=== PATIENT | male | born 1965 | race Native Hawaiian/Other Pacific Islander ===

== ENCOUNTER 2018-03-16 10:27 | Inpatient (IN) | payer MEDICARE, MEDICAID, SELFPAY ==
[2018-03-16] VITALS (11 sets, daily range): BP systolic 124–139; BP diastolic 74–101; PULSE 58–70; RESP 16–27; TEMP 36.3–36.9; O2SAT 78–96; BMI 30.4; BMI 30.9; BMI 31.0
--- NOTE | 2018-03-16 10:47 | EKG12_ITS ---
Test Reason : SOB Blood Pressure : / mmHG Vent. Rate : 069 BPM Atrial Rate : 069 BPM P-R Int : 150 ms QRS Dur : 098 ms QT Int : 442 ms P-R-T Axes : 079 071 115 degrees QTc Int : 473 ms Sinus rhythm with Premature supraventricular complexes T wave abnormality, consider anterolateral ischemia Abnormal ECG Confirmed by EDITH CARTWRIGHT, DOUG ([id number]), editor city ASTRID BASS ([id number]) on 03/18/2018 1:02:16 PM Referred By: JAMILA Confirmed By:DOUG SHARMA MD
[2018-03-16] MEDS: Ipratropium/Albuterol Sulfate 3 ML AMPUL.NEB INHALATION ×2 (10:52→18:51)
--- NOTE | 2018-03-16 10:53 | RAD_ITS ---
STUDY: X-RAY CHEST REASON FOR EXAM: Male, 53 years old. Cough, dyspnea and weakness. TECHNIQUE: Single AP portable view of the chest. COMPARISON: Comparison is made with prior study dated May 02, 2016. FINDINGS: EKG electrodes are seen. The lungs are clear and expanded. There is no demonstrated pleural abnormality. There is mild cardiac enlargement. Normal mediastinum and racquel. Normal visualized pulmonary arteries. There is atherosclerotic tortuosity of the aortic arch and descending thoracic aorta. Normal visualized thoracic spine. Normal visualized ribs, clavicles, and shoulders. There is no demonstrated abnormality of the visualized soft tissue structures of the upper abdomen. RAD/Chest 1 View (Portable) IMPRESSION: Mild cardiomegaly. No acute abnormality is seen. Electronically Signed: Augustus Ba MD at 11:25 EST Tel [phone], Service support ,
[2018-03-16] MEDS: MethylPREDNISolone 125 MG/2 ML Vial IV (10:54)
[2018-03-16 11:07] LABS: Absolute Lymphocyte Count 1.44 X10^3/ul (0.83-4.51); Absolute Neutrophil Count 6.6 X10^3/uL (2.0-7.7); Basophil# 0.04 X10^3/uL; Basophil% 0.4 % (0-1); Eosinophil# 0.05 X10^3/uL; Eosinophils% 0.6 % (0-5); Hematocrit 48.4 % (40-54); Hemoglobin 15.1 g/dl (13.0-16.5); Lymphocyte # 1.44 X10^3/ul (4.0); Lymphocyte % 16.1 % (19-41); Mean Corp Hgb Conc 31.2 g/gl (32-36); Mean Corpuscular Hgb 29.6 pg (27.0-32.0); Mean Corpuscular Volume 94.9 fL (80-94); Mean Platelet Vol. 10.1 fl (6.2-12.0); Monocyte# 0.79 X10^3/uL; Monocyte% 8.8 % (0-10); Neutrophil # 6.63 X10^3/uL (2.7-7.7); Platelet Count 200 K/mm3 (150-450); RBC Distribution Width CV 14.4 % (11.6-14.6); RBC Distribution Width SD 48.3 fl (35.1-43.9)
[2018-03-16 11:08] LABS: POSITIVE COUNT NO; POSITIVE DIFFERENTIAL NO; POSITIVE MORPHOLOGY NO
[2018-03-16 11:28] LABS: Anion Gap 4 (5-15); BUN 22 mg/dL (7-18); BUN/Creat Ratio 17.3 RATIO (10-20); Calcium,Total 8.2 mg/dL (8.5-10.1); Chloride 100 mmol/L (98-107); Creatinine, Serum 1.27 mg/dL (0.70-1.30); EST Glomerular Filtration Rate 64 mL/min (>60); Est Glom Filt Rate - Afr Amer 77 mL/min (>60); Estimated Creatinine Clearance 68.81 ml/min; Glucose 119 mg/dL (74-106); Potassium 3.8 mmol/L (3.5-5.1); Sodium Level 145 mmol/L (136-145)
[2018-03-16 11:33] LABS: BNP,B-Type NATRIURETIC PEPTIDE 767.9 pg/mL (0-100)
--- NOTE | 2018-03-16 11:50 | HP.PCM_ITS ---
Problem List (1) Diastolic CHF, acute on chronic Status: Acute (2) COPD with acute exacerbation Status: Acute (3) Dyspnea on exertion Status: Acute (4) Essential hypertension Status: Chronic (5) Chronic systolic (congestive) heart failure Status: Chronic (6) History of non-ST elevation myocardial infarction (NSTEMI) Status: Chronic (7) Paroxysmal atrial flutter Status: Chronic (8) Non-rheumatic mitral regurgitation Status: Chronic (9) Nonrheumatic tricuspid valve regurgitation Status: Chronic (10) Nonrheumatic pulmonary valve insufficiency Status: Chronic (11) Cardiomyopathy Status: Chronic Qualifiers: Cardiomyopathy type: other Qualified Code(s): I42.8 - Other cardiomyopathies Comment: resolved- was 20% (12) Pulmonary hypertension Status: Chronic (13) Coronary artery disease Status: Chronic Qualifiers: Coronary Disease-Associated Artery/Lesion type: [place] artery [place] vs. transplanted heart: [place] heart Associated angina: without angina Qualified Code(s): I25.10 - Atherosclerotic heart disease of [place] coronary artery without angina pectoris (14) History of PTCA Status: Chronic (15) Obstructive sleep apnea Status: Chronic (16) Obesity (BMI 30.0-34.9) Status: Chronic (17) Hyperlipidemia Status: Chronic Qualifiers: Hyperlipidemia type: pure hypercholesterolemia Qualified Code(s): E78.00 - Pure hypercholesterolemia, unspecified; E78.0 - Pure hypercholesterolemia (18) Paroxysmal atrial fibrillation Status: Chronic (19) Chronic anticoagulation Status: Chronic (20) Depression Status: Chronic (21) Smoking addiction Status: Chronic (22) COPD (chronic obstructive pulmonary disease) Status: Chronic Qualifiers: COPD type: unspecified COPD Qualified Code(s): J44.9 - Chronic obstructive pulmonary disease, unspecified (23) Abnormal EKG Status: Chronic (24) CO2 retention Status: Chronic (25) COPD exacerbation Status: Acute History of Present Illness Date of Admission: 03/16/18 Chief Complaint: Shortness of breath The patient is a 53 year old M with extensive past medical history including congestive heart failure, COPD who continues to smoke presented with shortness of breath. Patient states he is experienced progressive shortness of breath with minimal activity over the past couple of weeks. Also did notice a 20 pound weight gain over 1 month. He had apparently been seen by his primary senior product consultant a few days prior to his admission made medication adjustments were made however patient condition continues to deteriorate. He also did experience cough nonproductive as well as wheezing. He finally presented to the emergency department where an assessment of both congestive heart failure and CHF was made admitted to monitored bed for further management Past Medical History Past Medical History (Chronic Problems): Chronic Problems (Last Reviewed 03/16/18 @ 16:19 by Meng Burrell MD) Essential hypertension (Chronic) Chronic systolic (congestive) heart failure (Chronic) History of non-ST elevation myocardial infarction (NSTEMI) (Chronic) Paroxysmal atrial flutter (Chronic) Non-rheumatic mitral regurgitation (Chronic) Nonrheumatic tricuspid valve regurgitation (Chronic) Nonrheumatic pulmonary valve insufficiency (Chronic) Cardiomyopathy (Chronic) resolved- was 20% Pulmonary hypertension (Chronic) Coronary artery disease (Chronic) History of PTCA (Chronic) Obstructive sleep apnea (Chronic) Obesity (BMI 30.0-34.9) (Chronic) Hyperlipidemia (Chronic) Paroxysmal atrial fibrillation (Chronic) Chronic anticoagulation (Chronic) Depression (Chronic) Smoking addiction (Chronic) COPD (chronic obstructive pulmonary disease) (Chronic) Abnormal EKG (Chronic) CO2 retention (Chronic) Medical History: Medical History (Last Reviewed 03/16/18 @ 16:19 by Meng Burrell MD) Essential hypertension (Chronic) I10 Chronic systolic (congestive) heart failure (Chronic) I50.22 History of non-ST elevation myocardial infarction (NSTEMI) (Chronic) I25.2 Paroxysmal atrial flutter (Chronic) I48.92 Non-rheumatic mitral regurgitation (Chronic) I34.0 Nonrheumatic tricuspid valve regurgitation (Chronic) I36.1 Nonrheumatic pulmonary valve insufficiency (Chronic) I37.1 Cardiomyopathy (Chronic) I42.9 resolved- was 20% Pulmonary hypertension (Chronic) I27.20 Dyspnea on exertion (Acute) R06.09 Coronary artery disease (Chronic) I25.10 Obstructive sleep apnea (Chronic) G47.33 Hyperlipidemia (Chronic) E78.5 Paroxysmal atrial fibrillation (Chronic) I48.0 Chronic anticoagulation (Chronic) Z79.01 Depression (Chronic) F32.9 Smoking addiction (Chronic) F17.200 COPD (chronic obstructive pulmonary disease) (Chronic) J44.9 Abnormal EKG (Chronic) R94.31 CO2 retention (Chronic) E87.2 Acute respiratory distress R06.03 Acute systolic (congestive) heart failure I50.21 Cough R05 Hemochromatosis E83.119 Non-ST elevated myocardial infarction I21.4 rales, bibasilar Dilated cardiomyopathy I42.0 Lung nodule R91.1 Nonrheumatic mitral (valve) insufficiency I34.0 Nonrheumatic tricuspid (valve) insufficiency I36.1 Stage 4 very severe COPD by GOLD classification J44.9 nonrheumatic pulmonary valve regurgitation Hypertension (Inactive) I10 Uncontrolled hypertension (Inactive) I10 Allergies promethazine HCl [From Phenergan] Adverse Reaction (Verified 03/16/18 10:30) Unknown Home Medications: Ambulatory Orders Medication Instructions Recorded Losartan Potassium [Cozaar] 50 mg PO DAILY 09/28/15 Nitroglycerin [Nitrostat] 0.4 mg SUBLINGUAL Q5M PRN 09/28/15 Amlodipine [Norvasc] 5 mg PO DAILY 03/21/16 Bupropion HCl [Bupropion HCl Sr] 150 mg PO DAILY 12/01/16 Escitalopram Oxalate [Lexapro] 10 mg PO DAILY 12/01/16 Fexofenadine HCl 180 mg PO DAILY 12/01/16 Griseofulvin, Microsize 500 mg PO DAILY 12/01/16 [Griseofulvin] albuterol sulfate 2.5 mg/3 mL 2.5 mg INHALATION Q4H PRN 09/15/17 (0.083 %) solution for nebulization apixaban 5 mg tablet 5 mg PO BID #60 tab 09/16/17 amiodarone 200 mg tablet 200 mg PO DAILY #30 tab 10/03/17 albuterol sulfate HFA 90 1 - 2 puff INHALATION Q4H PRN #18 g 11/14/17 mcg/actuation aerosol inhaler potassium chloride ER 20 mEq 20 meq PO DAILY #90 tab 11/19/17 tablet,extended release(part/cryst) tiotropium bromide 2.5 2 puff INHALATION QDAY #4 g 02/24/18 mcg/actuation mist for inhalation isosorbide mononitrate ER 30 mg 30 mg PO DAILY #30 tab 03/04/18 tablet,extended release 24 hr atorvastatin 40 mg tablet 40 mg PO DAILY 30 Days #30 tab 03/12/18 carvedilol 6.25 mg tablet 6.25 mg PO BID 30 Days #60 tab 03/12/18 fluticasone 100 mcg-vilanterol 25 1 inh INHALATION DAILY 03/12/18 mcg/dose powder for inhalation furosemide 40 mg tablet 40 mg PO DAILY 30 Days #30 tab 03/12/18 hydralazine 100 mg tablet 100 mg PO TID 30 Days #90 tab 03/12/18 Surgical History: Surgical History (Last Reviewed 03/16/18 @ 16:19 by Meng Burrell MD) History of PTCA (Chronic) Z98.61 History of left heart catheterization (LHC) Z98.890 08/14/2015 at [facility] Psychiatric History: Depression Smoking Status: Current every day smoker - *Family History Maternal Family History: Family History (Last Reviewed 03/16/18 @ 16:19 by Meng Burrell MD) Mother CAD (coronary artery disease) Heart disease Diabetes Father Brain tumor History Items: Heart Disease Sibling Family History: Family History (Last Reviewed 03/16/18 @ 16:19 by Meng Burrell MD) Mother CAD (coronary artery disease) Heart disease Diabetes Father Brain tumor History Items: Heart Disease, - - his brother at the age of 62 with heart disease and stroke Review of Systems Constitutional: Reports: Malaise, Weakness, Weight Change. Denies: Anorexia, Chills, Fever, Night Sweats HEENT: Denies: Head Aches, Sinus Congestion, Sinus Drainage Cardiovascular: Reports: Orthopnea. Denies: Chest Pain, Palpitations Respiratory: Reports: Cough Gastrointestinal: Denies: Abdominal Pain, Hematemesis, Hematochezia, Nausea, Melena, Vomiting Genitourinary: Denies: Dysuria, Frequency, Hematuria, Urgency Musculoskeletal: Denies: Joint Pain, Joint Tenderness Skin: Denies: Rash Neurological: Denies: Focal weakness, Numbness, Tingling Psychiatric: Denies: Homicidal Ideations, Suicidal Ideations Hematologic/ Lymphatic: Denies: Easy Bruising, Easy Bleeding VTE Information - Inpt Only VTE Present on Admission: No VTE Mechan Device Prophylaxis: Knee High PAALK Hose VTE Pharm Prophylaxis ordered?: Yes Patient Problems: Active and Suspected Problems (Last Reviewed 03/16/18 @ 16:19 by Meng Burrell MD) Acute on chronic systolic (congestive) heart failure (Acute) COPD exacerbation (Acute) COPD with acute exacerbation (Acute) Diastolic CHF, acute on chronic (Acute) Objective: GENERAL: cooperative but dyspneic at rest HEENT: Atraumatic; moist oral mucosa EYES; Anicteric, Normal Conjunctiva NECK; supple, normal thyroid, no distended JVD. RESPIRATORY: Diminished to auscultation bilaterally, CARDIOVASCULAR: Regular S1 S2, systolic murmurs GI: soft, non-tender, normoactive bowel sounds, : No Renal angle tenderness; EXTREMITIES: edema, no clubbing, no cyanosis. MUSCULOSKELETAL: No Joint Tenderness; no muscle waisting NEURO: Awake; no lateralizing signs. SKIN: No Rash PSYCH; Normal affect - Physical Exam Vital Signs Temp Pulse Resp BP Pulse Ox 97.3 F L 63 18 124/86 H 96 03/16/18 10:28 03/16/18 10:57 03/16/18 10:57 03/16/18 10:41 03/16/18 10:41 Oxygen Flow Rate (L/min) 6 Oxygen Delivery Method Room Air Weight: 93.6 kg Body Mass Index (BMI) 30.4 Laboratory Tests Past 24 Hrs 03/16/18 03/16/18 03/16/18 10:50 10:50 10:50 WBC 9.0 RBC 5.10 Hgb 15.1 Hct 48.4 MCV 94.9 H MCH 29.6 MCHC 31.2 L RDW 14.4 RDW Differential 48.3 H Plt Count 200 MPV 10.1 Immature Gran % (Auto) 0.100 Neut % (Auto) 74.0 H Lymph % (Auto) 16.1 L [place] % (Auto) 8.8 Eos % (Auto) 0.6 Baso % (Auto) 0.4 Absolute Neuts (auto) 6.6 Absolute Lymphs (auto) 1.44 Total Counted Not Reportable Sodium 145 Potassium 3.8 Chloride 100 Carbon Dioxide 41.0 H Anion Gap 4 L BUN 22 H Creatinine 1.27 Estim Creat Clear Calc 68.81 Est GFR (MDRD) Af Amer 77 Est GFR (MDRD) Non-Af 64 BUN/Creatinine Ratio 17.3 Glucose 119 H Lactic Acid 1.0 Calcium 8.2 L Troponin I 0.021 B-Natriuretic Peptide 03/16/18 10:50 WBC RBC Hgb Hct MCV MCH MCHC RDW RDW Differential Plt Count MPV Immature Gran % (Auto) Neut % (Auto) Lymph % (Auto) [place] % (Auto) Eos % (Auto) Baso % (Auto) Absolute Neuts (auto) Absolute Lymphs (auto) Total Counted Sodium Potassium Chloride Carbon Dioxide Anion Gap BUN Creatinine Estim Creat Clear Calc Est GFR (MDRD) Af Amer Est GFR (MDRD) Non-Af BUN/Creatinine Ratio Glucose Lactic Acid Calcium Troponin I B-Natriuretic Peptide 767.9 H Assessment/Plan All Active Problems (Last Reviewed 03/16/18 @ 16:19 by Meng Burrell MD) Acute on chronic systolic (congestive) heart failure (Acute) COPD exacerbation (Acute) COPD with acute exacerbation (Acute) Diastolic CHF, acute on chronic (Acute) Dyspnea on exertion (Acute) Patient is a 53-year-old gentleman presented with progressive shortness of breath and assessment of both CHF as well as COPD exacerbation made admitted to a monitored bed for further management 1. Acute on chronic diastolic heart failure patient has been admitted to a monitored . As part of patient's treatment patient was placed on fluid restriction, strict input and output, daily weights. He was also placed on IV Lasix. A 2D echo obtained demonstrated EF of 50% 2. COPD with acute exacerbation managed with systemic steroid antibiotics aerosol treatment as well as bronchodilator therapy in addition to supplemental oxygen 3. Paroxysmal atrial fibrillation rate controlled 4. Coronary artery disease With previous non-STEMI but no intervention 5. Dyslipidemia-patient is on statin therapy, continued at home dose 6. Hypertension-blood pressure controlled, home medications continued with dose adjustment as needed 7. Tobacco dependence counseled on cessation, offered nicotine patch for tobacco cravings 8. DVT prophylaxis on systemic anticoagulation with Eliquis 9. Obstructive sleep apnea 10. Morbid obesity with BMI of 31.0 lifestyle medication including weight loss advised Clinical Impression(s) from Imaging Studies Chest X-Ray 03/16/18 10:53 IMPRESSION: Mild cardiomegaly. No acute abnormality is seen. Electronically Signed: Augustus Ba MD at 11:25 EST Tel [phone], Service support , Code Visit Inpatient E&M: [id number] Init Hosp L3
--- NOTE | 2018-03-16 11:54 | ED.VISSUMM ---
- ER Visit Summary Date of Service: 03/16/18 Chief Complaint: [Shortness of breath] History of Present Illness: The patient is a 53 M [presents the emergency department complaint of shortness of breath that started 3 or 4 days ago. Patient's had a cough is mostly nonproductive. He denies any chest pain. Patient does not wear home O2 but he does have CPAP at night for his sleep apnea but he has not been wearing it because it is not been fitting properly. Patient states that he is gained about 14 pounds in the last 4 months or so. Patient apparently had run out of his diuretics at some point but saw his commodity specialist on the first of this month and had refills of his medication so he started those up again. Patient's not had any fever. He denies any chest pain.] Physical Examination: [HEENT-PERRLA, EOMI. Cranial nerves II through XII grossly intact. TMs clear. Mucous membranes moist. No adenopathy. Cardiovascular-regular rate and rhythm without murmur or ectopy Lungs-breath sounds bilaterally. Patient does have some X Tory wheezes and tachypnea. There is no excessive emesis or retractions. Patient got some coarse rhonchi bilaterally and some faint rales in the bases. Abdomen-normoactive bowel sounds, soft, nontender, no rebound or rigidity, no peritoneal signs. Extremities-intact ?4, normal range of motion, normal pulses, atraumatic. No edema of the lower extremity is noted.] Test Results: [EKG obtained arrival shows sinus rhythm with a ventricular rate 69 bpm with some nonspecific ST changes. CBC with differential showed a white count of 9.0, hemoglobin 15, hematocrit 48, platelets 200. Chemistries unremarkable. Troponin is 0.021. BNP was elevated 767. Chest x-ray showed some mild cardiomegaly otherwise nothing acute.] Emergency Department Course and Treatment: [Patient was given DuoNeb aerosols and was placed on nasal cannula O2. Patient was started on Solu-Medrol 125 mill grams IV. Patient was given Lasix 40 mill grams IV.] Treatment Plan: [Patient will be admitted] Disposition: [Admit] Impression: [Hypoxemia COPD exacerbation CHF] This note was generated with [employer] dictation software. It may contain incorrect words, spelling, and punctuation that were not noted in review of the chart prior to signing ED Disposition - Plan for ED Patient: Chief Complaint: Cough Referrals: Rohit Peralta Chi, MD [Primary Care Provider] -
--- NOTE | 2018-03-16 11:57 | ED.DCSUM_ITS ---
- ER Visit Summary Date of Service: 03/16/18 Chief Complaint: [Shortness of breath] History of Present Illness: The patient is a 53 M [presents the emergency department complaint of shortness of breath that started 3 or 4 days ago. Patient's had a cough is mostly nonproductive. He denies any chest pain. Patient does not wear home O2 but he does have CPAP at night for his sleep apnea but he has not been wearing it because it is not been fitting properly. Patient states that he is gained about 14 pounds in the last 4 months or so. Patient apparently had run out of his diuretics at some point but saw his chinchilla machine operator on the first of this month and had refills of his medication so he started those up again. Patient's not had any fever. He denies any chest pain.] Physical Examination: [HEENT-PERRLA, EOMI. Cranial nerves II through XII grossly intact. TMs clear. Mucous membranes moist. No adenopathy. Cardiovascular-regular rate and rhythm without murmur or ectopy Lungs-breath sounds bilaterally. Patient does have some X Tory wheezes and tachypnea. There is no excessive emesis or retractions. Patient got some coarse rhonchi bilaterally and some faint rales in the bases. Abdomen-normoactive bowel sounds, soft, nontender, no rebound or rigidity, no peritoneal signs. Extremities-intact ?4, normal range of motion, normal pulses, atraumatic. No edema of the lower extremity is noted.] Test Results: [EKG obtained arrival shows sinus rhythm with a ventricular rate 69 bpm with some nonspecific ST changes. CBC with differential showed a white count of 9.0, hemoglobin 15, hematocrit 48, platelets 200. Chemistries unremarkable. Troponin is 0.021. BNP was elevated 767. Chest x-ray showed some mild cardiomegaly otherwise nothing acute.] Emergency Department Course and Treatment: [Patient was given DuoNeb aerosols and was placed on nasal cannula O2. Patient was started on Solu-Medrol 125 mill grams IV. Patient was given Lasix 40 mill grams IV.] Treatment Plan: [Patient will be admitted] Disposition: [Admit] Impression: [Hypoxemia COPD exacerbation CHF] This note was generated with [employer] dictation software. It may contain incorrect words, spelling, and punctuation that were not noted in review of the chart prior to signing ED Disposition - Plan for ED Patient: Chief Complaint: Cough Referrals: Rohit Peralta Chi, MD [Primary Care Provider] -
[2018-03-16] MEDS: Furosemide 40 MG/4 ML Vial IV ×3 (12:30→22:45)
--- NOTE | 2018-03-16 12:58 | ECHOD_ITS ---
Reason For Study: CHF Procedure This was a 2D Doppler, Color Flow transthoracic echocardiogram. Exam performed portable in patient room. Left Ventricle Normal LV size. Left ventricular systolic function is lower limits of normal. The estimated ejection fraction is 50 %. Stage 1 diastolic dysfunction. No regional wall motion abnormalities noted. Right Ventricle Normal RV size. Normal systolic function. Atria Normal left atrium. Normal right atrium. Mitral Valve Normal mitral valve. Mild (1+) eccentric mitral valve insufficiency. Tricuspid Valve Normal tricuspid valve. Mild (1+) tricuspid valve insufficiency. Pulmonary artery systolic pressure is 35 mmHg. Aortic Valve Normal aortic valve. Trisinus/trileaflet aortic valve. Pulmonic Valve Normal pulmonic valve. Great Vessels Normal aortic root. The pulmonary artery is normal size. Normal inferior vena cava. Pericardium/Pleural No pericardial effusion. MMode/2D Measurements & Calculations LVIDd: 5.3 cm IVSd: 1.3 cm Ao root diam: 3.7 cm LVIDs: 4.0 cm LVPWd: 1.4 cm LA dimension: 4.4 cm RVDd: 4.4 cm FS: 23.6 % LAV(MOD-bp): 73.0 ml LVAd ap4: 43.2 cm2 SV(MOD-sp4): 76.9 ml LAV(MOD-bp) Indexed: 34.6 ml/m2 EDV(MOD-sp4): 162.2 ml LAV(MOD-sp2): 88.6 ml EDV(sp4-el): 175.2 ml LAV(MOD-sp4): 53.2 ml LVAs ap4: 28.2 cm2 ESV(MOD-sp4): 85.3 ml ESV(sp4-el): 89.6 ml EF(MOD-sp4): 47.4 % EF(sp4-el): 48.9 % SV(sp4-el): 85.6 ml LA A4 area: 20.0 cm2 RA A4 area: 18.4 cm2 Time Measurements MV dec time: 0.19 sec Doppler Measurements & Calculations MV E max roberto: 68.4 cm/sec Lat Peak E' Roberto: 7.8 cm/sec Med Peak E' Roberto: 4.6 cm/sec MV A max roberto: 81.3 cm/sec E/E' lat: 8.8 E/E' med: 14.9 MV E/A: 0.84 MV V2 max: 97.3 cm/sec MV P1/2t max roberto: 88.6 cm/sec Ao V2 max: 120.0 cm/sec MV max P.8 mmHg MV P1/2t: 75.3 msec Ao max P.8 mmHg MV V2 mean: 52.5 cm/sec MV dec slope: 344.8 cm/sec2 Ao V2 mean: 83.5 cm/sec MV mean P.3 mmHg MVA(P1/2t): 2.9 cm2 Ao mean P.1 mmHg MV V2 VTI: 26.5 cm Ao V2 VTI: 24.9 cm LV V1 max: 114.1 cm/sec MR max roberto: 369.5 cm/sec PA V2 max: 96.3 cm/sec LV V1 max P.2 mmHg MR max P.6 mmHg LV V1 mean P.4 mmHg LV V1 mean: 69.7 cm/sec LV V1 VTI: 23.0 cm TR max roberto: 280.6 cm/sec TR max P.5 mmHg Interpretation Summary Normal LV size. Left ventricular systolic function is lower limits of normal. The estimated ejection fraction is 50 %. Stage 1 diastolic dysfunction. Compared to previous study, the left ventricular systolic function has worsened.. Ordering Physician: Meng Burrell Referring Physician: Rohit Peralta Chi Performed By: Bill Whaley RCS
[2018-03-16 13:41] LABS: Magnesium 2.1 mg/dL (1.6-2.6); Thyroid Stim Hormone (TSH) 2.01 uIU/mL (0.358-3.74)
[2018-03-16] MEDS: 0.9% NaCl Peripheral Flush Adult/Peds IV ×3 (16:30→22:46)
[2018-03-16] MEDS: Acetaminophen 325 MG Tablet 650 MG PO (16:31)
[2018-03-16] MEDS: guaiFENesin 1,200 MG Tablet 1200 MG PO (22:45)
[2018-03-17] VITALS (13 sets, daily range): BP systolic 126–163; BP diastolic 56–93; PULSE 61–88; RESP 16–24; TEMP 36.8–36.9; O2SAT 83–97
[2018-03-17] MEDS: Albuterol 2.5 MG/3 ML VIAL.NEB. INHALATION (00:43)
[2018-03-17] MEDS: Furosemide 40 MG/4 ML Vial IV ×3 (06:18→21:07)
[2018-03-17 06:40] LABS: Anion Gap 6 (5-15); BUN 24 mg/dL (7-18); BUN/Creat Ratio 20.9 RATIO (10-20); Calcium,Total 8.3 mg/dL (8.5-10.1); Chloride 97 mmol/L (98-107); Creatinine, Serum 1.15 mg/dL (0.70-1.30); EST Glomerular Filtration Rate 71 mL/min (>60); Est Glom Filt Rate - Afr Amer 86 mL/min (>60); Estimated Creatinine Clearance 75.99 ml/min; Glucose 170 mg/dL (74-106); Sodium Level 144 mmol/L (136-145)
[2018-03-17] MEDS: Ipratropium/Albuterol Sulfate 3 ML AMPUL.NEB INHALATION ×4 (07:00→18:49)
[2018-03-17] MEDS: guaiFENesin 1,200 MG Tablet 1200 MG PO ×2 (10:17→21:07)
[2018-03-17] MEDS: Enoxaparin 40 MG/0.4 ML Syringe SC (10:19)
[2018-03-17] MEDS: 0.9% NaCl Peripheral Flush Adult/Peds IV ×3 (10:24→21:08)
--- NOTE | 2018-03-17 10:53 | CASEMGMT ---
ESPERANZA COCHRAN INITIAL ASSESSMENT D/C PLAN: Home Face to Face with patient for initial transition planning/care coordination assessment. ESPERANZA COCHRAN introduced self and role at [facility]. Care providers, pharmacy, and demographics verified. PCP: Fabian Specialists: Clinton Golden Preferred Pharmacy: [facility] Insurance: MCR A & B, CHARLES. Prescription Benefit: [employer], CHARLES. does not have difficulty getting/paying for his prescriptions. Living Will/HPOA: Does not have either LW or HPOA. Would like to talk with [facility] re: adv directive. Referral made to [facility] [place]. LNOK: Is not and states has no children. States his girlfriend, Abigail, is his only support person. Living Arrangements: Lives with his girlfriend, Abigail, and her brother. Lives in a on-story apartment. 1 step to enter home. Transportation: Pt states he does not drive. States his Girlfriend, Abigail, provides transportation and that he gets a ride with a friend to work. DME: States uses CPAP @ HS w/O2 bleed-in @ 5 L/M and gets through [facility] and that he states they told him he needs new sleep study. Pt voices that he has been unable to do this d/t his job has been requiring mandatory over-time. Call placed to Gissel @ [facility]. Gissel confirms they provide O2 for CPAP bleed-in and orders are for 4 L/M. Gissel confirms that pt does need a new sleep study d/t pt has MCR now and that if he does not have new sleep study done, they will be unable to bill through Medicare and that they will need to begin billing pt directly. Pt advised to follow up with his PCP to get work-release so he can have sleep study completed. *Pt does not wear O2 @ home during the day. Will need walking home O2 test completed within 24 hr of discharge. HHC: States does not feel needs HHC upon return home. Pt wishes to return home with support of his girlfriend. States he still smokes but that he's working on that. States, I've cut back a lot. Declines offer of smoking cessation information/program. States he does not drink alcohol. CM to follow for any further discharge planning needs that may arise. Qing GUSTAFSON RN, CM
--- NOTE | 2018-03-17 11:07 | PCM.PN.HOSP ---
Patient Problems: Active and Suspected Problems (Last Reviewed 03/16/18 @ 16:19 by Meng Burrell MD) Acute on chronic systolic (congestive) heart failure (Acute) COPD exacerbation (Acute) COPD with acute exacerbation (Acute) Diastolic CHF, acute on chronic (Acute) Subjective: Patient is a 53-year-old gentleman presented with progressive shortness of breath and assessment of both CHF as well as COPD exacerbation made admitted to a monitored bed for further management Since seen still remains significantly dyspneic at rest Objective: GENERAL: cooperative but dyspneic at rest HEENT: Atraumatic; moist oral mucosa EYES; Anicteric, Normal Conjunctiva NECK; supple, normal thyroid, no distended JVD. RESPIRATORY: Diminished to auscultation bilaterally, CARDIOVASCULAR: Regular S1 S2, systolic murmurs GI: soft, non-tender, normoactive bowel sounds, : No Renal angle tenderness; EXTREMITIES: edema, no clubbing, no cyanosis. MUSCULOSKELETAL: No Joint Tenderness; no muscle waisting NEURO: Awake; no lateralizing signs. SKIN: No Rash PSYCH; Normal affect Vitals/I&O's: Vital Signs Temp Pulse Resp BP Pulse Ox 98.2 F 82 24 H 151/93 H 92 03/17/18 08:11 03/17/18 10:51 03/17/18 10:51 03/17/18 08:11 03/17/18 10:51 Oxygen Flow Rate (L/min) 3 Oxygen Delivery Method Nasal Cannula Weight: 94.7 kg Body Mass Index (BMI) 30.9 Intake and Output for Last 24 Hours 03/15/18 03/16/18 03/17/18 23:59 23:59 23:59 Intake Total 754 / 754 600 / 600 Output Total 1675 / 1675 1650 / 1650 Balance -921 / -921 -1050 / -1050 Microbiology Past 72 Hours 03/16/18 15:45 Mucosa - Nasopharyngeal Influenza Types A,B Direct FA ([facility]) - Final Laboratory Results 03/16/18 10:50: WBC 9.0, RBC 5.10, Hgb 15.1, Hct 48.4, MCV 94.9 H, MCH 29.6, MCHC 31.2 L, RDW 14.4, RDW Differential 48.3 H, Plt Count 200, MPV 10.1, Immature Gran % (Auto) 0.100, Neut % (Auto) 74.0 H, Lymph % (Auto) 16.1 L, [place] % (Auto) 8.8, Eos % (Auto) 0.6, Baso % (Auto) 0.4, Absolute Neuts (auto) 6.6, Absolute Lymphs (auto) 1.44, Total Counted Not Reportable 03/16/18 10:50: Sodium 145, Potassium 3.8, Chloride 100, Carbon Dioxide 41.0 H, Anion Gap 4 L, BUN 22 H, Creatinine 1.27, Estim Creat Clear Calc 68.81, Est GFR (MDRD) Af Amer 77, Est GFR (MDRD) Non-Af 64, BUN/Creatinine Ratio 17.3, Glucose 119 H, Calcium 8.2 L, Troponin I 0.021 03/16/18 10:50: Lactic Acid 1.0 03/16/18 10:50: B-Natriuretic Peptide 767.9 H 03/16/18 10:50: Magnesium 2.1, TSH 2.01 03/16/18 13:38: Troponin I < 0.015 03/16/18 17:20: Troponin I < 0.015 03/17/18 05:40: Sodium 144, Potassium 4.0, Chloride 97 L, Carbon Dioxide 41.0 H, Anion Gap 6, BUN 24 H, Creatinine 1.15, Estim Creat Clear Calc 75.99, Est GFR (MDRD) Af Amer 86, Est GFR (MDRD) Non-Af 71, BUN/Creatinine Ratio 20.9 H, Glucose 170 H, Calcium 8.3 L Current Medications Acetaminophen (Tylenol) 650 mg PO Q6H PRN PRN PRN Reason: Mild Pain (scale 0-3)/T>100.7 Last Admin: 03/16/18 16:31 Dose: 650 mg Al Hydroxide/Mg Hydroxide (Mylanta Ii) 30 ml PO Q6H PRN PRN PRN Reason: Gastric Burning Albuterol Sulfate (Ventolin Aerosols) 2.5 mg INHALATION Q2H PRN PRN PRN Reason: SHORTNESS OF BREATH Last Admin: 03/17/18 00:43 Dose: 2.5 mg Albuterol/Ipratropium (Duoneb) 3 ml INHALATION Q4H.RT [facility] Last Admin: 03/17/18 10:51 Dose: 3 ml Amiodarone HCl (Cordarone) 200 mg PO DAILY [facility] Amlodipine Besylate (Norvasc) 5 mg PO DAILY [facility] Apixaban (Eliquis) 5 mg PO BID [facility] Atorvastatin Calcium (Lipitor) 80 mg PO QHS [facility] Azithromycin (Zithromax) 500 mg PO DAILY [facility] Stop: 03/19/18 10:01 Bisacodyl (Dulcolax) 10 mg PO DAILY PRN PRN PRN Reason: Constipation Bupropion HCl (Wellbutrin Sr (150mg Tablets)) 150 mg PO DAILY [facility] Carvedilol (Coreg) 12.5 mg PO DAILY [facility] Docusate Sodium (Colace) 200 mg PO BID PRN PRN PRN Reason: Constipation Furosemide (Lasix) 40 mg IV Q8 [facility] Last Admin: 03/17/18 06:18 Dose: 40 mg Guaifenesin (Mucinex) 1,200 mg PO BID [facility] Last Admin: 03/17/18 10:17 Dose: 1,200 mg Isosorbide Mononitrate (Imdur) 30 mg PO DAILY [facility] Losartan Potassium (Cozaar) 50 mg PO DAILY [facility] Magnesium Hydroxide (Milk Of Magnesia) 30 ml PO DAILY PRN PRN Reason: Constipation Methylprednisolone (Solu-Medrol) 40 mg IV Q8 [facility] Stop: 03/17/18 14:01 Last Admin: 03/17/18 06:18 Dose: 40 mg Nicotine (Nicoderm Cq (Pbkc)) 21 mg TRANSDERM. DAILY [facility] Last Admin: 03/17/18 10:17 Dose: 21 mg Oxycodone HCl (Oxyir) 5 mg PO Q4H PRN PRN PRN Reason: Moderate Pain (pain scale 4-5) Potassium Chloride (K-Dur) 20 meq PO DAILY [facility] Prednisone () 40 mg PO DAILY@0800 [facility] Sodium Chloride () 5 - 30 ml IV UD PRN PRN Reason: SALINE FLUSH Last Admin: 03/17/18 10:24 Dose: 10 ml Zolpidem Tartrate (Ambien (Generic)) 5 mg PO QHS PRN PRN PRN Reason: INSOMNIA Medical Necessity - Tobacco Use Smoking Status: Current every day smoker Assessment/Plan All Active Problems (Last Reviewed 03/16/18 @ 16:19 by Meng Burrell MD) Acute on chronic systolic (congestive) heart failure (Acute) COPD exacerbation (Acute) COPD with acute exacerbation (Acute) Diastolic CHF, acute on chronic (Acute) Dyspnea on exertion (Acute) Patient is a 53-year-old gentleman presented with progressive shortness of breath and assessment of both CHF as well as COPD exacerbation made admitted to a monitored bed for further management 1. Acute on chronic diastolic heart failure patient has been admitted to a monitored . As part of patient's treatment patient was placed on fluid restriction, strict input and output, daily weights. He was also placed on IV Lasix. A 2D echo obtained demonstrated EF of 50% patient is an only 1 L of negative fluid balance since admission 2. COPD with acute exacerbation managed with systemic steroid antibiotics aerosol treatment as well as bronchodilator therapy in addition to supplemental oxygen. Plan is to assess patient for home oxygen needs with a 6-minute walk prior to his discharge 3. Paroxysmal atrial fibrillation rate controlled 4. Coronary artery disease With previous non-STEMI but no intervention 5. Dyslipidemia-patient is on statin therapy, continued at home dose 6. Hypertension-blood pressure controlled, home medications continued with dose adjustment as needed 7. Tobacco dependence counseled on cessation, offered nicotine patch for tobacco cravings 8. DVT prophylaxis on systemic anticoagulation with Eliquis 9. Obstructive sleep apnea 10. Morbid obesity with BMI of 31.0 lifestyle medication including weight loss advised Code Visit Inpatient E&M: 70572 Subs Hosp L3
--- NOTE | 2018-03-17 11:10 | PN_ITS ---
Patient Problems: Active and Suspected Problems (Last Reviewed 03/16/18 @ 16:19 by Meng Burrell MD) Acute on chronic systolic (congestive) heart failure (Acute) COPD exacerbation (Acute) COPD with acute exacerbation (Acute) Diastolic CHF, acute on chronic (Acute) Subjective: Patient is a 53-year-old gentleman presented with progressive shortness of breath and assessment of both CHF as well as COPD exacerbation made admitted to a monitored bed for further management Since seen still remains significantly dyspneic at rest Objective: GENERAL: cooperative but dyspneic at rest HEENT: Atraumatic; moist oral mucosa EYES; Anicteric, Normal Conjunctiva NECK; supple, normal thyroid, no distended JVD. RESPIRATORY: Diminished to auscultation bilaterally, CARDIOVASCULAR: Regular S1 S2, systolic murmurs GI: soft, non-tender, normoactive bowel sounds, : No Renal angle tenderness; EXTREMITIES: edema, no clubbing, no cyanosis. MUSCULOSKELETAL: No Joint Tenderness; no muscle waisting NEURO: Awake; no lateralizing signs. SKIN: No Rash PSYCH; Normal affect Vitals/I&O's: Vital Signs Temp Pulse Resp BP Pulse Ox 98.2 F 82 24 H 151/93 H 92 03/17/18 08:11 03/17/18 10:51 03/17/18 10:51 03/17/18 08:11 03/17/18 10:51 Oxygen Flow Rate (L/min) 3 Oxygen Delivery Method Nasal Cannula Weight: 94.7 kg Body Mass Index (BMI) 30.9 Intake and Output for Last 24 Hours 03/15/18 03/16/18 03/17/18 23:59 23:59 23:59 Intake Total 754 / 754 600 / 600 Output Total 1675 / 1675 1650 / 1650 Balance -921 / -921 -1050 / -1050 Microbiology Past 72 Hours 03/16/18 15:45 Mucosa - Nasopharyngeal Influenza Types A,B Direct FA ([facility]) - Final Laboratory Results 03/16/18 10:50: WBC 9.0, RBC 5.10, Hgb 15.1, Hct 48.4, MCV 94.9 H, MCH 29.6, M CHC 31.2 L, RDW 14.4, RDW Differential 48.3 H, Plt Count 200, MPV 10.1, Immature Gran % (Auto) 0.100, Neut % (Auto) 74.0 H, Lymph % (Auto) 16.1 L, [place] % (Auto) 8.8, Eos % (Auto) 0.6, Baso % (Auto) 0.4, Absolute Neuts (auto) 6.6, Absolute Lymphs (auto) 1.44, Total Counted Not Reportable 03/16/18 10:50: Sodium 145, Potassium 3.8, Chloride 100, Carbon Dioxide 41.0 H, Anion Gap 4 L, BUN 22 H, Creatinine 1.27, Estim Creat Clear Calc 68.81, Est GFR (MDRD) Af Amer 77, Est GFR (MDRD) Non-Af 64, BUN/Creatinine Ratio 17.3, Glucose 119 H, Calcium 8.2 L, Troponin I 0.021 03/16/18 10:50: Lactic Acid 1.0 03/16/18 10:50: B-Natriuretic Peptide 767.9 H 03/16/18 10:50: Magnesium 2.1, TSH 2.01 03/16/18 13:38: Troponin I < 0.015 03/16/18 17:20: Troponin I < 0.015 03/17/18 05:40: Sodium 144, Potassium 4.0, Chloride 97 L, Carbon Dioxide 41.0 H, Anion Gap 6, BUN 24 H, Creatinine 1.15, Estim Creat Clear Calc 75.99, Est GFR (MDRD) Af Amer 86, Est GFR (MDRD) Non-Af 71, BUN/Creatinine Ratio 20.9 H, Glucose 170 H, Calcium 8.3 L Current Medications Acetaminophen (Tylenol) 650 mg PO Q6H PRN PRN PRN Reason: Mild Pain (scale 0-3)/T>100.7 Last Admin: 03/16/18 16:31 Dose: 650 mg Al Hydroxide/Mg Hydroxide (Mylanta Ii) 30 ml PO Q6H PRN PRN PRN Reason: Gastric Burning Albuterol Sulfate (Ventolin Aerosols) 2.5 mg INHALATION Q2H PRN PRN PRN Reason: SHORTNESS OF BREATH Last Admin: 03/17/18 00:43 Dose: 2.5 mg Albuterol/Ipratropium (Duoneb) 3 ml INHALATION Q4H.RT [facility] Last Admin: 03/17/18 10:51 Dose: 3 ml Amiodarone HCl (Cordarone) 200 mg PO DAILY [facility] Amlodipine Besylate (Norvasc) 5 mg PO DAILY [facility] Apixaban (Eliquis) 5 mg PO BID [facility] Atorvastatin Calcium (Lipitor) 80 mg PO QHS [facility] Azithromycin (Zithromax) 500 mg PO DAILY [facility] Stop: 03/19/18 10:01 Bisacodyl (Dulcolax) 10 mg PO DAILY PRN PRN PRN Reason: Constipation Bupropion HCl (Wellbutrin Sr (150mg Tablets)) 150 mg PO DAILY [facility] Carvedilol (Coreg) 12.5 mg PO DAILY [facility] Docusate Sodium (Colace) 200 mg PO BID PRN PRN PRN Reason: Constipation Furosemide (Lasix) 40 mg IV Q8 [facility] Last Admin: 03/17/18 06:18 Dose: 40 mg Guaifenesin (Mucinex) 1,200 mg PO BID [facility] Last Admin: 03/17/18 10:17 Dose: 1,200 mg Isosorbide Mononitrate (Imdur) 30 mg PO DAILY [facility] Losartan Potassium (Cozaar) 50 mg PO DAILY [facility] Magnesium Hydroxide (Milk Of Magnesia) 30 ml PO DAILY PRN PRN Reason: Constipation Methylprednisolone (Solu-Medrol) 40 mg IV Q8 [facility] Stop: 03/17/18 14:01 Last Admin: 03/17/18 06:18 Dose: 40 mg Nicotine (Nicoderm Cq (Pbkc)) 21 mg TRANSDERM. DAILY [facility] Last Admin: 03/17/18 10:17 Dose: 21 mg Oxycodone HCl (Oxyir) 5 mg PO Q4H PRN PRN PRN Reason: Moderate Pain (pain scale 4-5) Potassium Chloride (K-Dur) 20 meq PO DAILY [facility] Prednisone () 40 mg PO DAILY@0800 [facility] Sodium Chloride () 5 - 30 ml IV UD PRN PRN Reason: SALINE FLUSH Last Admin: 03/17/18 10:24 Dose: 10 ml Zolpidem Tartrate (Ambien (Generic)) 5 mg PO QHS PRN PRN PRN Reason: INSOMNIA Medical Necessity - Tobacco Use Smoking Status: Current every day smoker Assessment/Plan All Active Problems (Last Reviewed 03/16/18 @ 16:19 by Meng Burrell MD) Acute on chronic systolic (congestive) heart failure (Acute) COPD exacerbation (Acute) COPD with acute exacerbation (Acute) Diastolic CHF, acute on chronic (Acute) Dyspnea on exertion (Acute) Patient is a 53-year-old gentleman presented with progressive shortness of breath and assessment of both CHF as well as COPD exacerbation made admitted to a monitored bed for further management 1. Acute on chronic diastolic heart failure patient has been admitted to a monitored . As part of patient's treatment patient was placed on fluid restriction, strict input and output, daily weights. He was also placed on IV Lasix. A 2D echo obtained demonstrated EF of 50% patient is an only 1 L of negative fluid balance since admission 2. COPD with acute exacerbation managed with systemic steroid antibiotics aerosol treatment as well as bronchodilator therapy in addition to supplemental oxygen. Plan is to assess patient for home oxygen needs with a 6-minute walk prior to his discharge 3. Paroxysmal atrial fibrillation rate controlled 4. Coronary artery disease With previous non-STEMI but no intervention 5. Dyslipidemia-patient is on statin therapy, continued at home dose 6. Hypertension-blood pressure controlled, home medications continued with dose adjustment as needed 7. Tobacco dependence counseled on cessation, offered nicotine patch for tobacco cravings 8. DVT prophylaxis on systemic anticoagulation with Eliquis 9. Obstructive sleep apnea 10. Morbid obesity with BMI of 31.0 lifestyle medication including weight loss advised Code Visit Inpatient E&M: 22334 Subs Hosp L3
--- NOTE | 2018-03-17 13:37 | CASEMGMT ---
Social Work Note Pt's significant other had requested information on advanced directives. Introduced self and role at [facility]. Educated to HCPOA and Living Will. Informed that SW can assist in completion during hospital stay or can schedule an appointment once discharged and complete them at a later date. Pt and significant other would like to review this evening and know to contact SW if they needs assistance. Deny further questions or needs at this time and made aware that SW is available. Winsome Geiger, REPAIRER GENERAL, ALAN
[2018-03-17] MEDS: APIXABAN 5 MG TABLET PO (21:14)
[2018-03-17] MEDS: Atorvastatin Calcium 80 MG Tablet PO (21:14)
[2018-03-18] VITALS (21 sets, daily range): BP systolic 123–178; BP diastolic 70–98; PULSE 59–86; RESP 16–20; TEMP 36.4–36.9; O2SAT 91–98
[2018-03-18] MEDS: Albuterol 2.5 MG/3 ML VIAL.NEB. INHALATION (04:46)
[2018-03-18 06:10] LABS: Anion Gap 4 (5-15); BUN 25 mg/dL (7-18); BUN/Creat Ratio 23.8 RATIO (10-20); Calcium,Total 8.4 mg/dL (8.5-10.1); Chloride 95 mmol/L (98-107); Creatinine, Serum 1.05 mg/dL (0.70-1.30); EST Glomerular Filtration Rate 79 mL/min (>60); Est Glom Filt Rate - Afr Amer 96 mL/min (>60); Estimated Creatinine Clearance 83.23 ml/min; Glucose 124 mg/dL (74-106); Potassium 3.8 mmol/L (3.5-5.1); Sodium Level 144 mmol/L (136-145)
[2018-03-18] MEDS: Furosemide 40 MG/4 ML Vial IV ×3 (06:18→21:21)
[2018-03-18] MEDS: Ipratropium/Albuterol Sulfate 3 ML AMPUL.NEB INHALATION ×5 (07:00→23:30)
[2018-03-18] MEDS: Acetaminophen 325 MG Tablet 650 MG PO (08:16)
[2018-03-18] MEDS: predniSONE 20 MG Tablet 40 MG PO (08:16)
[2018-03-18] MEDS: Losartan Potassium 50 MG Tablet PO (08:18)
[2018-03-18] MEDS: Carvedilol 12.5 MG Tablet PO (08:19)
[2018-03-18] MEDS: Amiodarone 200 MG Tablet PO (08:19)
[2018-03-18] MEDS: Isosorbide Mononitrate 30 MG Tablet PO (08:19)
[2018-03-18] MEDS: guaiFENesin 1,200 MG Tablet 1200 MG PO ×2 (09:59→21:20)
[2018-03-18] MEDS: amLODIPine 5 MG Tablet PO (09:59)
[2018-03-18] MEDS: Azithromycin 250 MG Tablet 500 MG PO (09:59)
[2018-03-18] MEDS: APIXABAN 5 MG TABLET PO ×2 (10:00→21:20)
--- NOTE | 2018-03-18 11:29 | PCM.PN.HOSP ---
Patient Problems: Active and Suspected Problems (Last Reviewed 03/16/18 @ 16:19 by Meng Burrell MD) Acute on chronic systolic (congestive) heart failure (Acute) COPD exacerbation (Acute) COPD with acute exacerbation (Acute) Diastolic CHF, acute on chronic (Acute) Subjective: Patient seen still remains significantly dyspneic at rest requiring at least 3 L of oxygen. Did request for d-dimer and if elevated will proceed to obtain CTA of the chest Objective: GENERAL: cooperative but dyspneic at rest HEENT: Atraumatic; moist oral mucosa EYES; Anicteric, Normal Conjunctiva NECK; supple, normal thyroid, no distended JVD. RESPIRATORY: Diminished to auscultation bilaterally, CARDIOVASCULAR: Regular S1 S2, systolic murmurs GI: soft, non-tender, normoactive bowel sounds, : No Renal angle tenderness; EXTREMITIES: edema, no clubbing, no cyanosis. MUSCULOSKELETAL: No Joint Tenderness; no muscle waisting NEURO: Awake; no lateralizing signs. SKIN: No Rash PSYCH; Normal affect Vitals/I&O's: Vital Signs Temp Pulse Resp BP Pulse Ox 98.5 F 60 20 H 123/70 H 95 03/18/18 10:12 03/18/18 11:04 03/18/18 10:12 03/18/18 10:12 03/18/18 10:12 Oxygen Flow Rate (L/min) 2 Oxygen Delivery Method Nasal Cannula Weight: 95.8 kg Body Mass Index (BMI) 30.9 Intake and Output for Last 24 Hours 03/16/18 03/17/18 03/18/18 23:59 23:59 23:59 Intake Total 754 / 754 2639.9 / 2639.9 120 / 120 Output Total 1675 / 1675 4600 / 4600 375 / 375 Balance -921 / -921 -1960.1 / -1960.1 -255 / -255 Microbiology Past 72 Hours 03/16/18 16:32 Sputum, Expectorated/Coughed Gram Stain - Final 03/16/18 16:32 Sputum, Expectorated/Coughed Respiratory Culture - Preliminary GNR Possible Haemophilus sp. 03/16/18 15:45 Mucosa - Nasopharyngeal Influenza Types A,B Direct FA ([facility]) - Final Laboratory Results 03/18/18 05:20: Sodium 144, Potassium 3.8, Chloride 95 L, Carbon Dioxide 45.0 H, Anion Gap 4 L, BUN 25 H, Creatinine 1.05, Estim Creat Clear Calc 83.23, Est GFR (MDRD) Af Amer 96, Est GFR (MDRD) Non-Af 79, BUN/Creatinine Ratio 23.8 H, Glucose 124 H, Calcium 8.4 L Current Medications Acetaminophen (Tylenol) 650 mg PO Q6H PRN PRN PRN Reason: Mild Pain (scale 0-3)/T>100.7 Last Admin: 03/18/18 08:16 Dose: 650 mg Al Hydroxide/Mg Hydroxide (Mylanta Ii) 30 ml PO Q6H PRN PRN PRN Reason: Gastric Burning Albuterol Sulfate (Ventolin Aerosols) 2.5 mg INHALATION Q2H PRN PRN PRN Reason: SHORTNESS OF BREATH Last Admin: 03/18/18 04:46 Dose: 2.5 mg Albuterol/Ipratropium (Duoneb) 3 ml INHALATION Q4H.RT [facility] Last Admin: 03/18/18 11:12 Dose: 3 ml Amiodarone HCl (Cordarone) 200 mg PO DAILY [facility] Last Admin: 03/18/18 08:19 Dose: 200 mg Amlodipine Besylate (Norvasc) 5 mg PO DAILY [facility] Last Admin: 03/18/18 09:59 Dose: 5 mg Apixaban (Eliquis) 5 mg PO BID [facility] Last Admin: 03/18/18 10:00 Dose: 5 mg Atorvastatin Calcium (Lipitor) 80 mg PO QHS [facility] Last Admin: 03/17/18 21:14 Dose: 80 mg Azithromycin (Zithromax) 500 mg PO DAILY [facility] Stop: 03/19/18 10:01 Last Admin: 03/18/18 09:59 Dose: 500 mg Bisacodyl (Dulcolax) 10 mg PO DAILY PRN PRN PRN Reason: Constipation Bupropion HCl (Wellbutrin Sr (150mg Tablets)) 150 mg PO BID [facility] Carvedilol (Coreg) 12.5 mg PO DAILY [facility] Last Admin: 03/18/18 08:19 Dose: 12.5 mg Docusate Sodium (Colace) 200 mg PO BID PRN PRN PRN Reason: Constipation Furosemide (Lasix) 40 mg IV Q8 [facility] Last Admin: 03/18/18 06:18 Dose: 40 mg Guaifenesin (Mucinex) 1,200 mg PO BID [facility] Last Admin: 03/18/18 09:59 Dose: 1,200 mg Isosorbide Mononitrate (Imdur) 30 mg PO DAILY [facility] Last Admin: 03/18/18 08:19 Dose: 30 mg Losartan Potassium (Cozaar) 50 mg PO DAILY [facility] Last Admin: 03/18/18 08:18 Dose: 50 mg Magnesium Hydroxide (Milk Of Magnesia) 30 ml PO DAILY PRN PRN Reason: Constipation Nicotine (Nicoderm Cq (Pbkc)) 21 mg TRANSDERM. DAILY [facility] Last Admin: 03/18/18 10:00 Dose: 21 mg Oxycodone HCl (Oxyir) 5 mg PO Q4H PRN PRN PRN Reason: Moderate Pain (pain scale 4-5) Potassium Chloride (K-Dur) 20 meq PO DAILYCM [facility] Last Admin: 03/18/18 08:15 Dose: 20 meq Prednisone () 40 mg PO DAILY@0800 [facility] Last Admin: 03/18/18 08:16 Dose: 40 mg Sodium Chloride () 5 - 30 ml IV UD PRN PRN Reason: SALINE FLUSH Last Admin: 03/17/18 21:08 Dose: 10 ml Zolpidem Tartrate (Ambien (Generic)) 5 mg PO QHS PRN PRN PRN Reason: INSOMNIA Medical Necessity - Tobacco Use Smoking Status: Current every day smoker Assessment/Plan All Active Problems (Last Reviewed 03/16/18 @ 16:19 by Meng Burrell MD) Acute on chronic systolic (congestive) heart failure (Acute) COPD exacerbation (Acute) COPD with acute exacerbation (Acute) Diastolic CHF, acute on chronic (Acute) Dyspnea on exertion (Acute) Patient is a 53-year-old gentleman presented with progressive shortness of breath and assessment of both CHF as well as COPD exacerbation made admitted to a monitored bed for further management 1. Acute hypoxic respiratory failure (present on admission) attributed to patient's CHF as well as COPD patient still remains significantly hypoxic ordered a d-dimer and if positive will proceed to obtain CTA of the chest do plan to assess patient for home oxygen prior to discharge 2. Acute on chronic diastolic heart failure patient has been admitted to a monitored . As part of patient's treatment patient was placed on fluid restriction, strict input and output, daily weights. He was also placed on IV Lasix. A 2D echo obtained demonstrated EF of 50% patient is an only 1 L of negative fluid balance since admission 3. COPD with acute exacerbation managed with systemic steroid antibiotics aerosol treatment as well as bronchodilator therapy in addition to supplemental oxygen. Plan is to assess patient for home oxygen needs with a 6-minute walk prior to his discharge 4. Paroxysmal atrial fibrillation rate controlled 5. Dyslipidemia-patient is on statin therapy, continued at home dose 6. Hypertension-blood pressure controlled, home medications continued with dose adjustment as needed 7. Tobacco dependence counseled on cessation, offered nicotine patch for tobacco cravings 8. DVT prophylaxis on systemic anticoagulation with Eliquis 9. Obstructive sleep apnea 10. Morbid obesity with BMI of 31.0 lifestyle medication including weight loss advised 11. Coronary artery disease With previous non-STEMI but no intervention Code Visit Inpatient E&M: 85656 Subs Hosp L2
[2018-03-18 12:00] LABS: D-Dimer Quantitative (DVT/PE) < 0.27 FEU/ug/m (0.27-0.49)
[2018-03-18] MEDS: 0.9% NaCl Peripheral Flush Adult/Peds IV ×2 (14:33→21:22)
--- NOTE | 2018-03-18 15:00 | NURSING ---
Assumed care of patient at 1415.
[2018-03-18] MEDS: Atorvastatin Calcium 80 MG Tablet PO (21:20)
[2018-03-18] MEDS: buPROPion (SR) 150 MG Tablet.SA PO (21:22)
[2018-03-18] MEDS: Amox/Clavulanate 875 MG Tablet PO (21:31)
[2018-03-19] VITALS (9 sets, daily range): BP systolic 128–159; BP diastolic 77–87; PULSE 61–71; RESP 15–18; TEMP 36.6–36.8; O2SAT 89–96
[2018-03-19] MEDS: Ipratropium/Albuterol Sulfate 3 ML AMPUL.NEB INHALATION ×3 (03:15→10:38)
[2018-03-19] MEDS: Furosemide 40 MG/4 ML Vial IV (05:49)
[2018-03-19] MEDS: 0.9% NaCl Peripheral Flush Adult/Peds IV (05:49)
[2018-03-19] MEDS: Acetaminophen 325 MG Tablet 650 MG PO (05:53)
[2018-03-19 06:52] LABS: Anion Gap 6 (5-15); BUN 29 mg/dL (7-18); BUN/Creat Ratio 26.6 RATIO (10-20); Calcium,Total 8.3 mg/dL (8.5-10.1); Chloride 96 mmol/L (98-107); Creatinine, Serum 1.09 mg/dL (0.70-1.30); EST Glomerular Filtration Rate 76 mL/min (>60); Est Glom Filt Rate - Afr Amer 92 mL/min (>60); Estimated Creatinine Clearance 80.18 ml/min; Glucose 115 mg/dL (74-106); Potassium 3.1 mmol/L (3.5-5.1); Sodium Level 145 mmol/L (136-145)
[2018-03-19] MEDS: predniSONE 20 MG Tablet 40 MG PO (08:27)
[2018-03-19] MEDS: Amox/Clavulanate 875 MG Tablet PO (09:39)
[2018-03-19] MEDS: guaiFENesin 1,200 MG Tablet 1200 MG PO (09:40)
[2018-03-19] MEDS: Isosorbide Mononitrate 30 MG Tablet PO (09:40)
[2018-03-19] MEDS: Amiodarone 200 MG Tablet PO (09:40)
[2018-03-19] MEDS: APIXABAN 5 MG TABLET PO (09:40)
[2018-03-19] MEDS: amLODIPine 5 MG Tablet PO (09:41)
[2018-03-19] MEDS: Carvedilol 12.5 MG Tablet PO (09:41)
[2018-03-19] MEDS: Losartan Potassium 50 MG Tablet PO (09:41)
[2018-03-19] MEDS: buPROPion (SR) 150 MG Tablet.SA PO (09:41)
--- NOTE | 2018-03-19 11:16 | PCM.WORK.EX ---
Work/School Excuse Please excuse this person from:: Work From: 03/15/18 through: 03/20/18
--- NOTE | 2018-03-19 11:18 | DCINST_ITS ---
- Discharge Diagnoses Current Active Problems: Current Active and Chronic Problems (Last Reviewed 03/16/18 @ 16:19 by Meng Burrell MD) Acute on chronic systolic (congestive) heart failure (Acute) COPD exacerbation (Acute) COPD with acute exacerbation (Acute) Diastolic CHF, acute on chronic (Acute) You will use the following diet at home:: Fluid restricted (specify 2000 mls, 1500 mls) - 1500 Your food should be the consistency of: Regular Allergies/Adverse Reactions: Allergies promethazine HCl [From Phenergan] Adverse Reaction (Verified 03/16/18 10:30) Unknown Medications to take at Discharge Losartan Potassium [Cozaar] 50 mg PO DAILY 09/28/15 Amlodipine [Norvasc] 5 mg PO DAILY 03/21/16 Bupropion HCl [Bupropion HCl Sr] 150 mg PO DAILY 12/01/16 atorvastatin 40 mg tablet 80 mg PO QHS 30 Days #30 tab 03/12/18 carvedilol 6.25 mg tablet 12.5 mg PO DAILY 30 Days #60 tab 03/12/18 Albuterol IH (ProAir) [Proair Hfa] 1 - 2 puff INHALATION Q4H PRN PRN 03/16/18 Amiodarone HCl [Cordarone] 200 mg PO DAILY 03/16/18 Apixaban [Eliquis] 5 mg PO BID 03/16/18 Isosorbide Mononitrate [Isosorbide Mononitrate ER] 30 mg PO DAILY 03/16/18 Potassium Chloride [Klor-Con M20] 20 meq PO DAILY 03/16/18 Tiotropium [place] [Spiriva Respimat] 2 puff INHALATION QDAY 03/16/18 Amox/Clavulanate Tablet [Augmentin Tablet] 875 mg PO BID #14 tablet 03/19/18 Furosemide [Lasix] 40 mg PO DAILY #30 tablet 03/19/18 Guaifenesin [Mucinex] 1,200 mg PO BID #14 tablet 03/19/18 Prednisone 20 mg PO BID #10 tablet 03/19/18 The following prescriptions were given: Amox/Clavulanate Tablet [Augmentin Tablet] 875 mg PO BID #14 tablet Furosemide [Lasix] 40 mg PO DAILY #30 tablet Guaifenesin [Mucinex] 1,200 mg PO BID #14 tablet Prednisone 20 mg PO BID #10 tablet Primary Care Physician: Rohit Peralta Chi, MD [Primary Care Provider] - Please follow up with your Primary Care Physician in: in 5-7 days Test Results: Test results from this visit will be discussed in further detail at your follow- up appointment, if applicable. Proposed Discharge Date: 03/19/18
--- NOTE | 2018-03-19 11:21 | DS.PCM_ITS ---
Discharge Date and Diagnosis - Problem List Patient Problems: Active and Suspected Problems (Last Reviewed 03/16/18 @ 16:19 by Meng Burrell MD) COPD exacerbation (Acute) COPD with acute exacerbation (Acute) Diastolic CHF, acute on chronic (Acute) Date of Admission: 03/16/18 Date of Discharge: 03/19/18 - Primary Discharge Diagnosis Active and Suspected Problems (Last Reviewed 03/16/18 @ 16:19 by Meng Burrell MD) COPD exacerbation (Acute) COPD with acute exacerbation (Acute) Diastolic CHF, acute on chronic (Acute) - Secondary Discharge Diagnosis Chronic Problems (Last Reviewed 03/16/18 @ 16:19 by Meng Burrell MD) Essential hypertension (Chronic) History of non-ST elevation myocardial infarction (NSTEMI) (Chronic) Paroxysmal atrial flutter (Chronic) Non-rheumatic mitral regurgitation (Chronic) Nonrheumatic tricuspid valve regurgitation (Chronic) Nonrheumatic pulmonary valve insufficiency (Chronic) Cardiomyopathy (Chronic) resolved- was 20% Pulmonary hypertension (Chronic) Coronary artery disease (Chronic) History of PTCA (Chronic) Obstructive sleep apnea (Chronic) Obesity (BMI 30.0-34.9) (Chronic) Hyperlipidemia (Chronic) Paroxysmal atrial fibrillation (Chronic) Chronic anticoagulation (Chronic) Depression (Chronic) Smoking addiction (Chronic) COPD (chronic obstructive pulmonary disease) (Chronic) Abnormal EKG (Chronic) CO2 retention (Chronic) Hospital Course and Treatment Imaging Results: Clinical Impression(s) from Imaging Studies Chest X-Ray 03/16/18 10:53 IMPRESSION: Mild cardiomegaly. No acute abnormality is seen. Electronically Signed: Augustus Ba MD at 11:25 EST Tel [phone], Service support , Operations: None Summary of Care Provided: Patient is a 53-year-old gentleman presented with progressive shortness of breath and assessment of both CHF as well as COPD exacerbation made admitted to a monitored bed for further management 1. Acute hypoxic respiratory failure (present on admission) attributed to patient's CHF as well as COPD; patient was assessed for home oxygen prior to discharge she did not qualify 2. Acute on chronic diastolic heart failure patient has been admitted to a monitored . As part of patient's treatment patient was placed on fluid restriction, strict input and output, daily weights. He was also placed on IV Lasix. A 2D echo obtained demonstrated EF of 50% 3. COPD with acute exacerbation managed with systemic steroid antibiotics aerosol treatment as well as bronchodilator therapy in addition to supplemental oxygen. 4. Paroxysmal atrial fibrillation rate controlled 5. Dyslipidemia-patient is on statin therapy, continued at home dose 6. Hypertension-blood pressure controlled, home medications continued with dose adjustment as needed 7. Tobacco dependence counseled on cessation, offered nicotine patch for tobacco cravings 8. DVT prophylaxis on systemic anticoagulation with Eliquis 9. Obstructive sleep apnea 10. Morbid obesity with BMI of 31.0 lifestyle medication including weight loss advised 11. Coronary artery disease With previous non-STEMI but no intervention 12. Hypokalemia corrected per protocol Patient Problems: Active and Suspected Problems (Last Reviewed 03/16/18 @ 16:19 by Meng Burrell MD) COPD exacerbation (Acute) COPD with acute exacerbation (Acute) Diastolic CHF, acute on chronic (Acute) - Physical Exam General: Alert HEENT: Atraumatic Lungs: Diminished Cardiovascular: Regular rate Neurological: Neuro grossly intact Psych/Mental Status: Normal Affect Vital Signs Temp Pulse Resp BP Pulse Ox 97.9 F 70 15 159/87 H 92 03/19/18 09:20 03/19/18 09:20 03/19/18 09:20 03/19/18 09:20 03/19/18 09:20 Oxygen Flow Rate (L/min) 1 Oxygen Delivery Method Room Air Weight: 95.3 kg Body Mass Index (BMI) 30.9 Intake and Output for Last 24 Hours 03/17/18 03/18/18 03/19/18 23:59 23:59 23:59 Intake Total 2639.9 / 2639.9 1763 / 1763 250 / 250 Output Total 4600 / 4600 3525 / 3525 350 / 350 Balance -1960.1 / -1960.1 -1762 / -1762 -100 / -100 Microbiology Past 72 Hours 03/16/18 11:30 Blood Culture - Preliminary Blood Culture (Wb) #2 - No Site/Description Given No growth in 48 hours. 03/16/18 10:50 Blood Culture - Preliminary Blood Culture (Wb) - No Site/Description Given No growth in 48 hours. 03/16/18 16:32 Gram Stain - Final Sputum, Expectorated/Coughed Respiratory Culture - Final Haemophilus influenzae 03/16/18 15:45 Influenza Types A,B Direct FA (MARLEY) - Final Mucosa - Nasopharyngeal Laboratory Tests Past 24 Hrs 03/18/18 03/19/18 03/19/18 11:35 05:45 06:15 D-Dimer Quant (PE/DVT) < 0.27 L Sodium Cancelled 145 Potassium Cancelled 3.1 L Chloride Cancelled 96 L Carbon Dioxide Cancelled 43.0 H Anion Gap Cancelled 6 BUN Cancelled 29 H Creatinine Cancelled 1.09 Estim Creat Clear Calc Cancelled 80.18 Est GFR (MDRD) Af Amer Cancelled 92 Est GFR (MDRD) Non-Af Cancelled 76 BUN/Creatinine Ratio Cancelled 26.6 H Glucose Cancelled 115 H Calcium Cancelled 8.3 L Discharge Diet: 8 Cup Fluid Restriciton Home Medications: Medications to take at Discharge Losartan Potassium [Cozaar] 50 mg PO DAILY 09/28/15 Amlodipine [Norvasc] 5 mg PO DAILY 03/21/16 Bupropion HCl [Bupropion HCl Sr] 150 mg PO DAILY 12/01/16 atorvastatin 40 mg tablet 80 mg PO QHS 30 Days #30 tab 03/12/18 carvedilol 6.25 mg tablet 12.5 mg PO DAILY 30 Days #60 tab 03/12/18 Albuterol IH (ProAir) [Proair Hfa] 1 - 2 puff INHALATION Q4H PRN PRN 03/16/18 Amiodarone HCl [Cordarone] 200 mg PO DAILY 03/16/18 Apixaban [Eliquis] 5 mg PO BID 03/16/18 Isosorbide Mononitrate [Isosorbide Mononitrate ER] 30 mg PO DAILY 03/16/18 Potassium Chloride [Klor-Con M20] 20 meq PO DAILY 03/16/18 Tiotropium Montara [Spiriva Respimat] 2 puff INHALATION QDAY 03/16/18 Amox/Clavulanate Tablet [Augmentin Tablet] 875 mg PO BID #14 tablet 03/19/18 Furosemide [Lasix] 40 mg PO DAILY #30 tablet 03/19/18 Guaifenesin [Mucinex] 1,200 mg PO BID #14 tablet 03/19/18 Prednisone 20 mg PO BID #10 tablet 03/19/18 Following Prescrptions Were Given to Patient: Amox/Clavulanate Tablet [Augmentin Tablet] 875 mg PO BID #14 tablet Furosemide [Lasix] 40 mg PO DAILY #30 tablet Guaifenesin [Mucinex] 1,200 mg PO BID #14 tablet Prednisone 20 mg PO BID #10 tablet Primary Care Physician: Rohit Peralta Chi, MD [Primary Care Provider] - Please follow up with your Primary Care Physician in: in 5-7 days Disposition: Home Minutes spent on discharge:: 36 Patient Condition:: Stable Medical Necessity - Tobacco Use Smoking Status: Current every day smoker Meaningful Use Info Meaningful Use Diagnoses (Choose all that apply): CHF - CHF KYLEE/ARB ordered at discharge?: No Reason KYLEE/ARB not ordered?: Worsening renal disease Documented LVEF (%): 55 Code Visit Inpatient E&M: 14309 Disch Hosp
--- NOTE | 2018-03-19 15:07 | CASEMGMT ---
Social Work Note Met with pt and significant other, Hermelinda, to complete advanced directives. Educated to Living Will and Healthcare Power of Heel Layer. Completed both documents in approximately 35 minutes. Original and copy provided to pt and significant other for their records. Copy placed in pt's medical chart. No further needs expressed at this time. BRETT Zimmerman, ALAN
--- NOTE | 2018-03-20 15:43 | CASEMGMT ---
ESPERANZA COCHRAN Discharge Follow-up phone call LACE: 11 STRATA: 3 Discharge Date: 03-19-18 Adm Dx: CHF/COPD Attempted discharge follow-up phone call. No answer. Message left for pt to return call if he has any questions about discharge instructions, medications, or any other concerns/questions. [employer], Suzanne Ku's, phone number provided. Qing GUSTAFSON RN CM
== END 2018-03-19 13:52 | disposition home or self-care (01) | DRG 291 ==
LOC: ED 11:29 → PCU 12:10
PROVIDERS: Admitting Provider Internal Medicine; Emergency Provider Emergency Medicine; Family Provider Family Medicine Geriatric Medicine; PCP Family Medicine Geriatric Medicine; Visit Provider Internal Medicine
DX: I11.0 Hypertensive heart disease with heart failure (principal); J96.01 Acute respiratory failure with hypoxia; J44.1 Chronic obstructive pulmonary disease with (acute) exacerbation; I50.33 Acute on chronic diastolic (congestive) heart failure; E66.01 Morbid (severe) obesity due to excess calories; Z68.31 Body mass index [BMI] 31.0-31.9, adult; G47.33 Obstructive sleep apnea (adult) (pediatric); I25.2 Old myocardial infarction; Z23 Encounter for immunization; I25.10 Atherosclerotic heart disease of native coronary artery without angina pectoris; I48.0 Paroxysmal atrial fibrillation; E78.5 Hyperlipidemia, unspecified; E87.6 Hypokalemia; F17.200 Nicotine dependence, unspecified, uncomplicated
CPT/HCPCS: 36415; 71045; 80048; 83605; 83735; 83880; 84443; 84484; 85025; 85379; 87040; 87070; 87077; 87205; 87804; 93005; 93306; 94640; 94667; 94668; 97802; 99283; Q9957; 90686; A4216; J1940

== ENCOUNTER → 2018-03-27 12:59 | Outpatient (CLI) | payer MEDICARE, MEDICAID, SELFPAY ==
[2018-03-27 13:40] LABS: Absolute Lymphocyte Count 1.59 X10^3/ul (0.83-4.51); Absolute Neutrophil Count 7.1 X10^3/uL (2.0-7.7); Basophil# 0.01 X10^3/uL; Basophil% 0.1 % (0-1); Eosinophil# 0.18 X10^3/uL; Eosinophils% 1.8 % (0-5); Hematocrit 52.8 % (40-54); Lymphocyte # 1.59 X10^3/ul (4.0); Lymphocyte % 15.9 % (19-41); Mean Corp Hgb Conc 30.3 g/gl (32-36); Mean Corpuscular Volume 95.8 fL (80-94); Mean Platelet Vol. 10.9 fl (6.2-12.0); Monocyte# 1.14 X10^3/uL; Monocyte% 11.4 % (0-10); Neutrophil # 7.08 X10^3/uL (2.7-7.7); Neutrophil % 70.6 % (47-70); Platelet Count 159 K/mm3 (150-450); RBC Distribution Width CV 14.6 % (11.6-14.6); RBC Distribution Width SD 51.3 fl (35.1-43.9); Red Blood Count 5.51 M/mm3 (4.6-6.2)
[2018-03-27 13:43] LABS: POSITIVE COUNT NO; POSITIVE DIFFERENTIAL NO; POSITIVE MORPHOLOGY NO
[2018-03-27 13:59] LABS: Anion Gap 3 (5-15); BUN 19 mg/dL (7-18); BUN/Creat Ratio 21.5 RATIO (10-20); Calcium,Total 8.1 mg/dL (8.5-10.1); Chloride 103 mmol/L (98-107); Creatinine, Serum 0.88 mg/dL (0.70-1.30); EST Glomerular Filtration Rate 97 mL/min (>60); Est Glom Filt Rate - Afr Amer 117 mL/min (>60); Glucose 83 mg/dL (74-106); Sodium Level 142 mmol/L (136-145)
== END ==
PROVIDERS: Family Provider Family Medicine Geriatric Medicine; PCP Family Medicine Geriatric Medicine; Referring Provider Family Medicine Geriatric Medicine; Visit Provider Family Medicine Geriatric Medicine
DX: I50.9 Heart failure, unspecified (principal); R06.02 Shortness of breath
CPT/HCPCS: 36415; 80048; 83880; 85025

== ENCOUNTER → 2018-05-21 07:49 | Outpatient (CLI) | payer MEDICARE, MEDICAID, SELFPAY ==
[2018-03-16 12:24] VITALS: BMI 30.9
--- NOTE | 2018-05-21 14:19 | PFTCOMP_ITS ---
COMPLETE PULMONARY FUNCTION TEST INTERPRETATION Brief HPI: Patient is a 53 year old male, currently under the care of myself, who presents to [facility] for complete pulmonary function tests secondary to diagnosis of COPD. Respiratory therapist reports good effort and reproducible results. Interpretation: Forced expiration spirometry shows a very severe large airways obstructive ventilatory defect with an FEV1 of 32% predicted. There is no significant bronchodilator response by strict ATS criteria. Spirograms are of good quality and plateau slowly, indicating slowly emptying areas of the lungs. The respiratory flow volume loop shows decreased expiratory flow rates at all lung volumes consistent with airway obstruction. Lung volumes by body plethysmography show an elevated total lung capacity at 8.19 L, 125% predicted. FRC and RV are elevated out of proportion. Lung volume measurements are consistent with hyperinflation and air-trapping. Diffusion capacity by carbon monoxide is decreased at 67% predicted. The airway resistance is elevated. Compared to previous pulmonary function tests from 01/23/2017, there has been a significant reduction in FEV1, resulting in worsening air trapping and hyperinflation. Impression: Irreversible very severe large airways obstructive ventilatory defect with reduction diffusing capacity and resulting in worsening air trapping and hyperinflation.
== END ==
PROVIDERS: Family Provider Family Medicine Geriatric Medicine; PCP Family Medicine Geriatric Medicine; Referring Provider Internal Medicine Critical Care Medicine; Visit Provider Internal Medicine Critical Care Medicine
DX: I42.8 Other cardiomyopathies (principal); E78.00 Pure hypercholesterolemia, unspecified; I48.0 Paroxysmal atrial fibrillation
CPT/HCPCS: 94060; 94726; 94729

== ENCOUNTER → 2018-05-25 10:47 | Outpatient (CLI) | payer MEDICARE, MEDICAID, SELFPAY ==
[2018-05-25 11:24] VITALS: PULSE 102; PULSE 103; PULSE 76; PULSE 79; PULSE 91; PULSE 92; PULSE 94; O2SAT 90; O2SAT 92; O2SAT 93; O2SAT 95; O2SAT 96
--- NOTE | 2018-05-25 12:17 | PCM.PSN.6M ---
PSN 6 Minute Walk Test - 6 Minute Walk Test 6 Minute Walk Test: 6 Minute Walk Test PSN:6-Minute Walk Test Start: 05/25/18 11:24 Freq: Status: Active Protocol: [id number].6MINW Document 05/25/18 11:24 JAMIN (Rec: 05/25/18 11:27 JAMIN [id number]) 6 Minute Walk Test Date Performed 05/25/18 Time Performed 11:00 Height 5 ft 9 in Weight: 218 lb Weight in Pounds 218.[address]: Jefe Alonzo Assistive device used: None Pre-test Oxygen Delivery Method Room Air Pulse Ox (%) 96 Pulse Rate (60-100 beats/min) 76 Dyspnea Lizzie Scale (0-10) 0 Exertion Lizzie Scale (6-20) 6 1st minute Oxygen Delivery Method Room Air Pulse Ox (%) 95 Pulse Rate (60-100 beats/min) 103 H 2nd minute Oxygen Delivery Method Room Air Pulse Ox (%) 92 Pulse Rate (60-100 beats/min) 92 3rd minute Oxygen Delivery Method Room Air Pulse Ox (%) 93 Pulse Rate (60-100 beats/min) 102 H 4th minute Oxygen Delivery Method Room Air Pulse Ox (%) 90 Pulse Rate (60-100 beats/min) 94 Dyspnea Lizzie Scale (0-10) 4 Number of Rests Taken 1 5th minute Oxygen Delivery Method Room Air Pulse Ox (%) 93 Pulse Rate (60-100 beats/min) 91 6th minute Oxygen Delivery Method Room Air Pulse Ox (%) 93 Pulse Rate (60-100 beats/min) 94 Dyspnea Lizzie Scale (0-10) 3 Exertion Lizzie Scale (6-20) 12 Post-test Oxygen Delivery Method Room Air Pulse Ox (%) 96 Pulse Rate (60-100 beats/min) 79 Full Laps Walked 15 Partial Lap, Number of Tiles Walked 32 Total Distance Walked (ft) 917 - Interpretation Interpretation: The patient ambulated 917 feet over the course of 6 minutes beginning on room air without assistive devices or breaks. Pretesting oxygen saturation was noted to be 96% on room air. With ambulation, the rozina oxygen saturation was 90%. This represents a significant exertional oxygen desaturation. - Recommendations Recommendations: There is no indication for the use of supplemental oxygen at this time. However, close interval follow-up is recommended, given the degree of oxygen desaturation noted during this study.
== END ==
PROVIDERS: Family Provider Family Medicine Geriatric Medicine; PCP Family Medicine Geriatric Medicine; Referring Provider Internal Medicine Critical Care Medicine; Visit Provider Internal Medicine Critical Care Medicine
DX: J44.9 Chronic obstructive pulmonary disease, unspecified (principal); I27.20 Pulmonary hypertension, unspecified
CPT/HCPCS: 94618

== ENCOUNTER → 2018-08-06 09:11 | Outpatient (CLI) | payer MEDICARE, MEDICAID, SELFPAY ==
[2018-06-01 08:41] VITALS: BMI 33.5
[2018-08-06 12:44] LABS: Absolute Lymphocyte Count 1.16 X10^3/ul (0.83-4.51); Absolute Neutrophil Count 6.6 X10^3/uL (2.0-7.7); Basophil# 0.04 X10^3/uL; Basophil% 0.5 % (0-1); Eosinophil# 0.17 X10^3/uL; Eosinophils% 1.9 % (0-5); Hematocrit 50.8 % (40-54); Hemoglobin 15.9 g/dl (13.0-16.5); Lymphocyte # 1.16 X10^3/ul (4.0); Lymphocyte % 13.1 % (19-41); Mean Corp Hgb Conc 31.3 g/gl (32-36); Mean Corpuscular Hgb 28.5 pg (27.0-32.0); Mean Platelet Vol. 10.8 fl (6.2-12.0); Monocyte# 0.92 X10^3/uL; Monocyte% 10.4 % (0-10); Neutrophil # 6.58 X10^3/uL (2.7-7.7); Platelet Count 193 K/mm3 (150-450); RBC Distribution Width CV 14.6 % (11.6-14.6); RBC Distribution Width SD 48.7 fl (35.1-43.9); Red Blood Count 5.58 M/mm3 (4.6-6.2); White Blood Count 8.9 K/mm3 (4.4-11.0)
[2018-08-06 12:49] LABS: POSITIVE COUNT NO; POSITIVE DIFFERENTIAL NO; POSITIVE MORPHOLOGY NO
[2018-08-06 13:06] LABS: ALB/GLOB Ratio 0.8 RATIO (0.9-2.4); AST(SGOT) 13 U/L (15-37); Alanine Aminotransfer ALT/SGPT 15 U/L (16-61); Albumin, Serum 3.3 g/dL (3.2-5.0); Alkaline Phosphatase 82 U/L (45-117); Anion Gap 7 (5-15); BUN 16 mg/dL (7-18); BUN/Creat Ratio 13.3 RATIO (10-20); Calcium,Total 8.3 mg/dL (8.5-10.1); Chloride 102 mmol/L (98-107); EST Glomerular Filtration Rate 68 mL/min (>60); Est Glom Filt Rate - Afr Amer 82 mL/min (>60); Glucose 144 mg/dL (74-106); Potassium 4.2 mmol/L (3.5-5.1); Protein, Total 7.3 g/dL (6.4-8.2); Sodium Level 139 mmol/L (136-145); Thyroid Stim Hormone (TSH) 2.95 uIU/mL (0.358-3.74)
== END ==
PROVIDERS: Family Provider Family Medicine Geriatric Medicine; PCP Family Medicine Geriatric Medicine; Visit Provider Family Medicine Geriatric Medicine
DX: I10 Essential (primary) hypertension (principal)
CPT/HCPCS: 36415; 80053; 84443; 85025

== ENCOUNTER → 2018-10-13 16:54 | Outpatient (CLI) | payer MEDICARE, MEDICAID, SELFPAY ==
[2018-09-14 10:47] VITALS: BMI 32.1
--- NOTE | 2018-10-13 09:15 | LES_PTH ---
PATIENT: THEODORE MONTGOMERY LOC: [facility] U#:[id number] AGE/SX: 60/M ROOM: RE10/13/[address]: Dr. Rohit Peralta MD : 1965 BED: DIS: SPEC #: [id number] RECD: 10/13/18 17:10 STATUS: FREIDA ABRAN #: [id number] NEYMAR: 10/13/18 09:[address]: Rohit Peralta Chi DEPT: SURGICAL PATHOLOGY RECD BY: Cheri Raymond Tissues: A - Skin of eyelid, NOS B - Skin of face, NOS C - Skin of face, NOS Procedures: Surgery Specimen Level IV HEADER OPERATION: Not noted PRE-OP DIAGNOSIS: Lesions TISSUE SUBMITTED: A - Right eyelid, B - Left cheek, C - Right cheek MICROSCOPIC DIAGNOSIS A. Lesion of right eyelid, biopsy: Consistent with sebaceous hyperplasia. B. Skin lesion of left cheek, biopsy: Consistent with sebaceous hyperplasia. C. Skin of right cheek, biopsy: Comedone, mildly inflamed. AM:carol 10/15/18 MICROSCOPIC DESCRIPTION Slides are reviewed. GROSS DESCRIPTION A - Received in fixative is one container labeled with the patient's name and designated right eyelid. The specimen consists of a piece of william-brown skin measuring 0.5 x 0.3 x 0.2 cm. The specimen is inked and submitted entirely in one cassette. B - Received in fixative is one container labeled with the patient's name and designated left cheek. The specimen consists of a piece of william-brown skin measuring 0.6 x 0.3 x 0.2 cm. The specimen is inked and submitted entirely in one cassette. C - Received in fixative is one container labeled with the patient's name and designated right cheek. The specimen consists of a piece of william-brown skin measuring 0.7 x 0.5 x 0.2 cm. The specimen is inked and submitted entirely in one cassette. / SJ:carol 10/14/18 TC:5 CPT: 44154 x3
== END ==
PROVIDERS: Family Provider Family Medicine Geriatric Medicine; PCP Family Medicine Geriatric Medicine; Visit Provider Family Medicine Geriatric Medicine
DX: L98.9 Disorder of the skin and subcutaneous tissue, unspecified (principal)
CPT/HCPCS: 88305

== ENCOUNTER 2018-10-31 19:38 | Emergency (ER) | payer MEDICARE, MEDICAID, SELFPAY ==
[2018-09-14 10:47] VITALS: BMI 32.1
[2018-10-31 19:39] VITALS: BP 169/99; PULSE 73; PULSE 75; RESP 18; TEMP 36.9; O2SAT 95; BMI 32.1
--- NOTE | 2018-10-31 20:00 | RAD_ITS ---
STUDY: X-RAY - LEFT KNEE REASON FOR EXAM: Male, 53 years old. Pain. TECHNIQUE: 4 view(s) of the knee. COMPARISON: None. FINDINGS: Normal visualized distal femur. Normal visualized proximal tibia and fibula. Normal proximal tibiofibular articulation. Normal medial femorotibial compartment. Normal lateral femorotibial compartment. Normal patellofemoral articulation. The soft tissue structures are unremarkable. RAD/Knee 4 or More Views IMPRESSION: Normal x-ray examination of the knee. Electronically Signed: Wanda Austin MD at 20:14 EDT Tel , Service support ,
[2018-10-31] MEDS: Ibuprofen 600 MG Tablet PO (20:15)
--- NOTE | 2018-10-31 20:20 | ED.DCSUM_ITS ---
- ER Visit Summary Date of Service: 10/31/18 Chief Complaint: Atraumatic left medial knee pain History of Present Illness: The patient is a 53 M history of CAD, [place], COPD. Patient states that he changed Ativan his car. As he was walking away he had some discomfort in his left medial knee. Denies any fall or injury. No redness or warmth. No swelling. Never had knee problems or knee surgery. Denies any other complaints. Physical Examination: Middle-aged male. No acute distress. Vital signs are stable and afebrile. HEENT exam unremarkable. Lungs clear to auscultation. Heart regular rhythm no murmur. Abdomen soft and nontender. Patient is moving all 4 extremities. Neurovascular intact. He has tenderness to palpation of the medial aspect of his left knee. There is no swelling or effusion. No redness or warmth. No septic joint. No bony deformity. He is able to flex and extend the left knee. Extend any degrees. There is no bony deformity. ACL PCL intact the LCL is nontender MCL is tender but is intact. Distally left foot is neurovascular intact the calf is nontender without cords or edema. Neurologic exam normal. Test Results: Left knee x-ray shows no acute abnormality. He is a good joint space and normal-appearing bone. Read both by myself the radiologist. Emergency Department Course and Treatment: Patient has a sprain of the left MCL. Ice to the area. Tylenol for pain. Treatment Plan: Ice, rest and Tylenol. Patient is already on the blood thinner Eliquis and anti-inflammation could be a problem.. Follow-up if not improving. Disposition: Discharge Impression: Left knee sprain. This note was generated with i-marker dictation software. It may contain incorrect words, spelling, and punctuation that were not noted in review of the chart prior to signing ED Disposition - Plan for ED Patient: Referrals: Rohit Peralta Chi, MD [Primary Care Provider] -
--- NOTE | 2018-10-31 20:25 | ED.DEP ---
ED Disposition - Plan for ED Patient: Disposition: Home or Assisted Living Instructions: Knee Sprain Referrals: Rohit Peralta Chi, MD [Primary Care Provider] - 1 Week if not improving Additional Instructions: Your x-rays look good. Ice to your left knee. Tylenol for pain.
[2018-10-31 20:56] VITALS: BP 158/99; PULSE 73; RESP 18; O2SAT 97
== END 2018-10-31 20:58 | disposition home or self-care (01) ==
LOC: ED 20:26
PROVIDERS: Emergency Provider Emergency Medicine; Family Provider Family Medicine Geriatric Medicine; PCP Family Medicine Geriatric Medicine
DX: S83.412A Sprain of medial collateral ligament of left knee, initial encounter (principal); X58.XXXA Exposure to other specified factors, initial encounter; Y93.01 Activity, walking, marching and hiking; Y92.9 Unspecified place or not applicable; I25.10 Atherosclerotic heart disease of native coronary artery without angina pectoris; I25.2 Old myocardial infarction; I50.9 Heart failure, unspecified; J44.9 Chronic obstructive pulmonary disease, unspecified; Z79.899 Other long term (current) drug therapy; Z72.0 Tobacco use
CPT/HCPCS: 73564; 99283

== ENCOUNTER 2018-11-27 11:29 | Observation (INO) | payer MEDICARE, MEDICAID, SELFPAY ==
[2018-11-27] VITALS (13 sets, daily range): BP systolic 135–146; BP diastolic 71–91; PULSE 56–94; RESP 12–24; TEMP 36.4–37; O2SAT 89–97; BMI 32.7; BMI 30.8
--- NOTE | 2018-11-27 11:45 | RAD_ITS ---
STUDY: X-RAY CHEST REASON FOR EXAM: Male, 53 years old. Shortness of breath TECHNIQUE: Single AP portable view of the chest. COMPARISON: 03/16/2018 FINDINGS: The lungs are clear and expanded. There is no demonstrated pleural abnormality. There is moderate cardiac enlargement. Normal mediastinum and racquel. Normal visualized pulmonary arteries. Normal visualized aortic arch and descending thoracic aorta. Normal visualized thoracic spine. Normal visualized ribs, clavicles, and shoulders. There is no demonstrated abnormality of the visualized soft tissue structures of the upper abdomen. RAD/Chest 1 View (Portable) IMPRESSION: No active disease. Electronically Signed: Adam Landry MD at 12:10 EDT Tel , Service support ,
--- NOTE | 2018-11-27 11:45 | EKG12_ITS ---
Test Reason : SOB Blood Pressure : / mmHG Vent. Rate : 064 BPM Atrial Rate : 064 BPM P-R Int : 154 ms QRS Dur : 104 ms QT Int : 430 ms P-R-T Axes : 065 057 109 degrees QTc Int : 443 ms Normal sinus rhythm T wave abnormality, consider anterolateral ischemia Abnormal ECG Confirmed by EDITH CARTWRIGHT, ODUG ([id number]), medical editor BETH HERRING ([id number]) on 11/30/2018 12:36:21 PM Referred By: RUTH Confirmed By:DOUG SHARMA MD
--- NOTE | 2018-11-27 11:46 | ED.VISSUMM ---
- ER Visit Summary Date of Service: 11/27/18 Chief Complaint: Breath and wheezing. History of Present Illness: The patient is a 53 M history of COPD, [place] and hypertension. Patient states associated shortness of breath. With wheezing. No fever. Nonproductive cough. No chest pain. No hemoptysis. No history of DVT or PE risk factors. Patient is a non-smoker. Denies any leg pain or swelling. Physical Examination: Middle-aged male no acute distress. Vital signs are stable and afebrile. Currently also some room air is 93%. H EENT exam is unremarkable. Neck nontender. Lungs prolonged expiratory phase. Few expiratory wheezes bilaterally. No rales or rhonchi. Equal symmetrical. Heart regular rate and rhythm no murmur. Rate about 70. Chest wall nontender. No crepitance. Abdomen soft and nontender. Extremities moves all 4. Calves nontender without edema or cords. Neurologically awake alert. Test Results: CBC normal white count 8. Hemoglobin 15. No bands. Electrolytes sodium 146. 236. Creatinine 1.3 with baseline being 1.2. Normal gap. Troponin normal. Chest x-ray portable one view shows no acute process read by myself the radiologist. Normal cardiac silhouette mediastinum. EKG sinus rhythm rate of 64 with inverted T waves in the 2 through Emergency Department Course and Treatment: History and exam are consistent with acute exacerbation of COPD. Treated with both DuoNeb and albuterol aerosols and oral prednisone. Patient is normal on repeat exam however on room air just sitting in bed is O2 sat is only 87% hypoxic. He will be ambulated by more than likely need to be admitted for further aerosols and steroids. Treatment Plan: [] Disposition: Admission Impression: Acute dyspnea secondary to acute exacerbation COPD Hypoxia without home O2 This note was generated with [employer] dictation software. It may contain incorrect words, spelling, and punctuation that were not noted in review of the chart prior to signing ED Disposition - Plan for ED Patient: Referrals: Rohit Peralta Chi, MD [Primary Care Provider] -
[2018-11-27] MEDS: Ipratropium/Albuterol Sulfate 3 ML AMPUL.NEB INHALATION ×3 (12:04→23:33)
[2018-11-27] MEDS: predniSONE 20 MG Tablet 60 MG PO (12:09)
[2018-11-27 12:13] LABS: Absolute Lymphocyte Count 1.23 X10^3/uL (0.83-4.51); Absolute Neutrophil Count 6.6 X10^3/uL (2.0-7.7); Basophil# 0.04 X10^3/uL; Basophil% 0.5 % (0-1); Eosinophil# 0.14 X10^3/uL; Eosinophils% 1.6 % (0-5); Hematocrit 50.3 % (40-54); Hemoglobin 15.8 g/dL (13.0-16.5); Lymphocyte # 1.23 X10^3/ul (4.0); Lymphocyte % 13.9 % (19-41); Mean Corp Hgb Conc 31.4 g/dL (32-36); Mean Corpuscular Hgb 28.9 pg (27.0-32.0); Mean Corpuscular Volume 92.1 fL (80-94); Mean Platelet Vol. 10.2 fl (6.2-12.0); Monocyte# 0.83 X10^3/uL; Monocyte% 9.3 % (0-10); NRBC Flagged by Analyzer 0 % (0-5); Neutrophil # 6.61 X10^3/uL (2.7-7.7); Neutrophil % 74.4 % (47-70); Platelet Count 158 K/mm3 (150-450); RBC Distribution Width CV 14.5 % (11.6-14.6); RBC Distribution Width SD 48.7 fl (35.1-43.9); Red Blood Count 5.46 M/mm3 (4.6-6.2); White Blood Count 8.9 K/mm3 (4.4-11.0)
[2018-11-27] MEDS: Albuterol 2.5 MG/3 ML VIAL.NEB. INHALATION ×3 (12:24)
[2018-11-27 12:38] LABS: Anion Gap 5 (5-15); BUN 19 mg/dL (7-18); Calcium,Total 8.3 mg/dL (8.5-10.1); Chloride 105 mmol/L (98-107); Creatinine, Serum 1.36 mg/dL (0.70-1.30); EST Glomerular Filtration Rate 59 mL/min (>60); Est Glom Filt Rate - Afr Amer 71 mL/min (>60); Estimated Creatinine Clearance 64.26 ml/min; Glucose 145 mg/dL (74-106); Potassium 3.5 mmol/L (3.5-5.1); Sodium Level 146 mmol/L (136-145)
--- NOTE | 2018-11-27 14:55 | PCM.HP.STD ---
Problem List (1) Pure hypercholesterolemia Status: Chronic (2) Acute on chronic systolic (congestive) heart failure Status: Inactive (3) COPD exacerbation Status: Acute (4) Essential hypertension Status: Chronic (5) Chronic systolic (congestive) heart failure Status: Chronic (6) History of non-ST elevation myocardial infarction (NSTEMI) Status: Chronic (7) Paroxysmal atrial flutter Status: Chronic (8) Non-rheumatic mitral regurgitation Status: Chronic (9) Nonrheumatic tricuspid valve regurgitation Status: Chronic (10) Nonrheumatic pulmonary valve insufficiency Status: Chronic (11) Cardiomyopathy Status: Chronic Qualifiers: Cardiomyopathy type: other Qualified Code(s): I42.8 - Other cardiomyopathies Comment: resolved- was 20% (12) Pulmonary hypertension Status: Chronic (13) Dyspnea on exertion Status: Acute (14) History of PTCA Status: Chronic (15) Obstructive sleep apnea Status: Chronic (16) Obesity (BMI 30.0-34.9) Status: Chronic (17) Paroxysmal atrial fibrillation Status: Chronic (18) Chronic anticoagulation Status: Chronic (19) Depression Status: Chronic (20) Smoking addiction Status: Chronic (21) COPD (chronic obstructive pulmonary disease) Status: Chronic Qualifiers: COPD type: unspecified COPD Qualified Code(s): J44.9 - Chronic obstructive pulmonary disease, unspecified (22) Abnormal EKG Status: Chronic (23) CO2 retention Status: Chronic History of Present Illness Date of Admission: 11/27/18 Chief Complaint: Shortness of breath for 1 day The patient is a 53 year old M with history of COPD, obstructive sleep apnea on CPAP at night, chronic heart failure with preserved EF 50%, non-STEMI and other comorbidities came to ER with progressive worsening of shortness of breath for 1 day. Patient has dyspnea on exertion of about 100- 200 feet along with cough and wheezing. Patient has chronic productive cough but has gotten worse; currently whitish sputum. No fever/chills. Denies chest pain. In ED, chest x-ray shows no acute disease. Last echo in March 2018 reported EF 50% with LV systolic function lower limit of normal in stage I diastolic dysfunction. Troponin is negative. EKG shows normal sinus rhythm with chronic T inversion in anterolateral leads V2 to V6, I and aVL similar to previous EKG of March 2018. [] Past Medical History Past Medical History (Chronic Problems): Chronic Problems (Last Reviewed 09/14/18 @ 10:50 by Nithya Forbes) Pure hypercholesterolemia (Chronic) Essential hypertension (Chronic) Chronic systolic (congestive) heart failure (Chronic) History of non-ST elevation myocardial infarction (NSTEMI) (Chronic) Paroxysmal atrial flutter (Chronic) Non-rheumatic mitral regurgitation (Chronic) Nonrheumatic tricuspid valve regurgitation (Chronic) Nonrheumatic pulmonary valve insufficiency (Chronic) Cardiomyopathy (Chronic) resolved- was 20% Pulmonary hypertension (Chronic) History of PTCA (Chronic) Obstructive sleep apnea (Chronic) Obesity (BMI 30.0-34.9) (Chronic) Paroxysmal atrial fibrillation (Chronic) Chronic anticoagulation (Chronic) Depression (Chronic) Smoking addiction (Chronic) COPD (chronic obstructive pulmonary disease) (Chronic) Abnormal EKG (Chronic) CO2 retention (Chronic) Medical History: Medical History (Last Reviewed 09/14/18 @ 10:50 by Nithya Forbes) Pure hypercholesterolemia (Chronic) E78.00 Essential hypertension (Chronic) I10 History of non-ST elevation myocardial infarction (NSTEMI) (Chronic) I25.2 Paroxysmal atrial flutter (Chronic) I48.92 Non-rheumatic mitral regurgitation (Chronic) I34.0 Nonrheumatic tricuspid valve regurgitation (Chronic) I36.1 Nonrheumatic pulmonary valve insufficiency (Chronic) I37.1 Cardiomyopathy (Chronic) I42.9 resolved- was 20% Pulmonary hypertension (Chronic) I27.20 Dyspnea on exertion (Acute) R06.09 Obstructive sleep apnea (Chronic) G47.33 Paroxysmal atrial fibrillation (Chronic) I48.0 Chronic anticoagulation (Chronic) Z79.01 Depression (Chronic) F32.9 Smoking addiction (Chronic) F17.200 COPD (chronic obstructive pulmonary disease) (Chronic) J44.9 Abnormal EKG (Chronic) R94.31 CO2 retention (Chronic) E87.2 Acute respiratory distress R06.03 Acute systolic (congestive) heart failure I50.21 Cough R05 Hemochromatosis E83.119 Non-ST elevated myocardial infarction I21.4 rales, bibasilar Dilated cardiomyopathy I42.0 Lung nodule R91.1 Nonrheumatic mitral (valve) insufficiency I34.0 Nonrheumatic tricuspid (valve) insufficiency I36.1 Stage 4 very severe COPD by GOLD classification J44.9 nonrheumatic pulmonary valve regurgitation Coronary artery disease (Inactive) I25.10 Hyperlipidemia (Inactive) E78.5 Hypertension (Inactive) I10 Uncontrolled hypertension (Inactive) I10 Allergies promethazine HCl [From Phenergan] Adverse Reaction (Verified 11/27/18 11:32) Unknown Home Medications: Ambulatory Orders Medication Instructions Recorded Bupropion HCl [Bupropion HCl Sr] 150 mg PO BID 12/01/16 Isosorbide Mononitrate [Isosorbide 30 mg PO DAILY 03/16/18 Mononitrate ER] Tiotropium [place] [Spiriva 2 puff INHALATION DAILY 03/16/18 Respimat] Furosemide [Lasix] 40 mg PO DAILY #30 tab 03/19/18 amlodipine 5 mg tablet 5 mg PO DAILY #90 tab 08/11/18 losartan 50 mg tablet 50 mg PO DAILY #90 tab 08/12/18 apixaban 5 mg tablet 5 mg PO BID #60 tab 09/17/18 amiodarone 200 mg tablet 200 mg PO DAILY #30 tab 10/07/18 albuterol sulfate HFA 90 1 - 2 puff INHALATION Q4H PRN PRN 11/17/18 mcg/actuation aerosol inhaler #18 g potassium chloride ER 20 mEq 20 meq PO DAILY #90 tab 11/23/18 tablet,extended release(part/cryst) Albuterol Aerosols [Ventolin 2.5 mg INHALATION Q6HWA.RT 11/27/18 Aerosols] Atorvastatin Calcium [Lipitor] 80 mg PO QHS 11/27/18 Carvedilol 12.5 mg PO DAILY 11/27/18 Surgical History: Surgical History (Last Reviewed 09/14/18 @ 10:50 by Nithya Forbes) History of PTCA (Chronic) Z98.61 History of left heart catheterization (LHC) Z98.890 08/14/2015 at [facility] Surgical History: no surgical history Psychiatric History: Depression Smoking Status: Current every day smoker - *Family History Maternal Family History: Family History (Last Reviewed 09/14/18 @ 10:50 by Nithya Forbes) Mother CAD (coronary artery disease) Heart disease Diabetes Father Brain tumor History Items: Heart Disease Sibling Family History: Family History (Last Reviewed 09/14/18 @ 10:50 by Nithya Forbes) Mother CAD (coronary artery disease) Heart disease Diabetes Father Brain tumor History Items: Heart Disease, - - his brother at the age of 62 with heart disease and stroke Review of Systems Constitutional: Denies: Chills, Fever, Weight Change HEENT: Denies: Head Aches, Sinus Congestion, Sinus Drainage Cardiovascular: Denies: Chest Pain, Palpitations Respiratory: Reports: Cough, Shortness of breath at rest, Shortness of breath upon exertion, Sputum production, Wheezing Gastrointestinal: Denies: Abdominal Pain, Nausea, Vomiting Genitourinary: Denies: Dysuria Musculoskeletal: Denies: Joint Pain, Joint Tenderness Skin: Denies: Rash, Wounds Neurological: Denies: Numbness, Tingling, Focal weakness Psychiatric: Denies: Anxiety, Depression, Homicidal Ideations, Suicidal Ideations Hematologic/ Lymphatic: Denies: Easy Bruising, Easy Bleeding VTE Information - Inpt Only VTE Present on Admission: No VTE Mechan Device Prophylaxis: None VTE Pharm Prophylaxis ordered?: Yes Reason prophylaxis not ordered:: Procedure Not Indicated - On Eliquis - Physical Exam General: Alert, Oriented x3, Cooperative HEENT: Atraumatic, PERRLA, EOMI, Normocephalic Neck: Supple, No JVD, Negative Carotid Bruits Lungs: Diminished - Air entry is diffusely diminished in all lung mart., Rhonchi, Short of Breath, Wheezes Cardiovascular: Regular rate, Regular Rhythm, Normal S1, Normal S2, No murmurs Abdomen: Bowel Sounds Present, Soft, Non Tender Extremities: No edema, Capillary Refill Less than 3 Seconds, - - Grayish skin depigmentation at bilateral lower legs suggestive of venous hypertension from CHF Skin: No rashes, No breakdown Musculoskeletal: No Tenderness to Palpation of Joints or Extremities, Arthritic Changes Neurological: Cranial nerves II-XII grossly intact, Deep Tendon Reflexes 2+/4 and Symmetrical, Neuro grossly intact Psych/Mental Status: Normal Affect, Appropriate Vital Signs Temp Pulse Resp BP Pulse Ox 98.6 F 61 23 H 146/86 H 93 11/27/18 11:30 11/27/18 12:04 11/27/18 12:04 11/27/18 11:30 11/27/18 11:30 Oxygen Delivery Method Room Air Weight: 221 lb 9.033 oz Body Mass Index (BMI) 32.7 Laboratory Tests Past 24 Hrs 11/27/18 11/27/18 12:05 12:05 WBC 8.9 RBC 5.46 Hgb 15.8 Hct 50.3 MCV 92.1 MCH 28.9 MCHC 31.4 L RDW Std Deviation 48.7 H RDW Coeff of Trevor 14.5 Plt Count 158 MPV 10.2 Immature Gran % (Auto) 0.300 Neut % (Auto) 74.4 H Lymph % (Auto) 13.9 L [place] % (Auto) 9.3 Eos % (Auto) 1.6 Baso % (Auto) 0.5 Absolute Neuts (auto) 6.6 Absolute Lymphs (auto) 1.23 Absolute Nucleated RBC 0.00 Nucleated RBC % 0 Sodium 146 H Potassium 3.5 Chloride 105 Carbon Dioxide 36.0 H Anion Gap 5 BUN 19 H Creatinine 1.36 H Estim Creat Clear Calc 64.26 Est GFR (MDRD) Af Amer 71 Est GFR (MDRD) Non-Af 59 L BUN/Creatinine Ratio 14.0 Glucose 145 H Calcium 8.3 L Troponin I 0.020 Assessment/Plan All Active Problems (Last Reviewed 09/14/18 @ 10:50 by Nithya Forbes) COPD exacerbation (Acute) Dyspnea on exertion (Acute) The patient is a 53 year old M with history of COPD, obstructive sleep apnea on CPAP at night, chronic heart failure with preserved EF 50%, non-STEMI and other comorbidities came to ER with progressive worsening of shortness of breath for 1 day. Patient has dyspnea on exertion of about 100- 200 feet along with cough and wheezing. No fever/chills. Denies chest pain. In ED, chest x-ray shows no acute disease. [] 1. COPD exacerbation: The patient is being admitted to MedSurg floor. On bronchodilator, IV Solu-Medrol, incentive spirometry, chest physiotherapy and Mucinex. Sputum culture and respiratory panel ordered. 2. Chronic heart failure with preserved EF and history of non-STEMI: Currently patient does not have leg swelling and chest x-ray negative for pulmonary edema. Continue home dose of diuretics Lasix 40 mg daily along with supplemental potassium chloride. Continue other cardiac medications Coreg, isosorbide mononitrate, losartan and amlodipine. Last echo in March 2018 reported EF 50% with LV systolic function lower limit of normal in stage I diastolic dysfunction. Troponin is negative. EKG shows normal sinus rhythm with chronic T inversion in anterolateral leads V2 to V6, I and aVL similar to previous EKG of March 2018. Patient had cardiac cath but did not require stenting. 3. Paroxysmal atrial flutter/fibrillation: On Eliquis 5 mg twice daily. Currently normal sinus rhythm. 4. Other comorbidities include hypertension, obstructive sleep apnea on CPAP, pulmonary hypertension, chronic MR and TR: Home medication reconciliation done. Stable. Echo #2018 shows mild TR, RVSP 35 mmHg. Mild eccentric MR. Normal RV systolic size and function. DVT prophylaxis: Already on Eliquis. Laboratory Results 11/27/18 12:05: WBC 8.9, RBC 5.46, Hgb 15.8, Hct 50.3, MCV 92.1, MCH 28.9, MCHC 31.4 L, RDW Std Deviation 48.7 H, RDW Coeff of Trevor 14.5, Plt Count 158, MPV 10.2, Immature Gran % (Auto) 0.300, Neut % (Auto) 74.4 H, Lymph % (Auto) 13.9 L, [place] % (Auto) 9.3, Eos % (Auto) 1.6, Baso % (Auto) 0.5, Absolute Neuts (auto) 6.6, Absolute Lymphs (auto) 1.23, Absolute Nucleated RBC 0.00, Nucleated RBC % 0 11/27/18 12:05: Sodium 146 H, Potassium 3.5, Chloride 105, Carbon Dioxide 36.0 H, Anion Gap 5, BUN 19 H, Creatinine 1.36 H, Estim Creat Clear Calc 64.26, Est GFR (MDRD) Af Amer 71, Est GFR (MDRD) Non-Af 59 L, BUN/Creatinine Ratio 14.0, Glucose 145 H, Calcium 8.3 L, Troponin I 0.020 Clinical Impression(s) from Imaging Studies Chest X-Ray 11/27/18 11:45 IMPRESSION: No active disease. Code Visit OBSV E&M: 47259 Initial observation care L3
[2018-11-27] MEDS: Azithromycin 250 MG Tablet 500 MG PO (16:23)
[2018-11-27 16:44] LABS: BNP,B-Type NATRIURETIC PEPTIDE 862.1 pg/mL (0-100)
[2018-11-27] MEDS: buPROPion (SR) 150 MG Tablet.SA PO (20:52)
[2018-11-27] MEDS: Atorvastatin Calcium 80 MG Tablet PO (20:53)
[2018-11-27] MEDS: guaiFENesin 1,200 MG Tablet 1200 MG PO (20:53)
[2018-11-27] MEDS: APIXABAN 5 MG TABLET PO (20:53)
[2018-11-27] MEDS: 0.9% NaCl Peripheral Flush Adult/Peds IV (20:55)
[2018-11-28] VITALS (10 sets, daily range): BP systolic 126–163; BP diastolic 58–91; PULSE 56–74; RESP 16–20; TEMP 36.5–36.9; O2SAT 94–98
[2018-11-28] MEDS: Ipratropium/Albuterol Sulfate 3 ML AMPUL.NEB INHALATION ×5 (03:29→23:03)
[2018-11-28] MEDS: 0.9% NaCl Peripheral Flush Adult/Peds IV ×2 (05:34→13:43)
--- NOTE | 2018-11-28 07:06 | PN_ITS ---
Subjective: Patient with no acute events overnight per self with noted improvement in dyspnea, still coughing and still fatigued. Patient initially eager for d ischarge to home but following examination and noted continued diminished breath sounds, ongoing wheezing and mildly rhonchorous willing to remain. Nursing staff with report of noted elevated blood sugars as well as intertrigo. Patient denies fevers, chills, nausea, emesis, abdominal pain, chest pain or worsened or recurrent dyspnea. Objective: Physical Examination: General: awake, alert, oriented x 3 and cooperative, seated upright in bed, fatigued, no acute distress. Skin: normal color, turgor, no icterus, cyanosis, abdominal fold intertrigo. HEENT: AT/NC, EOMI, PERRLA, mildly dry MM. Lungs: Diminished breath sounds throughout, greater bilateral bases, moderate effort, mildly rhonchorous with expiratory wheezing noted, no rales. Heart: Regular rate and rhythm; no gallop, rub audible. Abdomen: soft, obese, NTTP, ND, normal BS. Extremities: no cyanosis, clubbing, or edema. Neurological: patient awake, alert, oriented x 3; cognitive function intact; pupils equally reactive to light and accomodation; cranial nerves II-XII grossly normal, moving all 4 extremities, no focal deficits, strength moderately global decrease secondary to acute presentation. Psychiatric: affect appears fatigued, no acute evidence of depressive or anxiety feelings. Vitals/I&O's: Vital Signs Temp Pulse Resp BP Pulse Ox 97.7 F L 70 18 126/78 H 95 11/28/18 01:54 11/28/18 03:30 11/28/18 03:30 11/28/18 01:54 11/28/18 01:56 Oxygen Flow Rate (L/min) 2 Oxygen Delivery Method Nasal Cannula Weight: 209 lb Body Mass Index (BMI) 30.8 Intake and Output for Last 24 Hours 11/26/18 11/27/18 11/28/18 23:59 23:59 23:59 Intake Total 450 / 450 1058 / 1058 Balance 450 / 450 1058 / 1058 Laboratory Results 11/27/18 12:05: WBC 8.9, RBC 5.46, Hgb 15.8, Hct 50.3, MCV 92.1, MCH 28.9, MCHC 31.4 L, RDW Std Deviation 48.7 H, RDW Coeff of Trevor 14.5, Plt Count 158, MPV 10.2, Immature Gran % (Auto) 0.300, Neut % (Auto) 74.4 H, Lymph % (Auto) 13.9 L, [place] % (Auto) 9.3, Eos % (Auto) 1.6, Baso % (Auto) 0.5, Absolute Neuts (auto) 6.6, Absolute Lymphs (auto) 1.23, Absolute Nucleated RBC 0.00, Nucleated RBC % 0 11/27/18 12:05: Sodium 146 H, Potassium 3.5, Chloride 105, Carbon Dioxide 36.0 H , Anion Gap 5, BUN 19 H, Creatinine 1.36 H, Estim Creat Clear Calc 64.26, Est GFR (MDRD) Af Amer 71, Est GFR (MDRD) Non-Af 59 L, BUN/Creatinine Ratio 14.0, Glucose 145 H, Calcium 8.3 L, Troponin I 0.020 11/27/18 12:05: B-Natriuretic Peptide 862.1 H 11/28/18 06:30: Sodium Pending, Potassium Pending, Chloride Pending, Carbon Dioxide Pending, Anion Gap Pending, BUN Pending, Creatinine Pending, Est GFR (MDRD) Af Amer Pending, Est GFR (MDRD) Non-Af Pending, BUN/Creatinine Ratio Pending, Glucose Pending, Calcium Pending, Magnesium Pending, TSH Pending Current Medications Acetaminophen (Tylenol) 650 mg PO Q6H PRN PRN PRN Reason: Mild Pain (1-3)/Temp > 100.7 F Albuterol Sulfate (Ventolin Aerosols) 2.5 mg INHALATION Q2H PRN PRN PRN Reason: Shortness of Breath/Wheezing Albuterol/Ipratropium (Duoneb) 3 ml INHALATION Q4H.RT COUNT INCLUDES THE [facility] Last Admin: 11/28/18 06:38 Dose: 3 ml Documented by: Amiodarone HCl (Cordarone) 200 mg PO DAILY COUNT INCLUDES THE [facility] Amlodipine Besylate (Norvasc) 5 mg PO DAILY COUNT INCLUDES THE [facility] Apixaban (Eliquis) 5 mg PO BID COUNT INCLUDES THE [facility] Last Admin: 11/27/18 20:53 Dose: 5 mg Documented by: Atorvastatin Calcium (Lipitor) 80 mg PO QHS COUNT INCLUDES THE [facility] Last Admin: 11/27/18 20:53 Dose: 80 mg Documented by: Azithromycin (Zithromax) 500 mg PO Q24 COUNT INCLUDES THE [facility] Stop: 11/29/18 10:01 Last Admin: 11/27/18 16:23 Dose: 500 mg Documented by: Bupropion HCl (Wellbutrin Sr (150mg Tablets)) 150 mg PO BID COUNT INCLUDES THE [facility] Last Admin: 11/27/18 20:52 Dose: 150 mg Documented by: Carvedilol (Coreg) 12.5 mg PO DAILY COUNT INCLUDES THE [facility] Furosemide (Lasix) 40 mg PO DAILY COUNT INCLUDES THE [facility] Guaifenesin (Mucinex) 1,200 mg PO BID COUNT INCLUDES THE [facility] Last Admin: 11/27/18 20:53 Dose: 1,200 mg Documented by: Isosorbide Mononitrate (Imdur) 30 mg PO DAILY COUNT INCLUDES THE [facility] Losartan Potassium (Cozaar) 50 mg PO DAILY COUNT INCLUDES THE [facility] Methylprednisolone (Solu-Medrol) 40 mg IV Q8 COUNT INCLUDES THE [facility] Last Admin: 11/28/18 05:34 Dose: 40 mg Documented by: Nicotine (Nicoderm Cq (Pbkc)) 21 mg TRANSDERM. DAILY COUNT INCLUDES THE [facility] Last Admin: 11/27/18 22:24 Dose: 21 mg Documented by: Oxycodone HCl (Oxyir) 5 mg PO Q4H PRN PRN PRN Reason: Moderate Pain (pain scale 4-5) Potassium Chloride (K-Dur) 20 meq PO DAILY COUNT INCLUDES THE [facility] Last Admin: 11/27/18 16:21 Dose: 20 meq Documented by: Senna/Docusate Sodium (Senokot-S, Juliana-Colace) 2 tablet PO BID PRN PRN PRN Reason: Constipation Sodium Chloride () 10 - 40 ml IV UD PRN PRN Reason: SALINE FLUSH Last Admin: 11/28/18 05:34 Dose: 10 ml Documented by: Medical Necessity - Tobacco Use Smoking Status: Current some day smoker Tobacco Use: Cigarettes Assessment/Plan All Active Problems (Last Reviewed 09/14/18 @ 10:50 by Nithya Forbes) COPD exacerbation (Acute) Dyspnea on exertion (Acute) The patient is a 53 y/o M w/ PMHx: HTN, HLD, Chronic COPD, Chronic Systolic CHF, CAD s/p PCI, Unclear Type Cardiomyopathy (prior EF 20%, resolved), NIRMAL on CPAP q HS, PAF, Depression and Anxiety, Obesity, Tobacco use who presents to the [facility] ED on 11/28/18 with grossly worsening dyspnea, wheezing, cough very from baseline x 24 hours. (1) Acute on chronic COPD exacerbation: CXR w/ chronic changes, CBC on admission w/ no marked WBC elevation, afebrile. Admitted to [facility], maintained on oxygen with wean as tolerated to room air, continue ATC duonebs, PRN albuterol, IV methylprednisolone, HOB, IS parameters, deferred abx secondary to mild presentation with afebrile status with no marked WBC elevation or L shift, pending sputum cx. (2) Hyperglycemia: Noted hyperglycemia, possibly related to steroids however was also elevated upon presentation to the ED, will obtain HgbA1c and in the interim transition to ADA diet with ISS w/ accu checks. Nutrition consultation for education and teaching. (3) Chronic Systolic CHF, Unclear Type Cardiomyopathy: Admission CXR without obvious congestion, BNP 862.1, trop 0.020, appears compensated, continue home regimen eliquis, coreg, lasix, losartan, statin regimen. (4) PAF: Continued on home eliquis, amiodarone, coreg. (5) CAD: s/p NSTEMI prior, ? PTCA, maintain on eliquis, coreg, losartan, statin regimen. (6) Hypertension: Continue home regimen including Coreg, Lasix, losartan, Norvasc, Isosorbide, PRN hydralazine. (7) Hyperlipidemia: Continue home statin regimen. (8) Tobacco Abuse: Encouraged cessation, inpatient consultation per RT, NR if desired. (9) Anxiety and depression: Continue home Wellbutrin regimen. (10) Obesity: Weight loss and lifestyle changes encouraged. (11) Intertrigo: We will initiate nystatin topical powder. (12) NIRMAL: CPAP q HS. (13) DVT prophylaxis: SCDs, lovenox. Code Visit Inpatient E&M: 17379 Subs Hosp L2
[2018-11-28 07:34] LABS: Anion Gap 2 (5-15); BUN 22 mg/dL (7-18); Calcium,Total 8.3 mg/dL (8.5-10.1); Chloride 102 mmol/L (98-107); Creatinine, Serum 1.22 mg/dL (0.70-1.30); EST Glomerular Filtration Rate 66 mL/min (>60); Est Glom Filt Rate - Afr Amer 80 mL/min (>60); Estimated Creatinine Clearance 71.63 ml/min; Glucose 208 mg/dL (74-106); Potassium 4.1 mmol/L (3.5-5.1); Sodium Level 141 mmol/L (136-145); Thyroid Stim Hormone (TSH) 0.22 uIU/mL (0.358-3.74)
[2018-11-28] MEDS: Isosorbide Mononitrate 30 MG Tablet PO (07:45)
[2018-11-28] MEDS: buPROPion (SR) 150 MG Tablet.SA PO ×2 (07:46→22:24)
[2018-11-28] MEDS: Furosemide 40 MG Tablet PO (07:46)
[2018-11-28] MEDS: Amiodarone 200 MG Tablet PO (07:46)
[2018-11-28] MEDS: Carvedilol 12.5 MG Tablet PO (07:47)
[2018-11-28] MEDS: APIXABAN 5 MG TABLET PO ×2 (07:47→22:24)
[2018-11-28] MEDS: Losartan Potassium 50 MG Tablet PO (07:47)
[2018-11-28] MEDS: guaiFENesin 1,200 MG Tablet 1200 MG PO ×2 (07:48→22:24)
[2018-11-28] MEDS: amLODIPine 5 MG Tablet PO (07:49)
[2018-11-28 11:01] LABS: Bedside Glucose 201 mg/dL (70-110)
[2018-11-28] MEDS: Insulin Lispro 100 UNIT/ML INSULN.PEN SC ×2 (11:03→22:24)
[2018-11-28] MEDS: Nystatin Powder 15gm Bottle 1 APPLIC TOPICAL ×2 (13:43→22:25)
[2018-11-28 16:41] LABS: Bedside Glucose 140 mg/dL (70-110)
[2018-11-28] MEDS: Atorvastatin Calcium 80 MG Tablet PO (22:24)
[2018-11-28 22:35] LABS: Bedside Glucose 277 mg/dL (70-110)
--- NOTE | 2018-11-28 23:28 | CPS ---
patient stated that he is non-complaint at home and that the 'whole thing is uncomfortable.' patient made aware of benefits of using PAP therapy. patient still denied wanting to use PAP.
[2018-11-29 02:44] VITALS: PULSE 73; RESP 18
[2018-11-29] MEDS: Ipratropium/Albuterol Sulfate 3 ML AMPUL.NEB INHALATION ×2 (02:44→10:42)
[2018-11-29 04:00] VITALS: O2SAT 99
[2018-11-29] MEDS: Nystatin Powder 15gm Bottle 1 APPLIC TOPICAL (05:29)
[2018-11-29 05:32] VITALS: BP 140/81; PULSE 56; RESP 16; TEMP 36.6; O2SAT 99
[2018-11-29] MEDS: Insulin Lispro 100 UNIT/ML INSULN.PEN SC (06:32)
[2018-11-29 06:40] LABS: Bedside Glucose 190 mg/dL (70-110)
--- NOTE | 2018-11-29 06:50 | PCM.PN.HOSP ---
Subjective: Patient overnight with no acute events per self and per nursing report. He states he has been up and ambulating with much greater ease. He states that his coughing has mildly increased but breathing with greater ease and less and wheezing from prior. Patient has been very eager for discharge to home. Discussed intertrigo in the abdominal folds and proper appropriate hygiene care. Patient denies fevers, chills, nausea, emesis, abdominal pain, chest pain or worsened or recurrent dyspnea. Objective: Physical Examination: General: awake, alert, oriented x 3 and cooperative, seated upright in bedside chair, NAD, improved appearance. Skin: normal color, turgor, no icterus, cyanosis, abdominal fold intertrigo. HEENT: AT/NC, EOMI, PERRLA, MMM. Lungs: Improved, still diminished breath sounds, greater bilateral bases, moderate effort, reduced L sided prior mildly rhonchorous, resolved prior expiratory wheezing, no rales. Heart: Regular rate and rhythm; no gallop, rub audible. Abdomen: soft, obese, intertrigo present, NTTP, ND, normal BS. Extremities: no cyanosis, clubbing, or edema. Neurological: patient awake, alert, oriented x 3; cognitive function intact; pupils equally reactive to light and accomodation; cranial nerves II-XII grossly normal, moving all 4 extremities, no focal deficits, strength improved, mildly to moderately global decrease secondary to acute presentation. Psychiatric: affect appears normal, no acute evidence of depressive or anxiety feelings. Vitals/I&O's: Vital Signs Temp Pulse Resp BP Pulse Ox 97.8 F 56 L 16 140/81 H 99 11/29/18 05:32 11/29/18 05:32 11/29/18 05:32 11/29/18 05:32 11/29/18 05:32 Oxygen Flow Rate (L/min) 2 Oxygen Delivery Method Nasal Cannula Weight: 209 lb 0.007 oz Body Mass Index (BMI) 30.8 Intake and Output for Last 24 Hours 11/27/18 11/28/18 11/29/18 23:59 23:59 23:59 Intake Total 450 / 450 1058 / 1358 500 / 500 Balance 450 / 450 1058 / 1358 500 / 500 Microbiology Past 72 Hours 11/27/18 21:00 Interface Orders Gram Stain - Final 11/27/18 21:00 Interface Orders Respiratory Culture - Preliminary Appears to be normal respiratory jen. Further studies to follow. 11/28/18 11:05 Mucosa - Nasopharyngeal Respiratory Panel (PCR) - Final Laboratory Results 11/28/18 06:30: Sodium 141, Potassium 4.1, Chloride 102, Carbon Dioxide 37.0 H, Anion Gap 2 L, BUN 22 H, Creatinine 1.22, Estim Creat Clear Calc 71.63, Est GFR (MDRD) Af Amer 80, Est GFR (MDRD) Non-Af 66, BUN/Creatinine Ratio 18.0, Glucose 208 H, Calcium 8.3 L, Magnesium 2.0, TSH 0.22 L 11/28/18 06:30: Hemoglobin A1c 6.0 11/28/18 06:30: Free T4 1.00 11/28/18 10:56: POC Glucose 201 H 11/28/18 16:23: POC Glucose 140 H 11/28/18 22:22: POC Glucose 277 H 11/29/18 06:30: POC Glucose 190 H Current Medications Acetaminophen (Tylenol) 650 mg PO Q6H PRN PRN PRN Reason: Mild Pain (1-3)/Temp > 100.7 F Albuterol Sulfate (Ventolin Aerosols) 2.5 mg INHALATION Q2H PRN PRN PRN Reason: Shortness of Breath/Wheezing Albuterol/Ipratropium (Duoneb) 3 ml INHALATION Q4H.RT [facility] Last Admin: 11/29/18 02:44 Dose: 3 ml Documented by: Amiodarone HCl (Cordarone) 200 mg PO DAILY [facility] Last Admin: 11/28/18 07:46 Dose: 200 mg Documented by: Amlodipine Besylate (Norvasc) 5 mg PO DAILY [facility] Last Admin: 11/28/18 07:49 Dose: 5 mg Documented by: Apixaban (Eliquis) 5 mg PO BID [facility] Last Admin: 11/28/18 22:24 Dose: 5 mg Documented by: Atorvastatin Calcium (Lipitor) 80 mg PO QHS [facility] Last Admin: 11/28/18 22:24 Dose: 80 mg Documented by: Bupropion HCl (Wellbutrin Sr (150mg Tablets)) 150 mg PO BID [facility] Last Admin: 11/28/18 22:24 Dose: 150 mg Documented by: Carvedilol (Coreg) 12.5 mg PO DAILY [facility] Last Admin: 11/28/18 07:47 Dose: 12.5 mg Documented by: Furosemide (Lasix) 40 mg PO DAILY [facility] Last Admin: 11/28/18 07:46 Dose: 40 mg Documented by: Guaifenesin (Mucinex) 1,200 mg PO BID [facility] Last Admin: 11/28/18 22:24 Dose: 1,200 mg Documented by: Insulin Human Lispro (Humalog Kwikpen (Bkc)) 0 unit SC ACHS [facility]; Protocol Last Admin: 11/29/18 06:32 Dose: 2 units Documented by: Isosorbide Mononitrate (Imdur) 30 mg PO DAILY [facility] Last Admin: 11/28/18 07:45 Dose: 30 mg Documented by: Losartan Potassium (Cozaar) 50 mg PO DAILY [facility] Last Admin: 11/28/18 07:47 Dose: 50 mg Documented by: Methylprednisolone (Solu-Medrol) 40 mg IV Q8 [facility] Last Admin: 11/29/18 05:29 Dose: 40 mg Documented by: Nicotine (Nicoderm Cq (Pbkc)) 21 mg TRANSDERM. DAILY [facility] Last Admin: 11/28/18 11:02 Dose: 21 mg Documented by: Nystatin (Mycostatin Powder) 1 applic TOPICAL TID [facility]; Protocol Last Admin: 11/29/18 05:29 Dose: 1 applicatio Documented by: Oxycodone HCl (Oxyir) 5 mg PO Q4H PRN PRN PRN Reason: Moderate Pain (pain scale 4-5) Potassium Chloride (K-Dur) 20 meq PO DAILY [facility] Last Admin: 11/28/18 07:45 Dose: 20 meq Documented by: Senna/Docusate Sodium (Senokot-S, Juliana-Colace) 2 tablet PO BID PRN PRN PRN Reason: Constipation Sodium Chloride () 10 - 40 ml IV UD PRN PRN Reason: SALINE FLUSH Last Admin: 11/28/18 13:43 Dose: 10 ml Documented by: Medical Necessity - Tobacco Use Smoking Status: Current some day smoker Tobacco Use: Cigarettes Assessment/Plan All Active Problems (Last Reviewed 09/14/18 @ 10:50 by Nithya Forbes) COPD exacerbation (Acute) Dyspnea on exertion (Acute) The patient is a 53 y/o M w/ PMHx: HTN, HLD, Chronic COPD, Chronic Systolic CHF, CAD s/p PCI, Unclear Type Cardiomyopathy (prior EF 20%, resolved), NIRMAL on CPAP q HS, PAF, Depression and Anxiety, Obesity, Tobacco use who presents to the [facility] ED on 11/28/18 with grossly worsening dyspnea, wheezing, cough very from baseline x 24 hours. (1) Acute on chronic COPD exacerbation: CXR w/ chronic changes, CBC on admission w/ no marked WBC elevation, afebrile. Admitted to [place], maintained on oxygen with wean as tolerated to room air, continue ATC duonebs, PRN albuterol, IV methylprednisolone-->11/29/18 transition to prednisone taper given improvement, HOB, IS parameters, deferred abx secondary to mild presentation with afebrile status with no marked WBC elevation or L shift, negative respiratory culture and unremarkable respiratory viral panel. Will obtain oxygenation testing prior to discharge. (2) Hyperglycemia: Noted hyperglycemia, possibly related to steroids however was also elevated upon presentation to the ED, HgbA1c 6.0%, thus encourage repeat assessment with PCP to continue to monitor and consideration addition metformin if further elevates with attempted diet and lifestyle changes. Nutrition consultation for education and teaching. (3) Chronic Systolic CHF, Unclear Type Cardiomyopathy: Admission CXR without obvious congestion, BNP 862.1, trop 0.020, appears compensated, continue home regimen eliquis, coreg, lasix, losartan, statin regimen. (4) PAF: Continued on home eliquis, amiodarone, coreg. (5) CAD: s/p NSTEMI prior, ? PTCA, maintain on eliquis, coreg, losartan, statin regimen. (6) Hypertension: Continue home regimen including Coreg, Lasix, losartan, Norvasc, Isosorbide, PRN hydralazine. (7) Hyperlipidemia: Continue home statin regimen. (8) Tobacco Abuse: Encouraged cessation, inpatient consultation per RT, NR if desired. (9) Anxiety and depression: Continue home Wellbutrin regimen. (10) Obesity: Weight loss and lifestyle changes encouraged. (11) Intertrigo: We will initiate nystatin topical powder. (12) NIRMAL: CPAP q HS. (13) DVT prophylaxis: SCDs, lovenox.
[2018-11-29 07:13] LABS: Absolute Lymphocyte Count 0.42 X10^3/uL (0.83-4.51); Basophil# 0.02 X10^3/uL; Basophil% 0.1 % (0-1); Hematocrit 52.4 % (40-54); Hemoglobin 16.4 g/dL (13.0-16.5); Lymphocyte # 0.42 X10^3/ul (4.0); Lymphocyte % 2.2 % (19-41); Mean Corp Hgb Conc 31.3 g/dL (32-36); Mean Corpuscular Hgb 29.4 pg (27.0-32.0); Mean Corpuscular Volume 94.1 fL (80-94); Mean Platelet Vol. 10.5 fl (6.2-12.0); Monocyte% 3.2 % (0-10); NRBC Flagged by Analyzer 0 % (0-5); Neutrophil # 17.55 X10^3/uL (2.7-7.7); Neutrophil % 93.9 % (47-70); POSITIVE DIFFERENTIAL YES; Platelet Count 159 K/mm3 (150-450); RBC Distribution Width CV 14.4 % (11.6-14.6); Red Blood Count 5.57 M/mm3 (4.6-6.2); White Blood Count 18.7 K/mm3 (4.4-11.0)
[2018-11-29 07:25] VITALS: O2SAT 95
[2018-11-29 07:34] LABS: Anion Gap 5 (5-15); BUN 24 mg/dL (7-18); BUN/Creat Ratio 22.6 RATIO (10-20); Calcium,Total 8.6 mg/dL (8.5-10.1); Chloride 104 mmol/L (98-107); Creatinine, Serum 1.06 mg/dL (0.70-1.30); Differential Indicated SCAN CRITERIA MET; EST Glomerular Filtration Rate 78 mL/min (>60); Est Glom Filt Rate - Afr Amer 94 mL/min (>60); Estimated Creatinine Clearance 82.45 ml/min; Glucose 158 mg/dL (74-106); Potassium 4.4 mmol/L (3.5-5.1); Sodium Level 145 mmol/L (136-145)
--- NOTE | 2018-11-29 08:43 | PCM.DC ---
- Discharge Diagnoses Current Active Problems: (1) Acute on chronic COPD exacerbation (2) Hyperglycemia (HgbA1c 6.0%) consistent with Pre-Diabetes mellitus type II (3) Chronic Systolic CHF, Unclear Type Cardiomyopathy. (4) PAF (5) CAD (6) Hypertension (7) Hyperlipidemia (8) Tobacco Abuse (9) Anxiety and depression (10) Obesity (11) Intertrigo, Abdominal folds (12) NIRMAL You will use the following diet at home:: Calorie/Carbohydrate Controlled (specify 1200, 1400, etc) - Recommend ADA 1800/Cardiac diet Your food should be the consistency of: Regular Your liquids should be the consistency of: Regular/Thin Discharge Activity: - - Continue reduced moderate activity until complete resolution of current COPD exacerbation and clearance per your primary care physician at follow-up. Weight Bearing Status: Weight bearing as tolerated Call your doctor if you observe: Fever of 101 or Higher, Inability to urinate, Inability to have a bowel movement, Shortness of breath, Dizziness, Fainting spells, Chest pain, Uncontrolled pain Instructions: What Is COPD?, Chronic Lung Disease: Preventing Lung Infections, Chronic Lung Disease: Becoming More Active, Chronic Lung Disease: Maximizing Your Energy, Chronic Lung Disease: Tips for Quitting Smoking, COPD: Using Inhalers, Tips for Quitting Smoking (Cardiovascular), Why Do You Smoke?, Planning to Quit Smoking, Getting Support for Quitting Smoking, Coping with Smoking Withdrawal, Healthy Meals for Diabetes, Diabetes: Understanding Carbohydrates, Eating Out When You Have Diabetes, What Is Type 2 Diabetes? Additional Instructions: During the admission your blood sugars were elevated with HgbA1c noted to be 6.0%. Please review admission with your primary care physician to attempt diet and lifestyle changes with repeat testing to ascertain need for medication addition. Allergies/Adverse Reactions: Allergies promethazine HCl [From Phenergan] Adverse Reaction (Verified 11/27/18 15:04) nausea/vomiting Medications to take at Discharge Bupropion HCl [Bupropion HCl Sr] 150 mg PO BID 12/01/16 Isosorbide Mononitrate [Isosorbide Mononitrate ER] 30 mg PO DAILY 03/16/18 Tiotropium [place] [Spiriva Respimat] 2 puff INHALATION DAILY 03/16/18 Furosemide [Lasix] 40 mg PO DAILY #30 tab 03/19/18 amlodipine 5 mg tablet 5 mg PO DAILY #90 tab 08/11/18 losartan 50 mg tablet 50 mg PO DAILY #90 tab 08/12/18 apixaban 5 mg tablet 5 mg PO BID #60 tab 09/17/18 amiodarone 200 mg tablet 200 mg PO DAILY #30 tab 10/07/18 albuterol sulfate HFA 90 mcg/actuation aerosol inhaler 1 - 2 puff INHALATION Q4H PRN PRN #18 g 11/17/18 potassium chloride ER 20 mEq tablet,extended release(part/cryst) 20 meq PO DAILY #90 tab 11/23/18 Atorvastatin Calcium [Lipitor] 80 mg PO QHS 11/27/18 Carvedilol 12.5 mg PO DAILY 11/27/18 Albuterol Aerosols [Ventolin Aerosols] 2.5 mg INHALATION Q2H PRN PRN #1 box 11/29/18 Guaifenesin [Mucinex] 1,200 mg PO BID #20 tab 11/29/18 Nicotine [Nicoderm Cq] 21 mg TRANSDERM. DAILY #14 patch 11/29/18 Nystatin Powder [Mycostatin Powder] 1 applic TOPICAL TID #1 bottle 11/29/18 Prednisone 10 mg PO UD 12 Days #30 tab 11/29/18 The following prescriptions were given: Guaifenesin [Mucinex] 1,200 mg PO BID #20 tab Transmission Status: Pending to [facility]30 Nystatin Powder [Mycostatin Powder] 1 applic TOPICAL TID #1 bottle Transmission Status: Pending to [facility]30 Nicotine [Nicoderm Cq] 21 mg TRANSDERM. DAILY #14 patch Transmission Status: Pending to [facility]30 Prednisone 10 mg PO UD 12 Days #30 tab Transmission Status: Pending to [facility]30 Albuterol Aerosols [Ventolin Aerosols] 2.5 mg INHALATION Q2H PRN PRN #1 box PRN Reason: Shortness of Breath/Wheezing Transmission Status: Pending to [facility]30 Primary Care Physician: Rohit Peralta Chi, MD [Primary Care Provider] - Please follow up with your Primary Care Physician in: Follow-up within 3-5 days to review admission. Test Results: Test results from this visit will be discussed in further detail at your follow-up appointment, if applicable. Please Follow Up With: Denia Kirkpatrick NP-C When: Please follow-up with Pulmonary [employer] within 1-2 weeks. Proposed Discharge Date: 11/29/18
[2018-11-29 08:49] VITALS: BP 157/97; PULSE 60; RESP 20; TEMP 36.6; O2SAT 95
--- NOTE | 2018-11-29 08:49 | PCM.DC.SUM ---
Discharge Date and Diagnosis Date of Admission: 11/27/18 Date of Discharge: 11/29/18 - Primary Discharge Diagnosis (1) Acute on chronic COPD exacerbation (2) Hyperglycemia (HgbA1c 6.0%) consistent with Pre-Diabetes mellitus type II (3) Chronic Systolic CHF, Unclear Type Cardiomyopathy. (4) PAF (5) CAD (6) Hypertension (7) Hyperlipidemia (8) Tobacco Abuse (9) Anxiety and depression (10) Obesity (11) Intertrigo, Abdominal folds (12) NIRMAL - Secondary Discharge Diagnosis Chronic Problems (Last Reviewed 09/14/18 @ 10:50 by Nithya Forbes) Pure hypercholesterolemia (Chronic) Essential hypertension (Chronic) Chronic systolic (congestive) heart failure (Chronic) History of non-ST elevation myocardial infarction (NSTEMI) (Chronic) Paroxysmal atrial flutter (Chronic) Non-rheumatic mitral regurgitation (Chronic) Nonrheumatic tricuspid valve regurgitation (Chronic) Nonrheumatic pulmonary valve insufficiency (Chronic) Cardiomyopathy (Chronic) resolved- was 20% Pulmonary hypertension (Chronic) History of PTCA (Chronic) Obstructive sleep apnea (Chronic) Obesity (BMI 30.0-34.9) (Chronic) Paroxysmal atrial fibrillation (Chronic) Chronic anticoagulation (Chronic) Depression (Chronic) Smoking addiction (Chronic) COPD (chronic obstructive pulmonary disease) (Chronic) Abnormal EKG (Chronic) CO2 retention (Chronic) Hospital Course and Treatment Operations: None Procedures: EKG Summary of Care Provided: The patient is a 53 y/o M w/ PMHx: HTN, HLD, Chronic COPD, Chronic Systolic CHF, CAD s/p PCI, Unclear Type Cardiomyopathy (prior EF 20%, resolved), NIRMAL on CPAP q HS, PAF, Depression and Anxiety, Obesity, Tobacco use who presented to the [facility] ED on 11/28/18 with grossly worsening dyspnea, wheezing, cough very from baseline x 24 hours. CXR w/ chronic changes, CBC on admission w/ no marked WBC elevation, afebrile. Admitted to [place], maintained on oxygen with wean as tolerated to room air, continued ATC duonebs, PRN albuterol, IV methylprednisolone-->11/29/18 transitioned to prednisone taper given improvement, HOB, IS parameters, deferred abx secondary to mild presentation with afebrile status with no marked WBC elevation or L shift, negative respiratory culture and unremarkable respiratory viral panel. During admission, noted hyperglycemia, HgbA1c 6.0%, thus encouraged repeat assessment with PCP to continue to monitor and consideration addition metformin if further elevates with attempted diet and lifestyle changes. Nutrition consultation during admission for education and teaching. Oxygenation testing performed prior to patient discharge. Patient discharged home in stable improved condition with follow-up with primary care physician as well as follow-up with pulmonary [employer] with whom he has been following. - Physical Exam Vital Signs Temp Pulse Resp BP Pulse Ox 97.8 F 56 L 16 140/81 H 95 11/29/18 05:32 11/29/18 05:32 11/29/18 05:32 11/29/18 05:32 11/29/18 07:25 Oxygen Flow Rate (L/min) 2 Oxygen Delivery Method Nasal Cannula Weight: 209 lb 0.007 oz Body Mass Index (BMI) 30.8 Intake and Output for Last 24 Hours 11/27/18 11/28/18 11/29/18 23:59 23:59 23:59 Intake Total 450 / 450 1058 / 1358 500 / 500 Balance 450 / 450 1058 / 1358 500 / 500 Microbiology Past 72 Hours 11/27/18 21:00 Gram Stain - Final Interface Orders Respiratory Culture - Preliminary Appears to be normal respiratory jen. Further studies to follow. 11/28/18 11:05 Respiratory Panel (PCR) - Final Mucosa - Nasopharyngeal Laboratory Tests Past 24 Hrs 11/28/18 11/28/18 11/29/18 06:30 06:30 07:02 WBC 18.7 H RBC 5.57 Hgb 16.4 Hct 52.4 MCV 94.1 H MCH 29.4 MCHC 31.3 L RDW Std Deviation 49.0 H RDW Coeff of Trevor 14.4 Plt Count 159 MPV 10.5 Immature Gran % (Auto) 0.600 Neut % (Auto) 93.9 H Lymph % (Auto) 2.2 L [place] % (Auto) 3.2 Eos % (Auto) 0.0 Baso % (Auto) 0.1 Absolute Neuts (auto) Not Reportable Absolute Lymphs (auto) 0.42 L Absolute Nucleated RBC 0.00 Nucleated RBC % 0 Sodium Potassium Chloride Carbon Dioxide Anion Gap BUN Creatinine Estim Creat Clear Calc Est GFR (MDRD) Af Amer Est GFR (MDRD) Non-Af BUN/Creatinine Ratio Glucose Hemoglobin A1c 6.0 Calcium Free T4 1.00 11/29/18 07:02 WBC RBC Hgb Hct MCV MCH MCHC RDW Std Deviation RDW Coeff of Trevor Plt Count MPV Immature Gran % (Auto) Neut % (Auto) Lymph % (Auto) [place] % (Auto) Eos % (Auto) Baso % (Auto) Absolute Neuts (auto) Absolute Lymphs (auto) Absolute Nucleated RBC Nucleated RBC % Sodium 145 Potassium 4.4 Chloride 104 Carbon Dioxide 36.0 H Anion Gap 5 BUN 24 H Creatinine 1.06 Estim Creat Clear Calc 82.45 Est GFR (MDRD) Af Amer 94 Est GFR (MDRD) Non-Af 78 BUN/Creatinine Ratio 22.6 H Glucose 158 H Hemoglobin A1c Calcium 8.6 Free T4 POC Glucose 11/29/18 11/28/18 11/28/18 06:30 22:22 16:23 POC Glucose 190 H 277 H 140 H 11/28/18 10:56 POC Glucose 201 H Discharge Activity: - - Continue reduced moderate activity until complete resolution of current COPD exacerbation and clearance per your primary care physician at follow-up. Weight Bearing Status: Weight bearing as tolerated Call your doctor if you observe: Fever of 101 or Higher, Inability to urinate, Inability to have a bowel movement, Shortness of breath, Dizziness, Fainting spells, Chest pain, Uncontrolled pain Home Medications: Medications to take at Discharge Bupropion HCl [Bupropion HCl Sr] 150 mg PO BID 12/01/16 Isosorbide Mononitrate [Isosorbide Mononitrate ER] 30 mg PO DAILY 03/16/18 Tiotropium [place] [Spiriva Respimat] 2 puff INHALATION DAILY 03/16/18 Furosemide [Lasix] 40 mg PO DAILY #30 tab 03/19/18 amlodipine 5 mg tablet 5 mg PO DAILY #90 tab 08/11/18 losartan 50 mg tablet 50 mg PO DAILY #90 tab 08/12/18 apixaban 5 mg tablet 5 mg PO BID #60 tab 09/17/18 amiodarone 200 mg tablet 200 mg PO DAILY #30 tab 10/07/18 albuterol sulfate HFA 90 mcg/actuation aerosol inhaler 1 - 2 puff INHALATION Q4H PRN PRN #18 g 11/17/18 potassium chloride ER 20 mEq tablet,extended release(part/cryst) 20 meq PO DAILY #90 tab 11/23/18 Atorvastatin Calcium [Lipitor] 80 mg PO QHS 11/27/18 Carvedilol 12.5 mg PO DAILY 11/27/18 Albuterol Aerosols [Ventolin Aerosols] 2.5 mg INHALATION Q2H PRN PRN #1 box 11/29/18 Guaifenesin [Mucinex] 1,200 mg PO BID #20 tab 11/29/18 Nicotine [Nicoderm Cq] 21 mg TRANSDERM. DAILY #14 patch 11/29/18 Nystatin Powder [Mycostatin Powder] 1 applic TOPICAL TID #1 bottle 11/29/18 Prednisone 10 mg PO UD 12 Days #30 tab 11/29/18 Following Prescrptions Were Given to Patient: Guaifenesin [Mucinex] 1,200 mg PO BID #20 tab Transmission Status: Pending to [facility] #30 Nystatin Powder [Mycostatin Powder] 1 applic TOPICAL TID #1 bottle Transmission Status: Pending to [facility] #30 Nicotine [Nicoderm Cq] 21 mg TRANSDERM. DAILY #14 patch Transmission Status: Pending to [facility] #30 Prednisone 10 mg PO UD 12 Days #30 tab Transmission Status: Pending to [facility] #30 Albuterol Aerosols [Ventolin Aerosols] 2.5 mg INHALATION Q2H PRN PRN #1 box PRN Reason: Shortness of Breath/Wheezing Transmission Status: Pending to [facility] #30 Primary Care Physician: Rohit Peralta Chi, MD [Primary Care Provider] - Please follow up with your Primary Care Physician in: Follow-up within 3-5 days to review admission. Please Follow Up With: Denia Kirkpatrick NP-C When: Please follow-up with Pulmonary [employer] within 1-2 weeks. Patient Instructions: Tips for Quitting Smoking (Cardiovascular), What Is Type 2 Diabetes?, Healthy Meals for Diabetes, Diabetes: Understanding Carbohydrates, Eating Out When You Have Diabetes, What Is COPD?, Chronic Lung Disease: Preventing Lung Infections, Chronic Lung Disease: Becoming More Active, Chronic Lung Disease: Maximizing Your Energy, Chronic Lung Disease: Tips for Quitting Smoking, Why Do You Smoke?, Planning to Quit Smoking, Getting Support for Quitting Smoking, Coping with Smoking Withdrawal, COPD: Using Inhalers Disposition: Home Minutes spent on discharge:: 35 Patient Condition:: Fair Medical Necessity - Tobacco Use Smoking Status: Current some day smoker Tobacco Use: Cigarettes Meaningful Use Info Meaningful Use Diagnoses (Choose all that apply): None applicable Code Visit Inpatient E&M: 36504 Disch Hosp
[2018-11-29] MEDS: Carvedilol 12.5 MG Tablet PO (09:12)
[2018-11-29] MEDS: APIXABAN 5 MG TABLET PO (09:12)
[2018-11-29] MEDS: Losartan Potassium 50 MG Tablet PO (09:12)
[2018-11-29] MEDS: Amiodarone 200 MG Tablet PO (09:12)
[2018-11-29] MEDS: Isosorbide Mononitrate 30 MG Tablet PO (09:12)
[2018-11-29] MEDS: Furosemide 40 MG Tablet PO (09:13)
[2018-11-29] MEDS: guaiFENesin 1,200 MG Tablet 1200 MG PO (09:13)
[2018-11-29] MEDS: buPROPion (SR) 150 MG Tablet.SA PO (09:14)
[2018-11-29] MEDS: amLODIPine 5 MG Tablet PO (09:14)
[2018-11-29 10:57] VITALS: PULSE 77; RESP 20
== END 2018-11-29 10:51 | disposition home or self-care (01) ==
LOC: ED 15:14 → MS3 11-28 06:45
PROVIDERS: Admitting Provider Internal Medicine; Emergency Provider Emergency Medicine; Family Provider Family Medicine Geriatric Medicine; PCP Family Medicine Geriatric Medicine; Visit Provider Family Medicine
DX: J44.1 Chronic obstructive pulmonary disease with (acute) exacerbation (principal); I11.0 Hypertensive heart disease with heart failure; I50.22 Chronic systolic (congestive) heart failure; E78.5 Hyperlipidemia, unspecified; I25.2 Old myocardial infarction; I27.20 Pulmonary hypertension, unspecified; G47.33 Obstructive sleep apnea (adult) (pediatric); E66.9 Obesity, unspecified; I48.0 Paroxysmal atrial fibrillation; F32.9 Major depressive disorder, single episode, unspecified; I25.10 Atherosclerotic heart disease of native coronary artery without angina pectoris; F17.210 Nicotine dependence, cigarettes, uncomplicated; Z98.61 Coronary angioplasty status; Z68.30 Body mass index [BMI] 30.0-30.9, adult; Z71.3 Dietary counseling and surveillance; Z79.899 Other long term (current) drug therapy; F41.9 Anxiety disorder, unspecified; R73.9 Hyperglycemia, unspecified; L30.4 Erythema intertrigo
CPT/HCPCS: 36415; 71045; 80048; 82962; 83036; 83735; 83880; 84439; 84443; 84484; 85025; 87070; 87077; 87186; 87205; 87633; 93005; 94640; 94660; 94667; 96374; 96376; 97802; 99218; 99285; 99406; A4216; G0378

== ENCOUNTER 2019-01-08 13:54 | Emergency (ER) | payer MEDICARE, MEDICAID, SELFPAY ==
[2018-12-23 08:53] VITALS: BMI 32.3
[2019-01-08 13:55] VITALS: BP 161/99; PULSE 79; RESP 16; TEMP 36.6; O2SAT 91; BMI 32.1
--- NOTE | 2019-01-08 14:08 | CT_ITS ---
STUDY: CT BRAIN WITHOUT CONTRAST REASON FOR EXAM: Male, 53 years old. Dizziness. RADIATION DOSAGE (If Supplied By Facility): CTDIvol = ( 44.99 ) mGy, DLP = ( 812.98 ) mGycm TECHNIQUE: Transaxial CT imaging of the brain was performed without administration of intravenous contrast material. Individualized dose optimization techniques were used for this CT. COMPARISON: Comparison is made with prior examination dated December 01, 2016. FINDINGS: Normal soft tissue structures. Normal calvarium. Normal size ventricles and extra-axial spaces for the patient's age. Normal white matter tracts of the cerebral hemispheres. Normal basal ganglia and thalami. Normal brainstem. Normal cerebellum. There is no intracranial hemorrhage. There are no findings of an acute ischemic infarction. Normal visualized paranasal sinuses. CT/Brain/Head without Contrast IMPRESSION: Normal unenhanced CT scan of the brain. Electronically Signed: Augustus Ba, at 14:36 EDT , Service support ,
--- NOTE | 2019-01-08 14:09 | ED.DCSUM_ITS ---
- ER Visit Summary Date of Service: 01/08/19 Chief Complaint: My legs were wobbly last night History of Present Illness: The patient is a 53 M who comes in with a complaint that his legs were wobbly last night. He was at work and he felt like he was drunk and his legs felt rubbery. He denies drinking any alcohol. He felt fatigued and left work. He feels better as far as the fatigue standpoint today but want to come and get checked out. He denies any pain anywhere. No shortness of breath. His legs do feel achy today. He is on Eliquis for atrial fibrillation. He does have a history of COPD but denies shortness of breath. Not currently on any home oxygen. Physical Examination: Vital signs are reviewed. HEENT exam unremarkable. Heart is irregularly irregular without murmurs. Lungs have mild rhonchorous breath sounds bilaterally. Abdomen soft nontender nondistended. Legs are nontender. His strength is equal throughout. Sensation equal as well. His neurologic exam is otherwise normal. Test Results: CAT scan of the head reveals no acute findings. Laboratory studies unremarkable except for sodium 147, bicarb 38 and glucose 153 Emergency Department Course and Treatment: The patient's work-up was fairly negative. He is feeling better than he did last night. I have no obvious cause for his leg wobbliness. He does have an extensive pulmonary history but he is complaining of no shortness of breath. He is 91% on room air which is likely his baseline. His clinical exam is not consistent with any neurologic dysfunction such as Guilann Durant?. patient will be discharged to increase his fluid intake. He will follow-up with his PCP Treatment Plan: [] Disposition: Discharge Impression: Bilateral lower leg weakness This note was generated with Tapp[employer] dictation software. It may contain incorrect words, spelling, and punctuation that were not noted in review of the chart prior to signing ED Disposition - Plan for ED Patient: Referrals: Rohit Peralta Chi, MD [Primary Care Provider] -
[2019-01-08 14:27] LABS: Absolute Lymphocyte Count 1.24 X10^3/uL (0.83-4.51); Absolute Neutrophil Count 7.8 X10^3/uL (2.0-7.7); Basophil# 0.05 X10^3/uL; Basophil% 0.5 % (0-1); Eosinophil# 0.11 X10^3/uL; Eosinophils% 1.1 % (0-5); Hematocrit 48.6 % (40-54); Lymphocyte # 1.24 X10^3/ul (4.0); Lymphocyte % 12.2 % (19-41); Mean Corp Hgb Conc 30.9 g/dL (32-36); Mean Corpuscular Hgb 29.3 pg (27.0-32.0); Mean Corpuscular Volume 94.9 fL (80-94); Mean Platelet Vol. 10.3 fl (6.2-12.0); Monocyte# 0.93 X10^3/uL; Monocyte% 9.1 % (0-10); NRBC Flagged by Analyzer 0 % (0-5); Neutrophil # 7.83 X10^3/uL (2.7-7.7); Neutrophil % 76.7 % (47-70); Platelet Count 157 K/mm3 (150-450); RBC Distribution Width CV 14.1 % (11.6-14.6); RBC Distribution Width SD 49.1 fl (35.1-43.9); Red Blood Count 5.12 M/mm3 (4.6-6.2); White Blood Count 10.2 K/mm3 (4.4-11.0)
[2019-01-08 14:39] LABS: Anion Gap 5 (5-15); BUN 10 mg/dL (7-18); BUN/Creat Ratio 9.4 RATIO (10-20); Chloride 104 mmol/L (98-107); Creatinine, Serum 1.06 mg/dL (0.70-1.30); EST Glomerular Filtration Rate 78 mL/min (>60); Est Glom Filt Rate - Afr Amer 94 mL/min (>60); Estimated Creatinine Clearance 82.45 ml/min; Glucose 153 mg/dL (74-106); Potassium 3.8 mmol/L (3.5-5.1); Sodium Level 147 mmol/L (136-145)
--- NOTE | 2019-01-08 14:50 | ED.DEP ---
ED Disposition - Plan for ED Patient: Disposition: Home or Assisted Living Instructions: WEAKNESS, Unk Cause Referrals: Rohit Peralta Chi, MD [Primary Care Provider] -
[2019-01-08 14:57] VITALS: BP 159/101; PULSE 73; RESP 16; O2SAT 94
--- NOTE | 2019-01-08 14:58 | ED.RN ---
IV DC'ED, CATHETER INTACT, SMALL GAUZE DRESSING PLACED. DISCHARGE INSTRUCTIONS GIVEN TO AND REVIEWED WITH PATIENT, PATIENT DENIES QUESTIONS OR CONCERNS AND VOICES UNDERSTANDING OF DISCHARGE INSTRUCTIONS. PT AMBULATES OUT OF ROOM WITHOUT DIFFICULTY.
== END 2019-01-08 14:58 | disposition home or self-care (01) ==
PROVIDERS: Emergency Provider Emergency Medicine; Family Provider Family Medicine Geriatric Medicine; PCP Family Medicine Geriatric Medicine
DX: R29.898 Other symptoms and signs involving the musculoskeletal system (principal); I48.91 Unspecified atrial fibrillation; J44.9 Chronic obstructive pulmonary disease, unspecified; I25.10 Atherosclerotic heart disease of native coronary artery without angina pectoris; I25.2 Old myocardial infarction; I11.0 Hypertensive heart disease with heart failure; I50.9 Heart failure, unspecified; Z79.01 Long term (current) use of anticoagulants; Z79.899 Other long term (current) drug therapy
CPT/HCPCS: 70450; 80048; 85025; 99283; A4216

== ENCOUNTER → 2019-02-11 10:28 | Outpatient (CLI) | payer MEDICARE, MEDICAID, SELFPAY ==
[2019-02-11 12:44] LABS: Absolute Lymphocyte Count 1.09 X10^3/uL (0.83-4.51); Absolute Neutrophil Count 8.7 X10^3/uL (2.0-7.7); Basophil# 0.05 X10^3/uL; Basophil% 0.5 % (0-1); Eosinophil# 0.29 X10^3/uL; Eosinophils% 2.6 % (0-5); Hematocrit 50.4 % (40-54); Hemoglobin 15.2 g/dL (13.0-16.5); Lymphocyte # 1.09 X10^3/ul (4.0); Lymphocyte % 9.9 % (19-41); Mean Corp Hgb Conc 30.2 g/dL (32-36); Mean Corpuscular Hgb 28.9 pg (27.0-32.0); Mean Corpuscular Volume 95.8 fL (80-94); Mean Platelet Vol. 10.3 fl (6.2-12.0); Monocyte# 0.86 X10^3/uL; Monocyte% 7.8 % (0-10); NRBC Flagged by Analyzer 0 % (0-5); Neutrophil # 8.69 X10^3/uL (2.7-7.7); Neutrophil % 78.7 % (47-70); Platelet Count 173 K/mm3 (150-450); RBC Distribution Width CV 14.6 % (11.6-14.6); RBC Distribution Width SD 50.6 fl (35.1-43.9); Red Blood Count 5.26 M/mm3 (4.6-6.2)
[2019-02-11 13:04] LABS: Vitamin D,25 Hydroxy 11.5 ng/mL (29.95-100.01)
[2019-02-11 13:08] LABS: ALB/GLOB Ratio 0.8 RATIO (0.9-2.4); AST(SGOT) 10 U/L (15-37); Alanine Aminotransfer ALT/SGPT 16 U/L (16-61); Albumin, Serum 3.3 g/dL (3.2-5.0); Alkaline Phosphatase 92 U/L (45-117); Anion Gap 5 (5-15); BUN 12 mg/dL (7-18); BUN/Creat Ratio 11.2 RATIO (10-20); Calcium,Total 8.9 mg/dL (8.5-10.1); Chloride 102 mmol/L (98-107); Creatinine, Serum 1.07 mg/dL (0.70-1.30); EST Glomerular Filtration Rate 77 mL/min (>60); Est Glom Filt Rate - Afr Amer 93 mL/min (>60); Globulin 4.1 g/dL (2.2-4.2); Glucose 143 mg/dL (74-106); Potassium 4.5 mmol/L (3.5-5.1); Protein, Total 7.4 g/dL (6.4-8.2); Sodium Level 145 mmol/L (136-145); Thyroid Stim Hormone (TSH) 0.83 uIU/mL (0.358-3.74)
== END ==
PROVIDERS: Family Provider Family Medicine Geriatric Medicine; PCP Family Medicine Geriatric Medicine; Visit Provider Family Medicine Geriatric Medicine
DX: E55.9 Vitamin D deficiency, unspecified (principal); I10 Essential (primary) hypertension
CPT/HCPCS: 36415; 80053; 82306; 84443; 85025

== ENCOUNTER 2019-03-08 13:43 | Observation (INO) | payer MEDICARE, SELFPAY ==
[2019-03-08 13:44] VITALS: BP 160/101; PULSE 78; RESP 19; TEMP 36.6; O2SAT 93; BMI 33.9
--- NOTE | 2019-03-08 14:28 | EKG12_ITS ---
Test Reason : CHF Blood Pressure : / mmHG Vent. Rate : 072 BPM Atrial Rate : 072 BPM P-R Int : 166 ms QRS Dur : 102 ms QT Int : 444 ms P-R-T Axes : 064 084 114 degrees QTc Int : 486 ms Sinus rhythm with Premature atrial complexes Nonspecific T wave abnormality Prolonged QT Abnormal ECG Confirmed by TAMERA WOMACK ([id number]), rewrite editor MICKY ESCAMILLA ([id number]) on 03/15/2019 9:09:41 AM Referred By: IGNACIO Confirmed By:TAMERA WOMACK
[2019-03-08 14:41] LABS: Absolute Lymphocyte Count 0.95 X10^3/uL (0.83-4.51); Absolute Neutrophil Count 8.8 X10^3/uL (2.0-7.7); Basophil# 0.05 X10^3/uL; Basophil% 0.5 % (0-1); Eosinophil# 0.14 X10^3/uL; Eosinophils% 1.3 % (0-5); Hematocrit 49.2 % (40-54); Hemoglobin 15.1 g/dL (13.0-16.5); Lymphocyte # 0.95 X10^3/ul (4.0); Lymphocyte % 8.7 % (19-41); Mean Corp Hgb Conc 30.7 g/dL (32-36); Mean Corpuscular Hgb 29.2 pg (27.0-32.0); Monocyte# 0.94 X10^3/uL; Monocyte% 8.6 % (0-10); NRBC Flagged by Analyzer 0 % (0-5); Neutrophil # 8.83 X10^3/uL (2.7-7.7); Neutrophil % 80.5 % (47-70); Platelet Count 177 K/mm3 (150-450); RBC Distribution Width CV 14.2 % (11.6-14.6); RBC Distribution Width SD 49.5 fl (35.1-43.9); Red Blood Count 5.18 M/mm3 (4.6-6.2)
--- NOTE | 2019-03-08 14:45 | RAD_ITS ---
STUDY: X-RAY CHEST REASON FOR EXAM: Male, 54 years old. Weakness, chest pain TECHNIQUE: PA and lateral views of the chest. COMPARISON: 11/27/2018 FINDINGS: The lungs are clear and expanded. There is no demonstrated pleural abnormality. There is moderate cardiac enlargement. Normal mediastinum and racquel. Normal visualized pulmonary arteries. Normal visualized aortic arch and descending thoracic aorta. Normal visualized thoracic spine. Normal visualized ribs, clavicles, and shoulders. There is no demonstrated abnormality of the visualized soft tissue structures of the upper abdomen. RAD/Chest PA and Lateral IMPRESSION: No active disease. Electronically Signed: Adam Landry MD at 15:02 EDT Tel , Service support ,
[2019-03-08 14:58] LABS: ALB/GLOB Ratio 0.7 RATIO (0.9-2.4); AST(SGOT) 13 U/L (15-37); Alanine Aminotransfer ALT/SGPT 12 U/L (16-61); Alkaline Phosphatase 63 U/L (45-117); Anion Gap 3 (5-15); BUN 12 mg/dL (7-18); BUN/Creat Ratio 10.9 RATIO (10-20); Calcium,Total 8.6 mg/dL (8.5-10.1); Chloride 102 mmol/L (98-107); EST Glomerular Filtration Rate 75 mL/min (>60); Est Glom Filt Rate - Afr Amer 90 mL/min (>60); Estimated Creatinine Clearance 78.56 ml/min; Globulin 4.1 g/dL (2.2-4.2); Glucose 137 mg/dL (74-106); Potassium 3.6 mmol/L (3.5-5.1); Protein, Total 7.1 g/dL (6.4-8.2); Sodium Level 144 mmol/L (136-145)
[2019-03-08 15:12] LABS: BNP,B-Type NATRIURETIC PEPTIDE 984.1 pg/mL (0-100)
--- NOTE | 2019-03-08 15:30 | ED.VIS.GEN ---
History of Present Illness Chief Complaint: Abd Pain Informant: Patient Onset: Days Context: Gradual Onset Timing: Continuous Current Severity: Moderate Maximum Severity: Severe Narrative: The patient is a 54-year-old male with medical history significant for COPD, congestive heart failure, atrial flutter on Eliquis, and medication noncompliance who presents to the emergency department with exertional dyspnea and orthopnea. Patient states over the past few days, he had increased swelling in his lower extremities and into his abdomen. He states he has a difficult time laying flat because he feels short of breath. He states if he walks a distance, feels like he cannot catch his breath. He denies any chest pain. He denies any fevers or chills. He does not check his weight normally. He states he feels like he cannot get a ride home because of his dyspnea. Prior similar symptoms: Yes Recent Illness/Hospitalization: Yes Past Medical History - Allergies and Home Meds Allergies/Adverse Reactions: Allergies promethazine HCl [From Phenergan] Adverse Reaction (Verified 03/08/19 13:47) nausea/vomiting Primary Care Physician: Rohit Peralta Chi, MD [Primary Care Provider] - Prior records reviewed: Yes Surgical History: no surgical history Smoking Status: Former smoker - Family History Maternal Family History: Family History (Last Reviewed 12/23/18 @ 08:54 by Kristine Shankar) Mother CAD (coronary artery disease) Heart disease Diabetes Father Brain tumor Family History: Reports: Heart Disease Sibling Family History: Family History (Last Reviewed 12/23/18 @ 08:54 by Kristine Shanakr) Mother CAD (coronary artery disease) Heart disease Diabetes Father Brain tumor Family History: Reports: Heart Disease, - - his brother at the age of 62 with heart disease and stroke Review of Systems General: Denies: Chills, Fever, Sweats Eyes: Denies: Visual changes - bilaterally, Diplopia ENT: Denies: Rhinorrhea, Sore throat Cardiovascular: Denies: Chest pain, Palpitations Respiratory: Reports: Dyspnea, Dyspnea on exertion, Orthopnea. Denies: Cough Gastrointestinal: Denies: Abdominal pain, Nausea, Vomiting, Diarrhea, Melena, Hematochezia Genitourinary: Denies: Dysuria, Hematuria, Frequency Musculoskeletal: Denies: Back pain, Extremity Pain Skin: Denies: Rash, Wounds Neurological: Denies: Headache, Weakness, Numbness Physical Exam Vital Signs/Narrative: Vital Signs Temp Pulse Resp BP Pulse Ox 03/08/19 13:44 97.9 F 78 19 H 160/101 H 93 Inital Vital Signs reviewed: Yes General: Well nourished, Well developed, No Acute Distress Head: Normocephalic, Atraumatic Eyes: Perrl, EOMI ENT: Moist mucous membranes, No rhinorrhea Neck: Supple, Nontender Cardiovascular: Regular rate, Regular rhythm, No murmurs Respiratory: No distress, Chest nontender, Decreased Air Movement Abdomen: Soft, Nontender, Normal bowel sounds Back: Nontender, Normal Inspection Extremities: Nontender, Edema Skin: Normal color, No rash Neurological: Alert, Oriented x3, Cranial nerves II-XII grossly intact, Normal Strength, Normal Sensation Psychological: Normal affect, Normal Mood Diagnostic/Tx/Re-eval - Medical Decision Making The patient presents with exertional dyspnea and evidence of volume overload. Chest x-ray is obtained. There is no evidence of significant pulmonary edema. EKG demonstrated sinus rhythm with a few PACs and a mildly prolonged QT. Screening labs including cardiac enzymes were otherwise unremarkable. The patient's BNP was elevated. He was ambulated through the emergency department and had no hypoxia but did have rather significant tachypnea and dyspnea. At this point, I do feel the patient would benefit from admission for diuresis and repeat echo. Impression 1. Exertional dyspnea 2. Volume overload ED Disposition - Plan for ED Patient: Referrals: Rohit Peralta Chi, MD [Primary Care Provider] -
[2019-03-08 15:39] LABS: Bacteria 0 SEEN /hpf (None Seen); Mucous, Urine 0 SEEN /hpf (<or=2+); Squamous Epithelial Cells - UA 0 SEEN /hpf (0-5); White Blood Cells 0 SEEN /hpf (0-5)
[2019-03-08] MEDS: Furosemide 40 MG/4 ML Vial IV ×2 (15:41→17:38)
[2019-03-08 15:45] LABS: Color, Urine Yellow (Yellow); Glucose, Dipstick Normal (Normal); Ketone-Dipstick Negative (Negative); Leukocyte Esterase-Dipstick Negative /ul (Negative); Nitrite-Dipstick Negative (Negative); Occult Blood-Urine 10 /ul (Negative); Protein-Dipstick 100 mg/dl (Negative); Specific Gravity, Urine 1.015 (1.002-1.030); Urine Bilirubin Dipstick Negative (Negative); Urine Clarity Clear (Clear); Urine Urobilinogen Normal (Normal); Urine pH 6.5 (5.0 - 8.0)
[2019-03-08 15:59] VITALS: PULSE 79; RESP 20; O2SAT 96
[2019-03-08 16:01] LABS: Red Blood Cells-Urine 0-5 SEEN /hpf (0-5)
--- NOTE | 2019-03-08 16:10 | HP.PCM_ITS ---
Problem List (1) Abdominal distention Status: Acute History of Present Illness Date of Admission: 03/08/19 Chief Complaint: abdominal distention The patient is a 54 year old M presents with a several week history of increasing lower extremity edema, abdominal distention and dyspnea on exertion. Presented to the emergency room and I had a work-up that includes a BNP of 984, chest x-ray was unremarkable. Patient did receive a dose of IV Lasix. Patien t's megaly is just the abdominal distention that he has not difficult for him to tie his shoes because it is more distended. Patient denies any history of any liver disease nor ascites. Patient does complain of some swelling in his feet. [] Past Medical History Past Medical History (Chronic Problems): Chronic Problems (Last Reviewed 12/23/18 @ 08:54 by Kristine Shankar) Pure hypercholesterolemia (Chronic) Essential hypertension (Chronic) Chronic systolic (congestive) heart failure (Chronic) History of non-ST elevation myocardial infarction (NSTEMI) (Chronic) Paroxysmal atrial flutter (Chronic) Non-rheumatic mitral regurgitation (Chronic) Nonrheumatic tricuspid valve regurgitation (Chronic) Nonrheumatic pulmonary valve insufficiency (Chronic) Cardiomyopathy (Chronic) resolved- was 20% Pulmonary hypertension (Chronic) History of PTCA (Chronic) Obstructive sleep apnea (Chronic) Obesity (BMI 30.0-34.9) (Chronic) Paroxysmal atrial fibrillation (Chronic) Chronic anticoagulation (Chronic) Depression (Chronic) Smoking addiction (Chronic) COPD (chronic obstructive pulmonary disease) (Chronic) Abnormal EKG (Chronic) CO2 retention (Chronic) Medical History: Medical History (Last Reviewed 03/08/19 @ 16:13 by Jaskaran Mcbride DO) Pure hypercholesterolemia (Chronic) E78.00 Essential hypertension (Chronic) I10 History of non-ST elevation myocardial infarction (NSTEMI) (Chronic) I25.2 Paroxysmal atrial flutter (Chronic) I48.92 Non-rheumatic mitral regurgitation (Chronic) I34.0 Nonrheumatic tricuspid valve regurgitation (Chronic) I36.1 Nonrheumatic pulmonary valve insufficiency (Chronic) I37.1 Cardiomyopathy (Chronic) I42.9 resolved- was 20% Pulmonary hypertension (Chronic) I27.20 Dyspnea on exertion (Acute) R06.09 Obstructive sleep apnea (Chronic) G47.33 Paroxysmal atrial fibrillation (Chronic) I48.0 Chronic anticoagulation (Chronic) Z79.01 Depression (Chronic) F32.9 Smoking addiction (Chronic) F17.200 COPD (chronic obstructive pulmonary disease) (Chronic) J44.9 Abnormal EKG (Chronic) R94.31 CO2 retention (Chronic) E87.2 Acute respiratory distress R06.03 Acute systolic (congestive) heart failure I50.21 Cough R05 Hemochromatosis E83.119 Non-ST elevated myocardial infarction I21.4 rales, bibasilar Dilated cardiomyopathy I42.0 Lung nodule R91.1 Nonrheumatic mitral (valve) insufficiency I34.0 Nonrheumatic tricuspid (valve) insufficiency I36.1 Stage 4 very severe COPD by GOLD classification J44.9 nonrheumatic pulmonary valve regurgitation Coronary artery disease (Inactive) I25.10 Hyperlipidemia (Inactive) E78.5 Hypertension (Inactive) I10 Uncontrolled hypertension (Inactive) I10 Allergies promethazine HCl [From Phenergan] Adverse Reaction (Verified 03/08/19 13:47) nausea/vomiting Home Medications: Ambulatory Orders Medication Instructions Recorded Bupropion HCl [Bupropion HCl Sr] 150 mg PO BID 12/01/16 Isosorbide Mononitrate [Isosorbide 30 mg PO DAILY 03/16/18 Mononitrate ER] Tiotropium Dupont [Spiriva 2 puff INHALATION DAILY 03/16/18 Respimat] Furosemide [Lasix] 40 mg PO DAILY #30 tab 03/19/18 amlodipine 5 mg tablet 5 mg PO DAILY #90 tab 08/11/18 losartan 50 mg tablet 50 mg PO DAILY #90 tab 08/12/18 apixaban 5 mg tablet 5 mg PO BID #60 tab 09/17/18 amiodarone 200 mg tablet 200 mg PO DAILY #30 tab 10/07/18 potassium chloride ER 20 mEq 20 meq PO DAILY #90 tab 11/23/18 tablet,extended release(part/cryst) Atorvastatin Calcium [Lipitor] 80 mg PO QHS 11/27/18 Carvedilol 12.5 mg PO DAILY 11/27/18 Albuterol Aerosols [Ventolin 2.5 mg INHALATION Q2H PRN PRN #1 11/29/18 Aerosols] box Nystatin Powder [Mycostatin Powder] 1 applic TOPICAL TID #1 bottle 11/29/18 Albuterol Sulfate [Ventolin Hfa] 1 - 2 puff INHALATION Q4H PRN PRN 03/08/19 Budesonide/Formoterol 160/4.5 2 puff INHALATION BID 03/08/19 [Symbicort 160/4.5 Mcg Inhaler (SP)] Nicotine [Nicoderm Cq] 21 mg TRANSDERM. DAILY 03/08/19 Surgical History: Surgical History (Last Reviewed 03/08/19 @ 16:14 by Jaskaran Mcbride DO) History of PTCA (Chronic) Z98.61 History of left heart catheterization (LHC) Z98.890 08/14/2015 at [facility] Surgical History: no surgical history Psychiatric History: Depression Smoking Status: Former smoker - *Family History Maternal Family History: Family History (Last Reviewed 03/08/19 @ 16:14 by Jaskaran Mcbride DO) Mother CAD (coronary artery disease) Heart disease Diabetes Father Brain tumor History Items: Heart Disease Sibling Family History: Family History (Last Reviewed 03/08/19 @ 16:14 by Jaskaran Mcbride DO) Mother CAD (coronary artery disease) Heart disease Diabetes Father Brain tumor History Items: Heart Disease, - - his brother at the age of 62 with heart disease and stroke Review of Systems Constitutional: Reports: Anorexia. Denies: Chills, Fever Eyes: Denies: Blurred vision, Double vision HEENT: Denies: Head Aches, Sinus Congestion, Sinus Drainage Cardiovascular: Reports: Edema. Denies: Chest Pain Respiratory: Denies: Cough, Shortness of breath at rest, Sputum production Gastrointestinal: Denies: Abdominal Pain, Nausea, Vomiting Genitourinary: Denies: Dysuria Musculoskeletal: Denies: Joint Pain, Joint Tenderness Skin: Reports: - - Has a rash involving his lower abdomen, back and buttocks. States that he is to see a camera assembler this coming week.. Denies: Dryness, Jaundice Neurological: Denies: Numbness, Tingling, Focal weakness Psychiatric: Denies: Anxiety, Depression Hematologic/ Lymphatic: Denies: Easy Bruising, Easy Bleeding, Hx of blood clot Comment: All review systems otherwise negative except for as mentioned above and in the HPI. VTE Information - Inpt Only VTE Present on Admission: No VTE Mechan Device Prophylaxis: None VTE Pharm Prophylaxis ordered?: No Reason prophylaxis not ordered:: Procedure Not Indicated Patient Problems: Active and Suspected Problems (Last Reviewed 12/23/18 @ 08:54 by Kristine Shankar) Abdominal distention (Acute) - Physical Exam Vitals/I&O's: Vital Signs Temp Pulse Resp BP Pulse Ox 36.6 C 79 20 H 160/101 H 96 03/08/19 13:44 03/08/19 15:59 03/08/19 15:59 03/08/19 13:44 03/08/19 15:59 Oxygen Delivery Method Room Air Weight: 104.1 kg Body Mass Index (BMI) 33.9 General: Alert, No apparent distress, - - No respiratory distress. No conversational dyspnea. HEENT: Atraumatic, Normocephalic Oral: Moist Mucosa, No Gingival or Mucosal Lesions/ Ulcerations Neck: No Nodes, Thyroid Normal Size and Texture Lungs: Clear to auscultation, Normal air movement, No rhonchi, No wheeze, No rales Cardiovascular: Regular rate, Regular Rhythm, Normal S1, Normal S2, No murmurs Abdomen: Bowel Sounds Present, Soft, Non Tender, Non-Distended, No Hepato- splenomegaly Extremities: No Calf Tenderness, Edema - Pedal edema Skin: - - Patient has a circumferential rash involving his lower abdomen, buttocks and upper thighs. Has a raised area as well. Rim of red around that. No obvious satellite lesions. Musculoskeletal: No Tenderness to Palpation of Joints or Extremities, No Muscle Wasting Neurological: Deep Tendon Reflexes 2+/4 and Symmetrical, - - No clonus Psych/Mental Status: Normal Affect, Appropriate Laboratory Results 03/08/19 14:30: WBC 11.0, RBC 5.18, Hgb 15.1, Hct 49.2, MCV 95.0 H, MCH 29.2, MCHC 30.7 L, RDW Std Deviation 49.5 H, RDW Coeff of Trevor 14.2, Plt Count 177, MPV 10.0, Immature Gran % (Auto) 0.400, Neut % (Auto) 80.5 H, Lymph % (Auto) 8.7 L, Mcdonald % (Auto) 8.6, Eos % (Auto) 1.3, Baso % (Auto) 0.5, Absolute Neuts (auto) 8.8 H, Absolute Lymphs (auto) 0.95, Nucleated RBC % 0 03/08/19 14:30: Sodium 144, Potassium 3.6, Chloride 102, Carbon Dioxide 39.0 H, Anion Gap 3 L, BUN 12, Creatinine 1.10, Estim Creat Clear Calc 78.56, Est GFR (MDRD) Af Amer 90, Est GFR (MDRD) Non-Af 75, BUN/Creatinine Ratio 10.9, Glucose 137 H, Calcium 8.6, Total Bilirubin 0.80, AST 13 L, ALT 12 L, Alkaline Phosphatase 63, Troponin I 0.032, Total Protein 7.1, Albumin 3.0 L, Globulin 4.1, Albumin/Globulin Ratio 0.7 L 03/08/19 14:30: B-Natriuretic Peptide 984.1 H 03/08/19 15:33: Urine Color Yellow, Urine Clarity Clear, Urine pH 6.5, Ur Specific [place] 1.015, Urine Protein 100 H, Urine Glucose (UA) Normal, Urine Ketones Negative, Urine Occult Blood 10 H, Urine Nitrite Negative, Urine Bilirubin Negative, Urine Urobilinogen Normal, Ur Leukocyte Esterase Negative, Urine RBC 0-5 SEEN, Urine WBC 0 SEEN, Ur Squamous Epith Cells 0 SEEN, Urine Bacteria 0 SEEN, Urine Mucus 0 SEEN Chest x-ray personally reviewed and showed no acute pulmonary issues. EKG reviewed and showed normal sinus rhythm with some inverted T waves in lateral leads. No acute EKG changes noted. Assessment/Plan All Active Problems (Last Reviewed 12/23/18 @ 08:54 by Kristine Shankar) Abdominal distention (Acute) COPD exacerbation (Acute) Dyspnea on exertion (Acute) 1. Possible ascites * Patient's main concern is the increasing abdominal distention. * Exam seems more consistent with more ascites though the patient states that he is always been protuberant and his abdomen * We will check a ultrasound of his abdomen to evaluate for ascites. Patient's LFTs have been unremarkable but that does not rule out underlying liver disease. * Patient has no tenderness so patient does have ascites, no clinical suspicion for infectious process at this time. * Will continue with attempting diuresis. Patient's weight has gone up roughly 6 kg from December of this year. * Fluid restrict * Patient does have trace lower extremity edema but his chest x-ray is unremarkable. We will check an echocardiogram. Previous ejection fraction was 50% from last year. 2. Dermatitis * Patient has circumferential rash involving the lower aspect of his abdomen, flank and buttocks. Appears almost yeastlike but no obvious satellite lesions there is some raised lesions in the area as well. I spoke to the patient about starting him on a statin and as it was concerned for the being yeast but notes to me at the time, patient was already on a statin so was probably felt by his other providers that there was [place] intertrigo. We will continue with that for now. Patient will follow-up with dermatology as outpatient 3. Diabetes mellitus type 2 * Fairly well controlled at this time. States that his diet controlled at home * Sliding scale insulin * Check an A1c * Patient with 2 bottles, 1 of regular Pepsi and 1 of regular Mountain Dew. Advised patient not to drink his calories and they should fluid restrict anyways because of the fluid retention he is experiencing 4. Paroxysmal atrial flutter * Anticoagulated on apixaban. Continue with amiodarone as well as carvedilol. 5. VTE prophylaxis: Low risk as patient is observation status and already anticoagulated. 6. Disposition: Patient being brought in under observation status at this time as is currently hemodynamically stable and will attempt to diurese and follow-up some additional lab and imaging studies. Code Visit OBSV E&M: 06643 Initial observation care L3
[2019-03-08 16:16] VITALS: BMI 33.4
[2019-03-08 16:17] VITALS: BMI 33.4
[2019-03-08 16:23] VITALS: BP 176/103; PULSE 76; RESP 20; TEMP 36.6; O2SAT 92
[2019-03-08 17:05] LABS: Bedside Glucose 101 mg/dL (70-110)
[2019-03-08 17:34] VITALS: BP 178/106; PULSE 77
[2019-03-08] MEDS: 0.9% NaCl Peripheral Flush Adult/Peds IV (17:38)
[2019-03-08 19:05] VITALS: PULSE 82; RESP 22
[2019-03-08] MEDS: Ipratropium/Albuterol Sulfate 3 ML AMPUL.NEB INHALATION (19:05)
[2019-03-08] MEDS: Budesonide Respules 0.5 MG/2 ML AMPUL.NEB. INHALATION (19:05)
[2019-03-08] MEDS: Acetaminophen 325 MG Tablet 650 MG PO (20:30)
[2019-03-08 21:24] VITALS: BP 160/89; PULSE 68; RESP 19; TEMP 37.1; O2SAT 94
[2019-03-08] MEDS: Atorvastatin Calcium 80 MG Tablet PO (21:36)
[2019-03-08] MEDS: buPROPion (SR) 150 MG Tablet.SA PO (21:36)
[2019-03-08] MEDS: Nystatin Powder 15gm Bottle 1 APPLIC TOPICAL (21:36)
[2019-03-08] MEDS: APIXABAN 5 MG TABLET PO (21:36)
[2019-03-09] VITALS (9 sets, daily range): BP systolic 107–156; BP diastolic 55–86; PULSE 61–80; RESP 16–22; TEMP 36.6–36.8; O2SAT 93–98
[2019-03-09 00:36] LABS: Bedside Glucose 147 mg/dL (70-110)
[2019-03-09] MEDS: Nystatin Powder 15gm Bottle 1 APPLIC TOPICAL ×3 (05:13→22:36)
[2019-03-09] MEDS: Budesonide Respules 0.5 MG/2 ML AMPUL.NEB. INHALATION ×2 (07:16→18:57)
[2019-03-09] MEDS: Ipratropium/Albuterol Sulfate 3 ML AMPUL.NEB INHALATION ×3 (07:16→18:57)
[2019-03-09 07:36] LABS: Bedside Glucose 131 mg/dL (70-110)
[2019-03-09 07:40] LABS: Hemoglobin A1c 6.2 % (4.2-6.3)
[2019-03-09] MEDS: buPROPion (SR) 150 MG Tablet.SA PO ×2 (09:15→22:36)
[2019-03-09] MEDS: Amiodarone 200 MG Tablet PO (09:15)
[2019-03-09] MEDS: APIXABAN 5 MG TABLET PO ×2 (09:15→22:36)
[2019-03-09] MEDS: amLODIPine 5 MG Tablet PO (09:15)
[2019-03-09] MEDS: Furosemide 40 MG/4 ML Vial IV ×2 (09:16→17:52)
[2019-03-09] MEDS: Losartan Potassium 50 MG Tablet PO (09:16)
[2019-03-09] MEDS: Isosorbide Mononitrate 30 MG Tablet PO (09:16)
[2019-03-09] MEDS: Carvedilol 12.5 MG Tablet PO (09:16)
[2019-03-09] MEDS: 0.9% NaCl Peripheral Flush Adult/Peds IV ×2 (09:17→17:52)
--- NOTE | 2019-03-09 09:57 | ECHOD_ITS ---
Reason For Study: DYSPNEA Procedure This was a 2D Doppler, Color Flow transthoracic echocardiogram. The exam was of adequate technical quality. Exam performed portable in patient room. Left Ventricle Normal LV size. D shaped septum in systole and diastole. Mild concentric left ventricular hypertrophy. Left ventricular systolic function is normal. The estimated ejection fraction is 55 %. Transmitral doppler flow suggestive of impaired relaxation of left ventricle. No regional wall motion abnormalities noted. Right Ventricle Mildly dilated right ventricle. Mild global right ventricular systolic dysfunction. Atria The left atrium is mildly enlarged. The right atrium is mildly enlarged. No doppler evidence for ASD. Mitral Valve There is mild mitral annular calcification. Normal mitral valve. Mild (1+) mitral valve insufficiency. Tricuspid Valve Normal tricuspid valve. Mild to moderate (1-2+) tricuspid valve insufficiency. Right ventricular systolic pressure estimated to be 50 mmHg. Aortic Valve Trisinus/trileaflet aortic valve. Normal aortic valve. Pulmonic Valve The pulmonic valve is not well visualized. Mild-Moderate (1-2+) pulmonic valve insufficiency. Great Vessels Mildly dilated aortic root. Pericardium/Pleural No pericardial effusion. MMode/2D Measurements & Calculations LVIDd: 4.9 cm IVSd: 1.3 cm Ao root diam: 4.0 cm LVIDs: 3.9 cm LVPWd: 1.3 cm RVDd: 4.7 cm FS: 20.7 % LAV(MOD-sp4): 67.5 ml LVAd ap4: 47.6 cm2 SV(MOD-sp4): 92.2 ml EDV(MOD-sp4): 186.7 ml EDV(sp4-el): 193.9 ml LVAs ap4: 30.1 cm2 ESV(MOD-sp4): 94.4 ml ESV(sp4-el): 95.5 ml EF(MOD-sp4): 49.4 % EF(sp4-el): 50.8 % SV(sp4-el): 98.4 ml LA A4 area: 23.1 cm2 LA dimension(2D): 4.9 cm RA A4 area: 24.0 cm2 Time Measurements MV dec time: 0.29 sec Doppler Measurements & Calculations MV E max roberto: 63.9 cm/sec Lat Peak E' Roberto: 7.4 cm/sec Med Peak E' Roberto: 4.7 cm/sec MV A max roberto: 79.3 cm/sec E/E' lat: 8.7 E/E' med: 13.6 MV E/A: 0.81 Ao V2 max: 150.7 cm/sec LV V1 max: 133.5 cm/sec PA V2 max: 126.6 cm/sec Ao max P.1 mmHg LV V1 max P.1 mmHg PI end-d roberto: 186.6 cm/sec TR max roberto: 323.2 cm/sec TR max P.9 mmHg Interpretation Summary Left ventricular systolic function is normal. The estimated ejection fraction is 55 %. D shaped septum in systole and diastole. Mild concentric left ventricular hypertrophy. Mildly dilated right ventricle. Mild global right ventricular systolic dysfunction. The left atrium is mildly enlarged. The right atrium is mildly enlarged. There is mild mitral annular calcification. Mild (1+) mitral valve insufficiency. Mild to moderate (1-2+) tricuspid valve insufficiency. Mild-Moderate (1-2+) pulmonic valve insufficiency. Mildly dilated aortic root. Right ventricular systolic pressure estimated to be 50 mmHg c/w pulmonary hypertension. Transmitral doppler flow suggestive of impaired relaxation of left ventricle Ordering Physician: Brandan Kahn Referring Physician: OMAIRA GARCIA CHI Performed By: Sobeida Santiago, KALACS, RVT
[2019-03-09] MEDS: Insulin Lispro 100 UNIT/ML INSULN.PEN SC (11:17)
--- NOTE | 2019-03-09 11:29 | PN_ITS ---
Patient Problems: Active and Suspected Problems (Last Reviewed 03/08/19 @ 16:13 by Jaskaran Mcbride DO) Abdominal distention (Acute) Subjective: Feeling better today, less short of breath when he is on oxygen while sleeping. Does endorse having a little red spot on the back of his right thigh that started before admission Vitals/I&O's: Vital Signs Temp Pulse Resp BP Pulse Ox 97.8 F 70 18 156/80 H 93 03/09/19 09:01 03/09/19 09:06 03/09/19 09:01 03/09/19 09:01 03/09/19 09:01 Oxygen Flow Rate (L/min) 2 Oxygen Delivery Method Room Air Weight: 223 lb 5.252 oz Body Mass Index (BMI) 33.4 Intake and Output for Last 24 Hours 03/07/19 03/08/19 03/09/19 23:59 23:59 23:59 Intake Total 1141 / 1141 0 / 0 Output Total 3100 / 3100 225 / 225 Balance -1958 / -1958 -225 / - General: Alert, Oriented x3, Cooperative, No apparent distress HEENT: Atraumatic, PERRLA, EOMI, Normocephalic Oral: Moist Mucosa Neck: Supple, No JVD Lungs: Clear to auscultation, Normal air movement, No rhonchi, No wheeze, No rales, Diminished Cardiovascular: Regular rate, Regular Rhythm, Normal S1, Normal S2, No murmurs Abdomen: Soft, Non Tender, Non-Distended, No Hepato-splenomegaly Extremities: Capillary Refill Less than 3 Seconds, Edema - Trace edema bilateral ankles and feet Skin: No breakdown, Rash Present - Area of induration on his posterior right thigh no areas of fluctuance, there is redness and erythema consistent with cellulitis Neurological: Neuro grossly intact, Sensory exam intact to light touch and pain Psych/Mental Status: Normal Affect, Appropriate Laboratory Results 03/08/19 14:30: WBC 11.0, RBC 5.18, Hgb 15.1, Hct 49.2, MCV 95.0 H, MCH 29.2, MCHC 30.7 L, RDW Std Deviation 49.5 H, RDW Coeff of Trevor 14.2, Plt Count 177, MPV 10.0, Immature Gran % (Auto) 0.400, Neut % (Auto) 80.5 H, Lymph % (Auto) 8.7 L, Sac % (Auto) 8.6, Eos % (Auto) 1.3, Baso % (Auto) 0.5, Absolute Neuts (auto) 8.8 H, Absolute Lymphs (auto) 0.95, Nucleated RBC % 0 03/08/19 14:30: Sodium 144, Potassium 3.6, Chloride 102, Carbon Dioxide 39.0 H, Anion Gap 3 L, BUN 12, Creatinine 1.10, Estim Creat Clear Calc 78.56, Est GFR (MDRD) Af Amer 90, Est GFR (MDRD) Non-Af 75, BUN/Creatinine Ratio 10.9, Glucose 137 H, Calcium 8.6, Total Bilirubin 0.80, AST 13 L, ALT 12 L, Alkaline Phosphatase 63, Troponin I 0.032, Total Protein 7.1, Albumin 3.0 L, Globulin 4.1, Albumin/Globulin Ratio 0.7 L 03/08/19 14:30: B-Natriuretic Peptide 984.1 H 03/08/19 15:33: Urine Color Yellow, Urine Clarity Clear, Urine pH 6.5, Ur Specific [place] 1.015, Urine Protein 100 H, Urine Glucose (UA) Normal, Urine Ketones Negative, Urine Occult Blood 10 H, Urine Nitrite Negative, Urine Bilirubin Negative, Urine Urobilinogen Normal, Ur Leukocyte Esterase Negative, Urine RBC 0-5 SEEN, Urine WBC 0 SEEN, Ur Squamous Epith Cells 0 SEEN, Urine Bacteria 0 SEEN, Urine Mucus 0 SEEN 03/08/19 16:47: POC Glucose 101 03/08/19 21:35: POC Glucose 147 H 03/09/19 05:00: Hemoglobin A1c 6.2 03/09/19 06:52: POC Glucose 131 H Current Medications Acetaminophen (Tylenol) 650 mg PO Q6H PRN PRN PRN Reason: Pain Score 1-3/Temp > 100.7 F Last Admin: 03/08/19 20:30 Dose: 650 mg Documented by: Albuterol Sulfate (Ventolin Aerosols) 2.5 mg INHALATION Q2H PRN PRN PRN Reason: Shortness of Breath/Wheezing Albuterol/Ipratropium (Duoneb) 3 ml INHALATION Q6HWA.RT YARELI Last Admin: 03/09/19 07:16 Dose: 3 ml Documented by: Amiodarone HCl (Cordarone) 200 mg PO DAILY [facility] Last Admin: 03/09/19 09:15 Dose: 200 mg Documented by: Amlodipine Besylate (Norvasc) 5 mg PO DAILY [facility] Last Admin: 03/09/19 09:15 Dose: 5 mg Documented by: Apixaban (Eliquis) 5 mg PO BID [facility] Last Admin: 03/09/19 09:15 Dose: 5 mg Documented by: Atorvastatin Calcium (Lipitor) 80 mg PO QHS [facility] Last Admin: 03/08/19 21:36 Dose: 80 mg Documented by: Budesonide (Pulmicort Aerosol) 0.5 mg INHALATION Q12H.RT [facility] Last Admin: 03/09/19 07:16 Dose: 0.5 mg Documented by: Bupropion HCl (Wellbutrin Sr (150mg Tablets)) 150 mg PO BID [facility] Last Admin: 03/09/19 09:15 Dose: 150 mg Documented by: Carvedilol (Coreg) 12.5 mg PO DAILY [facility] Last Admin: 03/09/19 09:16 Dose: 12.5 mg Documented by: Dextrose (D50w Syringe) 0 gm IV X1 PRN; Protocol PRN Reason: Hypoglycemia Furosemide (Lasix) 40 mg IV BID@1000,1800 [facility] Last Admin: 03/09/19 09:16 Dose: 40 mg Documented by: Glucagon () 1 mg IM .X1 PRN PRN Reason: Hypoglycemia Insulin Human Lispro (Humalog Kwikpen (Bkc)) 0 unit SC TIDAC [facility]; Protocol Last Admin: 03/09/19 11:17 Dose: 1 units Documented by: Isosorbide Mononitrate (Imdur) 30 mg PO DAILY [facility] Last Admin: 03/09/19 09:16 Dose: 30 mg Documented by: Losartan Potassium (Cozaar) 50 mg PO DAILY [facility] Last Admin: 03/09/19 09:16 Dose: 50 mg Documented by: Nicotine (Nicoderm Cq (Pbkc)) 21 mg TRANSDERM. DAILY [facility] Last Admin: 03/09/19 09:15 Dose: 21 mg Documented by: Nystatin (Mycostatin Powder) 1 applic TOPICAL TID [facility]; Protocol Last Admin: 03/09/19 05:13 Dose: 1 applic Documented by: Ondansetron HCl (Zofran) 4 mg IV Q8H PRN PRN PRN Reason: NAUSEA/VOMITING Potassium Chloride (K-Dur) 20 meq PO DAILY YARELI Last Admin: 03/09/19 09:14 Dose: 20 meq Documented by: Sodium Chloride () 5 - 15 ml IV UD PRN PRN Reason: SALINE FLUSH Last Admin: 03/09/19 09:17 Dose: 10 ml Documented by: STROKE Vital Signs/Narrative: Vital Signs Temp Pulse Resp BP Pulse Ox 03/09/19 09:06 70 03/09/19 09:01 97.8 F 69 18 156/80 H 93 Medical Necessity - Tobacco Use Smoking Status: Former smoker Tobacco Use: Cigarettes Assessment/Plan All Active Problems (Last Reviewed 03/08/19 @ 16:13 by Jaskaran Mcbride DO) Abdominal distention (Acute) COPD exacerbation (Acute) Dyspnea on exertion (Acute) 1. Abdominal distention -Ultrasound was negative for any ascites and this just appears to be his normal abdominal girth -Discussed dieting and exercise to lose weight -We will obtain an echo for further clarification 2. Right thigh cellulitis -There is an area of induration and redness -We will start on p.o. Keflex -Afebrile without a leukocytosis 3. CAD status post angioplasty/history of systolic CHF that may have resolved/HTN/HLD?paroxysmal A. fib-a. flutter -We will obtain an echo for further clarification of his history of heart failure -Continue with Eliquis, and amiodarone -Continue with his home blood pressure medications -Continue with twice daily IV Lasix -We will monitor for improvement 4. stage IV COPD -We will continue with his home inhalers -Does not appear to be in acute exacerbation currently 5. DM 2 -A1c is 6.2 -Diet controlled as an outpatient, will continue with sliding scale insulin while here and monitor with Accu-Cheks AC at bedtime 6. Depression/anxiety -Stable -Continue with Wellbutrin DVT: Eliquis Code Visit OBSV E&M: 96269 Subsequent observation care L2
[2019-03-09 11:35] LABS: Bedside Glucose 185 mg/dL (70-110)
[2019-03-09] MEDS: Cephalexin 500 MG Capsule PO ×3 (12:11→23:56)
--- NOTE | 2019-03-09 16:21 | US_ITS ---
STUDY: ABDOMINAL ULTRASOUND - RIGHT UPPER QUADRANT REASON FOR VISIT: Male, 54 years old abdominal pain, bloating, ascites TECHNIQUE: Ultrasound evaluation of the right upper quadrant was performed with real-time and static pool-scale imaging. TECHNICAL QUALITY: Adequate. COMPARISON: None. FINDINGS: Liver: The liver measures 20.5 cm. There is normal echogenicity of the liver. The bile ducts are within normal limits. There is hepatic color flow. The direction of portal flow is hepatopetal. There is no demonstrated mass lesion. Gallbladder: Normal distended gallbladder. The gallbladder wall measures 2 mm. There is a negative sonographic Ledezma's sign. There is no pericholecystic fluid. There are no gallstones. Common Bile Duct (C.B.D.): The common bile duct measures 5 mm. Pancreas: Normal size of the head, body and tail of the pancreas. There is normal echogenicity of the pancreas. There is no demonstrated pancreatic mass or cyst. Right Kidney: Normal size of the right kidney. The right kidney measures 11.8 cm. Normal renal cortex. The right cortex measures 2.2 cm. 2.4 cm parapelvic cyst in the midsection right kidney. There is no right hydronephrosis. US/Abdomen Limited IMPRESSION: Normal right upper quadrant ultrasound examination. Electronically Signed: Adam Landry MD at 8:35 EDT Tel , Service support ,
[2019-03-09 18:31] LABS: Bedside Glucose 110 mg/dL (70-110)
[2019-03-09] MEDS: Atorvastatin Calcium 80 MG Tablet PO (22:36)
[2019-03-09 22:45] LABS: Bedside Glucose 165 mg/dL (70-110)
[2019-03-10] VITALS (10 sets, daily range): BP systolic 113–149; BP diastolic 65–95; PULSE 63–71; RESP 18–20; TEMP 36.3–37; O2SAT 94–100
[2019-03-10 05:58] LABS: Absolute Lymphocyte Count 0.95 X10^3/uL (0.83-4.51); Absolute Neutrophil Count 9.4 X10^3/uL (2.0-7.7); Basophil# 0.06 X10^3/uL; Basophil% 0.5 % (0-1); Eosinophil# 0.22 X10^3/uL; Eosinophils% 1.8 % (0-5); Hematocrit 48.5 % (40-54); Hemoglobin 14.7 g/dL (13.0-16.5); Lymphocyte # 0.95 X10^3/ul (4.0); Lymphocyte % 7.9 % (19-41); Mean Corp Hgb Conc 30.3 g/dL (32-36); Mean Corpuscular Hgb 28.9 pg (27.0-32.0); Mean Corpuscular Volume 95.3 fL (80-94); Mean Platelet Vol. 10.2 fl (6.2-12.0); Monocyte# 1.35 X10^3/uL; Monocyte% 11.2 % (0-10); NRBC Flagged by Analyzer 0 % (0-5); Neutrophil # 9.37 X10^3/uL (2.7-7.7); Neutrophil % 78.1 % (47-70); Platelet Count 182 K/mm3 (150-450); RBC Distribution Width CV 13.8 % (11.6-14.6); RBC Distribution Width SD 48.8 fl (35.1-43.9); Red Blood Count 5.09 M/mm3 (4.6-6.2)
[2019-03-10 06:32] LABS: Anion Gap 1 (5-15); BUN 20 mg/dL (7-18); Calcium,Total 8.7 mg/dL (8.5-10.1); Chloride 98 mmol/L (98-107); Creatinine, Serum 1.05 mg/dL (0.70-1.30); EST Glomerular Filtration Rate 79 mL/min (>60); Est Glom Filt Rate - Afr Amer 95 mL/min (>60); Glucose 141 mg/dL (74-106); Potassium 3.7 mmol/L (3.5-5.1); Sodium Level 142 mmol/L (136-145)
[2019-03-10] MEDS: Nystatin Powder 15gm Bottle 1 APPLIC TOPICAL ×2 (06:43→11:44)
[2019-03-10] MEDS: Cephalexin 500 MG Capsule PO ×2 (06:43→11:44)
[2019-03-10] MEDS: Budesonide Respules 0.5 MG/2 ML AMPUL.NEB. INHALATION (06:47)
[2019-03-10] MEDS: Ipratropium/Albuterol Sulfate 3 ML AMPUL.NEB INHALATION (06:47)
[2019-03-10 06:51] LABS: Bedside Glucose 144 mg/dL (70-110)
[2019-03-10] MEDS: Isosorbide Mononitrate 30 MG Tablet PO (09:52)
[2019-03-10] MEDS: amLODIPine 5 MG Tablet PO (09:52)
[2019-03-10] MEDS: Amiodarone 200 MG Tablet PO (09:52)
[2019-03-10] MEDS: buPROPion (SR) 150 MG Tablet.SA PO (09:53)
[2019-03-10] MEDS: APIXABAN 5 MG TABLET PO (09:53)
[2019-03-10] MEDS: Losartan Potassium 50 MG Tablet PO (09:53)
[2019-03-10] MEDS: Carvedilol 12.5 MG Tablet PO (09:53)
--- NOTE | 2019-03-10 10:40 | CASEMGMT ---
This RN CM to room to complete ONOFRE form with pt at this time and pt is sleeping without distress at this time. Pt does not awaken to knock on door or verbal stimuli at this time. Will attempt again later. SStaten RN CM
--- NOTE | 2019-03-10 11:11 | CASEMGMT ---
This RN CM to room with NOOFRE form at this time, explanation done-pt voices understanding, and signs ONOFRE form at this time. Original to chart and copy to pt at this time. Pt inquires about whether he can get a shower and per Bobbi MATA, pt is able to shower at this time, pt updated at this time. Pt voices no further questions/concerns/needs at this time. SStaten ESPERANZA CM
--- NOTE | 2019-03-10 11:21 | NURSING ---
PT UP TO SHOWER SINCE NO IV NOW.
--- NOTE | 2019-03-10 11:24 | DCINST_ITS ---
- Discharge Diagnoses Current Active Problems: Current Active and Chronic Problems (Last Reviewed 03/08/19 @ 16:13 by Jaskaran Mcbride DO) Abdominal distention (Acute) You will use the following diet at home:: Cardiac Your food should be the consistency of: Regular Your liquids should be the consistency of: Regular/Thin Discharge Activity: Return to Normal Activity Call your doctor if you observe: Fever of 101 or Higher, Shortness of breath, Dizziness, Fainting spells, Swelling in the ankles, Chest pain, Increased palpitations (irregular heartbeat) Allergies/Adverse Reactions: Allergies promethazine HCl [From Phenergan] Adverse Reaction (Verified 03/08/19 13:47) nausea/vomiting Medications to take at Discharge Bupropion HCl [Bupropion HCl Sr] 150 mg PO BID 12/01/16 Isosorbide Mononitrate [Isosorbide Mononitrate ER] 30 mg PO DAILY 03/16/18 Tiotropium [place] [Spiriva Respimat] 2 puff INHALATION DAILY 03/16/18 Furosemide [Lasix] 40 mg PO DAILY #30 tab 03/19/18 amlodipine 5 mg tablet 5 mg PO DAILY #90 tab 08/11/18 losartan 50 mg tablet 50 mg PO DAILY #90 tab 08/12/18 apixaban 5 mg tablet 5 mg PO BID #60 tab 09/17/18 amiodarone 200 mg tablet 200 mg PO DAILY #30 tab 10/07/18 potassium chloride ER 20 mEq tablet,extended release(part/cryst) 20 meq PO DAILY #90 tab 11/23/18 Atorvastatin Calcium [Lipitor] 80 mg PO QHS 11/27/18 Carvedilol 12.5 mg PO DAILY 11/27/18 Albuterol Aerosols [Ventolin Aerosols] 2.5 mg INHALATION Q2H PRN PRN #1 box 11/29/18 Nystatin Powder [Mycostatin Powder] 1 applic TOPICAL TID #1 bottle 11/29/18 Albuterol Sulfate [Ventolin Hfa] 1 - 2 puff INHALATION Q4H PRN PRN 03/08/19 Budesonide/Formoterol 160/4.5 [Symbicort 160/4.5 Mcg Inhaler (SP)] 2 puff INHALATION BID 03/08/19 Nicotine [Nicoderm Cq] 21 mg TRANSDERM. DAILY 03/08/19 Cephalexin [Keflex] 500 mg PO Q6 #24 cap 03/10/19 The following prescriptions were given: Cephalexin [Keflex] 500 mg PO Q6 #24 cap Transmission Status: Pending to [facility] Primary Care Physician: Rohit Peralta Chi, MD [Primary Care Provider] - Please follow up with your Primary Care Physician in: 3-5 days Test Results: Test results from this visit will be discussed in further detail at your follow- up appointment, if applicable.
--- NOTE | 2019-03-10 11:25 | DS.PCM_ITS ---
Discharge Date and Diagnosis - Problem List Patient Problems: Active and Suspected Problems (Last Reviewed 03/08/19 @ 16:13 by Jaskaran Mcbride DO) Abdominal distention (Acute) Date of Admission: 03/08/19 Date of Discharge: 03/10/19 - Primary Discharge Diagnosis Active and Suspected Problems (Last Reviewed 03/08/19 @ 16:13 by Jaskaran Mcbride DO) Abdominal distention (Acute) - Secondary Discharge Diagnosis Chronic Problems (Last Reviewed 03/08/19 @ 16:13 by Jaskaran Mcbride DO) Pure hypercholesterolemia (Chronic) Essential hypertension (Chronic) Chronic systolic (congestive) heart failure (Chronic) History of non-ST elevation myocardial infarction (NSTEMI) (Chronic) Paroxysmal atrial flutter (Chronic) Non-rheumatic mitral regurgitation (Chronic) Nonrheumatic tricuspid valve regurgitation (Chronic) Nonrheumatic pulmonary valve insufficiency (Chronic) Cardiomyopathy (Chronic) resolved- was 20% Pulmonary hypertension (Chronic) History of PTCA (Chronic) Obstructive sleep apnea (Chronic) Obesity (BMI 30.0-34.9) (Chronic) Paroxysmal atrial fibrillation (Chronic) Chronic anticoagulation (Chronic) Depression (Chronic) Smoking addiction (Chronic) COPD (chronic obstructive pulmonary disease) (Chronic) Abnormal EKG (Chronic) CO2 retention (Chronic) Hospital Course and Treatment Imaging Results: CXR: IMPRESSION: No active disease. Echo: Interpretation Summary Left ventricular systolic function is normal. The estimated ejection fraction is 55 %. D shaped septum in systole and diastole. Mild concentric left ventricular hypertrophy. Mildly dilated right ventricle. Mild global right ventricular systolic dysfunction. The left atrium is mildly enlarged. The right atrium is mildly enlarged. There is mild mitral annular calcification. Mild (1+) mitral valve insufficiency. Mild to moderate (1-2+) tricuspid valve insufficiency. Mild-Moderate (1-2+) pulmonic valve insufficiency. Mildly dilated aortic root. Right ventricular systolic pressure estimated to be 50 mmHg c/w pulmonary hypertension. Transmitral doppler flow suggestive of impaired relaxation of left ventricle RUQ US: IMPRESSION: Normal right upper quadrant ultrasound examination. Consults: None Operations: None Procedures: 2-D Echocardiogram Summary of Care Provided: The patient is a 54 year old M [] Patient Problems: Active and Suspected Problems (Last Reviewed 03/08/19 @ 16:13 by Jaskaran Mcbride DO) Abdominal distention (Acute) - Physical Exam Vitals/I&O's: Vital Signs Temp Pulse Resp BP Pulse Ox 97.5 F L 65 18 132/72 H 94 03/10/19 09:42 03/10/19 09:42 03/10/19 09:42 03/10/19 09:42 03/10/19 11:00 Oxygen Flow Rate (L/min) 2 Oxygen Delivery Method Nasal Cannula Weight: 223 lb 8.78 oz Body Mass Index (BMI) 33.4 Intake and Output for Last 24 Hours 03/08/19 03/09/19 03/10/19 23:59 23:59 23:59 Intake Total 1141 / 1141 250 / 250 0 / 0 Output Total 3100 / 3100 2455 / 2455 150 / 150 Balance -9 / -195 -5 / -220 -150 / -150 General: Alert, Oriented x3, Cooperative, No apparent distress HEENT: Atraumatic, PERRLA, EOMI, Normocephalic Oral: Moist Mucosa Neck: Supple, No JVD Lungs: Clear to auscultation, Normal air movement, No rhonchi, No wheeze, No rales, Diminished Cardiovascular: Regular rate, Regular Rhythm, Normal S1, Normal S2, No murmurs Abdomen: Soft, Non Tender, Non-Distended, No Hepato-splenomegaly Extremities: Capillary Refill Less than 3 Seconds, Edema - Trace edema bilateral ankles and feet Skin: No breakdown, Rash Present - Area of induration on his posterior right thigh no areas of fluctuance, there is redness and erythema consistent with cellulitis, this has improved significantly with the initiation of abx Neurological: Neuro grossly intact, Sensory exam intact to light touch and pain Psych/Mental Status: Normal Affect, Appropriate Laboratory Results 03/09/19 11:14: POC Glucose 185 H 03/09/19 15:48: POC Glucose 110 03/09/19 22:34: POC Glucose 165 H 03/10/19 05:42: WBC 12.0 H, RBC 5.09, Hgb 14.7, Hct 48.5, MCV 95.3 H, MCH 28.9, MCHC 30.3 L, RDW Std Deviation 48.8 H, RDW Coeff of [place] 13.8, Plt Count 182, MPV 10.2, Immature Gran % (Auto) 0.500, Neut % (Auto) 78.1 H, Lymph % (Auto) 7.9 L, [place] % (Auto) 11.2 H, Eos % (Auto) 1.8, Baso % (Auto) 0.5, Absolute Neuts (auto) 9.4 H, Absolute Lymphs (auto) 0.95, Nucleated RBC % 0 03/10/19 05:42: Sodium 142, Potassium 3.7, Chloride 98, Carbon Dioxide 43.0 H, Anion Gap 1 L, BUN 20 H, Creatinine 1.05, Estim Creat Clear Calc 82.30, Est GFR (MDRD) Af Amer 95, Est GFR (MDRD) Non-Af 79, BUN/Creatinine Ratio 19.0, Glucose 141 H, Calcium 8.7 03/10/19 06:41: POC Glucose 144 H Current Medications Acetaminophen (Tylenol) 650 mg PO Q6H PRN PRN PRN Reason: Pain Score 1-3/Temp > 100.7 F Last Admin: 03/08/19 20:30 Dose: 650 mg Documented by: Albuterol Sulfate (Ventolin Aerosols) 2.5 mg INHALATION Q2H PRN PRN PRN Reason: Shortness of Breath/Wheezing Albuterol/Ipratropium (Duoneb) 3 ml INHALATION Q6HWA.RT [facility] Last Admin: 03/10/19 06:47 Dose: 3 ml Documented by: Amiodarone HCl (Cordarone) 200 mg PO DAILY [facility] Last Admin: 03/10/19 09:52 Dose: 200 mg Documented by: Amlodipine Besylate (Norvasc) 5 mg PO DAILY [facility] Last Admin: 03/10/19 09:52 Dose: 5 mg Documented by: Apixaban (Eliquis) 5 mg PO BID [facility] Last Admin: 03/10/19 09:53 Dose: 5 mg Documented by: Atorvastatin Calcium (Lipitor) 80 mg PO QHS [facility] Last Admin: 03/09/19 22:36 Dose: 80 mg Documented by: Budesonide (Pulmicort Aerosol) 0.5 mg INHALATION Q12H.RT [facility] Last Admin: 03/10/19 06:47 Dose: 0.5 mg Documented by: Bupropion HCl (Wellbutrin Sr (150mg Tablets)) 150 mg PO BID [facility] Last Admin: 03/10/19 09:53 Dose: 150 mg Documented by: Carvedilol (Coreg) 12.5 mg PO DAILY [facility] Last Admin: 03/10/19 09:53 Dose: 12.5 mg Documented by: Cephalexin (Keflex) 500 mg PO Q6 [facility] Last Admin: 03/10/19 06:43 Dose: 500 mg Documented by: Dextrose (D50w Syringe) 0 gm IV X1 PRN; Protocol PRN Reason: Hypoglycemia Furosemide (Lasix) 40 mg IV BID@1000,1800 [facility] Last Admin: 03/10/19 10:01 Dose: Not Given Documented by: Glucagon () 1 mg IM .X1 PRN PRN Reason: Hypoglycemia Insulin Human Lispro (Humalog Kwikpen (Bkc)) 0 unit SC TIDAC [facility]; Protocol Last Admin: 03/10/19 06:43 Dose: Not Given Documented by: Isosorbide Mononitrate (Imdur) 30 mg PO DAILY [facility] Last Admin: 03/10/19 09:52 Dose: 30 mg Documented by: Losartan Potassium (Cozaar) 50 mg PO DAILY [facility] Last Admin: 03/10/19 09:53 Dose: 50 mg Documented by: Nicotine (Nicoderm Cq (Pbkc)) 21 mg TRANSDERM. DAILY [facility] Last Admin: 03/10/19 10:35 Dose: Not Given Documented by: Nystatin (Mycostatin Powder) 1 applic TOPICAL TID [facility]; Protocol Last Admin: 03/10/19 06:43 Dose: 1 applic Documented by: Ondansetron HCl (Zofran) 4 mg IV Q8H PRN PRN PRN Reason: NAUSEA/VOMITING Potassium Chloride (K-Dur) 20 meq PO DAILY [facility] Last Admin: 03/10/19 09:53 Dose: 20 meq Documented by: Sodium Chloride () 5 - 15 ml IV UD PRN PRN Reason: SALINE FLUSH Last Admin: 03/09/19 17:52 Dose: 15 ml Documented by: Discharge Activity: Return to Normal Activity Call your doctor if you observe: Fever of 101 or Higher, Shortness of breath, Dizziness, Fainting spells, Swelling in the ankles, Chest pain, Increased palpitations (irregular heartbeat) Home Medications: Medications to take at Discharge Bupropion HCl [Bupropion HCl Sr] 150 mg PO BID 12/01/16 Isosorbide Mononitrate [Isosorbide Mononitrate ER] 30 mg PO DAILY 03/16/18 Tiotropium [place] [Spiriva Respimat] 2 puff INHALATION DAILY 03/16/18 Furosemide [Lasix] 40 mg PO DAILY #30 tab 03/19/18 amlodipine 5 mg tablet 5 mg PO DAILY #90 tab 08/11/18 losartan 50 mg tablet 50 mg PO DAILY #90 tab 08/12/18 apixaban 5 mg tablet 5 mg PO BID #60 tab 09/17/18 amiodarone 200 mg tablet 200 mg PO DAILY #30 tab 10/07/18 potassium chloride ER 20 mEq tablet,extended release(part/cryst) 20 meq PO DAILY #90 tab 11/23/18 Atorvastatin Calcium [Lipitor] 80 mg PO QHS 11/27/18 Carvedilol 12.5 mg PO DAILY 11/27/18 Albuterol Aerosols [Ventolin Aerosols] 2.5 mg INHALATION Q2H PRN PRN #1 box 11/29/18 Nystatin Powder [Mycostatin Powder] 1 applic TOPICAL TID #1 bottle 11/29/18 Albuterol Sulfate [Ventolin Hfa] 1 - 2 puff INHALATION Q4H PRN PRN 03/08/19 Budesonide/Formoterol 160/4.5 [Symbicort 160/4.5 Mcg Inhaler (SP)] 2 puff INHALATION BID 03/08/19 Nicotine [Nicoderm Cq] 21 mg TRANSDERM. DAILY 03/08/19 Cephalexin [Keflex] 500 mg PO Q6 #24 cap 03/10/19 Following Prescrptions Were Given to Patient: Cephalexin [Keflex] 500 mg PO Q6 #24 cap Transmission Status: Pending to [facility] Primary Care Physician: Rohit Peralta Chi, MD [Primary Care Provider] - Please follow up with your Primary Care Physician in: 3-5 days Disposition: Home Minutes spent on discharge:: 35 Patient Condition:: Stable Medical Necessity - Tobacco Use Smoking Status: Former smoker Tobacco Use: Cigarettes Meaningful Use Info Meaningful Use Diagnoses (Choose all that apply): None applicable Code Visit OBSV E&M: 48409 Observation care discharge
--- NOTE | 2019-03-10 11:44 | PHA.DC.MC ---
Pharmacy Service has performed discharge medication reconciliation and counseling for this patient. 1. CEPHALEXIN 500MG PO Q6H X 6 DAYS The patient's discharge medication list was reviewed for discrepancies and discrepancies were resolved. Home Medications Bupropion HCl [Bupropion HCl Sr] 150 mg PO BID 12/01/16 Isosorbide Mononitrate [Isosorbide Mononitrate ER] 30 mg PO DAILY 03/16/18 Tiotropium [place] [Spiriva Respimat] 2 puff INHALATION DAILY 03/16/18 Furosemide [Lasix] 40 mg PO DAILY #30 tab 03/19/18 amlodipine 5 mg tablet 5 mg PO DAILY #90 tab 08/11/18 losartan 50 mg tablet 50 mg PO DAILY #90 tab 08/12/18 apixaban 5 mg tablet 5 mg PO BID #60 tab 09/17/18 amiodarone 200 mg tablet 200 mg PO DAILY #30 tab 10/07/18 potassium chloride ER 20 mEq tablet,extended release(part/cryst) 20 meq PO DAILY #90 tab 11/23/18 Atorvastatin Calcium [Lipitor] 80 mg PO QHS 11/27/18 Carvedilol 12.5 mg PO DAILY 11/27/18 Albuterol Aerosols [Ventolin Aerosols] 2.5 mg INHALATION Q2H PRN PRN #1 box 11/29/18 Nystatin Powder [Mycostatin Powder] 1 applic TOPICAL TID #1 bottle 11/29/18 Albuterol Sulfate [Ventolin Hfa] 1 - 2 puff INHALATION Q4H PRN PRN 03/08/19 Budesonide/Formoterol 160/4.5 [Symbicort 160/4.5 Mcg Inhaler (SP)] 2 puff INHALATION BID 03/08/19 Nicotine [Nicoderm Cq] 21 mg TRANSDERM. DAILY 03/08/19 Cephalexin [Keflex] 500 mg PO Q6 #24 cap 03/10/19 The patient was counseled on the following discharge medications and changes in medications for homegoing were reviewed. The Reason for Use, instructions for use, and potential side effects were reviewed for all new medications. The patient's questions regarding all of their medications were answered. The patient was able to verbally demonstrate an understanding of their discharge medications.
[2019-03-10 11:50] LABS: Bedside Glucose 126 mg/dL (70-110)
--- NOTE | 2019-03-10 12:01 | CASEMGMT ---
LW/POA forms both scanned into summary tab of [facility], Hermelinda Ferrell is listed as medical POA. LEYLA Carlos
--- NOTE | 2019-03-10 13:04 | NURSING ---
Read and reviewed SN documentation
== END 2019-03-10 11:25 | disposition home or self-care (01) ==
LOC: ED 15:43 → PCU 16:02
PROVIDERS: Emergency Provider Emergency Medicine; Family Provider Family Medicine Geriatric Medicine; PCP Family Medicine Geriatric Medicine; Visit Provider Family Medicine
DX: I11.0 Hypertensive heart disease with heart failure (principal); I50.22 Chronic systolic (congestive) heart failure; I25.10 Atherosclerotic heart disease of native coronary artery without angina pectoris; I48.0 Paroxysmal atrial fibrillation; E78.5 Hyperlipidemia, unspecified; R14.0 Abdominal distension (gaseous); L03.115 Cellulitis of right lower limb; L03.311 Cellulitis of abdominal wall; Z79.899 Other long term (current) drug therapy; J44.9 Chronic obstructive pulmonary disease, unspecified; I48.92 Unspecified atrial flutter; I25.2 Old myocardial infarction; G47.33 Obstructive sleep apnea (adult) (pediatric); I48.20 Chronic atrial fibrillation, unspecified; E66.9 Obesity, unspecified; E11.9 Type 2 diabetes mellitus without complications; F41.9 Anxiety disorder, unspecified; F32.9 Major depressive disorder, single episode, unspecified; I08.1 Rheumatic disorders of both mitral and tricuspid valves; Z91.14 Patient's other noncompliance with medication regimen; Z79.51 Long term (current) use of inhaled steroids; Z87.891 Personal history of nicotine dependence; Z68.33 Body mass index [BMI] 33.0-33.9, adult; Z71.3 Dietary counseling and surveillance
CPT/HCPCS: 36415; 71046; 76705; 80048; 80053; 81001; 82962; 83036; 83880; 84484; 85025; 93005; 93306; 94640; 96374; 96376; 99218; 99285; 99406; A4216; G0378; J1940

== ENCOUNTER → 2019-03-18 15:04 | Outpatient (CLI) | payer MEDICARE, MEDICAID, SELFPAY ==
[2019-03-08 16:16] VITALS: BMI 33.4
[2019-03-18 15:39] LABS: Anion Gap 2 (5-15); BUN 14 mg/dL (7-18); BUN/Creat Ratio 13.7 RATIO (10-20); Calcium,Total 8.8 mg/dL (8.5-10.1); Chloride 102 mmol/L (98-107); Creatinine, Serum 1.02 mg/dL (0.70-1.30); EST Glomerular Filtration Rate 82 mL/min (>60); Est Glom Filt Rate - Afr Amer 99 mL/min (>60); Glucose 159 mg/dL (74-106); Potassium 3.6 mmol/L (3.5-5.1); Sodium Level 143 mmol/L (136-145)
== END ==
PROVIDERS: Family Provider Family Medicine Geriatric Medicine; PCP Family Medicine Geriatric Medicine; Visit Provider Family Medicine Geriatric Medicine
DX: E87.6 Hypokalemia (principal)
CPT/HCPCS: 36415; 80048

== ENCOUNTER → 2019-03-29 16:36 | Outpatient (CLI) | payer MEDICARE, SELFPAY ==
[2019-03-29 10:49] VITALS: BMI 34.8
[2019-03-29 17:40] LABS: Absolute Lymphocyte Count 1.17 X10^3/uL (0.83-4.51); Absolute Neutrophil Count 7.1 X10^3/uL (2.0-7.7); Basophil# 0.06 X10^3/uL; Basophil% 0.6 % (0-1); Eosinophil# 0.13 X10^3/uL; Eosinophils% 1.4 % (0-5); Hematocrit 50.2 % (40-54); Lymphocyte # 1.17 X10^3/ul (4.0); Lymphocyte % 12.3 % (19-41); Mean Corp Hgb Conc 29.9 g/dL (32-36); Mean Corpuscular Hgb 28.1 pg (27.0-32.0); Mean Platelet Vol. 10.1 fl (6.2-12.0); Monocyte# 1.03 X10^3/uL; Monocyte% 10.8 % (0-10); NRBC Flagged by Analyzer 0 % (0-5); Neutrophil # 7.11 X10^3/uL (2.7-7.7); Neutrophil % 74.5 % (47-70); Platelet Count 186 K/mm3 (150-450); Red Blood Count 5.34 M/mm3 (4.6-6.2); White Blood Count 9.5 K/mm3 (4.4-11.0)
[2019-03-29 17:44] LABS: Anion Gap 5 (5-15); BUN 17 mg/dL (7-18); BUN/Creat Ratio 12.5 RATIO (10-20); Calcium,Total 8.1 mg/dL (8.5-10.1); Chloride 96 mmol/L (98-107); Creatinine, Serum 1.36 mg/dL (0.70-1.30); EST Glomerular Filtration Rate 59 mL/min (>60); Est Glom Filt Rate - Afr Amer 71 mL/min (>60); Glucose 145 mg/dL (74-106); Potassium 3.2 mmol/L (3.5-5.1); Sodium Level 144 mmol/L (136-145)
== END ==
PROVIDERS: Family Provider Family Medicine Geriatric Medicine; PCP Family Medicine Geriatric Medicine; Visit Provider Family Medicine Geriatric Medicine
DX: E87.6 Hypokalemia (principal)
CPT/HCPCS: 36415; 80048; 85025

== ENCOUNTER → 2019-04-05 14:11 | Outpatient (CLI) | payer MEDICARE, SELFPAY ==
[2019-03-29 10:49] VITALS: BMI 34.8
[2019-04-05 17:47] LABS: Anion Gap 4 (5-15); BUN 13 mg/dL (7-18); BUN/Creat Ratio 11.3 RATIO (10-20); Calcium,Total 8.7 mg/dL (8.5-10.1); Chloride 100 mmol/L (98-107); Creatinine, Serum 1.15 mg/dL (0.70-1.30); EST Glomerular Filtration Rate 71 mL/min (>60); Est Glom Filt Rate - Afr Amer 86 mL/min (>60); Glucose 91 mg/dL (74-106); Potassium 3.6 mmol/L (3.5-5.1); Sodium Level 143 mmol/L (136-145)
== END ==
PROVIDERS: Family Provider Family Medicine Geriatric Medicine; PCP Family Medicine Geriatric Medicine; Visit Provider Family Medicine Geriatric Medicine
DX: E87.6 Hypokalemia (principal)
CPT/HCPCS: 36415; 80048

== ENCOUNTER → 2019-04-26 20:00 | Outpatient (CLI) | payer MEDICARE, SELFPAY ==
[2019-03-29 10:49] VITALS: BMI 34.8
== END ==
PROVIDERS: Family Provider Family Medicine Geriatric Medicine; PCP Family Medicine Geriatric Medicine; Referring Provider Nurse Practitioner Acute Care; Visit Provider Nurse Practitioner Acute Care
DX: G47.33 Obstructive sleep apnea (adult) (pediatric) (principal)
CPT/HCPCS: 95811

== ENCOUNTER 2019-05-13 15:22 | Emergency (ER) | payer MEDICARE, SELFPAY ==
[2019-03-29 10:49] VITALS: BMI 34.8
[2019-05-13 15:23] VITALS: BP 156/111; PULSE 81; RESP 16; TEMP 36.1; O2SAT 99; BMI 33.6
--- NOTE | 2019-05-13 16:24 | ED.VISSUMM ---
- ER Visit Summary Date of Service: 05/13/19 Chief Complaint: Sciatica History of Present Illness: The patient is a 54 M who presents with sciatica that has been waxing and waning over the past 2 weeks. Patient denies any trauma or injury. Patient states the pain starts in his right buttock and radiates to his right proximal calf. Patient states nothing makes it better or worse. Patient denies any paresthesias or weakness. Patient denies any bowel or bladder changes. Patient denies any saddle anesthesia. Patient denies any fevers or chills. Patient denies any abdominal pain. Physical Examination: Vital signs are stable. Patient is afebrile. Patient is in no acute distress. Oral mucosa is pink and moist. Neck is supple. Trachea is midline. There is no JVD. Musculoskeletal exam reveals tenderness over the right gluteal area. There is no bony crepitance or step-off. There is good range of motion of the lower extremities bilaterally. Strength is 5/5 bilaterally in the lower extremities. There are no sensory deficits noted. Deep tendon reflexes are 2/4 bilaterally in the lower extremities. Emergency Department Course and Treatment: Patient was given prescriptions for Naprosyn and Flexeril. Patient was instructed to use ice to the area. Patient was instructed to follow-up with his primary care physician in 5 to 7 days. Patient understood and was agreeable with the plan. All questions were answered. Disposition: Discharge home Impression: Sciatica This note was generated with [employer] dictation software. It may contain incorrect words, spelling, and punctuation that were not noted in review of the chart prior to signing ED Disposition - Plan for ED Patient: Disposition: Home or Assisted Living Diagnosis: Sciatica Instructions: BACK PAIN w/ SCIATICA Prescriptions: cycloBENZAPRine HCl [Flexeril] 10 mg PO QHS PRN PRN #10 tab PRN Reason: Pain Score 1-02/18 Prescription Printed Naproxen [Naprosyn] 500 mg PO BID PRN #20 tab Prescription Printed Referrals: Rohit Peralta Chi, MD [Primary Care Provider] - 5-7 Days
[2019-05-13 16:48] VITALS: PULSE 84; RESP 17; O2SAT 99
== END 2019-05-13 16:50 | disposition home or self-care (01) ==
PROVIDERS: Emergency Provider Emergency Medicine; Family Provider Family Medicine Geriatric Medicine; PCP Family Medicine Geriatric Medicine
DX: M54.31 Sciatica, right side (principal); I48.91 Unspecified atrial fibrillation; I50.9 Heart failure, unspecified; Z79.899 Other long term (current) drug therapy
CPT/HCPCS: 99282

== ENCOUNTER 2019-05-21 13:25 | Emergency (ER) | payer MEDICARE, SELFPAY ==
[2019-05-21] VITALS (10 sets, daily range): BP systolic 156–176; BP diastolic 102–116; PULSE 69–79; RESP 22–26; TEMP 36.6–37.1; O2SAT 94–97; BMI 32.1
--- NOTE | 2019-05-21 14:30 | ED.VISSUMM ---
- ER Visit Summary Date of Service: 05/21/19 Chief Complaint: Shortness of breath History of Present Illness: The patient is a 54 M history of prior HI, A. fib, hypertension comes COPD on oxygen at home at night to sleep. States been more short of breath the last 2 to 3 days. Worse with walking. Not positional. Denies any chest pain. No hemoptysis. No fever or chills or significant cough. He states he had shortness of breath like this before with CHF. He does state he has increased swelling in both lower extremities. Physical Examination: Middle-aged male no acute distress on room air in the waiting room he was 83% hypoxic on oxygen and is ER room is 97% and non-hypoxic. Initial blood pressure 167/102 he is afebrile. Currently he is in no distress on the oxygen. HEENT exam unremarkable. Neck nontender no JVD no lymphadenopathy. Lungs clear to auscultation bilaterally. I do not appreciate any rales, rhonchi or wheezing. Heart regular rhythm rate about 70 no murmur. Abdomen is soft nontender normal bowel sounds no peritoneal signs. Patient is moving all 4 extremities he has 1-2+ pitting edema left from his toes up to his knees. Neurologically is awake alert with no focal motor deficits. Test Results: Chest x-ray shows moderate cardiomegaly otherwise no acute process. No obvious failure. No effusion. No pneumonia. EKG sinus rhythm rate 75 no acute signs of HI or ischemia. White count of 7 hemoglobin 15. No bands. Chemistries unremarkable. Normal BUN and creatinine. Troponin is less than 0.026. BNP is elevated at thousand 55. Portable chest x-ray one view does show cardiomegaly larger than past chest x-rays. There is no obvious failure on the chest x-ray. No pleural effusion and no infiltrate. Due to his dyspnea and lower extremity edema I am and obtain a CT of his chest not looking for PE but concern for pericardial effusion. This to be turned over the afternoon physician. Depending on those results will determine disposition. Emergency Department Course and Treatment: Middle aged male with shortness of breath and bilateral lower extremity edema. Concern for CHF versus other etiologies. Repeat exam is doing well at 1533. Checked out to the afternoon physician for final disposition. Treatment Plan: [] Disposition: [] Impression: Acute dyspnea with hypoxia Bilateral lower extremity edema Cardiomegaly This note was generated with Dragon dictation software. It may contain incorrect words, spelling, and punctuation that were not noted in review of the chart prior to signing ED Disposition - Plan for ED Patient: Referrals: Rohit Peralta Chi, MD [Primary Care Provider] -
--- NOTE | 2019-05-21 15:14 | EKG12_ITS ---
Test Reason : SOB Blood Pressure : / mmHG Vent. Rate : 075 BPM Atrial Rate : 075 BPM P-R Int : 190 ms QRS Dur : 096 ms QT Int : 410 ms P-R-T Axes : 059 089 078 degrees QTc Int : 457 ms Normal sinus rhythm Normal ECG Confirmed by MIKE CARTWRIGHT, OZ ([id number]), legal editor MICKY ESCAMILLA ([id number]) on 05/24/2019 10:27:05 AM Referred By: RUTH Confirmed By:OZ MCKEON MD
--- NOTE | 2019-05-21 15:15 | RAD_ITS ---
STUDY: X-RAY CHEST REASON FOR EXAM: Male, 54 years old. SOB TECHNIQUE: Single AP portable view of the chest. COMPARISON: Comparison is made with prior study dated March 08, 2019. FINDINGS: EKG electrodes are seen. The lungs are clear and expanded. There is no demonstrated pleural abnormality. There is moderate cardiac enlargement. Normal mediastinum and racquel. Normal visualized pulmonary arteries. There is atherosclerotic tortuosity of the aortic arch and descending thoracic aorta. Normal visualized thoracic spine. Normal visualized ribs, clavicles, and shoulders. There is no demonstrated abnormality of the visualized soft tissue structures of the upper abdomen. RAD/Chest 1 View (Portable) IMPRESSION: Moderate cardiomegaly. Electronically Signed: Augustus Ba, at 15:37 EST , Service support ,
[2019-05-21 15:54] LABS: Absolute Neutrophil Count 5.2 X10^3/uL (2.0-7.7); Basophil# 0.03 X10^3/uL; Basophil% 0.4 % (0-1); Eosinophils% 1.3 % (0-5); Lymphocyte % 14.8 % (19-41); Mean Corp Hgb Conc 28.3 g/dL (32-36); Mean Corpuscular Hgb 26.4 pg (27.0-32.0); Mean Corpuscular Volume 93.3 fL (80-94); Mean Platelet Vol. 10.8 fl (6.2-12.0); Monocyte# 0.99 X10^3/uL; Monocyte% 13.3 % (0-10); NRBC Flagged by Analyzer 0 % (0-5); Neutrophil # 5.18 X10^3/uL (2.7-7.7); Neutrophil % 69.9 % (47-70); Platelet Count 157 K/mm3 (150-450); RBC Distribution Width CV 15.7 % (11.6-14.6); RBC Distribution Width SD 52.9 fl (35.1-43.9); Red Blood Count 5.68 M/mm3 (4.6-6.2); White Blood Count 7.4 K/mm3 (4.4-11.0)
[2019-05-21 16:07] LABS: Anion Gap -1 (5-15); BUN 20 mg/dL (7-18); BUN/Creat Ratio 17.7 RATIO (10-20); Calcium,Total 8.6 mg/dL (8.5-10.1); Chloride 106 mmol/L (98-107); Creatinine, Serum 1.13 mg/dL (0.70-1.30); EST Glomerular Filtration Rate 72 mL/min (>60); Est Glom Filt Rate - Afr Amer 88 mL/min (>60); Estimated Creatinine Clearance 76.47 ml/min; Glucose 109 mg/dL (74-106); Potassium 4.5 mmol/L (3.5-5.1); Sodium Level 144 mmol/L (136-145)
--- NOTE | 2019-05-21 16:29 | CT_ITS ---
STUDY: CT CHEST WITHOUT CONTRAST REASON FOR EXAM: Male, 54 years old. CARDIOMEGALY/? PERICARDIAL EFFUSION. Congestion, hypoxia RADIATION DOSAGE (If Supplied By Facility): CTDIvol = ( 20.12 ) mGy, DLP = ( 754.17 ) mGycm TECHNIQUE: Transaxial imaging was performed without the administration of intravenous contrast material. Individualized dose optimization techniques were used for this CT. COMPARISON: 12/19/2015. FINDINGS: Normal lung volumes. Mild atelectasis or less likely infiltrate in the posterior right lung base. Small right pleural effusion. Trace left pleural effusion. There is moderate cardiac enlargement. Normal mediastinum. Normal hilar regions. Normal unenhanced pulmonary arteries. Normal aorta arch and descending thoracic aorta. There are multi-level degenerative changes of the thoracic spine. There is no demonstrated abnormality of the visualized upper abdomen. CT/Chest without Contrast IMPRESSION: Moderate cardiomegaly. Mild atelectasis or less likely infiltrate in the posterior right lung base. Electronically Signed: Berto Moseley MD at 17:15 EST , Service support ,
[2019-05-21 16:33] LABS: BNP,B-Type NATRIURETIC PEPTIDE 1055.8 pg/mL (0-100)
--- NOTE | 2019-05-21 19:00 | ED.RN ---
Dr Villatoro informed of pt BP. Pt states he has not takend his BP med today. Dr pereira to d/c pt.
== END 2019-05-21 19:02 | disposition home or self-care (01) ==
PROVIDERS: Emergency Provider Emergency Medicine; Family Provider Family Medicine Geriatric Medicine; PCP Family Medicine Geriatric Medicine
DX: R06.02 Shortness of breath (principal); R09.02 Hypoxemia; R60.0 Localized edema; I11.9 Hypertensive heart disease without heart failure; I48.91 Unspecified atrial fibrillation; I25.2 Old myocardial infarction; J44.9 Chronic obstructive pulmonary disease, unspecified; Z99.81 Dependence on supplemental oxygen; Z79.01 Long term (current) use of anticoagulants
CPT/HCPCS: 71045; 71250; 80048; 83880; 84484; 85025; 93005; 99283

== ENCOUNTER → 2019-06-16 09:06 | Outpatient (CLI) | payer MEDICARE, MEDICAID, SELFPAY ==
[2019-05-21 13:27] VITALS: BMI 32.1
--- NOTE | 2019-06-16 09:28 | RAD_ITS ---
STUDY: X-RAY - LUMBAR SPINE REASON FOR EXAM: Male, 54 years old. Pain in lower back off and on for a couple years; no known injury TECHNIQUE: 5 view(s) of the lumbar spine were obtained. COMPARISON: No recent studies FINDINGS: Normal lumbar lordosis. There is no substantial scoliosis. There is a normal alignment of the vertebrae. There is diffuse demineralization with multi-level endplate spondylosis. There is multi-level degenerative disc disease with multi-level disc space narrowing. There is no demonstrated fracture. The soft tissue structures are unremarkable. RAD/L/S Spine Min 4 Views IMPRESSION: Degenerative changes of the spine, as detailed above. Electronically Signed: Neftaly Harry MD at 7:11 EST , Service support ,
== END ==
PROVIDERS: PCP Family Medicine Geriatric Medicine; Referring Provider Chiropractor; Visit Provider Chiropractor
DX: M54.16 Radiculopathy, lumbar region (principal)
CPT/HCPCS: 72110

== ENCOUNTER 2019-06-27 13:17 | Emergency (ER) | payer MEDICARE, MEDICAID, SELFPAY ==
[2019-06-25 06:56] VITALS: BMI 35.1
[2019-06-27 13:18] VITALS: BP 150/92; PULSE 74; RESP 18; TEMP 36.3; O2SAT 93; BMI 34.1
--- NOTE | 2019-06-27 13:34 | ED.DCSUM_ITS ---
- ER Visit Summary Date of Service: 06/27/19 Chief Complaint: Foot pain History of Present Illness: The patient is a 54 M with left lateral foot pain since Friday. Patient thinks he may have walked on the lateral aspect of his foot, but denies any other specific injury. No other associated symptoms. Physical Examination: Patient has venous stasis changes of his lower extremities with symmetric edema, nontender. He does have some tenderness to his lateral left foot. Overlying skin is unremarkable. No deformity. Neurovascular intact distally. Test Results: X-rays negative Emergency Department Course and Treatment: Patient was treated with [place] while awaiting results. X-ray showed no acute process. Patient will rest, ice, elevate. Short course of pain medicine. He has a walker. Follow-up with primary care. Please note, nothing to suggest infection, gout, DVT, or other soft tissue injury. Treatment Plan: As above Disposition: Discharge Impression: Left foot pain This note was generated with [employer] dictation software. It may contain incorrect words, spelling, and punctuation that were not noted in review of the chart prior to signing ED Disposition - Plan for ED Patient: Referrals: Rohit Peralta Chi, MD [Primary Care Provider] -
--- NOTE | 2019-06-27 13:36 | ED.DEP ---
ED Disposition - Plan for ED Patient: Instructions: CONTUSION, Foot Prescriptions: Hydrocodone Bitart/Apap 5-325 [Teaberry 5MG-325MG] 1 tab PO Q6H PRN PRN 2 Days #8 tab PRN Reason: Pain Prescription Printed Referrals: Rohit Peralta Chi, MD [Primary Care Provider] -
[2019-06-27] MEDS: HYDROcodone Bitartrate/Apap 5/325 Tablet PO (13:39)
[2019-06-27 13:44] VITALS: RESP 16
--- NOTE | 2019-06-27 13:52 | RAD_ITS ---
STUDY: X-RAY - LEFT FOOT CLINICAL: Male, 54 years old. PAIN IN LEFT FOOT LATERALLY X A COUPLE OF DAYS, CANNOT BARE WEIGHT ON IT. NO KNOWN INJURY. TECHNIQUE: 3 view(s) of the foot. COMPARISON: None. FINDINGS: There is a plantar calcaneal spur. Normal visualized subtalar, talonavicular, calcaneocuboid, tarsal and tarsometatarsal articulations. Normal metatarsi. Normal metatarsophalangeal joint of the great toe. Normal tibial and fibular sesamoid bones. Normal interphalangeal joint of the great toe. Normal phalanges of the great toe. Normal second through fifth metatarsophalangeal joints. Normal interphalangeal joints and phalanges of the lesser toes. The soft tissue structures are unremarkable. There is no demonstrated fracture. RAD/Foot min 3 Views IMPRESSION: Small heel spur. No fracture. Electronically Signed: Matt Bernstein MD at 14:30 EST , Service support ,
[2019-06-27 15:07] VITALS: RESP 16
--- NOTE | 2019-06-27 15:08 | ED.RN ---
REVIEWED D/C INSTRUCTIONS, FOLLOW UP CARE, PRESCRIPTION, AND S/S THAT WOULD WARRANT A RETURN TO THE ED WITH PT. PT VERBALIZED AN UNDERSTANDING AND DENIES FURTHER QUESTIONS FOR THIS RN. PT A&O X 3, NO DISTRESS NOTED. PT ASSISTED OUT OF ED IN WHEELCHAIR.
== END 2019-06-27 15:09 | disposition home or self-care (01) ==
LOC: ED 14:02
PROVIDERS: Emergency Provider Emergency Medicine; PCP Family Medicine Geriatric Medicine
DX: M79.672 Pain in left foot (principal); I11.0 Hypertensive heart disease with heart failure; I50.9 Heart failure, unspecified; I25.2 Old myocardial infarction; I48.91 Unspecified atrial fibrillation; I48.92 Unspecified atrial flutter; J44.9 Chronic obstructive pulmonary disease, unspecified; Z72.0 Tobacco use
CPT/HCPCS: 73630; 99283

== ENCOUNTER → 2019-08-12 11:25 | Outpatient (CLI) | payer MEDICARE, MEDICAID, SELFPAY ==
[2019-08-05 10:25] VITALS: BMI 34.1
[2019-08-12 12:16] LABS: Absolute Lymphocyte Count 1.39 X10^3/uL (0.83-4.51); Absolute Neutrophil Count 5.3 X10^3/uL (2.0-7.7); Basophil# 0.04 X10^3/uL; Basophil% 0.5 % (0-1); Eosinophil# 0.27 X10^3/uL; Eosinophils% 3.4 % (0-5); Hematocrit 52.9 % (40-54); Hemoglobin 16.4 g/dL (13.0-16.5); Lymphocyte # 1.39 X10^3/ul (4.0); Lymphocyte % 17.7 % (19-41); Mean Corpuscular Hgb 27.5 pg (27.0-32.0); Mean Corpuscular Volume 88.6 fL (80-94); Mean Platelet Vol. 9.9 fl (6.2-12.0); Monocyte# 0.86 X10^3/uL; Monocyte% 10.9 % (0-10); NRBC Flagged by Analyzer 0 % (0-5); Neutrophil # 5.28 X10^3/uL (2.7-7.7); Neutrophil % 67.2 % (47-70); Platelet Count 177 K/mm3 (150-450); RBC Distribution Width CV 15.7 % (11.6-14.6); RBC Distribution Width SD 49.5 fl (35.1-43.9); Red Blood Count 5.97 M/mm3 (4.6-6.2); White Blood Count 7.9 K/mm3 (4.4-11.0)
[2019-08-12 12:49] LABS: AST(SGOT) 13 U/L (15-37); Alanine Aminotransfer ALT/SGPT 15 U/L (16-61); Albumin, Serum 3.9 g/dL (3.2-5.0); Alkaline Phosphatase 93 U/L (45-117); Anion Gap 4 (5-15); BUN 13 mg/dL (7-18); BUN/Creat Ratio 10.2 RATIO (10-20); Calcium,Total 8.8 mg/dL (8.5-10.1); Chloride 99 mmol/L (98-107); Creatinine, Serum 1.27 mg/dL (0.70-1.30); EST Glomerular Filtration Rate 63 mL/min (>60); Est Glom Filt Rate - Afr Amer 76 mL/min (>60); Globulin 3.9 g/dL (2.2-4.2); Glucose 151 mg/dL (74-106); Potassium 4.1 mmol/L (3.5-5.1); Protein, Total 7.8 g/dL (6.4-8.2); Sodium Level 140 mmol/L (136-145); Thyroid Stim Hormone (TSH) 1.61 uIU/mL (0.358-3.74)
== END ==
PROVIDERS: PCP Family Medicine Geriatric Medicine; Visit Provider Family Medicine Geriatric Medicine
DX: I10 Essential (primary) hypertension (principal)
CPT/HCPCS: 36415; 80053; 84443; 85025

== ENCOUNTER → 2020-02-15 10:59 | Outpatient (CLI) | payer MEDICARE, MEDICAID, SELFPAY ==
[2020-02-03 06:06] VITALS: BMI 31.6
[2020-02-15 12:31] LABS: Absolute Neutrophil Count 6.3 X10^3/uL (2.0-7.7); Basophil# 0.05 X10^3/uL; Basophil% 0.6 % (0-1); Eosinophil# 0.14 X10^3/uL; Eosinophils% 1.6 % (0-5); Hematocrit 51.9 % (40-54); Hemoglobin 16.5 g/dL (13.0-16.5); Mean Corp Hgb Conc 31.8 g/dL (32-36); Mean Corpuscular Volume 91.2 fL (80-94); Mean Platelet Vol. 11.4 fl (6.2-12.0); Monocyte# 0.84 X10^3/uL; Monocyte% 9.6 % (0-10); NRBC Flagged by Analyzer 0 % (0-5); Neutrophil # 6.29 X10^3/uL (2.7-7.7); Neutrophil % 71.9 % (47-70); Platelet Count 163 K/mm3 (150-450); RBC Distribution Width CV 13.1 % (11.6-14.6); RBC Distribution Width SD 44.1 fl (35.1-43.9); Red Blood Count 5.69 M/mm3 (4.6-6.2); White Blood Count 8.8 K/mm3 (4.4-11.0)
[2020-02-15 13:11] LABS: ALB/GLOB Ratio 0.8 RATIO (0.9-2.4); AST(SGOT) 15 U/L (15-37); Alanine Aminotransfer ALT/SGPT 15 U/L (16-61); Albumin, Serum 3.5 g/dL (3.2-5.0); Alkaline Phosphatase 102 U/L (45-117); Anion Gap 1 (5-15); BUN 22 mg/dL (7-18); BUN/Creat Ratio 15.1 RATIO (10-20); Calcium,Total 9.2 mg/dL (8.5-10.1); Chloride 104 mmol/L (98-107); Creatinine, Serum 1.46 mg/dL (0.70-1.30); EST Glomerular Filtration Rate 54 mL/min (>60); Est Glom Filt Rate - Afr Amer 65 mL/min (>60); Globulin 4.2 g/dL (2.2-4.2); Glucose 115 mg/dL (74-106); Potassium 3.6 mmol/L (3.5-5.1); Protein, Total 7.7 g/dL (6.4-8.2); Sodium Level 142 mmol/L (136-145); Thyroid Stim Hormone (TSH) 1.53 uIU/mL (0.358-3.74)
== END ==
PROVIDERS: PCP Family Medicine Geriatric Medicine; Visit Provider Family Medicine Geriatric Medicine
DX: I10 Essential (primary) hypertension (principal)
CPT/HCPCS: 36415; 80053; 84443; 85025

== ENCOUNTER → 2020-07-17 09:09 | Outpatient (CLI) | payer MEDICARE, MEDICAID, SELFPAY ==
[2020-07-12 15:00] VITALS: BMI 28.6
--- NOTE | 2020-07-17 09:22 | RAD_ITS ---
STUDY: X-RAY CHEST REASON FOR EXAM: Male, 55 years old. Amiodarone therapy TECHNIQUE: PA and lateral views of the chest. COMPARISON: 05/21/2019 FINDINGS: The lungs are mildly hyperexpanded without a superimposed acute pulmonary process. There is no demonstrated pleural abnormality. Normal size heart. Normal mediastinum and racquel. Normal visualized pulmonary arteries. Normal visualized aortic arch and descending thoracic aorta. There are diffuse degenerative changes of the visualized thoracic spine. There is degenerative osteoarthritis of the bilateral shoulders. There is no demonstrated abnormality of the visualized soft tissue structures of the upper abdomen. RAD/Chest PA and Lateral IMPRESSION: Hyperexpanded lungs with chronic interstitial changes, no superimposed acute pulmonary process Electronically Signed: Neftaly Haryr MD at 16:57 EST , Service support ,
[2020-07-17 11:46] LABS: AST(SGOT) 10 U/L (15-37); Alanine Aminotransfer ALT/SGPT 14 U/L (16-61); Albumin, Serum 3.7 g/dL (3.2-5.0); Alkaline Phosphatase 105 U/L (45-117); Bilirubin, Direct 0.21 mg/dL (0.00-0.30); Cholesterol 141 mg/dL (200); Globulin 4.2 g/dL (2.2-4.2); High Density Lipoprotein 37 mg/dL; Protein, Total 7.9 g/dL (6.4-8.2); T4 Free Direct 1.23 ng/dL (0.76-1.46); Thyroid Stim Hormone (TSH) 2.08 uIU/mL (0.358-3.74); Triglycerides 87 mg/dL; Very Low Density Lipoprotein 17 mg/dL (5-40)
== END ==
PROVIDERS: PCP Family Medicine Geriatric Medicine; Referring Provider Internal Medicine Cardiovascular Disease; Visit Provider Internal Medicine Cardiovascular Disease
DX: I48.91 Unspecified atrial fibrillation (principal); I48.92 Unspecified atrial flutter; I27.20 Pulmonary hypertension, unspecified; I25.810 Atherosclerosis of coronary artery bypass graft(s) without angina pectoris; I50.812 Chronic right heart failure; E78.00 Pure hypercholesterolemia, unspecified; G47.33 Obstructive sleep apnea (adult) (pediatric)
CPT/HCPCS: 36415; 71046; 80061; 80076; 84439; 84443

== ENCOUNTER → 2020-07-18 09:30 | Outpatient (CLI) | payer MEDICARE, MEDICAID, SELFPAY ==
[2020-02-03 06:06] VITALS: BMI 31.6
[2020-07-12 15:00] VITALS: BMI 28.6
--- NOTE | 2020-07-18 12:20 | PFT ---
INTRODUCTION: The patient is a 55-year-old male that presents for pulmonary function studies secondary to a diagnosis of COPD. Respiratory therapy reports good patient effort. Bronchodilators were used during testing. INTERPRETATION: Forced expiration spirometry demonstrates the presence of a severe large airways obstructive ventilatory defect. There was no significant response to aerosolized bronchodilators. Spirograms are of good quality but do not plateau indicating slow emptying of the lungs. Body plethysmography was performed and reveals lung volumes to be within normal limits. Diffusing capacity by single breath CO is also within normal limits at 96% of predicted. When compared to previous pulmonary function studies from May 2018, there has been a significant improvement in the patient's FEV1 and DLCO. IMPRESSION: Irreversible severe large airways obstructive ventilatory defect with preserved lung volumes and diffusing capacity. There has been significant improvement in the patient's FEV1 and DLCO since 2018, as noted above.
== END ==
PROVIDERS: PCP Family Medicine Geriatric Medicine; Referring Provider Internal Medicine Critical Care Medicine; Visit Provider Internal Medicine Critical Care Medicine
DX: J44.9 Chronic obstructive pulmonary disease, unspecified (principal)
CPT/HCPCS: 94060; 94726; 94729

== ENCOUNTER → 2020-07-20 11:06 | Outpatient (CLI) | payer MEDICARE, MEDICAID, SELFPAY ==
[2020-02-03 06:06] VITALS: BMI 31.6
[2020-07-12 15:00] VITALS: BMI 28.6
[2020-07-20 11:15] VITALS: PULSE 102; PULSE 109; PULSE 130; PULSE 89; PULSE 91; PULSE 93; PULSE 99; O2SAT 94; O2SAT 95; O2SAT 97
--- NOTE | 2020-07-20 11:37 | CPS ---
Pt's heart rate pre walk was 130. Pt did state he has a history of Afib and it is not uncommon for his heart rate to be high. Pt denies any chest pain. Pt states that he does not need to do anything for the increased heart rate unless he develops chest pain per his Dr. Pt denied chest pain again when asked.
--- NOTE | 2020-07-21 09:54 | PCM.PSN.6M ---
PSN 6 Minute Walk Test - 6 Minute Walk Test 6 Minute Walk Test: 6 Minute Walk Test PSN:6-Minute Walk Test Start: 07/20/20 11:33 Freq: Status: Active Protocol: RESP.6MINW Document 07/20/20 11:15 [facility] (Rec: 07/20/20 11:44 [facility] [id number]) 6 Minute Walk Test Date Performed 07/20/20 Time Performed 11:15 Height 5 ft 9 in Weight: 214 lb Weight in Pounds 214.[address]: Dr Martinez Assistive device used: None Pre-test Oxygen Delivery Method Room Air Pulse Ox (%) 97 Pulse Rate (60-100 beats/min) 130 H Dyspnea Lizzie Scale (0-10) 0 Exertion Lizzie Scale (6-20) 6 1st minute Oxygen Delivery Method Room Air Pulse Ox (%) 95 Pulse Rate (60-100 beats/min) 99 2nd minute Oxygen Delivery Method Room Air Pulse Ox (%) 95 Pulse Rate (60-100 beats/min) 102 H 3rd minute Oxygen Delivery Method Room Air Pulse Ox (%) 94 Pulse Rate (60-100 beats/min) 89 4th minute Oxygen Delivery Method Room Air Pulse Ox (%) 95 Pulse Rate (60-100 beats/min) 91 5th minute Oxygen Delivery Method Room Air Pulse Ox (%) 94 Pulse Rate (60-100 beats/min) 91 6th minute Oxygen Delivery Method Room Air Pulse Ox (%) 95 Pulse Rate (60-100 beats/min) 93 Dyspnea Lizzie Scale (0-10) 1 Exertion Lizzie Scale (6-20) 8 Post-test Oxygen Delivery Method Room Air Pulse Ox (%) 94 Pulse Rate (60-100 beats/min) 109 H Full Laps Walked 17 Partial Lap, Number of Tiles Walked 32 Total Distance Walked (ft) 1035 07/20/20 11:37 [facility] by Porsche Turcios Pt's heart rate pre walk was 130. Pt did state he has a history of Afib and it is not uncommon for his heart rate to be high. Pt denies any chest pain. Pt states that he does not need to do anything for the increased heart rate unless he develops chest pain per his Dr. Pt denied chest pain again when asked. Initialized on 07/20/20 11:37 - END OF NOTE - Interpretation Interpretation: The patient ambulated 1035 feet over the course of 6 minutes beginning on room air without assistive devices or breaks. Pretesting oxygen saturation was noted to be 97% on room air. With ambulation, the rozina oxygen saturation was 94%. There was no significant exertional oxygen desaturation. - Recommendations Recommendations: There is no indication for the use of supplemental oxygen at this time.
== END ==
PROVIDERS: PCP Family Medicine Geriatric Medicine; Referring Provider Internal Medicine Critical Care Medicine; Visit Provider Internal Medicine Critical Care Medicine
DX: J44.9 Chronic obstructive pulmonary disease, unspecified (principal)
CPT/HCPCS: 94618

== ENCOUNTER → 2020-07-20 15:20 | Outpatient (CLI) | payer MEDICARE, MEDICAID, SELFPAY ==
[2020-07-12 15:00] VITALS: BMI 28.6
[2020-07-20 17:09] LABS: Absolute Lymphocyte Count 1.69 X10^3/uL (0.83-4.51); Absolute Neutrophil Count 9.1 X10^3/uL (2.0-7.7); Basophil# 0.05 X10^3/uL; Basophil% 0.4 % (0-1); Eosinophil# 0.07 X10^3/uL; Eosinophils% 0.6 % (0-5); Hemoglobin 17.6 g/dL (13.0-16.5); Lymphocyte # 1.69 X10^3/ul (4.0); Lymphocyte % 13.9 % (19-41); Mean Corp Hgb Conc 32.6 g/dL (32-36); Mean Corpuscular Hgb 28.7 pg (27.0-32.0); Mean Corpuscular Volume 88.1 fL (80-94); Mean Platelet Vol. 11.3 fl (6.2-12.0); Monocyte# 1.24 X10^3/uL; Monocyte% 10.2 % (0-10); NRBC Flagged by Analyzer 0 % (0-5); Neutrophil # 9.05 X10^3/uL (2.7-7.7); Neutrophil % 74.5 % (47-70); Platelet Count 225 K/mm3 (150-450); RBC Distribution Width CV 13.3 % (11.6-14.6); RBC Distribution Width SD 43.3 fl (35.1-43.9); Red Blood Count 6.13 M/mm3 (4.6-6.2); White Blood Count 12.2 K/mm3 (4.4-11.0)
[2020-07-20 17:36] LABS: Anion Gap 7 (5-15); BUN 26 mg/dL (7-18); BUN/Creat Ratio 13.5 RATIO (10-20); Calcium,Total 9.3 mg/dL (8.5-10.1); Chloride 107 mmol/L (98-107); Creatinine, Serum 1.93 mg/dL (0.70-1.30); EST Glomerular Filtration Rate 39 mL/min (>60); Est Glom Filt Rate - Afr Amer 47 mL/min (>60); Glucose 107 mg/dL (74-106); Potassium 3.6 mmol/L (3.5-5.1); Sodium Level 141 mmol/L (136-145); Thyroid Stim Hormone (TSH) 3.42 uIU/mL (0.358-3.74)
== END ==
PROVIDERS: PCP Family Medicine Geriatric Medicine; Visit Provider Family Medicine Geriatric Medicine
DX: E23.6 Other disorders of pituitary gland (principal)
CPT/HCPCS: 36415; 80048; 84403; 84443; 85025; 94618

== ENCOUNTER → 2020-07-27 11:30 | Outpatient (CLI) | payer MEDICARE, MEDICAID, SELFPAY ==
[2020-07-12 15:00] VITALS: BMI 28.6
[2020-07-27 10:40] VITALS: BMI 29.2
[2020-07-27 12:35] LABS: Anion Gap 2 (5-15); BUN 16 mg/dL (7-18); BUN/Creat Ratio 14.3 RATIO (10-20); Calcium,Total 8.9 mg/dL (8.5-10.1); Chloride 105 mmol/L (98-107); Creatinine, Serum 1.12 mg/dL (0.70-1.30); EST Glomerular Filtration Rate 73 mL/min (>60); Est Glom Filt Rate - Afr Amer 88 mL/min (>60); Glucose 84 mg/dL (74-106); Potassium 3.6 mmol/L (3.5-5.1); Sodium Level 138 mmol/L (136-145)
== END ==
PROVIDERS: PCP Family Medicine Geriatric Medicine; Visit Provider Family Medicine Geriatric Medicine
DX: R94.4 Abnormal results of kidney function studies (principal)
CPT/HCPCS: 36415; 80048

== ENCOUNTER → 2020-08-15 11:21 | Outpatient (CLI) | payer MEDICARE, SELFPAY ==
[2020-07-27 10:40] VITALS: BMI 29.2
[2020-08-15 12:26] LABS: Absolute Lymphocyte Count 1.56 X10^3/uL (0.83-4.51); Absolute Neutrophil Count 5.7 X10^3/uL (2.0-7.7); Basophil# 0.05 X10^3/uL; Basophil% 0.6 % (0-1); Eosinophil# 0.12 X10^3/uL; Eosinophils% 1.5 % (0-5); Hematocrit 50.5 % (40-54); Hemoglobin 16.5 g/dL (13.0-16.5); Lymphocyte # 1.56 X10^3/ul (4.0); Lymphocyte % 19.1 % (19-41); Mean Corp Hgb Conc 32.7 g/dL (32-36); Mean Corpuscular Hgb 28.2 pg (27.0-32.0); Mean Corpuscular Volume 86.3 fL (80-94); Mean Platelet Vol. 10.9 fl (6.2-12.0); Monocyte# 0.66 X10^3/uL; Monocyte% 8.1 % (0-10); NRBC Flagged by Analyzer 0 % (0-5); Neutrophil # 5.71 X10^3/uL (2.7-7.7); Platelet Count 183 K/mm3 (150-450); RBC Distribution Width CV 13.8 % (11.6-14.6); RBC Distribution Width SD 43.7 fl (35.1-43.9); Red Blood Count 5.85 M/mm3 (4.6-6.2); White Blood Count 8.2 K/mm3 (4.4-11.0)
[2020-08-15 12:54] LABS: ALB/GLOB Ratio 0.9 RATIO (0.9-2.4); AST(SGOT) 16 U/L (15-37); Alanine Aminotransfer ALT/SGPT 17 U/L (16-61); Albumin, Serum 3.7 g/dL (3.2-5.0); Alkaline Phosphatase 105 U/L (45-117); Anion Gap 7 (5-15); BUN 13 mg/dL (7-18); BUN/Creat Ratio 12.1 RATIO (10-20); Calcium,Total 8.8 mg/dL (8.5-10.1); Chloride 102 mmol/L (98-107); Creatinine, Serum 1.07 mg/dL (0.70-1.30); EST Glomerular Filtration Rate 77 mL/min (>60); Est Glom Filt Rate - Afr Amer 93 mL/min (>60); Globulin 4.1 g/dL (2.2-4.2); Glucose 116 mg/dL (74-106); Potassium 3.3 mmol/L (3.5-5.1); Protein, Total 7.8 g/dL (6.4-8.2); Sodium Level 139 mmol/L (136-145); Thyroid Stim Hormone (TSH) 1.57 uIU/mL (0.358-3.74)
== END ==
PROVIDERS: PCP Family Medicine Geriatric Medicine; Visit Provider Family Medicine Geriatric Medicine
DX: I10 Essential (primary) hypertension (principal); F52.8 Other sexual dysfunction not due to a substance or known physiological condition
CPT/HCPCS: 36415; 80053; 84403; 84443; 85025

== ENCOUNTER → 2020-08-23 12:58 | Outpatient (CLI) | payer MEDICARE, SELFPAY ==
[2020-07-27 10:40] VITALS: BMI 29.2
[2020-08-23 16:23] LABS: Anion Gap 1 (5-15); BUN 22 mg/dL (7-18); BUN/Creat Ratio 20.2 RATIO (10-20); Calcium,Total 8.8 mg/dL (8.5-10.1); Chloride 104 mmol/L (98-107); Creatinine, Serum 1.09 mg/dL (0.70-1.30); EST Glomerular Filtration Rate 75 mL/min (>60); Est Glom Filt Rate - Afr Amer 91 mL/min (>60); Glucose 75 mg/dL (74-106); Potassium 4.1 mmol/L (3.5-5.1); Sodium Level 138 mmol/L (136-145)
== END ==
PROVIDERS: PCP Family Medicine Geriatric Medicine; Visit Provider Family Medicine Geriatric Medicine
DX: E87.6 Hypokalemia (principal)
CPT/HCPCS: 36415; 80048

== ENCOUNTER 2020-09-07 10:43 | Inpatient (IN) | payer MEDICARE, MEDICAID, SELFPAY ==
[2020-07-27 10:40] VITALS: BMI 29.2
[2020-09-07] VITALS (41 sets, daily range): BP systolic 54–162; BP diastolic 40–108; PULSE 37–75; RESP 10–29; TEMP 35.1–37.3; O2SAT 92–100; BMI 34.5; BMI 28.7
--- NOTE | 2020-09-07 10:51 | EKG12_ITS ---
Test Reason : SOB Blood Pressure : / mmHG Vent. Rate : 051 BPM Atrial Rate : 051 BPM P-R Int : 186 ms QRS Dur : 184 ms QT Int : 580 ms P-R-T Axes : 053 109 041 degrees QTc Int : 534 ms Sinus bradycardia Right bundle branch block Abnormal ECG Confirmed by MIKE CARTWRIGHT, OZ ([id number]), field map editor MICKY ESCAMILLA ([id number]) on 09/11/2020 10:09:34 AM Referred By: VERO Confirmed By:OZ MCKEON MD
--- NOTE | 2020-09-07 10:52 | EKG12_ITS ---
Test Reason : POST CARDIAC ARREST Blood Pressure : / mmHG Vent. Rate : 066 BPM Atrial Rate : 051 BPM P-R Int : 000 ms QRS Dur : 162 ms QT Int : 476 ms P-R-T Axes : 000 120 034 degrees QTc Int : 499 ms Normal sinus rhythm Right bundle branch block Septal infarct , age undetermined T wave abnormality, consider inferior ischemia Abnormal ECG When compared with ECG of 21-MAY-2019 15:23, Wide QRS rhythm has replaced Sinus rhythm Confirmed by EDITH CARTWRIGHT, DOUG ([id number]), editor managing newspaper MICKY ESCAMILLA ([id number]) on 09/19/2020 8:49:44 AM Referred By: SANDRA Confirmed By:DOUG SHARMA MD
--- NOTE | 2020-09-07 10:53 | EDS_ITS ---
HPI History of Present Illness Chief Complaint: CPR Detail of Chief Complaint: Cardiac arrest Informant: spouse/S.O. and EMS Onset/Context/Timing Onset: Today Narrative Narrative: Patient presents to the emergency department via EMS after sustaining a cardiac arrest. Patient apparently was at home with a significant other and she was sexually stimulating him when he started complaining of feeling short of breath. Patient also started complaining of chest discomfort. She try to give him a nitroglycerin tablet. Patient then collapsed. EMS was called. On EMS arrival patient was pulseless and apneic. Patient was in PEA and received 1 dose of epinephrine. Patient was intubated. CPR in progress for 8 to 10 minutes. Patient does have history of coronary artery disease, A. fib, and CHF. Patient is on Eliquis. Prior similar symptoms: No [facility] Medical History (Updated 09/07/20 @ 12:[address] Carmen Garza, DO) Abnormal EKG Acute respiratory distress Acute systolic (congestive) heart failure Atherosclerosis of coronary artery bypass graft without angina pectoris Cardiomyopathy Chronic anticoagulation CO2 retention Coronary artery disease Cough Depression Dilated cardiomyopathy Dyspnea on exertion Essential hypertension Hemochromatosis History of non-ST elevation myocardial infarction (NSTEMI) Hyperlipidemia Hypertension Lung nodule Non-rheumatic mitral regurgitation Non-ST elevated myocardial infarction Nonrheumatic mitral (valve) insufficiency Nonrheumatic pulmonary valve insufficiency Nonrheumatic tricuspid (valve) insufficiency Nonrheumatic tricuspid valve regurgitation Obstructive sleep apnea Paroxysmal atrial fibrillation Paroxysmal atrial flutter Pulmonary hypertension Pure hypercholesterolemia rales, bibasilar Smoking addiction Stage 4 very severe COPD by GOLD classification Uncontrolled hypertension Home Medications bupropion HCl 150 mg PO BID 12/01/16 [History Last Taken 03/08/19] atorvastatin 80 mg PO QHS 11/27/18 [History Last Taken 03/07/19] albuterol sulfate 2.5 mg INHALATION Q2H PRN PRN #1 box 11/29/18 [Rx Last Taken 03/08/19] furosemide 40 mg tablet 40 mg PO DAILY tab 06/21/19 [History Last Taken Unknown] amlodipine 5 mg tablet 5 mg PO DAILY #90 tab 08/13/19 [Rx Last Taken Unknown] apixaban 5 mg tablet 5 mg PO BID #60 tab 09/23/19 [Rx Last Taken Unknown] amiodarone 200 mg tablet 200 mg PO DAILY #30 tab 10/19/19 [Rx Last Taken Unknown] carvedilol 12.5 mg tablet 12.5 mg PO DAILY tab 11/22/19 [History Last Taken Unknown] fluticasone fur. 100 mcg-umeclid 62.5 mcg-vilant 25 mcg inhalat.powder 1 ea INHALATION DAILY #60 ea 02/03/20 [Rx Last Taken Unknown] isosorbide mononitrate 30 mg tablet,extended release 24 hr 30 mg PO DAILY #90 tab 03/23/20 [Rx Last Taken Unknown] albuterol sulfate 90 mcg/actuation aerosol inhaler 2 puff INHALATION Q6H PRN #8 g 05/19/20 [Rx Last Taken Unknown] nicotine 14 mg/24 hr daily transdermal patch 1 patch TD DAILY #28 ea 07/12/20 [Rx Last Taken Unknown] Allergy/AdvReac Type Severity Reaction Status Date / Time promethazine HCl AdvReac nausea/vomi Verified 09/07/20 11:37 [From Phenergan] ting Family History (Reviewed 07/27/20 @ 10:54 by Denia Kirkpatrick COMPUTER INFORMATION SYSTEMS PROFESSOR, COMPUTER INFORMATION SYSTEMS PROFESSOR-C) Mother CAD (coronary artery disease) Heart disease Diabetes Father Brain tumor Surgical History (Reviewed 07/27/20 @ 10:54 by Denia Kirkpatrick COMPUTER INFORMATION SYSTEMS PROFESSOR, COMPUTER INFORMATION SYSTEMS PROFESSOR-C) History of left heart catheterization (LHC) Social History (Updated 07/27/20 @ 11:18 by Denia Kirkpatrick COMPUTER INFORMATION SYSTEMS PROFESSOR, COMPUTER INFORMATION SYSTEMS PROFESSOR-C) Smoking Status: Current every day smoker alcohol intake: never substance use type: marijuana and other details: former crack/cocaine user, current marijuana user. caffeine: Yes Type: carbonated beverages Number of servings: 2 and coffee Number of servings: 3 what type of physical activity do you participate in: none seatbelt use: always do you feel safe at home: Yes ROS ROS ED ROS Narrative Patient unable to give review of systems given the fact that he is currently intubated and nonverbal. Review of Systems ROS Unobtainable: due to encephalopathy, due to endotracheal tube, due to mental condition, due to mental status and other EXAM Physical Exam Const Vital Signs: 09/07/20 10:44 09/07/20 11:07 09/07/20 11:25 Temperature 98.3 F Temperature Source Temporal Pulse Rate 66 41 L Respiratory Rate 12 18 Respiratory Effort Mechanically Ventilated Respiratory Depth Normal Respiratory Pattern Normal Blood Pressure 152/91 H 103/64 Blood Pressure Mean 111 77 Pulse Ox 100 100 100 Oxygen Delivery Method Ambu-Bag Mechanical Ventilator Mechanical Ventilator Oxygen Flow Rate (L/min) 15 Fraction of Inspired Oxygen (FIO2) 09/07/20 11:31 09/07/20 11:32 09/07/20 11:38 Temperature Temperature Source Pulse Rate 37 L 52 L 57 L Respiratory Rate 14 20 H 23 H Respiratory Effort Respiratory Depth Respiratory Pattern Blood Pressure 80/52 L 82/51 L 104/71 Blood Pressure Mean 61 61 82 Pulse Ox 100 100 100 Oxygen Delivery Method Mechanical Ventilator Mechanical Ventilator Mechanical Ventilator Oxygen Flow Rate (L/min) Fraction of Inspired Oxygen (FIO2) 80 09/07/20 11:42 09/07/20 11:48 Temperature Temperature Source Pulse Rate 62 68 Respiratory Rate 29 H 12 Respiratory Effort Respiratory Depth Respiratory Pattern Blood Pressure 125/87 H 140/89 H Blood Pressure Mean 99 106 Pulse Ox 100 100 Oxygen Delivery Method Mechanical Ventilator Mechanical Ventilator Oxygen Flow Rate (L/min) Fraction of Inspired Oxygen (FIO2) 80 50 Positive well nourished and well developed General Appearance ED: well developed and NAD HEENT Reports normocephalic, head/scalp atraumatic, TM's clear and moist mucous membranes normocephalic and atraumatic; Negative for trauma or tenderness Tympanic Membrane ED: Yes TM's clear Eyes PERRL and EOMs intact bilaterally General Eye ED: Yes normal appearance of both eyes; Negative for pale conjunctiva or scleral icterus Pupil: PERRL Neck no lymphadenopathy, supple and no JVD General: Negative for tenderness Chest Wall inspection of chest normal and palpation of chest normal Chest Narrative: Few faint expiratory wheezes noted bilaterally when patient being bagged. Chest: symmetrical chest wall rise; Negative for tenderness Resp No normal respiratory effort and No clear to auscultation bilaterally Resp Narrative: Normal air movement while being bagged Effort and Inspection: Negative for respiratory distress or pain with movement Auscultation: Negative for rhonchi, wheezes or diminished lung sounds Cardio regular rate, regular rhythm, S1 normal heart sound, S2 normal heart sound and no murmurs Peripheral Pulses: pulses 2+ throughout GI normal to inspection, nondistended, normoactive bowel sounds, soft to palpation, non-tender, non-distended and no masses Extremity normal to inspection General Extremety ED: Negative for edema General Extremity: Negative for edema Neuro Neuro Narrative: Patient unresponsive however he does withdraw from pain. Sensorium / Orientation: obtunded Skin no rashes or lesions noted and no wounds MDM MDM MDM Narrative Medical decision making narrative: Patient case discussed with small piece cutter on- call Dr. Valentin given patient's cardiac arrest and sinus bradycardia. They wanted patient admitted did not feel he was a candidate for the [employer] at this time. I discussed case with comic artist as well as hospitalist will evaluate patient for admission. Patient was started Zosyn to treat for aspiration pneumonia. Lab Data Attestation: I reviewed the patient's lab results. Labs: Laboratory Results - last 24 hr 09/07/20 09/07/20 09/07/20 10:50 10:50 10:50 WBC 17.3 H RBC 5.23 Hgb 14.9 Hct 47.6 MCV 91.0 MCH 28.5 MCHC 31.3 L RDW Std Deviation 47.5 H RDW Coeff of Trevor 14.2 Plt Count 212 MPV 10.3 Neut % (Auto) Not Reportable Absolute Neuts (auto) 9.2 H Absolute Lymphs (auto) 5.89 H Total Counted 100 Neutrophils % (Manual) 53 Lymphocytes % (Manual) 34 Monocytes % (Manual) 10 Eosinophils % (Manual) 1 Metamyelocytes % 1 Myelocytes % 1 H Diff Path Review May foll Platelet Estimate ADEQUATE RBC Morphology NORM C+C PT 15.3 H INR 1.3 APTT 32.0 Sodium 136 Potassium 4.7 Chloride 104 Carbon Dioxide 26.0 Anion Gap 6 BUN 14 Creatinine 1.51 H Estim Creat Clear Calc 58.42 Est GFR (MDRD) Af Amer 62 Est GFR (MDRD) Non-Af 52 L BUN/Creatinine Ratio 9.3 L Glucose 211 H Lactic Acid Calcium 8.3 L Troponin I 0.033 09/07/20 10:50 WBC RBC Hgb Hct MCV MCH MCHC RDW Std Deviation RDW Coeff of Trevor Plt Count MPV Neut % (Auto) Absolute Neuts (auto) Absolute Lymphs (auto) Total Counted Neutrophils % (Manual) Lymphocytes % (Manual) Monocytes % (Manual) Eosinophils % (Manual) Metamyelocytes % Myelocytes % Diff Path Review Platelet Estimate RBC Morphology PT INR APTT Sodium Potassium Chloride Carbon Dioxide Anion Gap BUN Creatinine Estim Creat Clear Calc Est GFR (MDRD) Af Amer Est GFR (MDRD) Non-Af BUN/Creatinine Ratio Glucose Lactic Acid 7.3 H* Calcium Troponin I Radiography Chest X-Ray - ED: 1 View, Read by ED Physician, Read by Radiologist and - (Patient had increased markings in the right lung base and ET tube was right at the rj therefore the ET tube was pulled back.) Diagnostic Testing: Radiology Impression Chest X-Ray 09/07/20 11:10 IMPRESSION: The tip of the endotracheal tube is at the origin of the right mainstem bronchus. This should be pulled back approximately 3.5 cm. Infiltrate in the right lung apex. Aspiration should be ruled out. Electronically Signed: Augustus Ba MD at 11:30 EDT , Service support , EKG Initial EKG: Interpretation: No Acute Injury Pattern Comments: Sinus bradycardia with a rate of 51 bpm with a right bundle branch block Prior: Changed Procedures Intubations Intubation Method: orotracheal Intubation Verification: Positive color change and Bilateral breath sounds confirmed Intubation Complications: no complications Critical Care Time Critical Care Time: Yes Critical care time (excluding procedures): 30-74 minutes Discharge Plan Triage Chief Complaint: CPR ED Provider: Carmen Garza Dx/Rx/DC Orders Clinical Impression: Cardiac arrest Prescriptions: No Action furosemide 40 mg tablet 40 mg PO DAILY RF: 0 pcizmysthna-miifkxzlo-dycggdrs 100-62.5-25 mcg blister with device 1 ea INHALATION DAILY Qty: 60 RF: 6 nicotine 14 mg/24 hr patch 24 hour 1 patch TD DAILY Qty: 28 RF: 3 bupropion HCl 150 MG tablet extended release 12 hr 150 mg PO BID RF: 0 atorvastatin 80 MG tablet 80 mg PO QHS RF: 0 albuterol sulfate 2.5 MG/3 ML solution for nebulization 2.5 mg inhalation Q2H PRN PRN (Reason: Shortness of Breath/Wheezing) Qty: 1 RF: 0 amlodipine 5 mg tablet 5 mg PO DAILY Qty: 90 RF: 3 apixaban 5 mg tablet 5 mg PO BID Qty: 60 RF: 11 amiodarone 200 mg tablet 200 mg PO DAILY Qty: 30 RF: 11 carvedilol 12.5 mg tablet 12.5 mg PO DAILY RF: 0 isosorbide mononitrate 30 mg tablet extended release 24 hr 30 mg PO DAILY Qty: 90 RF: 3 albuterol sulfate 90 mcg/actuation HFA aerosol inhaler 2 puff INHALATION Q6H PRN (Reason: shortness of breath or wheezing) Qty: 8 RF: 6 Primary Care Provider: Rohit Peralta Chi Referrals: Rohit Peralta Chi, MD [Primary Care Provider] - Disposition Disposition: Acute Care Hospital [facility]
[2020-09-07 11:05] LABS: Hematocrit 47.6 % (40-54); Hemoglobin 14.9 g/dL (13.0-16.5); Mean Corp Hgb Conc 31.3 g/dL (32-36); Mean Corpuscular Hgb 28.5 pg (27.0-32.0); Mean Platelet Vol. 10.3 fl (6.2-12.0); POSITIVE COUNT YES; POSITIVE DIFFERENTIAL YES; POSITIVE MORPHOLOGY YES; Platelet Count 212 K/mm3 (150-450); RBC Distribution Width CV 14.2 % (11.6-14.6); RBC Distribution Width SD 47.5 fl (35.1-43.9); Red Blood Count 5.23 M/mm3 (4.6-6.2); White Blood Count 17.3 K/mm3 (4.4-11.0)
[2020-09-07 11:06] LABS: Differential Indicated MANUAL DIFF
[2020-09-07 11:10] LABS: International Normalized Ratio 1.3; Prothrombin Time (Protime)PT. 15.3 SECONDS (11.7-14.9)
--- NOTE | 2020-09-07 11:10 | RAD_ITS ---
STUDY: X-RAY CHEST REASON FOR EXAM: Male, 55 years old. Dyspnea TECHNIQUE: Single AP portable view of the chest. COMPARISON: Comparison is made with prior study dated 07/17/2020. FINDINGS: An endotracheal tube is seen. The tip is at the origin of the right mainstem bronchus. This should be pulled back 3.5 cm. An orogastric tube is seen with the tip below the right hemidiaphragm. Infiltrate is seen in the right lung apex. Aspiration should be ruled out. There is no demonstrated pleural abnormality. Normal size heart. Normal mediastinum and racquel. Normal visualized pulmonary arteries. Normal visualized aortic arch and descending thoracic aorta. Normal visualized thoracic spine. Normal visualized ribs, clavicles, and shoulders. There is no demonstrated abnormality of the visualized soft tissue structures of the upper abdomen. RAD/Chest 1 View (Portable) IMPRESSION: The tip of the endotracheal tube is at the origin of the right mainstem bronchus. This should be pulled back approximately 3.5 cm. Infiltrate in the right lung apex. Aspiration should be ruled out. Electronically Signed: Augustus Ba MD at 11:30 EDT , Service support ,
[2020-09-07] MEDS: Propofol 10MG/Ml 1,000 MG/100 ML Bottle 6.6 MG CONT INF (11:11)
[2020-09-07 11:19] LABS: Anion Gap 6 (5-15); BUN 14 mg/dL (7-18); BUN/Creat Ratio 9.3 RATIO (10-20); Calcium,Total 8.3 mg/dL (8.5-10.1); Chloride 104 mmol/L (98-107); Creatinine, Serum 1.51 mg/dL (0.70-1.30); EST Glomerular Filtration Rate 52 mL/min (>60); Est Glom Filt Rate - Afr Amer 62 mL/min (>60); Estimated Creatinine Clearance 58.42 ml/min; Glucose 211 mg/dL (74-106); Potassium 4.7 mmol/L (3.5-5.1); Sodium Level 136 mmol/L (136-145)
[2020-09-07 11:26] LABS: Eosinophil 1 % (0-5); Lymphocyte 34 % (19-41); Metamyelocyte 1 % (0-1); Monocyte 10 % (0-10); Myelocyte 1 % (0-0); Neutrophil-Segmented 53 % (47-70); Total Cells Counted 100 (MANUAL DIFF)
[2020-09-07] MEDS: 0.9% Normal Saline 1,000 ML 150 ML IV (11:26)
[2020-09-07 11:27] LABS: Platelet Estimate ADEQUATE (ADEQ); Red Cell Morphology NORM C+C NORMAL (NORM C&C)
[2020-09-07 11:28] LABS: Absolute Lymphocyte Count 5.89 X10^3/uL (0.83-4.51); Absolute Neutrophil Count 9.2 X10^3/uL (2.0-7.7)
[2020-09-07 11:32] LABS: Lactic Acid 7.3 mmol/L (0.4-1.9)
[2020-09-07] MEDS: Atropine Sulfate 1 MG/10 ML Syringe IV (11:33)
[2020-09-07] MEDS: Vecuronium Bromide 10 MG/10 ML Vial IV (11:43)
--- NOTE | 2020-09-07 12:11 | ECHOD_ITS ---
Reason For Study: ROSC Procedure This was a 2D Doppler, Color Flow transthoracic echocardiogram. The study was technically difficult. Exam performed supine and on vent. Exam performed portable in ICU/CCU. Left Ventricle The estimated ejection fraction is EF 45-50% %. Right Ventricle Normal right ventricle. Atria Normal left atrium. Normal right atrium. Mitral Valve The mitral valve is structurally normal. No prolapse or stenosis seen. No mitral valve insufficiency. Tricuspid Valve Normal tricuspid valve. Unable to estimate RV systolic pressure due to insufficient tricuspid regurgitant envelope. Aortic Valve Normal aortic valve. Pulmonic Valve The pulmonic valve is not well visualized. Great Vessels Normal aortic root. Pericardium/Pleural No pericardial effusion. MMode/2D Measurements & Calculations LVIDd: 5.9 cm IVSd: 1.5 cm Ao root diam: 3.4 cm LVIDs: 4.3 cm LVPWd: 1.3 cm RVDd: 3.9 cm FS: 27.3 % LAV(MOD-bp): 79.2 ml LVAd ap4: 43.9 cm2 LVAd ap2: 45.4 cm2 LAV(MOD-bp) Indexed: 35.1 ml/m2 LVLd ap4: 10.0 cm LVLd ap2: 10.5 cm LAV(MOD-sp2): 81.4 ml EDV(MOD-sp4): 162.1 ml EDV(MOD-sp2): 170.7 ml LAV(MOD-sp4): 76.4 ml EDV(sp4-el): 163.7 ml EDV(sp2-el): 166.5 ml LVAs ap4: 30.4 cm2 LVAs ap2: 30.5 cm2 LVLs ap4: 9.5 cm LVLs ap2: 9.6 cm ESV(MOD-sp4): 82.2 ml ESV(MOD-sp2): 84.9 ml ESV(sp4-el): 82.7 ml ESV(sp2-el): 82.5 ml EF(MOD-sp4): 49.3 % EF(MOD-sp2): 50.3 % EF(sp4-el): 49.5 % SV(MOD-sp4): 79.9 ml SV(MOD-sp2): 85.8 ml SV(sp4-el): 81.1 ml LA A4 area: 22.6 cm2 RA A4 area: 16.7 cm2 Time Measurements MV dec time: 0.23 sec Doppler Measurements & Calculations MV E max roberto: 60.2 cm/sec Lat Peak E' Roberto: 7.7 cm/sec Med Peak E' Roberto: 3.9 cm/sec MV A max roberto: 81.2 cm/sec E/E' lat: 7.8 E/E' med: 15.5 MV E/A: 0.74 Ao V2 max: 132.3 cm/sec LV V1 max: 101.4 cm/sec PA V2 max: 121.2 cm/sec Ao max P.0 mmHg LV V1 max P.1 mmHg ECHO/Echo Complete Interpretation Summary The estimated ejection fraction is EF 45-50% %. Mild global LV hyokinesia Ordering Physician: Elizabeth Mae Referring Physician: Rohit Peralta Chi Performed By: Karen Russ RDCS, RVT
--- NOTE | 2020-09-07 12:19 | PCM.HP.STD ---
[facility] - General General Date of Admission: 09/07/20 Chief Complaint: Cardiac arrest HPI Narrative THEODORE MONTGOMERY, is a 55 M who presents complaints of chest pain and unresponsiveness. History was taken from the EMS and ED physician as patient was intubated at the time of being seen. Patient was with his significant other having sexual activity when he started to complain of chest pain. His significant other gave him nitroglycerin and called the EMS and subsequently became unresponsive. When the EMS was called, patient had no pulse and was in PEA. He received CPR and had 1 round of epinephrine. He had return of spontaneous circulation. His airway was secured with an LMA and he was intubated in the ED. Patient was bradycardic in the ED requiring a couple of doses of atropine. [facility] Medical History (Updated 09/07/20 @ 16:[address] Elizabeth Mae MD) Abnormal EKG Acute respiratory distress Acute systolic (congestive) heart failure Atherosclerosis of coronary artery bypass graft without angina pectoris Cardiomyopathy Chronic anticoagulation CO2 retention Coronary artery disease Cough Depression Dilated cardiomyopathy Dyspnea on exertion Essential hypertension Hemochromatosis History of non-ST elevation myocardial infarction (NSTEMI) Hyperlipidemia Hypertension Lung nodule Non-rheumatic mitral regurgitation Non-ST elevated myocardial infarction Nonrheumatic mitral (valve) insufficiency Nonrheumatic pulmonary valve insufficiency Nonrheumatic tricuspid (valve) insufficiency Nonrheumatic tricuspid valve regurgitation Obstructive sleep apnea Paroxysmal atrial fibrillation Paroxysmal atrial flutter Pulmonary hypertension Pure hypercholesterolemia rales, bibasilar Smoking addiction Stage 4 very severe COPD by GOLD classification Uncontrolled hypertension Home Medications bupropion HCl 150 mg PO BID 12/01/16 [History Last Taken 03/08/19] atorvastatin 80 mg PO QHS 11/27/18 [History Last Taken 03/07/19] albuterol sulfate 2.5 mg INHALATION Q2H PRN PRN #1 box 11/29/18 [Rx Last Taken 03/08/19] furosemide 40 mg tablet 40 mg PO DAILY tab 06/21/19 [History Last Taken Unknown] amlodipine 5 mg tablet 5 mg PO DAILY #90 tab 08/13/19 [Rx Last Taken Unknown] apixaban 5 mg tablet 5 mg PO BID #60 tab 09/23/19 [Rx Last Taken Unknown] amiodarone 200 mg tablet 200 mg PO DAILY #30 tab 10/19/19 [Rx Last Taken Unknown] carvedilol 12.5 mg tablet 12.5 mg PO DAILY tab 11/22/19 [History Last Taken Unknown] fluticasone fur. 100 mcg-umeclid 62.5 mcg-vilant 25 mcg inhalat.powder 1 ea INHALATION DAILY #60 ea 02/03/20 [Rx Last Taken Unknown] isosorbide mononitrate 30 mg tablet,extended release 24 hr 30 mg PO DAILY #90 tab 03/23/20 [Rx Last Taken Unknown] albuterol sulfate 90 mcg/actuation aerosol inhaler 2 puff INHALATION Q6H PRN #8 g 05/19/20 [Rx Last Taken Unknown] nicotine 14 mg/24 hr daily transdermal patch 1 patch TD DAILY #28 ea 07/12/20 [Rx Last Taken Unknown] Allergy/AdvReac Type Severity Reaction Status Date / Time promethazine HCl AdvReac nausea/vomi Verified 09/07/20 11:37 [From Phenergan] ting Family History (Reviewed 07/27/20 @ 10:54 by Denia Kirkpatrick REGIONAL SALES MANAGER, REGIONAL SALES MANAGER-C) Mother CAD (coronary artery disease) Heart disease Diabetes Father Brain tumor Surgical History History of left heart catheterization (LHC) Social History (Updated 07/27/20 @ 11:18 by Denia Kirkpatrick REGIONAL SALES MANAGER, REGIONAL SALES MANAGER-C) Smoking Status: Current every day smoker alcohol intake: never substance use type: marijuana and other details: former crack/cocaine user, current marijuana user. caffeine: Yes Type: carbonated beverages Number of servings: 2 and coffee Number of servings: 3 what type of physical activity do you participate in: none seatbelt use: always do you feel safe at home: Yes ROS Review of Systems ROS Unobtainable: due to endotracheal tube Vital Signs Vital Signs Vital Signs: 09/07/20 10:44 09/07/20 11:07 09/07/20 11:25 Temperature 98.3 F Temperature Source Temporal Pulse Rate 66 41 L Respiratory Rate 12 18 Respiratory Effort Mechanically Ventilated Respiratory Depth Normal Respiratory Pattern Normal Blood Pressure 152/91 H 103/64 Blood Pressure Mean 111 77 Pulse Ox 100 100 100 Oxygen Delivery Method Ambu-Bag Mechanical Ventilator Mechanical Ventilator Oxygen Flow Rate (L/min) 15 Fraction of Inspired Oxygen (FIO2) 09/07/20 11:31 09/07/20 11:32 09/07/20 11:38 Temperature Temperature Source Pulse Rate 37 L 52 L 57 L Respiratory Rate 14 20 H 23 H Respiratory Effort Respiratory Depth Respiratory Pattern Blood Pressure 80/52 L 82/51 L 104/71 Blood Pressure Mean 61 61 82 Pulse Ox 100 100 100 Oxygen Delivery Method Mechanical Ventilator Mechanical Ventilator Mechanical Ventilator Oxygen Flow Rate (L/min) Fraction of Inspired Oxygen (FIO2) 80 09/07/20 11:42 09/07/20 11:48 09/07/20 11:56 Temperature Temperature Source Pulse Rate 62 68 73 Respiratory Rate 29 H 12 12 Respiratory Effort Respiratory Depth Respiratory Pattern Blood Pressure 125/87 H 140/89 H 162/100 H Blood Pressure Mean 99 106 120 Pulse Ox 100 100 100 Oxygen Delivery Method Mechanical Ventilator Mechanical Ventilator Mechanical Ventilator Oxygen Flow Rate (L/min) Fraction of Inspired Oxygen (FIO2) 80 50 50 Physical Exam Narrative General: Intubated, on mechanical ventilator, Cooperative, No apparent distress, Well developed HEENT: Atraumatic Oral: Moist Mucosa Neck: Supple Lungs: Clear to auscultation Cardiovascular: HS I+II, regular, no murmurs Abdomen: Bowel Sounds Present, Soft, Non Tender Extremities: No edema Skin: No rashes, No breakdown Neurological: Grossly intact Psych/Mental Status: Appropriate Lab / Micro Data Result Diagrams: 09/07/20 10:50 09/07/20 10:50 Labs: Laboratory Results - last 24 hr 09/07/20 09/07/20 09/07/20 10:50 10:50 10:50 WBC 17.3 H RBC 5.23 Hgb 14.9 Hct 47.6 MCV 91.0 MCH 28.5 MCHC 31.3 L RDW Std Deviation 47.5 H RDW Coeff of Trevor 14.2 Plt Count 212 MPV 10.3 Neut % (Auto) Not Reportable Absolute Neuts (auto) 9.2 H Absolute Lymphs (auto) 5.89 H Total Counted 100 Neutrophils % (Manual) 53 Lymphocytes % (Manual) 34 Monocytes % (Manual) 10 Eosinophils % (Manual) 1 Metamyelocytes % 1 Myelocytes % 1 H Diff Path Review May foll Platelet Estimate ADEQUATE RBC Morphology NORM C+C PT 15.3 H INR 1.3 APTT 32.0 Sodium 136 Potassium 4.7 Chloride 104 Carbon Dioxide 26.0 Anion Gap 6 BUN 14 Creatinine 1.51 H Estim Creat Clear Calc 58.42 Est GFR (MDRD) Af Amer 62 Est GFR (MDRD) Non-Af 52 L BUN/Creatinine Ratio 9.3 L Glucose 211 H Lactic Acid Calcium 8.3 L Troponin I 0.033 09/07/20 10:50 WBC RBC Hgb Hct MCV MCH MCHC RDW Std Deviation RDW Coeff of Trevor Plt Count MPV Neut % (Auto) Absolute Neuts (auto) Absolute Lymphs (auto) Total Counted Neutrophils % (Manual) Lymphocytes % (Manual) Monocytes % (Manual) Eosinophils % (Manual) Metamyelocytes % Myelocytes % Diff Path Review Platelet Estimate RBC Morphology PT INR APTT Sodium Potassium Chloride Carbon Dioxide Anion Gap BUN Creatinine Estim Creat Clear Calc Est GFR (MDRD) Af Amer Est GFR (MDRD) Non-Af BUN/Creatinine Ratio Glucose Lactic Acid 7.3 H* Calcium Troponin I Micro: Microbiology 09/07/20 11:10 SARS-CoV-2 Antigen (Rapid) - Final Mucosa - Nose Radiology Impression Chest X-Ray 09/07/20 11:10 IMPRESSION: The tip of the endotracheal tube is at the origin of the right mainstem bronchus. This should be pulled back approximately 3.5 cm. Infiltrate in the right lung apex. Aspiration should be ruled out. Electronically Signed: Augustus Ba MD at 11:30 EDT , Service support , Assessment & Plan Assessment/Plan (1) Acute and chronic respiratory failure ([id number]): Status: Chronic Code(s): J96.20 - Acute and chronic respiratory failure, unspecified whether with hypoxia or hypercapnia Qualifiers: Respiratory failure complication: hypoxia and hypercapnia Qualified Code(s): J96.21 - Acute and chronic respiratory failure with hypoxia; J96.22 - Acute and chronic respiratory failure with hypercapnia (2) Cardiac arrest: Status: Acute Code(s): I46.9 - Cardiac arrest, cause unspecified (3) STEMI (ST elevation myocardial infarction): Status: Acute Code(s): I21.3 - ST elevation (STEMI) myocardial infarction of unspecified site Qualifiers: Involved coronary artery: unspecified coronary artery Qualified Code(s): I21.3 - ST elevation (STEMI) myocardial infarction of unspecified site (4) Leucocytosis: Status: Acute Code(s): D72.829 - Elevated white blood cell count, unspecified Qualifiers: Leukocytosis type: unspecified Qualified Code(s): D72.829 - Elevated white blood cell count, unspecified (5) LILLIANA (acute kidney injury): Status: Acute Code(s): N17.9 - Acute kidney failure, unspecified (6) Lactic acidosis: Status: Acute Code(s): E87.2 - Acidosis (7) Cardiogenic shock: Status: Acute Code(s): R57.0 - Cardiogenic shock Plan: Patient above presentation is all likely secondary to cardiac arrest secondary to acute posterior NC He is intubated on mechanical ventilator E Commerce Project Manager and cardiology consulted; discussed patient's care with both Patient will be on a heparin drip, trend troponins, aspirin rectal, statin Continue on fentanyl drip He has been started on dopamine drip Will repeat blood work in a.m. per protocol Repeat lactic acid per protocol Inpatient E&M: [id number] Init Hosp L3
[2020-09-07 14:15] LABS: Allen Test Positive; Base Excess 5 mmol/L (-2 to +2); Bicarbonate 31.6 mmol/L (22-26); Blood Gas Specimen Type ART; FI02 50; Mode AC; O2 Delivery Device Adult Vent; PEEP 5; PO2 64 mmHG (75-100); RR 14; SITE R Radial; SO2 88 % (95-99); Total Carbon Dioxide 34 mmol/L; Vt 400; pCO2 70.2 mmHg (35-45); pH 7.26 (7.35-7.45)
--- NOTE | 2020-09-07 14:47 | CON.PCM.CC_ITS ---
Assessment & Plan Assessment/Plan (1) Cardiac arrest: Status: Acute Code(s): I46.9 - Cardiac arrest, cause unspecified (2) Stage 3 severe COPD by GOLD classification: Status: Chronic Code(s): J44.9 - Chronic obstructive pulmonary disease, unspecified (3) Dilated cardiomyopathy: Status: Chronic Code(s): I42.0 - Dilated cardiomyopathy (4) Hemochromatosis: Status: Acute Code(s): E83.119 - Hemochromatosis, unspecified (5) Acute on chronic systolic (congestive) heart failure: Status: Inactive Code(s): I50.23 - Acute on chronic systolic (congestive) heart failure (6) Paroxysmal atrial flutter: Status: Chronic Code(s): I48.92 - Unspecified atrial flutter (7) Pulmonary hypertension: Status: Chronic Code(s): I27.20 - Pulmonary hypertension, unspecified (8) Obesity (BMI 30.0-34.9): Status: Chronic Code(s): E66.9 - Obesity, unspecified (9) Smoking addiction: Status: Chronic Code(s): F17.200 - Nicotine dependence, unspecified, uncomplicated (10) Depression: Status: Chronic Code(s): F32.9 - Major depressive disorder, single episode, unspecified (11) Acute and chronic respiratory failure ([id number]): Status: Chronic Code(s): J96.20 - Acute and chronic respiratory failure, unspecified whether with hypoxia or hypercapnia Plan: RECOMMENDATIONS: 1. Increase tidal volume on ventilator 2. Place central line for possible pressor requirements 3. Await cardiology input. Trend troponin 4. Possible heparin drip once procedures completed 5. Empiric antibiotics for possible aspiration 6. Continue bronchodilators. Add Solu-Medrol. 7. No further paralytic. IMPRESSIONS: 1. Cardiac arrest of unknown etiology History of both advanced cardiac and pulmonary pathologies. No reported history of recent exacerbation type symptoms from a COPD standpoint. Some concern for possible cardiac etiology. Echocardiogram appears to be relatively stable compared to previous. Patient requires a central line for possible pressors following PEA arrest. Cardiology has been consulted. Could consider a heparin drip empirically once procedures are initiated. Recommend trending troponins. 2. Acute on chronic combined respiratory failure Unclear etiology at this time. Unfortunately, patient did not have an ABG obtained until significantly after he was paralyzed. Patient did have significant CO2 retention at baseline. Previous PFTs show an FEV1 of 49%. Patient should be continued on bronchodilators. Can treat with steroids e mpirically for now. Right upper lobe infiltrate is likely secondary to right mainstem intubation, but this will be verified after the next chest x-ray following the central line. Spontaneous breathing and awakening trials per protocol 3. Chronic diastolic CHF/paroxysmal A. fib/pulmonary hypertension Patient's last ejection fraction was 55%. Bedside rapid evaluation is around 50%. Patient has had an episode with decreased EF as low as 20% in the past, but this was improved on most recent echocardiogram. Unclear if patient possibly had inferior ischemia that was exacerbated by nitroglycerin leading to arrest. Defer to cardiology on continuation of amiodarone 4. Hemochromatosis/obesity/smoking addiction/depression/poor history/hyperlipidemia Complicates care, management, recovery and prognosis. Okay to continue with baseline medications from my perspective. Cardiology may prefer heparin over 10 a inhibitor. Consider holding antihypertensives for now given his bradycardia and potential non-ST elevation CA. TIME: 37 minutes critical care time spent addressing patient's cardiac arrest, respiratory failure, CHF, review of all data and collaboration with care team (1 PM to 3 PM) HPI Consult Data Date of Consult: 09/07/20 HPI Narrative HPI Narrative: THEODORE MONTGOMERY, is a 55 M, with past medical history listed below, who presented to [facility] on 09/07/2020 after cardiac arrest. Patient was reportedly at home having sexual relations with his girlfriend when he started to complain of being short of breath. Patient also reported of chest discomfort at that time. Patient was given a nitroglycerin tablet but then subsequently collapsed. EMS arrival time was reportedly at about 5 minutes and patient was noted to be in PEA arrest. No bystander CPR was reported per the emergency department and patient had CPR for 8 to 10 minutes prior to ROSC. Patient does have a history of A. fib, CAD and CHF and is on Eliquis at baseline. Patient also has advanced COPD for which she follows with us. In the emergency department, patient was noted to be bradycardic to as low as 37. Immediately upon arrival, LMA was replaced with an endotracheal tube. Patient was hypotensive. Patient had a left IO in the humerus for access. Patient did receive paralytics while in the ER. Patient also has had multiple episodes of sinus bradycardia including one that required atropine. Patient reportedly was discussed with cardiology and they did not feel he was a candidate for the [employer] at this time. Patient was started on Zosyn secondary to aspiration pneumonia concern as chest x-ray showed a right upper lobe i nfiltrate with a right mainstem intubation. White blood cell count was 17.3 with an INR of 1.3 and a creatinine of 1.5. Initial troponin was 0.033. Initial lactate was 7.3. Since being in the intensive care unit, patient is sedated and paralyzed. No additional history is available at this time. Unable to obtain review of systems. Patient has had some bradycardia. [facility] Medical History (Updated 09/07/20 @ 15:[address] Jefe Alonzo MD) Abnormal EKG Acute respiratory distress Acute systolic (congestive) heart failure Atherosclerosis of coronary artery bypass graft without angina pectoris Cardiomyopathy Chronic anticoagulation CO2 retention Coronary artery disease Cough Depression Dilated cardiomyopathy Dyspnea on exertion Essential hypertension Hemochromatosis History of non-ST elevation myocardial infarction (NSTEMI) Hyperlipidemia Hypertension Lung nodule Non-rheumatic mitral regurgitation Non-ST elevated myocardial infarction Nonrheumatic mitral (valve) insufficiency Nonrheumatic pulmonary valve insufficiency Nonrheumatic tricuspid (valve) insufficiency Nonrheumatic tricuspid valve regurgitation Obstructive sleep apnea Paroxysmal atrial fibrillation Paroxysmal atrial flutter Pulmonary hypertension Pure hypercholesterolemia rales, bibasilar Smoking addiction Stage 4 very severe COPD by GOLD classification Uncontrolled hypertension Home Medications bupropion HCl 150 mg PO BID 12/01/16 [History Last Taken 03/08/19] atorvastatin 80 mg PO QHS 11/27/18 [History Last Taken 03/07/19] albuterol sulfate 2.5 mg INHALATION Q2H PRN PRN #1 box 11/29/18 [Rx Last Taken 03/08/19] furosemide 40 mg tablet 40 mg PO DAILY tab 06/21/19 [History Last Taken Unknown] amlodipine 5 mg tablet 5 mg PO DAILY #90 tab 08/13/19 [Rx Last Taken Unknown] apixaban 5 mg tablet 5 mg PO BID #60 tab 09/23/19 [Rx Last Taken Unknown] amiodarone 200 mg tablet 200 mg PO DAILY #30 tab 10/19/19 [Rx Last Taken Unknown] carvedilol 12.5 mg tablet 12.5 mg PO DAILY tab 11/22/19 [History Last Taken Unk nown] fluticasone fur. 100 mcg-umeclid 62.5 mcg-vilant 25 mcg inhalat.powder 1 ea INHALATION DAILY #60 ea 02/03/20 [Rx Last Taken Unknown] isosorbide mononitrate 30 mg tablet,extended release 24 hr 30 mg PO DAILY #90 tab 03/23/20 [Rx Last Taken Unknown] albuterol sulfate 90 mcg/actuation aerosol inhaler 2 puff INHALATION Q6H PRN #8 g 05/19/20 [Rx Last Taken Unknown] nicotine 14 mg/24 hr daily transdermal patch 1 patch TD DAILY #28 ea 07/12/20 [Rx Last Taken Unknown] Allergy/AdvReac Type Severity Reaction Status Date / Time promethazine HCl AdvReac nausea/vomi Verified 09/07/20 11:37 [From Phenergan] ting Family History (Reviewed 07/27/20 @ 10:54 by Denia Kirkpatrick BUSINESS CONTINUITY ANALYST, BUSINESS CONTINUITY ANALYST-C) Mother CAD (coronary artery disease) Heart disease Diabetes Father Brain tumor Surgical History History of left heart catheterization (LHC) Social History (Updated 07/27/20 @ 11:18 by Denia Kirkpatrick BUSINESS CONTINUITY ANALYST, BUSINESS CONTINUITY ANALYST-C) Smoking Status: Current every day smoker alcohol intake: never substance use type: marijuana and other details: former crack/cocaine user, current marijuana user. caffeine: Yes Type: carbonated beverages Number of servings: 2 and coffee Number of servings: 3 what type of physical activity do you participate in: none seatbelt use: always do you feel safe at home: Yes ROS ROS Narrative See HPI Physical Exam Const no apparent distress Constitutional Narrative: Paralyzed General Appearance: patient mechanically ventilated HEENT normocephalic, head/scalp atraumatic and moist oral mucous membranes HEENT Narrative: Fair dentition with crowded incisors and narrow palate Eyes conjunctivae normal and no scleral icterus Neck no lymphadenopathy Resp no use of accessory muscles Auscultation: diminished lung sounds; Negative for rales, rhonchi or wheezes Cardio regular rate, regular rhythm, S1 normal heart sound and S2 normal heart sound; Negative for no rub or no gallops Heart Sounds: murmur systolic II/ soft mid Peripheral Pulses: pulses 2+ throughout GI normal to inspection, nondistended, normoactive bowel sounds Extremity no clubbing, cyanosis or edema Peripheral Pulses: Yes pulses 2+ throughout Skin Skin Narrative: Venous stasis changes of the lower extremities. No significant edema Neuro Neuro Narrative: Paralyzed Sensorium / Orientation: sedated on vent Psych Mood & Affect: flat affect Lab / Micro Data Result Diagrams: 09/07/20 10:50 09/07/20 10:50 Labs: Laboratory Results - last 24 hr 09/07/20 09/07/20 09/07/20 10:50 10:50 10:50 WBC 17.3 H RBC 5.23 Hgb 14.9 Hct 47.6 MCV 91.0 MCH 28.5 MCHC 31.3 L RDW Std Deviation 47.5 H RDW Coeff of Trevor 14.2 Plt Count 212 MPV 10.3 Neut % (Auto) Not Reportable Absolute Neuts (auto) 9.2 H Absolute Lymphs (auto) 5.89 H Total Counted 100 Neutrophils % (Manual) 53 Lymphocytes % (Manual) 34 Monocytes % (Manual) 10 Eosinophils % (Manual) 1 Metamyelocytes % 1 Myelocytes % 1 H Diff Path Review May foll Platelet Estimate ADEQUATE RBC Morphology NORM C+C PT 15.3 H INR 1.3 APTT 32.0 Sodium 136 Potassium 4.7 Chloride 104 Carbon Dioxide 26.0 Anion Gap 6 BUN 14 Creatinine 1.51 H Estim Creat Clear Calc 58.42 Est GFR (MDRD) Af Amer 62 Est GFR (MDRD) Non-Af 52 L BUN/Creatinine Ratio 9.3 L Glucose 211 H Lactic Acid Calcium 8.3 L Troponin I 0.033 09/07/20 09/07/20 10:50 13:50 WBC RBC Hgb Hct MCV MCH MCHC RDW Std Deviation RDW Coeff of Trevor Plt Count MPV Neut % (Auto) Absolute Neuts (auto) Absolute Lymphs (auto) Total Counted Neutrophils % (Manual) Lymphocytes % (Manual) Monocytes % (Manual) Eosinophils % (Manual) Metamyelocytes % Myelocytes % Diff Path Review Platelet Estimate RBC Morphology PT INR APTT Sodium Potassium Chloride Carbon Dioxide Anion Gap BUN Creatinine Estim Creat Clear Calc Est GFR (MDRD) Af Amer Est GFR (MDRD) Non-Af BUN/Creatinine Ratio Glucose Lactic Acid 7.3 H* Calcium Troponin I 0.176 H Micro: Microbiology 09/07/20 11:10 SARS-CoV-2 Antigen (Rapid) - Final Mucosa - Nose ABG Data ABG results: ABG 09/07/20 14:10 Specimen Type ART Sample Site R Radial pH 7.26 L Bicarbonate Actual 31.6 H Total CO2 34 Base Excess 5 H O2 Saturation 88 L O2 % 50 ABG pCO2 70.2 H* ABG pO2 64 L David Test Positive Respiration Rate 14 O2 Delivery Device Adult Vent Vent Mode AC Tidal Volume 400 POC PEEP 5 Crit Call To/Read Back Yes Radiology Impression Chest X-Ray 09/07/20 11:10 IMPRESSION: The tip of the endotracheal tube is at the origin of the right mainstem bronchus. This should be pulled back approximately 3.5 cm. Infiltrate in the right lung apex. Aspiration should be ruled out. Electronically Signed: Augustus Ba MD at 11:30 EDT , Service support , Charges/Coding 9xxxx: [id number] Critical care first hour
[2020-09-07 14:57] LABS: Reflex Lactate? Y
--- NOTE | 2020-09-07 15:15 | RAD_ITS ---
STUDY: X-RAY CHEST REASON FOR EXAM: Male, 55 years old. Line placement. TECHNIQUE: Single AP portable view of the chest. COMPARISON: Comparison is made with prior examination done earlier today. FINDINGS: An endotracheal tube is in situ. The tip is at 4.2 cm proximal to the rj. Endogastric tube is seen with the tip in the fundal portion of the stomach. A right-sided internal jugular venous catheter has been placed. The tip of the catheter is in the right atrium. The previously seen right upper lobe infiltrate is not seen at this time. There is however increased markings at the right lung base. There is no demonstrated pleural abnormality. Normal size heart. Normal mediastinum and racquel. Normal visualized pulmonary arteries. Normal visualized aortic arch and descending thoracic aorta. Normal visualized thoracic spine. Normal visualized ribs, clavicles, and shoulders. There is no demonstrated abnormality of the visualized soft tissue structures of the upper abdomen. RAD/CXR for Line Placement IMPRESSION: Support tubes are in good position. Mild degree of increased markings at the right lung base. Electronically Signed: Augustus Ba MD at 15:32 EDT , Service support ,
--- NOTE | 2020-09-07 15:27 | CPS ---
G done @14:10 had critical values, Dr. Foy notified by NEUROLOGY DIRECTOR
--- NOTE | 2020-09-07 15:29 | PCM.OP.BLANK ---
Operative Report Date of Procedure: 09/07/20 Central line placement procedure note Indication: IV access/hemodynamic instability/vasoactive medications Procedure: A time-out was completed to verify correct patient, indication, medication allergies, procedure, coagulation studies, informed consent signed, and equipment needed. The patient was placed in the supine position for a central line placement to the rt IJ vein. The patients rt neck was prepped using chlorhexidine and a full body sterile drape was applied. 1% lidocaine was used to anesthetize the surrounding skin. A 7fr 16 cm blue guard triple lumen catheter introduced into the internal jugular vein using the modified Seldinger technique with the assistance of ultrasound. The catheter was threaded smoothly over the guidewire, the guidewire was removed easily, nonpulsatile blood returned. All ports were aspirated of air and flushed with sterile saline. The catheter was sutured in place and covered with an occlusive dressing impregnated with chlorhexidine. Post-procedure: The patient tolerated the procedure well. Vital signs remained stable. EBL 6 cc. No complications. Chest X Ray ordered to confirm tip placement and the absence of pneumothorax. Procedures: 05996 Insert Non-tunnel CV Cath
--- NOTE | 2020-09-07 15:30 | CASEMGMT ---
Pt came in today, clarification needed on pt's POA, and family. CASPER reviewed POA document, Hermelinda Gutiérrez listed first and Susana Meron listed second. SW called Susana, as she has already been in contact with the hospital. She explained pt was with Hermelinda a long time, and Hermelinda was her grandmother. So she is like a granddaughter to pt. Evon Sandoval who called in is pt's niece who lives in [place]([phone]). Gena Bentley is pt's current significant other. Susana states is okay to give information to Evon and Gena if they call in to the hospital. CASPER explained to Susana that she will be our main contact, as she is POA. Susana states understanding. CASPER remains available for any additional support. LEYLA Carlos
--- NOTE | 2020-09-07 15:38 | EKG12_ITS ---
Test Reason : AM EKG Blood Pressure : / mmHG Vent. Rate : 061 BPM Atrial Rate : 061 BPM P-R Int : 188 ms QRS Dur : 110 ms QT Int : 524 ms P-R-T Axes : 054 048 151 degrees QTc Int : 527 ms Normal sinus rhythm ST & T wave abnormality, consider anterolateral ischemia Prolonged QT Abnormal ECG Confirmed by MIKE CARTWRIGHT, OZ ([id number]), multimedia editor MICKY ESCAMILLA ([id number]) on 09/11/2020 12:31:15 PM Referred By: KAROL Confirmed By:OZ MCKEON MD
[2020-09-07] MEDS: Atropine Sulfate 1 MG/10 ML Syringe 0.5 MG IV (15:50)
--- NOTE | 2020-09-07 16:21 | CHAPLAIN ---
Type of Pastoral Visit ___ Initial Visit ___ Follow-up Visit ___ On-call Visit ___ General Patient Visit ___ Spiritual Assessment ___ Family Conference ___ Bereavement _x__ Rapid Response ___ Code Blue ___ Other (describe below) Pastoral Care Referral From ___ Patient ___ Family ___ Nurse ___ Physician ___ Independent Jeweler ___ Irrigator Sprinkling System _x__ Other (describe below) Sacrament/Intervention ___ Active listening ___ Anointing ___ Nondenominational ___ Bereavement ___ Communion ___ Selam exploration ___ ___ Life review ___ Prayer ___ Reconciliation ___ Sacrament of Sick _x__ Supportive presence ___ Wedding ___ Other (describe below) Pastoral Comments responded to stroke alert and met with SO in hallway; gave presence and cup of water; escorted SO into room
[2020-09-07] MEDS: DOPamine IV 800 MG/250 ML IV.SOLN. 8.5 MG CONT INF (16:30)
--- NOTE | 2020-09-07 16:31 | PCM.CONS.C ---
Assessment & Plan Assessment/Plan (1) Smoking addiction: Status: Chronic Code(s): F17.200 - Nicotine dependence, unspecified, uncomplicated (2) Abnormal EKG: Status: Chronic Code(s): R94.31 - Abnormal electrocardiogram [ECG] [EKG] Plan: 55-year-old patient,post cardiac arrest Patient intubated in the ER, on the ventilator Has a history of cocaine abuse, currently patient uses marijuana. Has a history of paroxysmal atrial fibrillation, prior evaluation EF was severely reduced 20% which according to the record improved to 50%. On review of the echocardiogram the ejection fraction in the range of 45-50% Has changes electrocardiogram with T wave inversion and tall R waves in V3 However 2 sets of troponin showed no significant elevation. From cardiac standpoint the likely underlying etiology of his cardiac arrest is a history of cardiomyopathy with cardiac arrhythmia The documented EKG showed on the scene with the EMS PEA and patient resuscitated in the ER and intubated and has been aspiration pneumonia Recommendation; 1. We'll continue on heparin aspirin atorvastatin 2. Patient had episode of sinus bradycardia no evidence of high-grade AV block requiring atropine 3. He has renal insufficiency with elevation of creatinine 1.5 4. We'll continue to monitor cardiac markers. We'll continue to follow-up clinically. Since patient has been unresponsive, Not a candidate for invasive cardiac evaluation HPI Consult Data Date of Consult: 09/07/20 HPI Narrative HPI Narrative: THEODORE MONTGOMERY, is a 55 M who presents to the ER at [facility], following a cardiac arrest. Evidently patient was at home atrial fibrillation with his girlfriend when he complained of shortness of breath and chest pain given nitroglycerin. Patient collapsed and EMS called patient noted to be in PEA to the ER patient intubated was unresponsive. This patient had a CT of the A. fib, A. fib with congestive heart failure and was on Eliquis. According to review of the record patient had a severe LV systolic dysfunction in the past with ejection fraction around 20% improved to around 50%. Chest x-ray showed right upper lobe infiltrate, also patient has leukocytosis with renal insufficiency creatinine of 1.5 [facility] Medical History (Updated 09/07/20 @ 16:[address] Elizabeth Mae MD) Abnormal EKG Acute respiratory distress Acute systolic (congestive) heart failure Atherosclerosis of coronary artery bypass graft without angina pectoris Cardiomyopathy Chronic anticoagulation CO2 retention Coronary artery disease Cough Depression Dilated cardiomyopathy Dyspnea on exertion Essential hypertension Hemochromatosis History of non-ST elevation myocardial infarction (NSTEMI) Hyperlipidemia Hypertension Lung nodule Non-rheumatic mitral regurgitation Non-ST elevated myocardial infarction Nonrheumatic mitral (valve) insufficiency Nonrheumatic pulmonary valve insufficiency Nonrheumatic tricuspid (valve) insufficiency Nonrheumatic tricuspid valve regurgitation Obstructive sleep apnea Paroxysmal atrial fibrillation Paroxysmal atrial flutter Pulmonary hypertension Pure hypercholesterolemia rales, bibasilar Smoking addiction Stage 4 very severe COPD by GOLD classification Uncontrolled hypertension Home Medications bupropion HCl 150 mg PO BID 12/01/16 [History Last Taken 03/08/19] atorvastatin 80 mg PO QHS 11/27/18 [History Last Taken 03/07/19] albuterol sulfate 2.5 mg INHALATION Q2H PRN PRN #1 box 11/29/18 [Rx Last Taken 03/08/19] furosemide 40 mg tablet 40 mg PO DAILY tab 06/21/19 [History Last Taken Unknown] amlodipine 5 mg tablet 5 mg PO DAILY #90 tab 08/13/19 [Rx Last Taken Unknown] apixaban 5 mg tablet 5 mg PO BID #60 tab 09/23/19 [Rx Last Taken Unknown] amiodarone 200 mg tablet 200 mg PO DAILY #30 tab 10/19/19 [Rx Last Taken Unknown] carvedilol 12.5 mg tablet 12.5 mg PO DAILY tab 11/22/19 [History Last Taken Unknown] fluticasone fur. 100 mcg-umeclid 62.5 mcg-vilant 25 mcg inhalat.powder 1 ea INHALATION DAILY #60 ea 02/03/20 [Rx Last Taken Unknown] isosorbide mononitrate 30 mg tablet,extended release 24 hr 30 mg PO DAILY #90 tab 03/23/20 [Rx Last Taken Unknown] albuterol sulfate 90 mcg/actuation aerosol inhaler 2 puff INHALATION Q6H PRN #8 g 05/19/20 [Rx Last Taken Unknown] nicotine 14 mg/24 hr daily transdermal patch 1 patch TD DAILY #28 ea 07/12/20 [Rx Last Taken Unknown] Allergy/AdvReac Type Severity Reaction Status Date / Time promethazine HCl AdvReac nausea/vomi Verified 09/07/20 11:37 [From Phenergan] ting Family History (Reviewed 07/27/20 @ 10:54 by Denia Kirkpatrick PROCUREMENT PROFESSIONAL, PROCUREMENT PROFESSIONAL-C) Mother CAD (coronary artery disease) Heart disease Diabetes Father Brain tumor Surgical History History of left heart catheterization (LHC) Social History (Updated 07/27/20 @ 11:18 by Denia Kirkpatrick PROCUREMENT PROFESSIONAL, PROCUREMENT PROFESSIONAL-C) Smoking Status: Current every day smoker alcohol intake: never substance use type: marijuana and other details: former crack/cocaine user, current marijuana user. caffeine: Yes Type: carbonated beverages Number of servings: 2 and coffee Number of servings: 3 what type of physical activity do you participate in: none seatbelt use: always do you feel safe at home: Yes Physical Exam Narrative Patient seen and examined in the intensive care unit, patient sedated, intubated and on a ventilator with limited physical examination Cardiovascular exam his monitoring coordinator showed underlying normal sinus with a heart rate of around 50. Lab / Micro Data Result Diagrams: 09/07/20 10:50 09/07/20 10:50 Labs: Laboratory Results - last 24 hr 09/07/20 09/07/20 09/07/20 10:50 10:50 10:50 WBC 17.3 H RBC 5.23 Hgb 14.9 Hct 47.6 MCV 91.0 MCH 28.5 MCHC 31.3 L RDW Std Deviation 47.5 H RDW Coeff of Trevor 14.2 Plt Count 212 MPV 10.3 Neut % (Auto) Not Reportable Absolute Neuts (auto) 9.2 H Absolute Lymphs (auto) 5.89 H Total Counted 100 Neutrophils % (Manual) 53 Lymphocytes % (Manual) 34 Monocytes % (Manual) 10 Eosinophils % (Manual) 1 Metamyelocytes % 1 Myelocytes % 1 H Diff Path Review May foll Platelet Estimate ADEQUATE RBC Morphology NORM C+C PT 15.3 H INR 1.3 APTT 32.0 Sodium 136 Potassium 4.7 Chloride 104 Carbon Dioxide 26.0 Anion Gap 6 BUN 14 Creatinine 1.51 H Estim Creat Clear Calc 58.42 Est GFR (MDRD) Af Amer 62 Est GFR (MDRD) Non-Af 52 L BUN/Creatinine Ratio 9.3 L Glucose 211 H Lactic Acid Calcium 8.3 L Troponin I 0.033 09/07/20 09/07/20 10:50 13:50 WBC RBC Hgb Hct MCV MCH MCHC RDW Std Deviation RDW Coeff of Trevor Plt Count MPV Neut % (Auto) Absolute Neuts (auto) Absolute Lymphs (auto) Total Counted Neutrophils % (Manual) Lymphocytes % (Manual) Monocytes % (Manual) Eosinophils % (Manual) Metamyelocytes % Myelocytes % Diff Path Review Platelet Estimate RBC Morphology PT INR APTT Sodium Potassium Chloride Carbon Dioxide Anion Gap BUN Creatinine Estim Creat Clear Calc Est GFR (MDRD) Af Amer Est GFR (MDRD) Non-Af BUN/Creatinine Ratio Glucose Lactic Acid 7.3 H* Calcium Troponin I 0.176 H Micro: Microbiology 09/07/20 14:04 Gram Stain - Final Sputum, Induced/Lukens 09/07/20 11:10 SARS-CoV-2 Antigen (Rapid) - Final Mucosa - Nose ABG Data ABG results: ABG 09/07/20 14:10 Specimen Type ART Sample Site R Radial pH 7.26 L Bicarbonate Actual 31.6 H Total CO2 34 Base Excess 5 H O2 Saturation 88 L O2 % 50 ABG pCO2 70.2 H* ABG pO2 64 L David Test Positive Respiration Rate 14 O2 Delivery Device Adult Vent Vent Mode AC Tidal Volume 400 POC PEEP 5 Crit Call To/Read Back Yes EKG Follow-up EKG: Interpretation: EKG showed tall R wave in V3 also showed ST T changes in V1 V2 with a heart rate in the low 1 range around 50 No prior EKG showed underlying right bundle branch block. Significant change in the EKG from prior electrocardiogram. Radiology Impression Chest X-Ray 09/07/20 11:10 IMPRESSION: The tip of the endotracheal tube is at the origin of the right mainstem bronchus. This should be pulled back approximately 3.5 cm. Infiltrate in the right lung apex. Aspiration should be ruled out. Electronically Signed: Augustus Ba MD at 11:30 EDT , Service support , Echocardiogram 09/07/20 12:11 Interpretation Summary The estimated ejection fraction is EF 45-50% Mild global LV hyokinesia Ordering Physician: Elizabeth Mae Referring Physician: Rohit Peralta Chi Performed By: Karen Russ, ARNALDO, RVT Chest X-Ray 09/07/20 15:15 IMPRESSION: Support tubes are in good position. Mild degree of increased markings at the right lung base. Electronically Signed: Augustus Ba MD at 15:32 EDT , Service support ,
--- NOTE | 2020-09-07 17:04 | CHAPLAIN ---
Type of Pastoral Visit ___ Initial Visit ___ Follow-up Visit ___ On-call Visit ___ General Patient Visit ___ Spiritual Assessment ___ Family Conference ___ Bereavement ___ Rapid Response ___ Code Blue _x__ Other (describe below) Pastoral Care Referral From ___ Patient ___ Family ___ Nurse ___ Physician ___ Writer ___ Industrial Hygiene Engineer _x__ Other (describe below) Sacrament/Intervention ___ Active listening ___ Anointing ___ Anglican ___ Bereavement ___ Communion ___ Selam exploration ___ ___ Life review _x__ Prayer ___ Reconciliation ___ Sacrament of Sick _x__ Supportive presence ___ Wedding ___ Other (describe below) Pastoral Comments patient is sedated and unable to respond at this time; prayer offered at bedside and calling card left with message for patient/family
[2020-09-07] MEDS: 0.9% Saline Lock 10 ML Syringe IV (17:07)
[2020-09-07] MEDS: Aspirin 325 MG Tablet GT (17:12)
[2020-09-07 17:58] LABS: Lactic Acid 1.6 mmol/L (0.4-1.9)
[2020-09-07] MEDS: HEPARIN/D5w 25,000 UNITS 25,000 UNITS/250 ML IV.SOLN. 12 UNITS IV (18:59)
[2020-09-07] MEDS: Famotidine 200 MG/20 ML MDV 20 MG in 0.9% Normal Saline (Pres. free 8 ML 300 MG IV (18:59)
[2020-09-07] MEDS: Chlorhexidine 15 ML PO (22:12)
[2020-09-07] MEDS: Atorvastatin Calcium 80 MG Tablet GT (22:12)
[2020-09-07] MEDS: Propofol 10MG/Ml 1,000 MG/100 ML Bottle 9.8 MG CONT INF (22:13)
[2020-09-08] VITALS (30 sets, daily range): BP systolic 87–130; BP diastolic 61–80; PULSE 59–71; RESP 13–22; TEMP 37.2–37.9; O2SAT 95–100; BMI 13.0
[2020-09-08 01:38] LABS: Partial Thromboplast Time 65.4 Seconds (24.1-36.2)
[2020-09-08 04:55] LABS: Absolute Lymphocyte Count 0.95 X10^3/uL (0.83-4.51); Absolute Neutrophil Count 12.4 X10^3/uL (2.0-7.7); Basophil# 0.02 X10^3/uL; Basophil% 0.1 % (0-1); Hematocrit 40.8 % (40-54); Hemoglobin 13.5 g/dL (13.0-16.5); Lymphocyte # 0.95 X10^3/ul (0.83-4.51); Lymphocyte % 6.3 % (19-41); Mean Corp Hgb Conc 33.1 g/dL (32-36); Mean Corpuscular Hgb 28.4 pg (27.0-32.0); Mean Corpuscular Volume 85.9 fL (80-94); Mean Platelet Vol. 10.3 fl (6.2-12.0); Monocyte# 1.58 X10^3/uL; Monocyte% 10.5 % (0-10); NRBC Flagged by Analyzer 0 % (0-5); Neutrophil % 82.6 % (47-70); POSITIVE DIFFERENTIAL YES; Platelet Count 138 K/mm3 (150-450); RBC Distribution Width CV 14.4 % (11.6-14.6); RBC Distribution Width SD 45.1 fl (35.1-43.9); Red Blood Count 4.75 M/mm3 (4.6-6.2)
[2020-09-08 05:00] LABS: Differential Indicated SCAN CRITERIA MET
--- NOTE | 2020-09-08 05:00 | EKG12_ITS ---
Test Reason : ARRYTHMIA Blood Pressure : / mmHG Vent. Rate : 046 BPM Atrial Rate : 046 BPM P-R Int : 164 ms QRS Dur : 114 ms QT Int : 556 ms P-R-T Axes : 035 040 148 degrees QTc Int : 486 ms Marked sinus bradycardia ST & T wave abnormality, consider inferior ischemia ST & T wave abnormality, consider anterolateral ischemia Prolonged QT Abnormal ECG Confirmed by MIKE CARTWRIGHT, OZ ([id number]), shuttle repairer MICKY ESCAMILLA ([id number]) on 09/11/2020 12:31:30 PM Referred By: KAROL Confirmed By:OZ MCKEON MD
[2020-09-08 05:18] LABS: ALB/GLOB Ratio 0.9 RATIO (0.9-2.4); AST(SGOT) 40 U/L (15-37); Alanine Aminotransfer ALT/SGPT 24 U/L (16-61); Alkaline Phosphatase 85 U/L (45-117); Anion Gap 6 (5-15); BUN 20 mg/dL (7-18); BUN/Creat Ratio 14.3 RATIO (10-20); Calcium,Total 7.7 mg/dL (8.5-10.1); Chloride 103 mmol/L (98-107); EST Glomerular Filtration Rate 56 mL/min (>60); Est Glom Filt Rate - Afr Amer 68 mL/min (>60); Estimated Creatinine Clearance 63.01 ml/min; Globulin 3.3 g/dL (2.2-4.2); Glucose 114 mg/dL (74-106); Potassium 3.6 mmol/L (3.5-5.1); Protein, Total 6.3 g/dL (6.4-8.2); Sodium Level 137 mmol/L (136-145)
[2020-09-08] MEDS: Propofol 10MG/Ml 1,000 MG/100 ML Bottle 9.8 MG CONT INF (05:31)
[2020-09-08 05:42] LABS: Differential Comment SCANNED
[2020-09-08] MEDS: 0.9% Saline Lock 10 ML Syringe IV ×5 (07:03→17:37)
--- NOTE | 2020-09-08 07:05 | PN.CC_ITS ---
Subjective Subjective: Patient did okay overnight. Patient was able to be taken off of dopamine therapy and heart rate has been acceptable. Patient has had more movement overnight with variable impressions of intense. Patient is not fol lowing commands at this time. Spontaneous movement of all extremities noted. Patient has had some vent dyssynchrony associated with a gagging sensation. Objective Data Objective Data Patient does have a prolonged QT on telemetry. Intermittent atrial arrhythmias have been noted, but no V. tach Vital Signs: Vital Signs Temp Pulse Resp BP Pulse Ox 37.4 C H 63 14 116/78 98 09/08/20 06:00 09/08/20 06:00 09/08/20 06:00 09/08/20 06:00 09/08/20 06:00 Oxygen Flow Rate (L/min) 40 Oxygen Delivery Method Mechanical Ventilator Weight: 90.8 kg Body Mass Index (BMI) 28.7 Intake & Output: Intake and Output for Last 24 Hours 09/06/20 09/07/20 09/08/20 23:59 23:59 23:59 Intake Total 808.11 / 864.91 219.81 / 219.81 Output Total 1525 / 1560 220 / 220 Balance -716.89 / -695.09 -0.19 / -0.19 Lab / Micro Data Result Diagrams: 09/08/20 04:45 09/08/20 04:45 Labs: Laboratory Results - last 24 hr 09/07/20 09/07/20 09/07/20 10:50 10:50 10:50 WBC 17.3 H RBC 5.23 Hgb 14.9 Hct 47.6 MCV 91.0 MCH 28.5 MCHC 31.3 L RDW Std Deviation 47.5 H RDW Coeff of Trevor 14.2 Plt Count 212 MPV 10.3 Immature Gran % (Auto) Neut % (Auto) Not Reportable Lymph % (Auto) Mcdonald % (Auto) Eos % (Auto) Baso % (Auto) Absolute Neuts (auto) 9.2 H Absolute Lymphs (auto) 5.89 H Total Counted 100 Neutrophils % (Manual) 53 Lymphocytes % (Manual) 34 Monocytes % (Manual) 10 Eosinophils % (Manual) 1 Metamyelocytes % 1 Myelocytes % 1 H Nucleated RBC % Differential Comment Diff Path Review May foll Platelet Estimate ADEQUATE RBC Morphology NORM C+C PT 15.3 H INR 1.3 APTT 32.0 Sodium 136 Potassium 4.7 Chloride 104 Carbon Dioxide 26.0 Anion Gap 6 BUN 14 Creatinine 1.51 H Estim Creat Clear Calc 58.42 Est GFR (MDRD) Af Amer 62 Est GFR (MDRD) Non-Af 52 L BUN/Creatinine Ratio 9.3 L Glucose 211 H Lactic Acid Calcium 8.3 L Total Bilirubin AST ALT Alkaline Phosphatase Troponin I 0.033 Total Protein Albumin Globulin Albumin/Globulin Ratio 09/07/20 09/07/20 09/07/20 10:50 13:50 15:45 WBC RBC Hgb Hct MCV MCH MCHC RDW Std Deviation RDW Coeff of Trevor Plt Count MPV Immature Gran % (Auto) Neut % (Auto) Lymph % (Auto) Mcdonald % (Auto) Eos % (Auto) Baso % (Auto) Absolute Neuts (auto) Absolute Lymphs (auto) Total Counted Neutrophils % (Manual) Lymphocytes % (Manual) Monocytes % (Manual) Eosinophils % (Manual) Metamyelocytes % Myelocytes % Nucleated RBC % Differential Comment Diff Path Review Platelet Estimate RBC Morphology PT INR APTT Sodium Potassium Chloride Carbon Dioxide Anion Gap BUN Creatinine Estim Creat Clear Calc Est GFR (MDRD) Af Amer Est GFR (MDRD) Non-Af BUN/Creatinine Ratio Glucose Lactic Acid 7.3 H* Cancelled Calcium Total Bilirubin AST ALT Alkaline Phosphatase Troponin I 0.176 H Total Protein Albumin Globulin Albumin/Globulin Ratio 09/07/20 09/07/20 09/08/20 17:05 17:05 01:10 WBC RBC Hgb Hct MCV MCH MCHC RDW Std Deviation RDW Coeff of Trevor Plt Count MPV Immature Gran % (Auto) Neut % (Auto) Lymph % (Auto) Mcdonald % (Auto) Eos % (Auto) Baso % (Auto) Absolute Neuts (auto) Absolute Lymphs (auto) Total Counted Neutrophils % (Manual) Lymphocytes % (Manual) Monocytes % (Manual) Eosinophils % (Manual) Metamyelocytes % Myelocytes % Nucleated RBC % Differential Comment Diff Path Review Platelet Estimate RBC Morphology PT INR APTT 65.4 H Sodium Potassium Chloride Carbon Dioxide Anion Gap BUN Creatinine Estim Creat Clear Calc Est GFR (MDRD) Af Amer Est GFR (MDRD) Non-Af BUN/Creatinine Ratio Glucose Lactic Acid 1.6 Calcium Total Bilirubin AST ALT Alkaline Phosphatase Troponin I 0.269 H Total Protein Albumin Globulin Albumin/Globulin Ratio 09/08/20 09/08/20 04:45 04:45 WBC 15.0 H RBC 4.75 Hgb 13.5 Hct 40.8 MCV 85.9 D MCH 28.4 MCHC 33.1 D RDW Std Deviation 45.1 H RDW Coeff of Trevor 14.4 Plt Count 138 L MPV 10.3 Immature Gran % (Auto) 0.500 Neut % (Auto) 82.6 H Lymph % (Auto) 6.3 L Mcdonald % (Auto) 10.5 H Eos % (Auto) 0.0 Baso % (Auto) 0.1 Absolute Neuts (auto) 12.4 H Absolute Lymphs (auto) 0.95 Total Counted Neutrophils % (Manual) Lymphocytes % (Manual) Monocytes % (Manual) Eosinophils % (Manual) Metamyelocytes % Myelocytes % Nucleated RBC % 0 Differential Comment SCANNED Diff Path Review May foll Platelet Estimate RBC Morphology PT INR APTT Sodium 137 Potassium 3.6 Chloride 103 Carbon Dioxide 28.0 Anion Gap 6 BUN 20 H Creatinine 1.40 H Estim Creat Clear Calc 63.01 Est GFR (MDRD) Af Amer 68 Est GFR (MDRD) Non-Af 56 L BUN/Creatinine Ratio 14.3 Glucose 114 H Lactic Acid Calcium 7.7 L Total Bilirubin 0.80 AST 40 H ALT 24 Alkaline Phosphatase 85 Troponin I 0.105 H Total Protein 6.3 L Albumin 3.0 L Globulin 3.3 Albumin/Globulin Ratio 0.9 Micro: Microbiology 09/07/20 14:04 Sputum, Induced/Lukens Gram Stain - Final 09/07/20 11:10 Mucosa - Nose SARS-CoV-2 Antigen (Rapid) - Final ABG Data ABG results: ABG 09/07/20 14:10 Specimen Type ART Sample Site R Radial pH 7.26 L Bicarbonate Actual 31.6 H Total CO2 34 Base Excess 5 H O2 Saturation 88 L O2 % 50 ABG pCO2 70.2 H* ABG pO2 64 L David Test Positive Respiration Rate 14 O2 Delivery Device Adult Vent Vent Mode AC Tidal Volume 400 POC PEEP 5 Crit Call To/Read Back Yes Radiography Diagnostic Testing: Radiology Impression Chest X-Ray 09/07/20 11:10 IMPRESSION: The tip of the endotracheal tube is at the origin of the right mainstem bronchus. This should be pulled back approximately 3.5 cm. Infiltrate in the right lung apex. Aspiration should be ruled out. Electronically Signed: Augustus Ba MD at 11:30 EDT , Service support , Echocardiogram 09/07/20 12:11 Interpretation Summary The estimated ejection fraction is EF 45-50% %. Mild global LV hyokinesia Ordering Physician: Elizabeth Mae Referring Physician: Rohit Peralta Chi Performed By: Karen Russ, ARNALDO, RVT Chest X-Ray 09/07/20 15:15 IMPRESSION: Support tubes are in good position. Mild degree of increased markings at the right lung base. Electronically Signed: Augustus Ba MD at 15:32 EDT , Service support , Physical Exam Const no apparent distress Constitutional Narrative: Frequent spontaneous movement in the bed, but not following commands General Appearance: patient mechanically ventilated HEENT normocephalic, head/scalp atraumatic and moist oral mucous membranes Eyes conjunctivae normal and no scleral icterus Neck no lymphadenopathy Resp no use of accessory muscles Auscultation: diminished lung sounds; Negative for rales, rhonchi or wheezes Cardio regular rate, regular rhythm, S1 normal heart sound and S2 normal heart sound; Negative for no rub or no gallops Heart Sounds: murmur systolic II/ soft mid Peripheral Pulses: pulses 2+ throughout GI normal to inspection, nondistended, normoactive bowel sounds Extremity no clubbing, cyanosis or edema Skin Skin Narrative: Venous stasis changes of the lower extremities. No significant edema Neuro Neuro Narrative: Spontaneous movement of all extremities. Sensation is intact. Not following commands. Cranial nerves intact. No seizure activity noted. Sensorium / Orientation: sedated on vent Psych Mood & Affect: flat affect Assessment & Plan Assessment/Plan (1) Cardiac arrest: Status: Acute Code(s): I46.9 - Cardiac arrest, cause unspecified (2) Stage 3 severe COPD by GOLD classification: Status: Chronic Code(s): J44.9 - Chronic obstructive pulmonary disease, unspecified (3) Dilated cardiomyopathy: Status: Chronic Code(s): I42.0 - Dilated cardiomyopathy (4) Hemochromatosis: Status: Acute Code(s): E83.119 - Hemochromatosis, unspecified (5) Acute on chronic systolic (congestive) heart failure: Status: Inactive Code(s): I50.23 - Acute on chronic systolic (congestive) heart failure (6) Paroxysmal atrial flutter: Status: Chronic Code(s): I48.92 - Unspecified atrial flutter (7) Pulmonary hypertension: Status: Chronic Code(s): I27.20 - Pulmonary hypertension, unspecified (8) Obesity (BMI 30.0-34.9): Status: Chronic Code(s): E66.9 - Obesity, unspecified (9) Smoking addiction: Status: Chronic Code(s): F17.200 - Nicotine dependence, unspecified, uncomplicated (10) Depression: Status: Chronic Code(s): F32.9 - Major depressive disorder, single episode, unspecified (11) Acute and chronic respiratory failure ([id number]): Status: Chronic Code(s): J96.20 - Acute and chronic respiratory failure, unspecified whether with hypoxia or hypercapnia Qualifiers: Respiratory failure complication: hypoxia and hypercapnia Qualified Code(s): J96.21 - Acute and chronic respiratory failure with hypoxia; J96.22 - Acute and chronic respiratory failure with hypercapnia Plan: RECOMMENDATIONS: 1. Continue mechanical ventilation for another 24 hours pending neuro exam 2. Possibly transition to Precedex therapy to facilitate spontaneous bill thing trials 3. Await cardiology input. Trend troponin 4. Await culture data. Continue empiric antibiotics for now 5. Add Pulmicort and DuoNeb for therapeutic substitution of home medications 6. Hold on systemic steroids for now 7. Spontaneous breathing and awakening trials per protocol IMPRESSIONS: 1. Cardiac arrest of unknown etiology History of both advanced cardiac and pulmonary pathologies. No reported history of recent exacerbation type symptoms from a COPD standpoint. Some concern for possible cardiac etiology. Echocardiogram appears to be relatively stable compared to previous. No significant arrhythmias have been noted, but patient does have a prolonged QT. Patient is on amiodarone at baseline. PEA, not V. tach, was reported at the scene. Cardiology is following. 2. Acute on chronic combined respiratory failure Unclear etiology at this time. Unfortunately, patient did not have an ABG obtained until significantly after he was paralyzed. Patient did have significant CO2 retention at baseline. Previous PFTs show an FEV1 of 49%. Patient should be continued on bronchodilators and Pulmicort as a therapeutic substitution. Right upper lobe infiltrate has resolved with change in endotracheal tube. If cultures negative at 48 hours, likely okay to discontinue empiric antibiotics. 3. Chronic diastolic CHF/paroxysmal A. fib/pulmonary hypertension Patient's last ejection fraction was 55%. Bedside rapid evaluation is around 50%. Patient has had an episode with decreased EF as low as 20% in the past, but this was improved on most recent echocardiogram. Unclear if patient possibly had inferior ischemia that was exacerbated by nitroglycerin leading to arrest. Defer to cardiology on continuation of amiodarone 4. Hemochromatosis/obesity/smoking addiction/depression/poor history/hyperlipidemia Complicates care, management, recovery and prognosis. Okay to continue with baseline medications from my perspective. Cardiology may prefer heparin over 10 a inhibitor. Okay to initiate some of baseline medications per cardiology TIME: 32 minutes critical care time spent addressing patient's cardiac arrest, respiratory failure, CHF, review of all data and collaboration with care team (5:45 AM to 6:45 AM) [id number]: [id number] Critical care first hour
[2020-09-08 07:08] LABS: Partial Thromboplast Time 51.4 Seconds (24.1-36.2)
--- NOTE | 2020-09-08 07:29 | PCM.PN.HOSP ---
Subjective Subjective: Patient was seen and examined. No acute events overnight. He is off dopamine. EKG showed T wave inversion with tall lateral waves in V3 Objective Data Objective Data Vital Signs: Vital Signs Temp Pulse Resp BP Pulse Ox 99.3 F H 63 14 116/78 98 09/08/20 06:00 09/08/20 06:00 09/08/20 06:00 09/08/20 06:00 09/08/20 06:00 Oxygen Flow Rate (L/min) 40 Oxygen Delivery Method Mechanical Ventilator Weight: 90.8 kg Body Mass Index (BMI) 28.7 Intake & Output: Intake and Output for Last 24 Hours 09/06/20 09/07/20 09/08/20 23:59 23:59 23:59 Intake Total 808.11 / 864.91 231.80 / 231.80 Output Total 1525 / 1560 220 / 220 Balance -716.89 / -695.09 11.80 / 11.80 Lab / Micro Data Result Diagrams: 09/08/20 04:45 09/08/20 04:45 Labs: Laboratory Results - last 24 hr 09/07/20 09/07/20 09/07/20 10:50 10:50 10:50 WBC 17.3 H RBC 5.23 Hgb 14.9 Hct 47.6 MCV 91.0 MCH 28.5 MCHC 31.3 L RDW Std Deviation 47.5 H RDW Coeff of Trevor 14.2 Plt Count 212 MPV 10.3 Immature Gran % (Auto) Neut % (Auto) Not Reportable Lymph % (Auto) Sabine % (Auto) Eos % (Auto) Baso % (Auto) Absolute Neuts (auto) 9.2 H Absolute Lymphs (auto) 5.89 H Total Counted 100 Neutrophils % (Manual) 53 Lymphocytes % (Manual) 34 Monocytes % (Manual) 10 Eosinophils % (Manual) 1 Metamyelocytes % 1 Myelocytes % 1 H Nucleated RBC % Differential Comment Diff Path Review May foll Platelet Estimate ADEQUATE RBC Morphology NORM C+C PT 15.3 H INR 1.3 APTT 32.0 Sodium 136 Potassium 4.7 Chloride 104 Carbon Dioxide 26.0 Anion Gap 6 BUN 14 Creatinine 1.51 H Estim Creat Clear Calc 58.42 Est GFR (MDRD) Af Amer 62 Est GFR (MDRD) Non-Af 52 L BUN/Creatinine Ratio 9.3 L Glucose 211 H Lactic Acid Calcium 8.3 L Total Bilirubin AST ALT Alkaline Phosphatase Troponin I 0.033 Total Protein Albumin Globulin Albumin/Globulin Ratio 09/07/20 09/07/20 09/07/20 10:50 13:50 15:45 WBC RBC Hgb Hct MCV MCH MCHC RDW Std Deviation RDW Coeff of Trevor Plt Count MPV Immature Gran % (Auto) Neut % (Auto) Lymph % (Auto) Sabine % (Auto) Eos % (Auto) Baso % (Auto) Absolute Neuts (auto) Absolute Lymphs (auto) Total Counted Neutrophils % (Manual) Lymphocytes % (Manual) Monocytes % (Manual) Eosinophils % (Manual) Metamyelocytes % Myelocytes % Nucleated RBC % Differential Comment Diff Path Review Platelet Estimate RBC Morphology PT INR APTT Sodium Potassium Chloride Carbon Dioxide Anion Gap BUN Creatinine Estim Creat Clear Calc Est GFR (MDRD) Af Amer Est GFR (MDRD) Non-Af BUN/Creatinine Ratio Glucose Lactic Acid 7.3 H* Cancelled Calcium Total Bilirubin AST ALT Alkaline Phosphatase Troponin I 0.176 H Total Protein Albumin Globulin Albumin/Globulin Ratio 09/07/20 09/07/20 09/08/20 17:05 17:05 01:10 WBC RBC Hgb Hct MCV MCH MCHC RDW Std Deviation RDW Coeff of Trevor Plt Count MPV Immature Gran % (Auto) Neut % (Auto) Lymph % (Auto) Sabine % (Auto) Eos % (Auto) Baso % (Auto) Absolute Neuts (auto) Absolute Lymphs (auto) Total Counted Neutrophils % (Manual) Lymphocytes % (Manual) Monocytes % (Manual) Eosinophils % (Manual) Metamyelocytes % Myelocytes % Nucleated RBC % Differential Comment Diff Path Review Platelet Estimate RBC Morphology PT INR APTT 65.4 H Sodium Potassium Chloride Carbon Dioxide Anion Gap BUN Creatinine Estim Creat Clear Calc Est GFR (MDRD) Af Amer Est GFR (MDRD) Non-Af BUN/Creatinine Ratio Glucose Lactic Acid 1.6 Calcium Total Bilirubin AST ALT Alkaline Phosphatase Troponin I 0.269 H Total Protein Albumin Globulin Albumin/Globulin Ratio 09/08/20 09/08/20 09/08/20 04:45 04:45 06:48 WBC 15.0 H RBC 4.75 Hgb 13.5 Hct 40.8 MCV 85.9 D MCH 28.4 MCHC 33.1 D RDW Std Deviation 45.1 H RDW Coeff of Trevor 14.4 Plt Count 138 L MPV 10.3 Immature Gran % (Auto) 0.500 Neut % (Auto) 82.6 H Lymph % (Auto) 6.3 L Sabine % (Auto) 10.5 H Eos % (Auto) 0.0 Baso % (Auto) 0.1 Absolute Neuts (auto) 12.4 H Absolute Lymphs (auto) 0.95 Total Counted Neutrophils % (Manual) Lymphocytes % (Manual) Monocytes % (Manual) Eosinophils % (Manual) Metamyelocytes % Myelocytes % Nucleated RBC % 0 Differential Comment SCANNED Diff Path Review May foll Platelet Estimate RBC Morphology PT INR APTT 51.4 H Sodium 137 Potassium 3.6 Chloride 103 Carbon Dioxide 28.0 Anion Gap 6 BUN 20 H Creatinine 1.40 H Estim Creat Clear Calc 63.01 Est GFR (MDRD) Af Amer 68 Est GFR (MDRD) Non-Af 56 L BUN/Creatinine Ratio 14.3 Glucose 114 H Lactic Acid Calcium 7.7 L Total Bilirubin 0.80 AST 40 H ALT 24 Alkaline Phosphatase 85 Troponin I 0.105 H Total Protein 6.3 L Albumin 3.0 L Globulin 3.3 Albumin/Globulin Ratio 0.9 Micro: Microbiology 09/07/20 14:04 Sputum, Induced/Lukens Gram Stain - Final 09/07/20 11:10 Mucosa - Nose SARS-CoV-2 Antigen (Rapid) - Final ABG Data ABG results: ABG 09/07/20 14:10 Specimen Type ART Sample Site R Radial pH 7.26 L Bicarbonate Actual 31.6 H Total CO2 34 Base Excess 5 H O2 Saturation 88 L O2 % 50 ABG pCO2 70.2 H* ABG pO2 64 L David Test Positive Respiration Rate 14 O2 Delivery Device Adult Vent Vent Mode AC Tidal Volume 400 POC PEEP 5 Crit Call To/Read Back Yes Radiography Diagnostic Testing: Radiology Impression Chest X-Ray 09/07/20 11:10 IMPRESSION: The tip of the endotracheal tube is at the origin of the right mainstem bronchus. This should be pulled back approximately 3.5 cm. Infiltrate in the right lung apex. Aspiration should be ruled out. Electronically Signed: Augustus Ba MD at 11:30 EDT , Service support , Echocardiogram 09/07/20 12:11 Interpretation Summary The estimated ejection fraction is EF 45-50% %. Mild global LV hyokinesia Ordering Physician: Elizabeth Mae Referring Physician: Rohit Peralta Chi Performed By: Karen Russ, ARNALDO, RVT Chest X-Ray 09/07/20 15:15 IMPRESSION: Support tubes are in good position. Mild degree of increased markings at the right lung base. Electronically Signed: Augustus Ba MD at 15:32 EDT , Service support , Physical Exam Narrative General: Intubated, on mechanical ventilator, Cooperative, No apparent distress, Well developed HEENT: Atraumatic Oral: Moist Mucosa Neck: Supple Lungs: Clear to auscultation Cardiovascular: HS I+II, regular, no murmurs Abdomen: Bowel Sounds Present, Soft, Non Tender Extremities: No edema Skin: No rashes, No breakdown Neurological: Grossly intact Psych/Mental Status: Appropriate Assessment & Plan Assessment/Plan (1) Acute and chronic respiratory failure ([id number]): Status: Chronic Code(s): J96.20 - Acute and chronic respiratory failure, unspecified whether with hypoxia or hypercapnia Qualifiers: Respiratory failure complication: hypoxia and hypercapnia Qualified Code(s): J96.21 - Acute and chronic respiratory failure with hypoxia; J96.22 - Acute and chronic respiratory failure with hypercapnia (2) Cardiac arrest: Status: Acute Code(s): I46.9 - Cardiac arrest, cause unspecified (3) STEMI (ST elevation myocardial infarction): Status: Ruled-out Code(s): I21.3 - ST elevation (STEMI) myocardial infarction of unspecified site Qualifiers: Involved coronary artery: unspecified coronary artery Qualified Code(s): I21.3 - ST elevation (STEMI) myocardial infarction of unspecified site (4) Leucocytosis: Status: Acute Code(s): D72.829 - Elevated white blood cell count, unspecified Qualifiers: Leukocytosis type: unspecified Qualified Code(s): D72.829 - Elevated white blood cell count, unspecified (5) LILLIANA (acute kidney injury): Status: Acute Code(s): N17.9 - Acute kidney failure, unspecified (6) Lactic acidosis: Status: Acute Code(s): E87.2 - Acidosis (7) Cardiogenic shock: Status: Resolved Code(s): R57.0 - Cardiogenic shock (8) Aspiration pneumonia: Status: Ruled-out Code(s): J69.0 - Pneumonitis due to inhalation of food and vomit Plan: Patient remains intubated. On mechanical ventilator; continue on fentanyl and propofol Continue rectal aspirin, statin, heparin drip Will continue off antibiotics as chest x-ray showed ruled out aspiration pneumonia We will continue to hold home amlodipine Will repeat blood work in a.m. per protocol Inpatient E&M: [id number] [facility] L3
[2020-09-08] MEDS: Heparin Injection (Vial) 5,000 UNIT/ML VIAL IV ×2 (08:40→17:36)
--- NOTE | 2020-09-08 09:02 | PN.CARD_ITS ---
Subjective Subjective: The patient remain mechanically intubated and ventilated. He is reported by the ICU staff is having nonpurposeful spontaneous movements. Objective Data Vital Signs: Vital Signs Temp Pulse Resp BP Pulse Ox 99.3 F H 63 14 116/78 98 09/08/20 06:00 09/08/20 06:00 09/08/20 06:00 09/08/20 06:00 09/08/20 06:00 Oxygen Flow Rate (L/min) 40 Oxygen Delivery Method Mechanical Ventilator Weight: 200 lb 2.876 oz Body Mass Index (BMI) 28.7 Intake & Output: Intake and Output for Last 24 Hours 09/06/20 09/07/20 09/08/20 23:59 23:59 23:59 Intake Total 808.11 / 864.91 272.68 / 272.68 Output Total 1525 / 1560 220 / 220 Balance -716.89 / -695.09 52.68 / 52.68 Lab / Micro Data Result Diagrams: 09/08/20 04:45 09/08/20 04:45 Labs: Laboratory Results - last 24 hr 09/07/20 09/07/20 09/07/20 10:50 10:50 10:50 WBC 17.3 H RBC 5.23 Hgb 14.9 Hct 47.6 MCV 91.0 MCH 28.5 MCHC 31.3 L RDW Std Deviation 47.5 H RDW Coeff of Trevor 14.2 Plt Count 212 MPV 10.3 Immature Gran % (Auto) Neut % (Auto) Not Reportable Lymph % (Auto) Aurora % (Auto) Eos % (Auto) Baso % (Auto) Absolute Neuts (auto) 9.2 H Absolute Lymphs (auto) 5.89 H Total Counted 100 Neutrophils % (Manual) 53 Lymphocytes % (Manual) 34 Monocytes % (Manual) 10 Eosinophils % (Manual) 1 Metamyelocytes % 1 Myelocytes % 1 H Nucleated RBC % Differential Comment Diff Path Review May foll Platelet Estimate ADEQUATE RBC Morphology NORM C+C PT 15.3 H INR 1.3 APTT 32.0 Sodium 136 Potassium 4.7 Chloride 104 Carbon Dioxide 26.0 Anion Gap 6 BUN 14 Creatinine 1.51 H Estim Creat Clear Calc 58.42 Est GFR (MDRD) Af Amer 62 Est GFR (MDRD) Non-Af 52 L BUN/Creatinine Ratio 9.3 L Glucose 211 H Lactic Acid Calcium 8.3 L Total Bilirubin AST ALT Alkaline Phosphatase Troponin I 0.033 Total Protein Albumin Globulin Albumin/Globulin Ratio 09/07/20 09/07/20 09/07/20 10:50 13:50 15:45 WBC RBC Hgb Hct MCV MCH MCHC RDW Std Deviation RDW Coeff of Trevor Plt Count MPV Immature Gran % (Auto) Neut % (Auto) Lymph % (Auto) Aurora % (Auto) Eos % (Auto) Baso % (Auto) Absolute Neuts (auto) Absolute Lymphs (auto) Total Counted Neutrophils % (Manual) Lymphocytes % (Manual) Monocytes % (Manual) Eosinophils % (Manual) Metamyelocytes % Myelocytes % Nucleated RBC % Differential Comment Diff Path Review Platelet Estimate RBC Morphology PT INR APTT Sodium Potassium Chloride Carbon Dioxide Anion Gap BUN Creatinine Estim Creat Clear Calc Est GFR (MDRD) Af Amer Est GFR (MDRD) Non-Af BUN/Creatinine Ratio Glucose Lactic Acid 7.3 H* Cancelled Calcium Total Bilirubin AST ALT Alkaline Phosphatase Troponin I 0.176 H Total Protein Albumin Globulin Albumin/Globulin Ratio 09/07/20 09/07/20 09/08/20 17:05 17:05 01:10 WBC RBC Hgb Hct MCV MCH MCHC RDW Std Deviation RDW Coeff of Trevor Plt Count MPV Immature Gran % (Auto) Neut % (Auto) Lymph % (Auto) Aurora % (Auto) Eos % (Auto) Baso % (Auto) Absolute Neuts (auto) Absolute Lymphs (auto) Total Counted Neutrophils % (Manual) Lymphocytes % (Manual) Monocytes % (Manual) Eosinophils % (Manual) Metamyelocytes % Myelocytes % Nucleated RBC % Differential Comment Diff Path Review Platelet Estimate RBC Morphology PT INR APTT 65.4 H Sodium Potassium Chloride Carbon Dioxide Anion Gap BUN Creatinine Estim Creat Clear Calc Est GFR (MDRD) Af Amer Est GFR (MDRD) Non-Af BUN/Creatinine Ratio Glucose Lactic Acid 1.6 Calcium Total Bilirubin AST ALT Alkaline Phosphatase Troponin I 0.269 H Total Protein Albumin Globulin Albumin/Globulin Ratio 09/08/20 09/08/20 09/08/20 04:45 04:45 06:48 WBC 15.0 H RBC 4.75 Hgb 13.5 Hct 40.8 MCV 85.9 D MCH 28.4 MCHC 33.1 D RDW Std Deviation 45.1 H RDW Coeff of Trevor 14.4 Plt Count 138 L MPV 10.3 Immature Gran % (Auto) 0.500 Neut % (Auto) 82.6 H Lymph % (Auto) 6.3 L Aurora % (Auto) 10.5 H Eos % (Auto) 0.0 Baso % (Auto) 0.1 Absolute Neuts (auto) 12.4 H Absolute Lymphs (auto) 0.95 Total Counted Neutrophils % (Manual) Lymphocytes % (Manual) Monocytes % (Manual) Eosinophils % (Manual) Metamyelocytes % Myelocytes % Nucleated RBC % 0 Differential Comment SCANNED Diff Path Review May foll Platelet Estimate RBC Morphology PT INR APTT 51.4 H Sodium 137 Potassium 3.6 Chloride 103 Carbon Dioxide 28.0 Anion Gap 6 BUN 20 H Creatinine 1.40 H Estim Creat Clear Calc 63.01 Est GFR (MDRD) Af Amer 68 Est GFR (MDRD) Non-Af 56 L BUN/Creatinine Ratio 14.3 Glucose 114 H Lactic Acid Calcium 7.7 L Total Bilirubin 0.80 AST 40 H ALT 24 Alkaline Phosphatase 85 Troponin I 0.105 H Total Protein 6.3 L Albumin 3.0 L Globulin 3.3 Albumin/Globulin Ratio 0.9 Micro: Microbiology 09/07/20 14:04 Sputum, Induced/Lukens Gram Stain - Final 09/07/20 11:10 Mucosa - Nose SARS-CoV-2 Antigen (Rapid) - Final ABG Data ABG results: ABG 09/07/20 14:10 Specimen Type ART Sample Site R Radial pH 7.26 L Bicarbonate Actual 31.6 H Total CO2 34 Base Excess 5 H O2 Saturation 88 L O2 % 50 ABG pCO2 70.2 H* ABG pO2 64 L David Test Positive Respiration Rate 14 O2 Delivery Device Adult Vent Vent Mode AC Tidal Volume 400 POC PEEP 5 Crit Call To/Read Back Yes Cardiology Labs/Tests 09/07/20 10:50: WBC 17.3 H, RBC 5.23, Hgb 14.9, Hct 47.6, MCV 91.0, MCH 28.5, MCHC 31.3 L, Plt Count 212, MPV 10.3, Neut % (Auto) Not Reportable, Absolute Neuts (auto) 9.2 H, Total Counted 100, Neutrophils % (Manual) 53, Lymphocytes % (Manual) 34, Monocytes % (Manual) 10, Eosinophils % (Manual) 1, Metamyelocytes % 1, Myelocytes % 1 H 09/07/20 10:50: PT 15.3 H, INR 1.3, APTT 32.0 09/07/20 10:50: Sodium 136, Potassium 4.7, Chloride 104, Carbon Dioxide 26.0, Anion Gap 6, BUN 14, Creatinine 1.51 H, Est GFR (MDRD) Af Amer 62, Est GFR (MDRD) Non-Af 52 L, BUN/Creatinine Ratio 9.3 L, Glucose 211 H, Calcium 8.3 L, Troponin I 0.033 09/07/20 10:50: Lactic Acid 7.3 H* 09/07/20 13:50: Troponin I 0.176 H 09/07/20 14:10: pH 7.26 L, Bicarbonate Actual 31.6 H, Base Excess 5 H, O2 Saturation 88 L, ABG pCO2 70.2 H*, ABG pO2 64 L, David Test Positive 09/07/20 15:45: Lactic Acid Cancelled 09/07/20 17:05: Troponin I 0.269 H 09/07/20 17:05: Lactic Acid 1.6 09/08/20 01:10: APTT 65.4 H 09/08/20 04:45: WBC 15.0 H, RBC 4.75, Hgb 13.5, Hct 40.8, MCV 85.9 D, MCH 28.4, MCHC 33.1 D, Plt Count 138 L, MPV 10.3, Immature Gran % (Auto) 0.500, Neut % (Auto) 82.6 H, Lymph % (Auto) 6.3 L, Aurora % (Auto) 10.5 H, Eos % (Auto) 0.0, Baso % (Auto) 0.1, Absolute Neuts (auto) 12.4 H, Nucleated RBC % 0 09/08/20 04:45: Sodium 137, Potassium 3.6, Chloride 103, Carbon Dioxide 28.0, Anion Gap 6, BUN 20 H, Creatinine 1.40 H, Est GFR (MDRD) Af Amer 68, Est GFR (MDRD) Non-Af 56 L, BUN/Creatinine Ratio 14.3, Glucose 114 H, Calcium 7.7 L, Total Bilirubin 0.80, Troponin I 0.105 H 09/08/20 06:48: APTT 51.4 H Rhythm: Sinus rhythm EKG: Sinus rhythm; ST/T wave abnormality: Consider myocardial ischemia: Anterolateral; prolonged QT interval ECHO: Interpretation Summary The estimated ejection fraction is EF 45-50% %. Mild global LV hyokinesia Stress Test: DATE OF SERVICE: 09/19/2015 EXERCISE TOLERANCE TEST: The patient exercised on a Jefe protocol for 1 minute and 30 seconds achieving a peak heart rate of 79 beats per minute (45% predicted maximum heart rate) and a peak blood pressure of 222/118 mmHg and peak MET capacity of approximately 3-4 METs. The baseline ECG demonstrated normal sinus rhythm with nonspecific T-wave abnormality. The peak exercise ECG demonstrated continued nonspecific T-wave abnormality with no significant change compared to baseline. There were no cardiac dysrhythmias pretest, during exercise and recovery. The functional capacity was considered poor. The patient had no complaint of chest discomfort during exercise or recovery. The examination was discontinued secondary to dyspnea and leg discomfort. IMPRESSION: 1. Technically inadequate (percent predicted maximum heart rate less than 85%), exercise tolerance test. 2. Peak exercise ECG with continued nonspecific T-wave abnormality with no significant change compared to baseline. 3. Poor functional capacity. Cardiac Cath: 08-14-2015: [facility]: Left ventricle: Severe diffuse hypokinesis: LVEF 30% Severely elevated right and left heart pressures with near systemic PA systolic pressure Codominant coronary system Normal coronary arteries Radiography Diagnostic Testing: Radiology Impression Chest X-Ray 09/07/20 11:10 IMPRESSION: The tip of the endotracheal tube is at the origin of the right mainstem bronchus. This should be pulled back approximately 3.5 cm. Infiltrate in the right lung apex. Aspiration should be ruled out. Electronically Signed: Augustus Ba MD at 11:30 EDT , Service support , Echocardiogram 09/07/20 12:11 Interpretation Summary The estimated ejection fraction is EF 45-50% %. Mild global LV hyokinesia ____ Ordering Physician: Elizabeth Mae Referring Physician: Rohit Peralta Chi Performed By: Karen Russ, ARNALDO, RVT Chest X-Ray 09/07/20 15:15 IMPRESSION: Support tubes are in good position. Mild degree of increased markings at the right lung base. Electronically Signed: Augustus Ba MD at 15:32 EDT , Service support , Physical Exam Narrative The patient remains mechanically intubated and ventilated at this time. Chest inspection of chest normal Resp clear to auscultation bilaterally Cardio regular rate, regular rhythm, S1 normal heart sound and S2 normal heart sound Extremity no pedal edema Assessment & Plan Assessment/Plan (1) Cardiac arrest: Status: Acute Code(s): I46.9 - Cardiac arrest, cause unspecified Plan: The patient was reported as experiencing a cardiac arrest. The etiology is unclear at this time. The patient has a history of a non-CAD related cardiomyopathy with improvement of his overall LV wall motion systolic function over time. At the present time the patient remains in the ICU mechanically intubated and ventilated. He is reported as having nonpurposeful movements. He has been weaned from his IV vasopressor support. He remains in sinus rhythm at this time with his ECG findings as noted above. At the present time he will continue supportive care as deemed appropriate. Based upon his objective findings his amiodarone therapy will be placed on hold. Depending upon his neurologic status consideration will be given as to whether he requires additional cardiovascular diagnostic studies, etc. (2) Dilated cardiomyopathy: Status: Chronic Code(s): I42.0 - Dilated cardiomyopathy Plan: Again the patient was diagnosed in 2016 is having a non-CAD related cardiomyopathy. Over time his LV systolic function had improved. He was continuing medical management. (3) Paroxysmal atrial fibrillation: Status: Chronic Code(s): I48.0 - Paroxysmal atrial fibrillation Plan: The patient has a history of underlying PAF. He had been on medical therapy for such. At the present time his medications are on hold based upon changes with his hemodynamics and his electrocardiographic changes. At the moment he remains in sinus rhythm. (4) Pulmonary hypertension: Status: Chronic Code(s): I27.20 - Pulmonary hypertension, unspecified Plan: The patient has a history of pulmonary hypertension as previously noted on his 2016 diagnostic cardiac catheterization. There was concern this led to cor pul monale and right heart failure. The patient has been treated for such by both cardiology and pulmonology. (5) Obstructive sleep apnea: Status: Chronic Code(s): G47.33 - Obstructive sleep apnea (adult) (pediatric) Plan: The patient has a history of NIRMAL. There was concern that this was a contributing factor to his pulmonary hypertension. (6) Pure hypercholesterolemia: Status: Chronic Code(s): E78.00 - Pure hypercholesterolemia, unspecified Plan: The patient will continue risk factor evaluation care as deemed appropriate. (7) Essential hypertension: Status: Chronic Code(s): I10 - Essential (primary) hypertension Plan: The patient was hypotensive. He required transient IV vasopressor support. That appears to be on hold at this time. His blood pressures will be followed. Addt'l Comments Overall, at the present time, the patient will remain in the ICU. His neurologic status is being monitored as this will have an impact on further cardiac and noncardiac evaluation and care. The patient's case has been discussed and reviewed with Dr. Alonzo. This note was generated with [employer] dictation software. It may contain incorrect words, spelling, and punctuation that were not noted in checking the note before signing.
--- NOTE | 2020-09-08 10:15 | NT.THERAPY_ITS ---
Nutrition Therapy Report - History Nutrition Services has been consulted to:: Manage enteral nutrition Current diet / nutrition support order:: NPO - Anthropometric Measurements Height:: 5 ft 10 in Weight:: 90 lb 12.8 oz Body Mass Index (BMI):: 13.0 - Relevant Labs Relevant Labs:: WBC 15.0 K/mm3 (4.4-11.0) H 09/08/20 04:45 MCHC 31.3 g/dL (32-36) L 09/07/20 10:50 RDW Std Deviation 45.1 fl (35.1-43.9) H 09/08/20 04:45 Plt Count 138 K/mm3 (150-450) L 09/08/20 04:45 Neut % (Auto) 82.6 % (47-70) H 09/08/20 04:45 Lymph % (Auto) 6.3 % (19-41) L 09/08/20 04:45 Tillman % (Auto) 10.5 % (0-10) H 09/08/20 04:45 Absolute Neuts (auto) 12.4 X10^3/uL (2.0-7.7) H 09/08/20 04:45 Absolute Lymphs (auto) 5.89 X10^3/uL (0.83-4.51) H 09/07/20 10:50 Myelocytes % 1 % (0-0) H 09/07/20 10:50 PT 15.3 SECONDS (11.7-14.9) H 09/07/20 10:50 APTT 51.4 Seconds (24.1-36.2) H 09/08/20 06:48 BUN 20 mg/dL (7-18) H 09/08/20 04:45 Creatinine 1.40 mg/dL (0.70-1.30) H 09/08/20 04:45 Est GFR (MDRD) Non-Af 56 mL/min (>60) L 09/08/20 04:45 BUN/Creatinine Ratio 9.3 RATIO (10-20) L 09/07/20 10:50 Glucose 114 mg/dL (74-106) H 09/08/20 04:45 Lactic Acid 7.3 mmol/L (0.4-1.9) H* 09/07/20 10:50 Calcium 7.7 mg/dL (8.5-10.1) L 09/08/20 04:45 AST 40 U/L (15-37) H 09/08/20 04:45 Troponin I 0.105 ng/mL (<0.045) H 09/08/20 04:45 Total Protein 6.3 g/dL (6.4-8.2) L 09/08/20 04:45 Albumin 3.0 g/dL (3.2-5.0) L 09/08/20 04:45 - Assessment Food / Nutrition-Related History:: Unable to talk to pt d/t sedated and on vent w/ OG to intermittent suction - Nutrition Diagnosis Problem / Etiology / Signs & Symptoms (PES):: Inadequate oral po intake r/t physiological causes increasing nutrient needs d/t s/p cardiac arrest aeb pt NPO/ on vent / has OG to LIS Evidence of Malnutrition Exists:: No - Nutrition Intervention Nutrition Prescription:: [id number] yuridia/day (RMR x 1.2). 90-108 gm pro/day (1- 1.2 gm/kg). 2850 ml/day (per ASPEN guidelines) - Food / Nutrient Delivery Interventions Summary of nutrition intervention:: When medically able, rec XIOMARA to Cardiac - consistency per PICTURE ENLARGER Nutrition support ordered as / adjusted to:: While intubated, will order Vital AF 1.2 at goal rate 60ml/hr - start at 20 ml/hr and increase by 20 ml/hr every 4 hours to provide ~ 1726 yuridia / 108 gm pro/ 1767 ml free water/day) - MNT Monitoring Further MNT monitoring and evaluation required?: Yes MNT Follow-up in:: 3-5 days - please call RD/LD if questions/concerns @ [phone]
--- NOTE | 2020-09-08 10:15 | CASEMGMT ---
This RN CM participated in ICU multidisciplinary rounds. Pt is on vent with plans to attempt extubation tomorrow. Per RN, pt has been very restless and she had to go up on his propofol d/t same. Pt's HPOA is Susana Chance and per Sandra SHIRLEY, Susana states ok for RN to speak with Gena, pt's sig other, and Evon, pt's niece and physician/RN updated. CM to call Susana for assessment and to follow pt for further discharge planning/needs. Pt does follow with [facility] [place] and has seen both in the last month or so. [place] RN DIMAS
--- NOTE | 2020-09-08 10:29 | NT.THERAPY_ITS ---
Nutrition Therapy Report - Relevant Labs Relevant Labs:: WBC 15.0 K/mm3 (4.4-11.0) H 09/08/20 04:45 MCHC 31.3 g/dL (32-36) L 09/07/20 10:50 RDW Std Deviation 45.1 fl (35.1-43.9) H 09/08/20 04:45 Plt Count 138 K/mm3 (150-450) L 09/08/20 04:45 Neut % (Auto) 82.6 % (47-70) H 09/08/20 04:45 Lymph % (Auto) 6.3 % (19-41) L 09/08/20 04:45 [place] % (Auto) 10.5 % (0-10) H 09/08/20 04:45 Absolute Neuts (auto) 12.4 X10^3/uL (2.0-7.7) H 09/08/20 04:45 Absolute Lymphs (auto) 5.89 X10^3/uL (0.83-4.51) H 09/07/20 10:50 Myelocytes % 1 % (0-0) H 09/07/20 10:50 PT 15.3 SECONDS (11.7-14.9) H 09/07/20 10:50 APTT 51.4 Seconds (24.1-36.2) H 09/08/20 06:48 BUN 20 mg/dL (7-18) H 09/08/20 04:45 Creatinine 1.40 mg/dL (0.70-1.30) H 09/08/20 04:45 Est GFR (MDRD) Non-Af 56 mL/min (>60) L 09/08/20 04:45 BUN/Creatinine Ratio 9.3 RATIO (10-20) L 09/07/20 10:50 Glucose 114 mg/dL (74-106) H 09/08/20 04:45 Lactic Acid 7.3 mmol/L (0.4-1.9) H* 09/07/20 10:50 Calcium 7.7 mg/dL (8.5-10.1) L 09/08/20 04:45 AST 40 U/L (15-37) H 09/08/20 04:45 Troponin I 0.105 ng/mL (<0.045) H 09/08/20 04:45 Total Protein 6.3 g/dL (6.4-8.2) L 09/08/20 04:45 Albumin 3.0 g/dL (3.2-5.0) L 09/08/20 04:45 - Food / Nutrient Delivery Interventions Nutrition support ordered as / adjusted to:: Correction - will order Vital AF 1.2 at goal rate 60 ml hr w/ 100 ml H2O flush every 4 hours - to provide ~ 1728 yuridia / 108 gm pro / 1767 free water / day. Start at 20 ml/hr and increase by 20 ml/hr every 8 hours until goal rate of 60 ml/hr achieved.
[2020-09-08] MEDS: Propofol 10MG/Ml 1,000 MG/100 ML Bottle 16.3 MG CONT INF (11:00)
[2020-09-08] MEDS: Aspirin 325 MG Tablet GT (11:02)
[2020-09-08] MEDS: Chlorhexidine 15 ML PO ×2 (11:02→22:48)
[2020-09-08] MEDS: Famotidine 200 MG/20 ML MDV 20 MG in 0.9% Normal Saline (Pres. free 8 ML 300 MG IV (11:02)
[2020-09-08] MEDS: Vital AF 1.2 Cal Liquid 1,000 ML 60 ML GT (11:04)
--- NOTE | 2020-09-08 11:17 | CASEMGMT ---
Addendum entered by Catalina Ku 09/08/20 15:58: Per [facility], pt is also on 2L continuous home oxygen. Laquita MATA CM Original Note: ESPERANZA COCHRAN assessment: Phone interview with pt's HPOA, Susana Chance, for initial transition planning/care coordination assessment as pt is still on the vent. ESPERANZA COCHRAN introduced self and role at [facility], HPOA voices understanding and consents to assessment. Care providers, pharmacy, and demographics verified. Presentation: CP w/ activity, ntg given, pt then became unresponsive, CPR via EMS Admitting dx: S/P Cardiac arrest PCP: Fabian Specialists: [place], cardio; steven Alonzo Preferred Pharmacy: [facility] Insurance: [employer] Prescription Benefit: [employer] Living Will/HPOA: Pt has LW/HPOA on file and Hermelinda Maldonado is listed as HPOA with Susana Chance(Hermelinda's granddaughter) as alternate but per Susana, Hermelinda is , so Susana is HPOA. LNOK: Susana Chance, HPOA; Gena Bentley, sig other; Evon Sandoval, niece Living Arrangements: Pt lives with sig other in 1 story apt and is normally independent with ADL's. Transportation: Pt drives and Susana states no transportation concerns. DME/HHC: Pt has cpap with 4L bleed in thru [facility] but does not wear continuous home oxygen. Pt has not been to SNF or had HHC in the past. Pt is on disability. Pt does smoke cigarettes and per Susana, she is not aware that he drinks ETOH. CM to follow for PT/OT evals, home oxygen need, and any further discharge planning/needs. Pt Goal: Home Plan: TBD, pending extubation, therapy evals. Laquita MATA CM
[2020-09-08 11:59] LABS: Pathologist Review Reviewed
[2020-09-08 12:04] LABS: Pathologist Review Reviewed
[2020-09-08] MEDS: Ipratropium/Albuterol Sulfate 3 ML AMPUL.NEB INHALATION ×2 (13:33→19:00)
[2020-09-08] MEDS: Budesonide Respules 0.5 MG/2 ML AMPUL.NEB. INHALATION ×2 (13:34→19:00)
[2020-09-08] MEDS: HEPARIN/D5w 25,000 UNITS 25,000 UNITS/250 ML IV.SOLN. 13 UNITS IV (15:17)
[2020-09-08] MEDS: Propofol 10MG/Ml 1,000 MG/100 ML Bottle 19.1 MG CONT INF ×2 (16:19→21:42)
--- NOTE | 2020-09-08 17:06 | NURSING ---
This RN called lab at 1706 for results of PTT drawn at 1510, slab lifting engineer stated qc being run so coags are being delayed.
--- NOTE | 2020-09-08 18:55 | NURSING ---
reviewed luz marina weinstein RN charting
[2020-09-08] MEDS: Atorvastatin Calcium 80 MG Tablet GT (22:48)
[2020-09-09] VITALS (50 sets, daily range): BP systolic 58–158; BP diastolic 38–111; PULSE 42–90; RESP 13–24; TEMP 37.7–38.7; O2SAT 34–100
[2020-09-09 00:11] LABS: Partial Thromboplast Time 102.2 Seconds (24.1-36.2)
[2020-09-09] MEDS: Propofol 10MG/Ml 1,000 MG/100 ML Bottle 16.3 MG CONT INF (02:17)
[2020-09-09 04:12] LABS: Absolute Lymphocyte Count 1.44 X10^3/uL (0.83-4.51); Basophil# 0.04 X10^3/uL; Basophil% 0.3 % (0-1); Eosinophil# 0.07 X10^3/uL; Eosinophils% 0.5 % (0-5); Hematocrit 37.9 % (40-54); Hemoglobin 12.4 g/dL (13.0-16.5); Lymphocyte # 1.44 X10^3/ul (0.83-4.51); Lymphocyte % 10.9 % (19-41); Mean Corp Hgb Conc 32.7 g/dL (32-36); Mean Corpuscular Hgb 28.2 pg (27.0-32.0); Mean Corpuscular Volume 86.3 fL (80-94); Mean Platelet Vol. 10.7 fl (6.2-12.0); Monocyte# 1.52 X10^3/uL; Monocyte% 11.6 % (0-10); NRBC Flagged by Analyzer 0 % (0-5); Neutrophil # 10.03 X10^3/uL (2.7-7.7); Neutrophil % 76.2 % (47-70); POSITIVE DIFFERENTIAL YES; Platelet Count 131 K/mm3 (150-450); RBC Distribution Width CV 14.8 % (11.6-14.6); RBC Distribution Width SD 47.6 fl (35.1-43.9); Red Blood Count 4.39 M/mm3 (4.6-6.2); White Blood Count 13.2 K/mm3 (4.4-11.0)
[2020-09-09 04:15] LABS: Differential Indicated SCAN CRITERIA MET
[2020-09-09 04:30] LABS: ALB/GLOB Ratio 0.8 RATIO (0.9-2.4); AST(SGOT) 29 U/L (15-37); Alanine Aminotransfer ALT/SGPT 19 U/L (16-61); Albumin, Serum 2.8 g/dL (3.2-5.0); Alkaline Phosphatase 70 U/L (45-117); Anion Gap 3 (5-15); BUN 30 mg/dL (7-18); BUN/Creat Ratio 17.9 RATIO (10-20); Calcium,Total 7.9 mg/dL (8.5-10.1); Chloride 102 mmol/L (98-107); Creatinine, Serum 1.68 mg/dL (0.70-1.30); EST Glomerular Filtration Rate 46 mL/min (>60); Est Glom Filt Rate - Afr Amer 55 mL/min (>60); Estimated Creatinine Clearance 29.62 ml/min; Globulin 3.5 g/dL (2.2-4.2); Glucose 113 mg/dL (74-106); Potassium 2.9 mmol/L (3.5-5.1); Protein, Total 6.3 g/dL (6.4-8.2); Sodium Level 137 mmol/L (136-145)
[2020-09-09 04:39] LABS: Differential Comment SCANNED
[2020-09-09] MEDS: Potassium Chloride Oral Soln 20 MEQ/15 ML UDC 40 MEQ PO (06:44)
[2020-09-09] MEDS: Polyethylene Glycol 3350 17 GM PACKET PO (06:44)
[2020-09-09] MEDS: Ipratropium/Albuterol Sulfate 3 ML AMPUL.NEB INHALATION ×3 (06:57→18:45)
[2020-09-09] MEDS: Budesonide Respules 0.5 MG/2 ML AMPUL.NEB. INHALATION ×2 (06:57→18:45)
--- NOTE | 2020-09-09 07:28 | PCM.PN.INT ---
Subjective Subjective: Patient did okay overnight. No hemodynamic instability was reported. Patient did have periods of significant agitation leading to ventilator dyssynchrony. Additional history was provided yesterday by the family. Patient reportedly had taken a penile stimulant prior to the activity and then took nitroglycerin after the development of chest pain. Objective Data Objective Data Vital Signs: Vital Signs Temp Pulse Resp BP Pulse Ox 37.8 C H 65 14 96/76 97 09/09/20 05:00 09/09/20 05:00 09/09/20 05:00 09/09/20 05:00 09/09/20 05:00 Oxygen Flow Rate (L/min) 40 Oxygen Delivery Method Mechanical Ventilator Weight: 90.6 kg Body Mass Index (BMI) 13.0 Intake & Output: Intake and Output for Last 24 Hours 09/07/20 09/08/20 09/09/20 23:59 23:59 23:59 Intake Total 808.11 / 864.91 1237.18 / 1352.40 1215.25 / 1215.25 Output Total 1525 / 1560 565 / 640 390 / 390 Balance -716.89 / -695.09 672.18 / 712.40 825.25 / 825.25 Lab / Micro Data Result Diagrams: 09/09/20 04:05 09/09/20 04:05 Labs: Laboratory Results - last 24 hr 09/07/20 09/08/20 09/08/20 10:50 04:45 14:10 WBC RBC Hgb Hct MCV MCH MCHC RDW Std Deviation RDW Coeff of Trevor Plt Count MPV Immature Gran % (Auto) Neut % (Auto) Lymph % (Auto) [place] % (Auto) Eos % (Auto) Baso % (Auto) Absolute Neuts (auto) Absolute Lymphs (auto) Nucleated RBC % Differential Comment Diff Path Review Reviewed Reviewed APTT 51.0 H Sodium Potassium Chloride Carbon Dioxide Anion Gap BUN Creatinine Estim Creat Clear Calc Est GFR (MDRD) Af Amer Est GFR (MDRD) Non-Af BUN/Creatinine Ratio Glucose Calcium Total Bilirubin AST ALT Alkaline Phosphatase Total Protein Albumin Globulin Albumin/Globulin Ratio 09/08/20 09/09/20 09/09/20 23:47 04:05 04:05 WBC 13.2 H RBC 4.39 L Hgb 12.4 L Hct 37.9 L MCV 86.3 MCH 28.2 MCHC 32.7 RDW Std Deviation 47.6 H RDW Coeff of Trevor 14.8 H Plt Count 131 L MPV 10.7 Immature Gran % (Auto) 0.500 Neut % (Auto) 76.2 H Lymph % (Auto) 10.9 L [place] % (Auto) 11.6 H Eos % (Auto) 0.5 Baso % (Auto) 0.3 Absolute Neuts (auto) 10.0 H Absolute Lymphs (auto) 1.44 Nucleated RBC % 0 Differential Comment SCANNED Diff Path Review September foll APTT 102.2 H* Sodium 137 Potassium 2.9 L Chloride 102 Carbon Dioxide 32.0 Anion Gap 3 L BUN 30 H Creatinine 1.68 H Estim Creat Clear Calc 29.62 Est GFR (MDRD) Af Amer 55 L Est GFR (MDRD) Non-Af 46 L BUN/Creatinine Ratio 17.9 Glucose 113 H Calcium 7.9 L Total Bilirubin 0.90 AST 29 ALT 19 Alkaline Phosphatase 70 Total Protein 6.3 L Albumin 2.8 L Globulin 3.5 Albumin/Globulin Ratio 0.8 L Micro: Microbiology 09/07/20 14:04 Sputum, Induced/Lukens Gram Stain - Final 09/07/20 14:04 Sputum, Induced/Lukens Respiratory Culture - Preliminary GNR lactose sap integration architect 09/07/20 11:10 Mucosa - Nose SARS-CoV-2 Antigen (Rapid) - Final Physical Exam Const no apparent distress Constitutional Narrative: Frequent spontaneous movement in the bed, but not following commands. Patient does appear to track me during examination General Appearance: patient mechanically ventilated HEENT normocephalic, head/scalp atraumatic and moist oral mucous membranes Eyes conjunctivae normal and no scleral icterus Neck no lymphadenopathy Resp no use of accessory muscles Auscultation: wheezes scattered wheezes and diminished lung sounds; Negative for rales or rhonchi Cardio regular rate, regular rhythm, S1 normal heart sound and S2 normal heart sound; Negative for no rub or no gallops Heart Sounds: murmur systolic II/ soft mid Peripheral Pulses: pulses 2+ throughout GI normal to inspection, nondistended, normoactive bowel sounds Extremity no clubbing, cyanosis or edema Skin Skin Narrative: Venous stasis changes of the lower extremities. No significant edema Neuro Neuro Narrative: Spontaneous movement of all extremities. Sensation is intact. Not following commands. Cranial nerves intact. No seizure activity noted. Sensorium / Orientation: sedated on vent Psych Mood & Affect: flat affect Assessment & Plan Assessment/Plan (1) Cardiac arrest: Status: Acute Code(s): I46.9 - Cardiac arrest, cause unspecified (2) Stage 3 severe COPD by GOLD classification: Status: Chronic Code(s): J44.9 - Chronic obstructive pulmonary disease, unspecified (3) Dilated cardiomyopathy: Status: Chronic Code(s): I42.0 - Dilated cardiomyopathy (4) Hemochromatosis: Status: Acute Code(s): E83.119 - Hemochromatosis, unspecified (5) Acute on chronic systolic (congestive) heart failure: Status: Inactive Code(s): I50.23 - Acute on chronic systolic (congestive) heart failure (6) Paroxysmal atrial flutter: Status: Chronic Code(s): I48.92 - Unspecified atrial flutter (7) Pulmonary hypertension: Status: Chronic Code(s): I27.20 - Pulmonary hypertension, unspecified (8) Obesity (BMI 30.0-34.9): Status: Chronic Code(s): E66.9 - Obesity, unspecified (9) Smoking addiction: Status: Chronic Code(s): F17.200 - Nicotine dependence, unspecified, uncomplicated (10) Depression: Status: Chronic Code(s): F32.9 - Major depressive disorder, single episode, unspecified (11) Acute and chronic respiratory failure ([id number]-[id number]): Status: Chronic Code(s): J96.20 - Acute and chronic respiratory failure, unspecified whether with hypoxia or hypercapnia Qualifiers: Respiratory failure complication: hypoxia and hypercapnia Qualified Code(s): J96.21 - Acute and chronic respiratory failure with hypoxia; J96.22 - Acute and chronic respiratory failure with hypercapnia Plan: RECOMMENDATIONS: 1. Continue mechanical ventilation for another 24 hours pending neuro exam 2. Transition to Precedex therapy 3. No need to trend troponin. Defer to cardiology on reinitiation of amiodarone 4. Aggressive potassium repletion 5. Add Pulmicort and DuoNeb for therapeutic substitution of home medications. No systemic steroid 6. Continue antibiotics pending culture data 7. Spontaneous breathing and awakening trials per protocol IMPRESSIONS: 1. Cardiac arrest of unknown etiology History of both advanced cardiac and pulmonary pathologies. No reported history of recent exacerbation type symptoms from a COPD standpoint. Patient had taken a penile enhancement in addition to a nitroglycerin. This likely led to PEA arrest. Cardiology is following. Amiodarone has been held secondary to prolonged QT. 2. Acute on chronic combined respiratory failure Unclear etiology at this time. Unfortunately, patient did not have an ABG obtained until significantly after he was paralyzed. Patient did have significant CO2 retention at baseline. Previous PFTs show an FEV1 of 49%. Patient should be continued on bronchodilators and Pulmicort as a therapeutic substitution. Right upper lobe infiltrate has resolved with change in endotracheal tube. Patient is growing a gram-negative currently in the sputum culture. Continue antibiotics for now. 3. Chronic diastolic CHF/paroxysmal A. fib/pulmonary hypertension Patient's last ejection fraction was 55%. Bedside rapid evaluation is around 50%. Patient has had an episode with decreased EF as low as 20% in the past, but this was improved on most recent echocardiogram. Unclear if patient possibly had inferior ischemia that was exacerbated by nitroglycerin leading to arrest. Defer to cardiology on reinitiation of amiodarone 4. Hemochromatosis/obesity/smoking addiction/depression/poor history/hyperlipidemia Complicates care, management, recovery and prognosis. Okay to continue with baseline medications from my perspective. Cardiology may prefer heparin over 10 a inhibitor. Okay to initiate some of baseline medications per cardiology TIME: 35 minutes critical care time spent addressing patient's cardiac arrest, respiratory failure, CHF, review of all data and collaboration with care team (6 AM to 7 AM) Procedures Pulmonary 9xxxx: [id number] Critical care first hour
[2020-09-09] MEDS: Chlorhexidine 15 ML PO ×2 (07:30→20:17)
[2020-09-09] MEDS: Aspirin 325 MG Tablet GT (07:30)
[2020-09-09] MEDS: Propofol 10MG/Ml 1,000 MG/100 ML Bottle 13.6 MG CONT INF (07:30)
[2020-09-09] MEDS: Senna/Docusate Sodium 1 Tablet PO (07:31)
[2020-09-09] MEDS: Famotidine 200 MG/20 ML MDV 20 MG in 0.9% Normal Saline (Pres. free 8 ML 300 MG IV (07:34)
[2020-09-09] MEDS: 0.9% Saline Lock 10 ML Syringe IV ×2 (07:44→15:19)
[2020-09-09 08:16] LABS: Partial Thromboplast Time 56.4 Seconds (24.1-36.2)
--- NOTE | 2020-09-09 08:33 | NURSING ---
[address] lizarraga to transition patient from propofol to precedex
[2020-09-09] MEDS: HEPARIN/D5w 25,000 UNITS 25,000 UNITS/250 ML IV.SOLN. 12 UNITS IV (10:10)
--- NOTE | 2020-09-09 10:54 | PCM.PN.HOSP ---
Subjective Subjective: Patient was seen and examined. Failed spontaneous awakening trial. Remains intubated, on minimal vent settings Objective Data Objective Data Vital Signs: Vital Signs Temp Pulse Resp BP Pulse Ox 100.3 F H 59 L 16 105/75 98 09/09/20 08:00 09/09/20 10:00 09/09/20 10:00 09/09/20 10:00 09/09/20 10:00 Oxygen Flow Rate (L/min) 40 Oxygen Delivery Method Mechanical Ventilator Weight: 199 lb 11.821 oz Body Mass Index (BMI) 13.0 Intake & Output: Intake and Output for Last 24 Hours 09/07/20 09/08/20 09/09/20 23:59 23:59 23:59 Intake Total 808.11 / 864.91 1237.18 / 1352.40 1989.38 / 1988.38 Output Total 1525 / 1560 565 / 640 690 / 690 Balance -716.89 / -695.09 672.18 / 712.40 1299.38 / 1299.38 Lab / Micro Data Result Diagrams: 09/09/20 04:05 09/09/20 04:05 Labs: Laboratory Results - last 24 hr 09/07/20 09/08/20 09/08/20 10:50 04:45 14:10 WBC RBC Hgb Hct MCV MCH MCHC RDW Std Deviation RDW Coeff of Trevor Plt Count MPV Immature Gran % (Auto) Neut % (Auto) Lymph % (Auto) [place] % (Auto) Eos % (Auto) Baso % (Auto) Absolute Neuts (auto) Absolute Lymphs (auto) Nucleated RBC % Differential Comment Diff Path Review Reviewed Reviewed APTT 51.0 H Sodium Potassium Chloride Carbon Dioxide Anion Gap BUN Creatinine Estim Creat Clear Calc Est GFR (MDRD) Af Amer Est GFR (MDRD) Non-Af BUN/Creatinine Ratio Glucose Calcium Total Bilirubin AST ALT Alkaline Phosphatase Total Protein Albumin Globulin Albumin/Globulin Ratio 09/08/20 09/09/20 09/09/20 23:47 04:05 04:05 WBC 13.2 H RBC 4.39 L Hgb 12.4 L Hct 37.9 L MCV 86.3 MCH 28.2 MCHC 32.7 RDW Std Deviation 47.6 H RDW Coeff of Trevor 14.8 H Plt Count 131 L MPV 10.7 Immature Gran % (Auto) 0.500 Neut % (Auto) 76.2 H Lymph % (Auto) 10.9 L [place] % (Auto) 11.6 H Eos % (Auto) 0.5 Baso % (Auto) 0.3 Absolute Neuts (auto) 10.0 H Absolute Lymphs (auto) 1.44 Nucleated RBC % 0 Differential Comment SCANNED Diff Path Review May foll APTT 102.2 H* Sodium 137 Potassium 2.9 L Chloride 102 Carbon Dioxide 32.0 Anion Gap 3 L BUN 30 H Creatinine 1.68 H Estim Creat Clear Calc 29.62 Est GFR (MDRD) Af Amer 55 L Est GFR (MDRD) Non-Af 46 L BUN/Creatinine Ratio 17.9 Glucose 113 H Calcium 7.9 L Total Bilirubin 0.90 AST 29 ALT 19 Alkaline Phosphatase 70 Total Protein 6.3 L Albumin 2.8 L Globulin 3.5 Albumin/Globulin Ratio 0.8 L 09/09/20 07:30 WBC RBC Hgb Hct MCV MCH MCHC RDW Std Deviation RDW Coeff of Trevor Plt Count MPV Immature Gran % (Auto) Neut % (Auto) Lymph % (Auto) [place] % (Auto) Eos % (Auto) Baso % (Auto) Absolute Neuts (auto) Absolute Lymphs (auto) Nucleated RBC % Differential Comment Diff Path Review APTT 56.4 H Sodium Potassium Chloride Carbon Dioxide Anion Gap BUN Creatinine Estim Creat Clear Calc Est GFR (MDRD) Af Amer Est GFR (MDRD) Non-Af BUN/Creatinine Ratio Glucose Calcium Total Bilirubin AST ALT Alkaline Phosphatase Total Protein Albumin Globulin Albumin/Globulin Ratio Micro: Microbiology 09/07/20 14:04 Sputum, Induced/Lukens Gram Stain - Final 09/07/20 14:04 Sputum, Induced/Lukens Respiratory Culture - Preliminary Enterobacter cloacae complex Streptococcus pneumoniae 09/07/20 11:10 Mucosa - Nose SARS-CoV-2 Antigen (Rapid) - Final Physical Exam Narrative General: Intubated, on mechanical ventilator, Cooperative, No apparent distress, Well developed HEENT: Atraumatic Oral: Moist Mucosa Neck: Supple Lungs: Clear to auscultation Cardiovascular: HS I+II, regular, no murmurs Abdomen: Bowel Sounds Present, Soft, Non Tender Extremities: chronic hyperpigmentation of legs Skin: No rashes, No breakdown Neurological: Grossly intact Psych/Mental Status: Appropriate Assessment & Plan Assessment/Plan (1) Acute and chronic respiratory failure ([id number]): Status: Chronic Code(s): J96.20 - Acute and chronic respiratory failure, unspecified whether with hypoxia or hypercapnia Qualifiers: Respiratory failure complication: hypoxia and hypercapnia Qualified Code(s): J96.21 - Acute and chronic respiratory failure with hypoxia; J96.22 - Acute and chronic respiratory failure with hypercapnia (2) Cardiac arrest: Status: Acute Code(s): I46.9 - Cardiac arrest, cause unspecified (3) STEMI (ST elevation myocardial infarction): Status: Ruled-out Code(s): I21.3 - ST elevation (STEMI) myocardial infarction of unspecified site Qualifiers: Involved coronary artery: unspecified coronary artery Qualified Code(s): I21.3 - ST elevation (STEMI) myocardial infarction of unspecified site (4) Leucocytosis: Status: Acute Code(s): D72.829 - Elevated white blood cell count, unspecified Qualifiers: Leukocytosis type: unspecified Qualified Code(s): D72.829 - Elevated white blood cell count, unspecified (5) L[place]IANA (acute kidney injury): Status: Acute Code(s): N17.9 - Acute kidney failure, unspecified (6) Lactic acidosis: Status: Acute Code(s): E87.2 - Acidosis (7) Cardiogenic shock: Status: Resolved Code(s): R57.0 - Cardiogenic shock (8) Aspiration pneumonia: Status: Ruled-out Code(s): J69.0 - Pneumonitis due to inhalation of food and vomit (9) Hypokalemia: Status: Acute Code(s): E87.6 - Hypokalemia Plan: Patient remains intubated. On mechanical ventilator; continue on fentanyl and propofol Noted increase in temperature, T-max of 101.4F; will get blood cultures, repeat chest x-ray and UA Replace potassium, check magnesium level continue rectal aspirin, statin, heparin drip Will continue to hold home amlodipine Will repeat blood work in a.m. per protocol Visit Charges Inpatient E&M: [id number] [place] [id number]
[2020-09-09] MEDS: Acetaminophen 650 MG/20 ML UDC GT ×2 (11:26→18:28)
--- NOTE | 2020-09-09 11:29 | EKG12_ITS ---
Test Reason : EKG CHANGE Blood Pressure : / mmHG Vent. Rate : 065 BPM Atrial Rate : 065 BPM P-R Int : 202 ms QRS Dur : 108 ms QT Int : 438 ms P-R-T Axes : 048 056 195 degrees QTc Int : 455 ms Normal sinus rhythm with sinus arrhythmia ST & T wave abnormality, consider inferior ischemia ST & T wave abnormality, consider anterolateral ischemia Abnormal ECG Confirmed by MIKE CARTWRIGHT, OZ ([id number]), graphic editor MICKY ESCAMILLA ([id number]) on 09/12/2020 11:26:47 AM Referred By: KB Confirmed By:OZ MCKEON MD
--- NOTE | 2020-09-09 13:36 | RAD_ITS ---
STUDY: X-RAY CHEST REASON FOR EXAM: Male, 55 years old. Fever, possible pneumonia TECHNIQUE: AP COMPARISON: 09/07/2020 FINDINGS: Endotracheal tube is present with tip terminating 4.6 cm above the rj. Enteric tube extends to the left upper abdomen/stomach. Right jugular central venous catheter is stable with tip projecting over the upper right atrium. Interval development of opacity in the right lung base with obscuration of the medial right hemidiaphragm and heart border. Left lung is clear. There is no demonstrated pleural abnormality. Normal size heart. Normal mediastinum and racquel. Normal visualized pulmonary arteries. Normal visualized aortic arch and descending thoracic aorta. No acute bony process. There is no demonstrated abnormality of the visualized soft tissue structures of the upper abdomen. RAD/Chest 1 View (Portable) IMPRESSION: Developing pneumonia and/or atelectasis of the right lung base. Electronically Signed: Too Cook MD ([place]) at 14:13 EDT , Service support ,
[2020-09-09 14:16] LABS: Magnesium 1.9 mg/dL (1.6-2.6)
--- NOTE | 2020-09-09 14:32 | PN.CARD_ITS ---
Subjective Subjective: Been evaluated today at bedside along with the nursing staff Remains intubated. On mechanical ventilator. Since he was more agitated and restless. Objective Data Vital Signs: Vital Signs Temp Pulse Resp BP Pulse Ox 101 F H 57 L 14 121/83 H 93 09/09/20 13:00 09/09/20 13:20 09/09/20 13:20 09/09/20 13:00 09/09/20 13:00 Oxygen Flow Rate (L/min) 40 Oxygen Delivery Method Mechanical Ventilator Weight: 199 lb 11.821 oz Body Mass Index (BMI) 13.0 Intake & Output: Intake and Output for Last 24 Hours 09/07/20 09/08/20 09/09/20 23:59 23:59 23:59 Intake Total 808.11 / 864.91 1237.18 / 1352.40 2389.64 / 2389.64 Output Total 1525 / 1560 565 / 640 690 / 690 Balance -716.89 / -695.09 672.18 / 712.40 1699.64 / 1699.64 Lab / Micro Data Result Diagrams: 09/09/20 04:05 09/09/20 04:05 Labs: Laboratory Results - last 24 hr 09/08/20 09/08/20 09/09/20 14:10 23:47 04:05 WBC 13.2 H RBC 4.39 L Hgb 12.4 L Hct 37.9 L MCV 86.3 MCH 28.2 MCHC 32.7 RDW Std Deviation 47.6 H RDW Coeff of Trevor 14.8 H Plt Count 131 L MPV 10.7 Immature Gran % (Auto) 0.500 Neut % (Auto) 76.2 H Lymph % (Auto) 10.9 L Florence % (Auto) 11.6 H Eos % (Auto) 0.5 Baso % (Auto) 0.3 Absolute Neuts (auto) 10.0 H Absolute Lymphs (auto) 1.44 Nucleated RBC % 0 Differential Comment SCANNED Diff Path Review May foll APTT 51.0 H 102.2 H* Sodium Potassium Chloride Carbon Dioxide Anion Gap BUN Creatinine Estim Creat Clear Calc Est GFR (MDRD) Af Amer Est GFR (MDRD) Non-Af BUN/Creatinine Ratio Glucose Calcium Magnesium Total Bilirubin AST ALT Alkaline Phosphatase Total Protein Albumin Globulin Albumin/Globulin Ratio 09/09/20 09/09/20 09/09/20 04:05 04:05 07:30 WBC RBC Hgb Hct MCV MCH MCHC RDW Std Deviation RDW Coeff of Trevor Plt Count MPV Immature Gran % (Auto) Neut % (Auto) Lymph % (Auto) Florence % (Auto) Eos % (Auto) Baso % (Auto) Absolute Neuts (auto) Absolute Lymphs (auto) Nucleated RBC % Differential Comment Diff Path Review APTT 56.4 H Sodium 137 Potassium 2.9 L Chloride 102 Carbon Dioxide 32.0 Anion Gap 3 L BUN 30 H Creatinine 1.68 H Estim Creat Clear Calc 29.62 Est GFR (MDRD) Af Amer 55 L Est GFR (MDRD) Non-Af 46 L BUN/Creatinine Ratio 17.9 Glucose 113 H Calcium 7.9 L Magnesium 1.9 Total Bilirubin 0.90 AST 29 ALT 19 Alkaline Phosphatase 70 Total Protein 6.3 L Albumin 2.8 L Globulin 3.5 Albumin/Globulin Ratio 0.8 L Micro: Microbiology 09/07/20 14:04 Sputum, Induced/Lukens Gram Stain - Final 09/07/20 14:04 Sputum, Induced/Lukens Respiratory Culture - Preliminary Enterobacter cloacae complex Streptococcus pneumoniae 09/07/20 11:10 Mucosa - Nose SARS-CoV-2 Antigen (Rapid) - Final Cardiology Labs/Tests 09/08/20 14:10: APTT 51.0 H 09/08/20 23:47: APTT 102.2 H* 09/09/20 04:05: WBC 13.2 H, RBC 4.39 L, Hgb 12.4 L, Hct 37.9 L, MCV 86.3, MCH 28.2, MCHC 32.7, Plt Count 131 L, MPV 10.7, Immature Gran % (Auto) 0.500, Neut % (Auto) 76.2 H, Lymph % (Auto) 10.9 L, Florence % (Auto) 11.6 H, Eos % (Auto) 0.5, Baso % (Auto) 0.3, Absolute Neuts (auto) 10.0 H, Nucleated RBC % 0 09/09/20 04:05: Sodium 137, Potassium 2.9 L, Chloride 102, Carbon Dioxide 32.0, Anion Gap 3 L, BUN 30 H, Creatinine 1.68 H, Est GFR (MDRD) Af Amer 55 L, Est GFR (MDRD) Non-Af 46 L, BUN/Creatinine Ratio 17.9, Glucose 113 H, Calcium 7.9 L, Total Bilirubin 0.90 09/09/20 04:05: Magnesium 1.9 09/09/20 07:30: APTT 56.4 H Rhythm: Normal sinus EKG: T wave inversion noted in the anterior leads Radiography Diagnostic Testing: Radiology Impression Chest X-Ray 09/09/20 13:36 IMPRESSION: Developing pneumonia and/or atelectasis of the right lung base. Electronically Signed: Too Cook MD (Brooks) at 14:13 EDT , Service support , Physical Exam Narrative The patient remains mechanically intubated and ventilated at this time. limited physical exam environmental educator showed underlying normal sinus rhythm Cardiac examination essentially normal. Chest inspection of chest normal Resp clear to auscultation bilaterally Cardio regular rate, regular rhythm, S1 normal heart sound and S2 normal heart sound Extremity no pedal edema Assessment & Plan Assessment/Plan (1) Cardiac arrest: Status: Acute Code(s): I46.9 - Cardiac arrest, cause unspecified (2) Hypokalemia: Status: Acute Code(s): E87.6 - Hypokalemia (3) Dilated cardiomyopathy: Status: Chronic Code(s): I42.0 - Dilated cardiomyopathy (4) Paroxysmal atrial fibrillation: Status: Chronic Code(s): I48.0 - Paroxysmal atrial fibrillation (5) Pulmonary hypertension: Status: Chronic Code(s): I27.20 - Pulmonary hypertension, unspecified (6) Obstructive sleep apnea: Status: Chronic Code(s): G47.33 - Obstructive sleep apnea (adult) (pediatric) (7) Pure hypercholesterolemia: Status: Chronic Code(s): E78.00 - Pure hypercholesterolemia, unspecified (8) Essential hypertension: Status: Chronic Code(s): I10 - Essential (primary) hypertension Plan: Patient seen and evaluated today at bedside along with the nursing staff. The patient was reported as experiencing a cardiac arrest. The etiology is unclear at this time. The patient has a history of a non-CAD related cardiomyopathy with improvement of his overall LV wall motion systolic function over time. At the present time the patient remains in the ICU mechanically intubated and ventilated. He is reported as having nonpurposeful movements. He remains in sinus rhythm at this time with his ECG findings as noted above. At the present time he will continue supportive care as deemed appropriate. Based upon his objective findings his amiodarone therapy will be placed on hold. Depending upon his neurologic status consideration will be given as to whether he requires additional cardiovascular diagnostic studies, etc. Again the patient was diagnosed in 2016 is having a non-CAD related cardiomyopathy. Over time his LV systolic function had improved. He was continuing medical management. The patient has a history of underlying PAF. He had been on medical therapy for such. At the present time his medications are on hold based upon changes with his hemodynamics and his electrocardiographic changes. At the moment he remains in sinus rhythm. The patient has a history of pulmonary hypertension as previously noted on his 2016 diagnostic cardiac catheterization. There was concern this led to cor pulmonale and right heart failure. The patient has been treated for such by both cardiology and pulmonology. The patient has a history of NIRMAL. There was concern that this was a contributing factor to his pulmonary hypertension. The patient will continue risk factor evaluation care as deemed appropriate. The patient was hypotensive. He required transient IV vasopressor support. That appears to be on hold at this time. His blood pressures will be followed. From cardiac standpoint we will continue conservative treatment His primary plc engineer Dr. Golden will resume care on Friday.
[2020-09-09 15:08] LABS: Color, Urine Yellow (Yellow); Glucose, Dipstick Normal (Normal); Ketone-Dipstick 5 mg/dl (Negative); Leukocyte Esterase-Dipstick Negative /ul (Negative); Nitrite-Dipstick Negative (Negative); Occult Blood-Urine 150 /ul (Negative); Protein-Dipstick 100 mg/dl (Negative); Specific Gravity, Urine 1.025 (1.002-1.030); Urine Bilirubin Dipstick Negative (Negative); Urine Clarity Clear (Clear); Urine Urobilinogen 1 mg/dl (Normal)
[2020-09-09] MEDS: Vital AF 1.2 Cal Liquid 1,000 ML 60 ML GT (15:20)
--- NOTE | 2020-09-09 20:50 | EKG12_ITS ---
Test Reason : Blood Pressure : / mmHG Vent. Rate : 060 BPM Atrial Rate : 060 BPM P-R Int : 170 ms QRS Dur : 146 ms QT Int : 430 ms P-R-T Axes : 065 060 -48 degrees QTc Int : 430 ms Normal sinus rhythm Non-specific intra-ventricular conduction block T-Wave Abnormality: Consider Myocardial Ischemia: Anterior-Lateral Abnormal ECG Confirmed by MIKE CARTWRIGHT, OZ ([id number]), newspaper copy editor MICKY ESCAMILLA ([id number]) on 09/12/2020 11:23:42 AM Referred By: NO Confirmed By:OZ MCKEON MD
[2020-09-09] MEDS: 0.9% Normal Saline 1,000 ML 999 ML IV (21:00)
--- NOTE | 2020-09-09 21:00 | EKG12_ITS ---
Test Reason : DYSRHYTHMIA Blood Pressure : / mmHG Vent. Rate : 054 BPM Atrial Rate : 079 BPM P-R Int : 000 ms QRS Dur : 130 ms QT Int : 450 ms P-R-T Axes : 000 078 128 degrees QTc Int : 426 ms Sinus Rhythm with 1st Degree AV Block with PSVC's Non-specific intra-ventricular conduction block T wave abnormality, consider anterolateral ischemia or digitalis effect Abnormal ECG Confirmed by MIKE CARTWRIGHT, OZ ([id number]), research editor MICKY ESCAMILLA ([id number]) on 09/12/2020 11:24:20 AM Referred By: DOROTA Confirmed By:OZ MCKEON MD
[2020-09-09 21:12] LABS: Absolute Lymphocyte Count 4.08 X10^3/uL (0.83-4.51); Absolute Neutrophil Count 14.7 X10^3/uL (2.0-7.7); Basophil# 0.09 X10^3/uL; Basophil% 0.4 % (0-1); Eosinophil# 0.05 X10^3/uL; Eosinophils% 0.2 % (0-5); Hematocrit 43.4 % (40-54); Hemoglobin 13.3 g/dL (13.0-16.5); Lymphocyte # 4.08 X10^3/ul (0.83-4.51); Lymphocyte % 17.9 % (19-41); Mean Corp Hgb Conc 30.6 g/dL (32-36); Mean Corpuscular Hgb 28.7 pg (27.0-32.0); Mean Platelet Vol. 10.8 fl (6.2-12.0); Monocyte# 3.17 X10^3/uL; Monocyte% 13.9 % (0-10); NRBC Flagged by Analyzer 0.1 % (0-5); Neutrophil # 14.65 X10^3/uL (2.7-7.7); Neutrophil % 64.6 % (47-70); POSITIVE DIFFERENTIAL YES; Platelet Count 161 K/mm3 (150-450); RBC Distribution Width CV 14.7 % (11.6-14.6); RBC Distribution Width SD 50.5 fl (35.1-43.9); Red Blood Count 4.64 M/mm3 (4.6-6.2); White Blood Count 22.7 K/mm3 (4.4-11.0)
--- NOTE | 2020-09-09 21:21 | CT_ITS ---
HISTORY: focal changes Technique:CT Head or Brain W/O Contrast Injection. Sagittal and coronal 2-D reformats. Number of Images including paperwork:260 Comparison: Most recent comparison CT scan of the brain is from January 08, 2019. Study before that is December 01, 2016. Findings: Periventricular deep and subcortical white matter disease is present. Orotracheal and orogastric tubes are present. Paranasal sinuses are clear. The brain is atrophic. Calcific ASCVD involves intracranial arteries. No acute intracranial edema or hemorrhage. No acute abnormality of orbits. Middle ear cavities and mastoid air cells are well aerated. Skull is normal. CT/Brain/Head without Contrast IMPRESSION: No acute intracranial abnormality. Chronic changes as above. ASPECT 10. Individualized dose optimization techniques were used for this CT. at 0101 Reported and signed by: Michael Lucero MD Electronically Signed: Michael Lucero MD at 1:00 EDT Tel , Service support ,
[2020-09-09 21:25] LABS: Differential Indicated SCAN CRITERIA MET; Mean Corpuscular Volume 93.5 fL (80-94)
[2020-09-09] MEDS: LORazepam 2 MG/ML Syringe IV (21:32)
[2020-09-09 21:33] LABS: Anion Gap 19 (5-15); BUN 29 mg/dL (7-18); BUN/Creat Ratio 14.2 RATIO (10-20); Calcium,Total 9.1 mg/dL (8.5-10.1); Chloride 100 mmol/L (98-107); Creatinine, Serum 2.04 mg/dL (0.70-1.30); EST Glomerular Filtration Rate 36 mL/min (>60); Est Glom Filt Rate - Afr Amer 44 mL/min (>60); Estimated Creatinine Clearance 43.24 ml/min; Glucose 229 mg/dL (74-106); Potassium 4.7 mmol/L (3.5-5.1); Sodium Level 138 mmol/L (136-145)
--- NOTE | 2020-09-09 21:37 | PCM.PN.BLA ---
Progress Note Alcohol to the ICU start because of bradycardia and hypotension with twitching. Physical Exam Const Constitutional Narrative: Comatose HEENT normocephalic and head/scalp atraumatic Eyes Eyes Narrative: On mechanical ventilation and not following commands Neck Neck Narrative: Trachea midline Lymph Lymphatic: no lymphadenopathy noted and no lymphedema noted Chest inspection of chest normal Chest Narrative: Diminished breath Resp Resp Narrative: On mechanical ventilation Auscultation: diminished lung sounds Cardio Cardio Narrative: Diminished heart Rate: bradycardia GI normal to inspection, nondistended, normoactive bowel sounds Extremity normal to inspection and no pedal edema Assessment & Plan Assessment/Plan (1) Seizures: Status: Acute Code(s): R56.9 - Unspecified convulsions Plan: Received Ativan x1 and was started on Keppra by business travel consultant. Clinical monitoring. (2) Fever: Status: Acute Code(s): R50.9 - Fever, unspecified Qualifiers: Encounter type: initial encounter Plan: Aspiration pneumonia versus neurogenic. Will start patient on Unasyn. Stop tube feeding for now. (3) Symptomatic bradycardia: Status: Acute Code(s): R00.1 - Bradycardia, unspecified Plan: With systolic blood pressure of less than 90. Multiple EKGs at taking in discussed with cardiology. IV fluids initially ordered. Per discussion with cardiology IV fluids stopped because of low EF. Dopamine ordered. CBC and BMP ordered. Trend troponin. Critical care time spent 35 minutes from 2049 to 2229. Critical care time involved time at the bedside; discussing case with cardiology; respiratory therapists and nurses, and review of charts. Procedures Hospitalists Procedures: 70454 Critial Care 1st Hr
[2020-09-09 21:40] LABS: Allen Test Positive; Base Excess -8 mmol/L (-2 to +2); Bicarbonate 22.4 mmol/L (22-26); Blood Gas Specimen Type ART; FI02 45; Mode AC; O2 Delivery Device Adult Vent; PEEP 5; PO2 60 mmHG (75-100); RR 12; SITE R Radial; SO2 78 % (95-99); Total Carbon Dioxide 25 mmol/L; Vt 450; pCO2 74.8 mmHg (35-45); pH 7.09 (7.35-7.45)
--- NOTE | 2020-09-09 21:40 | RAD_ITS ---
HISTORY: tube placement EXAM: XR Chest 1 View: COMPARISON: September 09, 2020, less than 8 hours earlier FINDINGS: # of images incl. paperwork: 1 The endotracheal tube terminates superimposed over the trachea, below the level of the clavicular heads, and above the rj. Esophagogastric tube's tip is below the diaphragm. Heart is not enlarged. Right IJ central venous catheter terminates superimposed over the right atrial SVC junction. Right heart border right hemidiaphragm and indistinctness. Elevation of the right hemidiaphragm. Likely right lower and right middle lobe collapse is similar to the previous study Pulmonary vascularity is distinct. Right pleural effusions. RAD/Chest 1 View (Portable) IMPRESSION: No change. at 2225 Reported and signed by: Michael Lucero MD Electronically Signed: Michael Lucero MD at 22:24 EDT Tel , Service support ,
[2020-09-09 21:43] LABS: Differential Comment SCANNED
[2020-09-09] MEDS: DOPamine IV 800 MG/250 ML IV.SOLN. 8.5 MG CONT INF (22:00)
[2020-09-09] MEDS: levETIRAcetam IV 1,000 MG/100 ML BAG 400 MG IV (22:20)
[2020-09-09] MEDS: Enoxaparin 100 MG/ML Syringe 90 MG SC (22:25)
--- NOTE | 2020-09-09 22:45 | NURSING ---
2017 RN went into room to assess pt. pt was having full body twitches, not responding to verbal or painful stimuli. pt mouth cleaned, pt started to sound like he was gaging so pt was suctioned oral and deep. At this time pt became more agitated and twitching became more severe. Raskaydentory was called 2023 because pt looked to be in distress and fighting against the tube. It looked as the pt went into a heart block, BP dropped, could not get a POX reading on pt. Nursing orange picking supervisor present, Hospitalist paged to the room @ 2044. Sedation and tube feed stopped at 8040 tube feed to wall suction. No pupal response from rt eye and very little and sluggish is the lt eye. Dr Alonzo called and updated orders obtained. 2099 old and new EKG sent to 2129 Ativan given for more aggressive twitching- almost immediately the twitching stopped. Dr Alonzo updated about pt status- twitching stopped, low BP and that we are holding off on CT until he is more stable. Will monitor pt
[2020-09-09 22:51] LABS: Allen Test Positive; Base Excess -1 mmol/L (-2 to +2); Bicarbonate 25.3 mmol/L (22-26); Blood Gas Specimen Type ART; FI02 80; Mode AC; O2 Delivery Device Adult Vent; PEEP 8; PO2 75 mmHG (75-100); RR 14; SITE R Radial; SO2 93 % (95-99); Total Carbon Dioxide 27 mmol/L; Vt 450; pCO2 52.5 mmHg (35-45); pH 7.29 (7.35-7.45)
[2020-09-10] VITALS (48 sets, daily range): BP systolic 74–145; BP diastolic 46–87; PULSE 47–79; RESP 13–19; TEMP 36.4–38.5; O2SAT 88–100
[2020-09-10] MEDS: LORazepam 2 MG/ML Syringe IV
[2020-09-10] MEDS: TITRATION PARAMETER CHANGE 1 EACH IV (00:33)
[2020-09-10] MEDS: Ipratropium/Albuterol Sulfate 3 ML AMPUL.NEB INHALATION ×4 (00:53→19:10)
[2020-09-10 03:29] LABS: Absolute Lymphocyte Count 0.75 X10^3/uL (0.83-4.51); Absolute Neutrophil Count 17.7 X10^3/uL (2.0-7.7); Basophil# 0.08 X10^3/uL; Basophil% 0.4 % (0-1); Eosinophil# 0.01 X10^3/uL; Hematocrit 42.9 % (40-54); Hemoglobin 14.4 g/dL (13.0-16.5); Lymphocyte # 0.75 X10^3/ul (0.83-4.51); Lymphocyte % 3.5 % (19-41); Mean Corp Hgb Conc 33.6 g/dL (32-36); Mean Corpuscular Hgb 29.1 pg (27.0-32.0); Mean Corpuscular Volume 86.7 fL (80-94); Mean Platelet Vol. 10.4 fl (6.2-12.0); Monocyte# 2.65 X10^3/uL; Monocyte% 12.3 % (0-10); NRBC Flagged by Analyzer 0 % (0-5); Neutrophil # 17.69 X10^3/uL (2.7-7.7); Neutrophil % 82.5 % (47-70); POSITIVE DIFFERENTIAL YES; Platelet Count 142 K/mm3 (150-450); RBC Distribution Width CV 14.6 % (11.6-14.6); RBC Distribution Width SD 46.5 fl (35.1-43.9); Red Blood Count 4.95 M/mm3 (4.6-6.2); White Blood Count 21.5 K/mm3 (4.4-11.0)
[2020-09-10 03:35] LABS: Differential Indicated SCAN CRITERIA MET
[2020-09-10 03:42] LABS: ALB/GLOB Ratio 0.7 RATIO (0.9-2.4); AST(SGOT) 48 U/L (15-37); Alanine Aminotransfer ALT/SGPT 19 U/L (16-61); Alkaline Phosphatase 83 U/L (45-117); Anion Gap 8 (5-15); BUN 40 mg/dL (7-18); BUN/Creat Ratio 21.4 RATIO (10-20); Calcium,Total 8.1 mg/dL (8.5-10.1); Chloride 104 mmol/L (98-107); Creatinine, Serum 1.87 mg/dL (0.70-1.30); EST Glomerular Filtration Rate 40 mL/min (>60); Est Glom Filt Rate - Afr Amer 49 mL/min (>60); Estimated Creatinine Clearance 47.17 ml/min; Globulin 4.3 g/dL (2.2-4.2); Glucose 137 mg/dL (74-106); Protein, Total 7.3 g/dL (6.4-8.2); Sodium Level 139 mmol/L (136-145)
[2020-09-10] MEDS: 0.9% Saline Lock 10 ML Syringe IV (03:44)
[2020-09-10] MEDS: Ondansetron 4 MG/2 ML Vial IV (03:44)
[2020-09-10 04:32] LABS: Differential Comment SCANNED
[2020-09-10] MEDS: Budesonide Respules 0.5 MG/2 ML AMPUL.NEB. INHALATION ×2 (06:25→19:10)
--- NOTE | 2020-09-10 07:21 | PCM.PN.INT ---
Subjective Subjective: Patient with difficulties overnight. Patient had episodes of desaturation and potential heart block associated with what nursing described as seizure activity. This resolved quickly after Ativan therapy. Patient was loaded with Keppra and had to be initiated on dopamine overnight. Patient is not following any commands this morning. Patient did have good ventilator synchrony. Patient did have significantly elevated residuals, so tube feeds were held. Objective Data Objective Data Vital Signs: Vital Signs Temp Pulse Resp BP Pulse Ox 36.4 C L 58 L 16 106/67 96 09/10/20 07:03 09/10/20 07:03 09/10/20 07:03 09/10/20 07:03 09/10/20 07:03 Oxygen Flow Rate (L/min) 40 Oxygen Delivery Method Mechanical Ventilator Weight: 90 kg Body Mass Index (BMI) 13.0 Intake & Output: Intake and Output for Last 24 Hours 09/08/20 09/09/20 09/10/20 23:59 23:59 23:59 Intake Total 1237.18 / 1352.40 4450.38 / 4453.56 281.22 / 281.22 Output Total 565 / 640 1390 / 1390 1540 / 1540 Balance 672.18 / 712.40 3060.38 / 3063.56 -1258.78 / -1258.78 Lab / Micro Data Result Diagrams: 09/10/20 03:15 09/10/20 03:15 Labs: Laboratory Results - last 24 hr 09/09/20 09/09/20 09/09/20 04:05 07:30 14:50 WBC RBC Hgb Hct MCV MCH MCHC RDW Std Deviation RDW Coeff of Trevor Plt Count MPV Immature Gran % (Auto) Neut % (Auto) Lymph % (Auto) Mcdonald % (Auto) Eos % (Auto) Baso % (Auto) Absolute Neuts (auto) Absolute Lymphs (auto) Nucleated RBC % Differential Comment Diff Path Review APTT 56.4 H Sodium Potassium Chloride Carbon Dioxide Anion Gap BUN Creatinine Estim Creat Clear Calc Est GFR (MDRD) Af Amer Est GFR (MDRD) Non-Af BUN/Creatinine Ratio Glucose Calcium Magnesium 1.9 Total Bilirubin AST ALT Alkaline Phosphatase Troponin I Total Protein Albumin Globulin Albumin/Globulin Ratio Urine Color Yellow Urine Clarity Clear Urine pH 5.0 Ur Specific Stuart 1.025 Urine Protein 100 H Urine Glucose (UA) Normal Urine Ketones 5 H Urine Occult Blood 150 H Urine Nitrite Negative Urine Bilirubin Negative Urine Urobilinogen 1 H Ur Leukocyte Esterase Negative 09/09/20 09/09/20 09/09/20 21:00 21:00 23:30 WBC 22.7 H RBC 4.64 Hgb 13.3 Hct 43.4 MCV 93.5 D MCH 28.7 MCHC 30.6 L D RDW Std Deviation 50.5 H RDW Coeff of Trevor 14.7 H Plt Count 161 MPV 10.8 Immature Gran % (Auto) 3.000 H Neut % (Auto) 64.6 Lymph % (Auto) 17.9 L Mcdonald % (Auto) 13.9 H Eos % (Auto) 0.2 Baso % (Auto) 0.4 Absolute Neuts (auto) 14.7 H Absolute Lymphs (auto) 4.08 Nucleated RBC % 0.1 Differential Comment SCANNED Diff Path Review May foll APTT Sodium 138 Potassium 4.7 Chloride 100 Carbon Dioxide 19.0 L Anion Gap 19 H BUN 29 H Creatinine 2.04 H Estim Creat Clear Calc 43.24 Est GFR (MDRD) Af Amer 44 L Est GFR (MDRD) Non-Af 36 L BUN/Creatinine Ratio 14.2 Glucose 229 H Calcium 9.1 Magnesium Total Bilirubin AST ALT Alkaline Phosphatase Troponin I 0.189 H 2.080 H* Total Protein Albumin Globulin Albumin/Globulin Ratio Urine Color Urine Clarity Urine pH Ur Specific Stuart Urine Protein Urine Glucose (UA) Urine Ketones Urine Occult Blood Urine Nitrite Urine Bilirubin Urine Urobilinogen Ur Leukocyte Esterase 09/10/20 09/10/20 09/10/20 03:15 03:15 03:15 WBC 21.5 H RBC 4.95 Hgb 14.4 Hct 42.9 MCV 86.7 D MCH 29.1 MCHC 33.6 D RDW Std Deviation 46.5 H RDW Coeff of Trevor 14.6 Plt Count 142 L MPV 10.4 Immature Gran % (Auto) 1.300 H Neut % (Auto) 82.5 H Lymph % (Auto) 3.5 L Mcdonald % (Auto) 12.3 H Eos % (Auto) 0.0 Baso % (Auto) 0.4 Absolute Neuts (auto) 17.7 H Absolute Lymphs (auto) 0.75 L Nucleated RBC % 0 Differential Comment SCANNED Diff Path Review May foll APTT Sodium 139 Potassium 4.0 Chloride 104 Carbon Dioxide 27.0 Anion Gap 8 BUN 40 H Creatinine 1.87 H Estim Creat Clear Calc 47.17 Est GFR (MDRD) Af Amer 49 L Est GFR (MDRD) Non-Af 40 L BUN/Creatinine Ratio 21.4 H Glucose 137 H Calcium 8.1 L Magnesium Total Bilirubin 1.30 H AST 48 H ALT 19 Alkaline Phosphatase 83 Troponin I 5.140 H* Total Protein 7.3 Albumin 3.0 L Globulin 4.3 H Albumin/Globulin Ratio 0.7 L Urine Color Urine Clarity Urine pH Ur Specific Stuart Urine Protein Urine Glucose (UA) Urine Ketones Urine Occult Blood Urine Nitrite Urine Bilirubin Urine Urobilinogen Ur Leukocyte Esterase Micro: Microbiology 09/09/20 14:55 Interface Orders SARS-CoV-2 Antigen (Rapid) - Final 09/07/20 14:04 Sputum, Induced/Lukens Gram Stain - Final 09/07/20 14:04 Sputum, Induced/Lukens Respiratory Culture - Preliminary Enterobacter cloacae complex Streptococcus pneumoniae 09/07/20 11:10 Mucosa - Nose SARS-CoV-2 Antigen (Rapid) - Final ABG Data ABG results: ABG 09/09/20 09/09/20 21:33 22:45 Specimen Type ART ART Sample Site R Radial R Radial pH 7.09 L* 7.29 L Bicarbonate Actual 22.4 25.3 Total CO2 25 27 Base Excess -8 L -1 O2 Saturation 78 L 93 L O2 % 45 80 ABG pCO2 74.8 H* 52.5 H ABG pO2 60 L 75 David Test Positive Positive Respiration Rate 12 14 O2 Delivery Device Adult Vent Adult Vent Vent Mode AC AC Tidal Volume 450 450 POC PEEP 5 8 Crit Call To/Read Back Yes Blood Gas Notified Whom Agyepong Radiography Diagnostic Testing: Radiology Impression Chest X-Ray 09/09/20 13:36 IMPRESSION: Developing pneumonia and/or atelectasis of the right lung base. Electronically Signed: Too Cook MD (Brooks) at 14:13 EDT , Service support , Brain CT 09/09/20 21:21 IMPRESSION: No acute intracranial abnormality. Chronic changes as above. ASPECT 10. Individualized dose optimization techniques were used for this CT. at 0101 Reported and signed by: Michael Lucreo MD Electronically Signed: Michael Lucero MD at 1:00 EDT Tel , Service support , Chest X-Ray 09/09/20 21:40 IMPRESSION: No change. at 2225 Reported and signed by: Michael Lucero MD Electronically Signed: Michael Lucero MD at 22:24 EDT Tel , Service support , Physical Exam Const no apparent distress Constitutional Narrative: Frequent spontaneous movement in the bed, but not following commands. General Appearance: patient mechanically ventilated HEENT normocephalic, head/scalp atraumatic and moist oral mucous membranes Eyes conjunctivae normal and no scleral icterus Neck no lymphadenopathy Resp no use of accessory muscles Auscultation: wheezes scattered wheezes and diminished lung sounds; Negative for rales or rhonchi Cardio regular rate, regular rhythm, S1 normal heart sound and S2 normal heart sound; Negative for no rub or no gallops Heart Sounds: murmur systolic II/ soft mid Peripheral Pulses: pulses 2+ throughout GI normal to inspection, nondistended, normoactive bowel sounds Extremity no clubbing, cyanosis or edema Skin Skin Narrative: Venous stasis changes of the lower extremities. No significant edema Neuro Neuro Narrative: Spontaneous movement of all extremities. Sensation is intact. Not following commands. Cranial nerves intact. Sensorium / Orientation: sedated on vent Psych Mood & Affect: flat affect Assessment & Plan Assessment/Plan (1) Cardiac arrest: Status: Acute Code(s): I46.9 - Cardiac arrest, cause unspecified (2) Stage 3 severe COPD by GOLD classification: Status: Chronic Code(s): J44.9 - Chronic obstructive pulmonary disease, unspecified (3) Dilated cardiomyopathy: Status: Chronic Code(s): I42.0 - Dilated cardiomyopathy (4) Hemochromatosis: Status: Acute Code(s): E83.119 - Hemochromatosis, unspecified (5) Acute on chronic systolic (congestive) heart failure: Status: Inactive Code(s): I50.23 - Acute on chronic systolic (congestive) heart failure (6) Paroxysmal atrial flutter: Status: Chronic Code(s): I48.92 - Unspecified atrial flutter (7) Pulmonary hypertension: Status: Chronic Code(s): I27.20 - Pulmonary hypertension, unspecified (8) Obesity (BMI 30.0-34.9): Status: Chronic Code(s): E66.9 - Obesity, unspecified (9) Smoking addiction: Status: Chronic Code(s): F17.200 - Nicotine dependence, unspecified, uncomplicated (10) Depression: Status: Chronic Code(s): F32.9 - Major depressive disorder, single episode, unspecified (11) Acute and chronic respiratory failure ([id number]): Status: Chronic Code(s): J96.20 - Acute and chronic respiratory failure, unspecified whether with hypoxia or hypercapnia Qualifiers: Respiratory failure complication: hypoxia and hypercapnia Qualified Code(s): J96.21 - Acute and chronic respiratory failure with hypoxia; J96.22 - Acute and chronic respiratory failure with hypercapnia Plan: RECOMMENDATIONS: 1. Continue mechanical ventilation pending stabilization of neuro status 2. Continue Precedex and fentanyl therapy. 3. Defer to cardiology on possible intervention for elevated troponin 4. Obtain EEG. Continue empiric Keppra 5. Continue Pulmicort and DuoNeb for therapeutic substitution of home medications. No systemic steroid 6. Continue antibiotics pending culture data 7. Spontaneous breathing and awakening trials per protocol IMPRESSIONS: 1. Cardiac arrest of unknown etiology History of both advanced cardiac and pulmonary pathologies. No reported history of recent exacerbation type symptoms from a COPD standpoint. Patient had taken a penile enhancement in addition to a nitroglycerin. This likely led to PEA arrest. Cardiology is following. Amiodarone has been held secondary to prolonged QT. 2. Acute on chronic combined respiratory failure with pneumococcal and Enterobacter pneumonia Unclear etiology at this time. Unfortunately, patient did not have an ABG obtained until significantly after he was paralyzed. Patient did have significant CO2 retention at baseline. Previous PFTs show an FEV1 of 49%. Patient should be continued on bronchodilators and Pulmicort as a therapeutic substitution. Right upper lobe infiltrate has resolved with change in endotracheal tube. Patient is growing a gram-negative currently in the sputum culture. Continue antibiotics for now. 3. Chronic diastolic CHF/paroxysmal A. fib/pulmonary hypertension Patient's last ejection fraction was 55%. Bedside rapid evaluation is around 50%. Patient has had an episode with decreased EF as low as 20% in the past, but this was improved on most recent echocardiogram. Unclear if patient possibly had inferior ischemia that was exacerbated by nitroglycerin leading to arrest. Defer to cardiology on reinitiation of amiodarone. Patient did have an elevation in troponin overnight. Cardiology is aware. Patient may require diuretic therapy in the next 24 to 48 hours. 4. Hemochromatosis/obesity/smoking addiction/depression/poor history/hyperlipidemia Complicates care, management, recovery and prognosis. Okay to continue with baseline medications from my perspective. Patient with elevated residuals overnight. No Reglan secondary to decreased seizure threshold. Continue aggressive bowel regimen. 5. Possible seizures Patient placed on Keppra therapy. EEG will be ordered. Ativan as needed for seizures TIME: 45 minutes critical care time spent addressing patient's cardiac arrest, respiratory failure, CHF, review of all data and collaboration with care team (6 AM to 8 AM) Procedures Pulmonary 9xxxx: [id number] Critical care first hour
[2020-09-10] MEDS: Chlorhexidine 15 ML PO ×2 (07:58→20:49)
[2020-09-10] MEDS: Enoxaparin 100 MG/ML Syringe 90 MG SC ×2 (07:59→20:49)
[2020-09-10] MEDS: Famotidine 200 MG/20 ML MDV 20 MG in 0.9% Normal Saline (Pres. free 8 ML 300 MG IV (08:04)
[2020-09-10] MEDS: levETIRAcetam IV 1,000 MG/100 ML BAG 400 MG IV ×2 (08:06→21:10)
[2020-09-10] MEDS: Aspirin 325 MG Tablet GT (08:08)
--- NOTE | 2020-09-10 09:36 | TELEMED_ITS ---
[facility] has confirmed receipt of a request for visit. This document confirms receipt of the order initiating the consult. To find the results of the consultation, please view the patient's reports for the scanned Telemed Consult.
--- NOTE | 2020-09-10 11:34 | PCM.PN.HOSP ---
Subjective Subjective: Patient was seen and examined. Overnight, he developed hypotension, bradycardia and with twitches. EEG ordered. Tube feeds were held on account of increased residuals. He was also started on therapeutic Lovenox. Objective Data Objective Data Vital Signs: Vital Signs Temp Pulse Resp BP Pulse Ox 99.4 F H 59 L 14 106/69 97 09/10/20 10:48 09/10/20 10:48 09/10/20 10:48 09/10/20 10:48 09/10/20 10:48 Oxygen Flow Rate (L/min) 40 Oxygen Delivery Method Mechanical Ventilator Weight: 198 lb 6.656 oz Body Mass Index (BMI) 13.0 Intake & Output: Intake and Output for Last 24 Hours 09/08/20 09/09/20 09/10/20 23:59 23:59 23:59 Intake Total 1237.18 / 1352.40 4450.38 / 4453.56 717.21 / 717.21 Output Total 565 / 640 1390 / 1390 1540 / 1540 Balance 672.18 / 712.40 3060.38 / 3063.56 -822.79 / -822.79 Lab / Micro Data Result Diagrams: 09/10/20 03:15 09/10/20 03:15 Labs: Laboratory Results - last 24 hr 09/09/20 09/09/20 09/09/20 04:05 14:50 21:00 WBC 22.7 H RBC 4.64 Hgb 13.3 Hct 43.4 MCV 93.5 D MCH 28.7 MCHC 30.6 L D RDW Std Deviation 50.5 H RDW Coeff of Trevor 14.7 H Plt Count 161 MPV 10.8 Immature Gran % (Auto) 3.000 H Neut % (Auto) 64.6 Lymph % (Auto) 17.9 L [place] % (Auto) 13.9 H Eos % (Auto) 0.2 Baso % (Auto) 0.4 Absolute Neuts (auto) 14.7 H Absolute Lymphs (auto) 4.08 Nucleated RBC % 0.1 Differential Comment SCANNED Diff Path Review May foll Sodium Potassium Chloride Carbon Dioxide Anion Gap BUN Creatinine Estim Creat Clear Calc Est GFR (MDRD) Af Amer Est GFR (MDRD) Non-Af BUN/Creatinine Ratio Glucose Calcium Magnesium 1.9 Total Bilirubin AST ALT Alkaline Phosphatase Troponin I Total Protein Albumin Globulin Albumin/Globulin Ratio Urine Color Yellow Urine Clarity Clear Urine pH 5.0 Ur Specific [place] 1.025 Urine Protein 100 H Urine Glucose (UA) Normal Urine Ketones 5 H Urine Occult Blood 150 H Urine Nitrite Negative Urine Bilirubin Negative Urine Urobilinogen 1 H Ur Leukocyte Esterase Negative 09/09/20 09/09/20 09/10/20 21:00 23:30 03:15 WBC 21.5 H RBC 4.95 Hgb 14.4 Hct 42.9 MCV 86.7 D MCH 29.1 MCHC 33.6 D RDW Std Deviation 46.5 H RDW Coeff of Trevor 14.6 Plt Count 142 L MPV 10.4 Immature Gran % (Auto) 1.300 H Neut % (Auto) 82.5 H Lymph % (Auto) 3.5 L [place] % (Auto) 12.3 H Eos % (Auto) 0.0 Baso % (Auto) 0.4 Absolute Neuts (auto) 17.7 H Absolute Lymphs (auto) 0.75 L Nucleated RBC % 0 Differential Comment SCANNED Diff Path Review May foll Sodium 138 Potassium 4.7 Chloride 100 Carbon Dioxide 19.0 L Anion Gap 19 H BUN 29 H Creatinine 2.04 H Estim Creat Clear Calc 43.24 Est GFR (MDRD) Af Amer 44 L Est GFR (MDRD) Non-Af 36 L BUN/Creatinine Ratio 14.2 Glucose 229 H Calcium 9.1 Magnesium Total Bilirubin AST ALT Alkaline Phosphatase Troponin I 0.189 H 2.080 H* Total Protein Albumin Globulin Albumin/Globulin Ratio Urine Color Urine Clarity Urine pH Ur Specific [place] Urine Protein Urine Glucose (UA) Urine Ketones Urine Occult Blood Urine Nitrite Urine Bilirubin Urine Urobilinogen Ur Leukocyte Esterase 09/10/20 09/10/20 03:15 03:15 WBC RBC Hgb Hct MCV MCH MCHC RDW Std Deviation RDW Coeff of Trevor Plt Count MPV Immature Gran % (Auto) Neut % (Auto) Lymph % (Auto) [place] % (Auto) Eos % (Auto) Baso % (Auto) Absolute Neuts (auto) Absolute Lymphs (auto) Nucleated RBC % Differential Comment Diff Path Review Sodium 139 Potassium 4.0 Chloride 104 Carbon Dioxide 27.0 Anion Gap 8 BUN 40 H Creatinine 1.87 H Estim Creat Clear Calc 47.17 Est GFR (MDRD) Af Amer 49 L Est GFR (MDRD) Non-Af 40 L BUN/Creatinine Ratio 21.4 H Glucose 137 H Calcium 8.1 L Magnesium Total Bilirubin 1.30 H AST 48 H ALT 19 Alkaline Phosphatase 83 Troponin I 5.140 H* Total Protein 7.3 Albumin 3.0 L Globulin 4.3 H Albumin/Globulin Ratio 0.7 L Urine Color Urine Clarity Urine pH Ur Specific [place] Urine Protein Urine Glucose (UA) Urine Ketones Urine Occult Blood Urine Nitrite Urine Bilirubin Urine Urobilinogen Ur Leukocyte Esterase Micro: Microbiology 09/07/20 14:04 Sputum, Induced/Lukens Gram Stain - Final 09/07/20 14:04 Sputum, Induced/Lukens Respiratory Culture - Final Enterobacter cloacae complex Streptococcus pneumoniae 09/09/20 14:55 Interface Orders SARS-CoV-2 Antigen (Rapid) - Final 09/07/20 11:10 Mucosa - Nose SARS-CoV-2 Antigen (Rapid) - Final ABG Data ABG results: ABG 09/09/20 09/09/20 21:33 22:45 Specimen Type ART ART Sample Site R Radial R Radial pH 7.09 L* 7.29 L Bicarbonate Actual 22.4 25.3 Total CO2 25 27 Base Excess -8 L -1 O2 Saturation 78 L 93 L O2 % 45 80 ABG pCO2 74.8 H* 52.5 H ABG pO2 60 L 75 David Test Positive Positive Respiration Rate 12 14 O2 Delivery Device Adult Vent Adult Vent Vent Mode AC AC Tidal Volume 450 450 POC PEEP 5 8 Crit Call To/Read Back Yes Blood Gas Notified Whom Agyepong Radiography Diagnostic Testing: Radiology Impression Chest X-Ray 09/09/20 13:36 IMPRESSION: Developing pneumonia and/or atelectasis of the right lung base. Electronically Signed: Too Cook MD (Brooks) at 14:13 EDT , Service support , Brain CT 09/09/20 21:21 IMPRESSION: No acute intracranial abnormality. Chronic changes as above. ASPECT 10. Individualized dose optimization techniques were used for this CT. at 0101 Reported and signed by: Michael Lucero MD Electronically Signed: Michael Lucero MD at 1:00 EDT Tel , Service support , Chest X-Ray 09/09/20 21:40 IMPRESSION: No change. at 2225 Reported and signed by: Michael Lucero MD Electronically Signed: Michael Lucero MD at 22:24 EDT Tel , Service support , Physical Exam Narrative General: Intubated, on mechanical ventilator, Cooperative, No apparent distress, Well developed HEENT: Atraumatic Oral: Moist Mucosa Neck: Supple Lungs: Clear to auscultation Cardiovascular: HS I+II, regular, no murmurs Abdomen: Bowel Sounds Present, Soft, Non Tender Extremities: chronic hyperpigmentation of legs Skin: No rashes, No breakdown Neurological: Grossly intact Psych/Mental Status: Appropriate Const Constitutional Narrative: Comatose HEENT normocephalic and head/scalp atraumatic Eyes Eyes Narrative: On mechanical ventilation and not following commands Neck Neck Narrative: Trachea midline Lymph Lymphatic: no lymphadenopathy noted and no lymphedema noted Chest inspection of chest normal Chest Narrative: Diminished breath Resp Resp Narrative: On mechanical ventilation Auscultation: diminished lung sounds Cardio Cardio Narrative: Diminished heart Rate: bradycardia GI normal to inspection, nondistended, normoactive bowel sounds Extremity normal to inspection and no pedal edema Assessment & Plan Assessment/Plan (1) Seizures: Status: Acute Code(s): R56.9 - Unspecified convulsions (2) Fever: Status: Acute Code(s): R50.9 - Fever, unspecified Qualifiers: Encounter type: initial encounter (3) Symptomatic bradycardia: Status: Acute Code(s): R00.1 - Bradycardia, unspecified (4) Hypokalemia: Status: Acute Code(s): E87.6 - Hypokalemia (5) Aspiration pneumonia: Status: Ruled-out Code(s): J69.0 - Pneumonitis due to inhalation of food and vomit Qualifiers: Aspiration pneumonia type: due to regurgitated food (6) Acute and chronic respiratory failure ([id number]): Status: Chronic Code(s): J96.20 - Acute and chronic respiratory failure, unspecified whether with hypoxia or hypercapnia Qualifiers: Respiratory failure complication: hypoxia and hypercapnia Qualified Code(s): J96.21 - Acute and chronic respiratory failure with hypoxia; J96.22 - Acute and chronic respiratory failure with hypercapnia (7) LILLIANA (acute kidney injury): Status: Acute Code(s): N17.9 - Acute kidney failure, unspecified (8) Non-ST elevated myocardial infarction: Status: Acute Code(s): I21.4 - Non-ST elevation (NSTEMI) myocardial infarction (9) Severe sepsis: Status: Acute Code(s): A41.9 - Sepsis, unspecified organism; R65.20 - Severe sepsis without septic shock Plan: Summary: 55-year-old male with multiple comorbidities including COPD, hypertension, CHF who presented with chest pain during sexual activity. He was given a tablet of nitroglycerin by his partner and subsequently became unresponsive. He was found to be in PEA. He underwent CPR and was brought to the emergency room, got intubated and managed in the ICU. Critical care and pulmonology following. Patient has remained intubated on fentanyl and propofol. His initial troponins were unremarkable. Patient's initial cardiac arrest was thought to be secondary to probable dysrhythmia but not to acute STEMI. Patient was thought to have aspirated overnight, started on IV Unasyn. He was said to be hypotensive, bradycardic, no significant culture dopamine. EEG ordered Patient remains intubated. On mechanical ventilator; continue on fentanyl and Precedex, dopamine Persistent fevers, chest x-ray suggestive of pneumonia, elevated troponins, LILLIANA Started overnight on IV Unasyn, switched to IV Zosyn, follow-up on urine cultures Follow-up on EEG, continue IV Keppra Continue to hold tube feeds, will switch from IV famotidine to PPI twice daily EKG showed tall R waves, T wave inversions in V3-V6; continue rectal aspirin, statin, Lovenox, cardiology following for acute non-STEMI Will continue to hold home amlodipine Will repeat blood work in a.m. per protocol Gentle IVF 75mls/hr Visit Charges Inpatient E&M: 06537 Subs Hosp L3
[2020-09-10] MEDS: 0.9% Normal Saline 1,000 ML 75 ML IV (12:00)
--- NOTE | 2020-09-10 13:00 | PCM.PN.CARD ---
Subjective Subjective: Patient seen today at bedside along with the nursing staff, intubated on mechanical ventilator and is stable on the current medication with fentanyl and Precedex. Objective Data Vital Signs: Vital Signs Temp Pulse Resp BP Pulse Ox 100.1 F H 55 L 14 100/64 95 09/10/20 12:00 09/10/20 12:00 09/10/20 12:00 09/10/20 12:00 09/10/20 12:00 Oxygen Flow Rate (L/min) 40 Oxygen Delivery Method Mechanical Ventilator Weight: 198 lb 6.656 oz Body Mass Index (BMI) 13.0 Intake & Output: Intake and Output for Last 24 Hours 09/08/20 09/09/20 09/10/20 23:59 23:59 23:59 Intake Total 1237.18 / 1352.40 4450.38 / 4453.56 791.17 / 791.17 Output Total 565 / 640 1390 / 1390 1890 / 1890 Balance 672.18 / 712.40 3060.38 / 3063.56 -1098.83 / -1098.83 Lab / Micro Data Result Diagrams: 09/10/20 03:15 09/10/20 03:15 Labs: Laboratory Results - last 24 hr 09/09/20 09/09/20 09/09/20 04:05 14:50 21:00 WBC 22.7 H RBC 4.64 Hgb 13.3 Hct 43.4 MCV 93.5 D MCH 28.7 MCHC 30.6 L D RDW Std Deviation 50.5 H RDW Coeff of Trevor 14.7 H Plt Count 161 MPV 10.8 Immature Gran % (Auto) 3.000 H Neut % (Auto) 64.6 Lymph % (Auto) 17.9 L [place] % (Auto) 13.9 H Eos % (Auto) 0.2 Baso % (Auto) 0.4 Absolute Neuts (auto) 14.7 H Absolute Lymphs (auto) 4.08 Nucleated RBC % 0.1 Differential Comment SCANNED Diff Path Review May foll Sodium Potassium Chloride Carbon Dioxide Anion Gap BUN Creatinine Estim Creat Clear Calc Est GFR (MDRD) Af Amer Est GFR (MDRD) Non-Af BUN/Creatinine Ratio Glucose Calcium Magnesium 1.9 Total Bilirubin AST ALT Alkaline Phosphatase Troponin I Total Protein Albumin Globulin Albumin/Globulin Ratio Urine Color Yellow Urine Clarity Clear Urine pH 5.0 Ur Specific [place] 1.025 Urine Protein 100 H Urine Glucose (UA) Normal Urine Ketones 5 H Urine Occult Blood 150 H Urine Nitrite Negative Urine Bilirubin Negative Urine Urobilinogen 1 H Ur Leukocyte Esterase Negative 09/09/20 09/09/20 09/10/20 21:00 23:30 03:15 WBC 21.5 H RBC 4.95 Hgb 14.4 Hct 42.9 MCV 86.7 D MCH 29.1 MCHC 33.6 D RDW Std Deviation 46.5 H RDW Coeff of Trevor 14.6 Plt Count 142 L MPV 10.4 Immature Gran % (Auto) 1.300 H Neut % (Auto) 82.5 H Lymph % (Auto) 3.5 L [place] % (Auto) 12.3 H Eos % (Auto) 0.0 Baso % (Auto) 0.4 Absolute Neuts (auto) 17.7 H Absolute Lymphs (auto) 0.75 L Nucleated RBC % 0 Differential Comment SCANNED Diff Path Review May foll Sodium 138 Potassium 4.7 Chloride 100 Carbon Dioxide 19.0 L Anion Gap 19 H BUN 29 H Creatinine 2.04 H Estim Creat Clear Calc 43.24 Est GFR (MDRD) Af Amer 44 L Est GFR (MDRD) Non-Af 36 L BUN/Creatinine Ratio 14.2 Glucose 229 H Calcium 9.1 Magnesium Total Bilirubin AST ALT Alkaline Phosphatase Troponin I 0.189 H 2.080 H* Total Protein Albumin Globulin Albumin/Globulin Ratio Urine Color Urine Clarity Urine pH Ur Specific [place] Urine Protein Urine Glucose (UA) Urine Ketones Urine Occult Blood Urine Nitrite Urine Bilirubin Urine Urobilinogen Ur Leukocyte Esterase 09/10/20 09/10/20 03:15 03:15 WBC RBC Hgb Hct MCV MCH MCHC RDW Std Deviation RDW Coeff of Trevor Plt Count MPV Immature Gran % (Auto) Neut % (Auto) Lymph % (Auto) [place] % (Auto) Eos % (Auto) Baso % (Auto) Absolute Neuts (auto) Absolute Lymphs (auto) Nucleated RBC % Differential Comment Diff Path Review Sodium 139 Potassium 4.0 Chloride 104 Carbon Dioxide 27.0 Anion Gap 8 BUN 40 H Creatinine 1.87 H Estim Creat Clear Calc 47.17 Est GFR (MDRD) Af Amer 49 L Est GFR (MDRD) Non-Af 40 L BUN/Creatinine Ratio 21.4 H Glucose 137 H Calcium 8.1 L Magnesium Total Bilirubin 1.30 H AST 48 H ALT 19 Alkaline Phosphatase 83 Troponin I 5.140 H* Total Protein 7.3 Albumin 3.0 L Globulin 4.3 H Albumin/Globulin Ratio 0.7 L Urine Color Urine Clarity Urine pH Ur Specific [place] Urine Protein Urine Glucose (UA) Urine Ketones Urine Occult Blood Urine Nitrite Urine Bilirubin Urine Urobilinogen Ur Leukocyte Esterase Micro: Microbiology 09/07/20 14:04 Sputum, Induced/Lukens Gram Stain - Final 09/07/20 14:04 Sputum, Induced/Lukens Respiratory Culture - Final Enterobacter cloacae complex Streptococcus pneumoniae 09/09/20 14:55 Interface Orders SARS-CoV-2 Antigen (Rapid) - Final 09/07/20 11:10 Mucosa - Nose SARS-CoV-2 Antigen (Rapid) - Final ABG Data ABG results: ABG 09/09/20 09/09/20 21:33 22:45 Specimen Type ART ART Sample Site R Radial R Radial pH 7.09 L* 7.29 L Bicarbonate Actual 22.4 25.3 Total CO2 25 27 Base Excess -8 L -1 O2 Saturation 78 L 93 L O2 % 45 80 ABG pCO2 74.8 H* 52.5 H ABG pO2 60 L 75 David Test Positive Positive Respiration Rate 12 14 O2 Delivery Device Adult Vent Adult Vent Vent Mode AC AC Tidal Volume 450 450 POC PEEP 5 8 Crit Call To/Read Back Yes Blood Gas Notified Whom [facility] Labs/Tests 09/09/20 04:05: Magnesium 1.9 09/09/20 14:50: Urine Color Yellow, Urine Clarity Clear, Urine pH 5.0, Ur Specific [place] 1.025, Urine Protein 100 H, Urine Glucose (UA) Normal, Urine Ketones 5 H, Urine Occult Blood 150 H, Urine Nitrite Negative, Urine Bilirubin Negative, Urine Urobilinogen 1 H, Ur Leukocyte Esterase Negative 09/09/20 21:00: WBC 22.7 H, RBC 4.64, Hgb 13.3, Hct 43.4, MCV 93.5 D, MCH 28.7, MCHC 30.6 L D, Plt Count 161, MPV 10.8, Immature Gran % (Auto) 3.000 H, Neut % (Auto) 64.6, Lymph % (Auto) 17.9 L, [place] % (Auto) 13.9 H, Eos % (Auto) 0.2, Baso % (Auto) 0.4, Absolute Neuts (auto) 14.7 H, Nucleated RBC % 0.1 09/09/20 21:00: Sodium 138, Potassium 4.7, Chloride 100, Carbon Dioxide 19.0 L, Anion Gap 19 H, BUN 29 H, Creatinine 2.04 H, Est GFR (MDRD) Af Amer 44 L, Est GFR (MDRD) Non-Af 36 L, BUN/Creatinine Ratio 14.2, Glucose 229 H, Calcium 9.1, Troponin I 0.189 H 09/09/20 21:33: pH 7.09 L*, Bicarbonate Actual 22.4, Base Excess -8 L, O2 Saturation 78 L, ABG pCO2 74.8 H*, ABG pO2 60 L, David Test Positive 09/09/20 22:45: pH 7.29 L, Bicarbonate Actual 25.3, Base Excess -1, O2 Saturation 93 L, ABG pCO2 52.5 H, ABG pO2 75, David Test Positive 09/09/20 23:30: Troponin I 2.080 H* 09/10/20 03:15: WBC 21.5 H, RBC 4.95, Hgb 14.4, Hct 42.9, MCV 86.7 D, MCH 29.1, MCHC 33.6 D, Plt Count 142 L, MPV 10.4, Immature Gran % (Auto) 1.300 H, Neut % (Auto) 82.5 H, Lymph % (Auto) 3.5 L, [place] % (Auto) 12.3 H, Eos % (Auto) 0.0, Baso % (Auto) 0.4, Absolute Neuts (auto) 17.7 H, Nucleated RBC % 0 09/10/20 03:15: Sodium 139, Potassium 4.0, Chloride 104, Carbon Dioxide 27.0, Anion Gap 8, BUN 40 H, Creatinine 1.87 H, Est GFR (MDRD) Af Amer 49 L, Est GFR (MDRD) Non-Af 40 L, BUN/Creatinine Ratio 21.4 H, Glucose 137 H, Calcium 8.1 L, Total Bilirubin 1.30 H 09/10/20 03:15: Troponin I 5.140 H* Rhythm: Underlying rhythm remains sinus bradycardia. EKG: Significant change in the EKG in the anterior lead Radiography Diagnostic Testing: Radiology Impression Chest X-Ray 09/09/20 13:36 IMPRESSION: Developing pneumonia and/or atelectasis of the right lung base. Electronically Signed: Too Cook MD (Brooks) at 14:13 EDT , Service support , Brain CT 09/09/20 21:21 IMPRESSION: No acute intracranial abnormality. Chronic changes as above. ASPECT 10. Individualized dose optimization techniques were used for this CT. at 0101 Reported and signed by: Michael Lucero MD Electronically Signed: Michael Lucero MD at 1:00 EDT Tel , Service support , Chest X-Ray 09/09/20 21:40 IMPRESSION: No change. at 2225 Reported and signed by: Michael Lucero MD Electronically Signed: Michael Lucero MD at 22:24 EDT Tel , Service support , Physical Exam Narrative The patient remains mechanically intubated and ventilated at this time. limited physical exam collections assistant showed underlying normal sinus rhythm Cardiac examination essentially normal. Chest inspection of chest normal Resp clear to auscultation bilaterally Cardio regular rate, regular rhythm, S1 normal heart sound and S2 normal heart sound Extremity no pedal edema Assessment & Plan Assessment/Plan (1) Cardiac arrest: Status: Acute Code(s): I46.9 - Cardiac arrest, cause unspecified (2) Hypokalemia: Status: Acute Code(s): E87.6 - Hypokalemia (3) Dilated cardiomyopathy: Status: Chronic Code(s): I42.0 - Dilated cardiomyopathy (4) Paroxysmal atrial fibrillation: Status: Chronic Code(s): I48.0 - Paroxysmal atrial fibrillation (5) Pulmonary hypertension: Status: Chronic Code(s): I27.20 - Pulmonary hypertension, unspecified (6) Obstructive sleep apnea: Status: Chronic Code(s): G47.33 - Obstructive sleep apnea (adult) (pediatric) (7) Pure hypercholesterolemia: Status: Chronic Code(s): E78.00 - Pure hypercholesterolemia, unspecified (8) Essential hypertension: Status: Chronic Code(s): I10 - Essential (primary) hypertension Plan: Patient seen and evaluated today at bedside along with the nursing staff. The patient was reported as experiencing a cardiac arrest. The etiology is unclear at this time. The patient has a history of a non-CAD related cardiomyopathy with improvement of his overall LV wall motion systolic function over time. At the present time the patient remains in the ICU mechanically intubated and ventilated. He is reported as having nonpurposeful movements. He remains in sinus rhythm at this time with his ECG findings as noted above. At the present time he will continue supportive care as deemed appropriate. Based upon his objective findings his amiodarone therapy will be placed on hold. Depending upon his neurologic status consideration will be given as to whether he requires additional cardiovascular diagnostic studies, etc. Again the patient was diagnosed in 2016 is having a non-CAD related cardiomyopathy. Over time his LV systolic function had improved. He was continuing medical management. The patient has a history of underlying PAF. He had been on medical therapy for such. At the present time his medications are on hold based upon changes with his hemodynamics and his electrocardiographic changes. At the moment he remains in sinus rhythm. The patient has a history of pulmonary hypertension as previously noted on his 2016 diagnostic cardiac catheterization. There was concern this led to cor pulmonale and right heart failure. The patient has been treated for such by both cardiology and pulmonology. The patient has a history of NIRMAL. There was concern that this was a contributing factor to his pulmonary hypertension. The patient will continue risk factor evaluation care as deemed appropriate. The patient was hypotensive. He required transient IV vasopressor support. That appears to be on hold at this time. His blood pressures will be followed. From cardiac standpoint we will continue conservative treatment From cardiac standpoint patient remained stable hemodynamically on a low-dose dopamine 5 mcg Repeat troponin showed elevation of 3.17, has significant change in the EKG in the anterior lead with T wave inversion. Increase the dose of Lovenox to therapeutic and continue on aspirin and statin. Following extubation and if he remains stable would recommend to discuss need for cardiac catheterization. At present time not a candidate for invasive cardiac evaluation. On further review of the history from the nursing staff it seems patient was given nitroglycerin and he was on Viagra which would explain the episode of hypotension. His primary supervisor pipeline maintenance Dr. Golden will resume care on Friday.
[2020-09-10 13:15] LABS: Magnesium 2.3 mg/dL (1.6-2.6)
[2020-09-10] MEDS: Atorvastatin Calcium 80 MG Tablet GT (20:49)
[2020-09-11] VITALS (49 sets, daily range): BP systolic 49–150; BP diastolic 24–80; PULSE 49–118; RESP 14–25; TEMP 36.2–37.8; O2SAT 85–99
[2020-09-11] MEDS: Ipratropium/Albuterol Sulfate 3 ML AMPUL.NEB INHALATION ×4 (01:36→18:42)
--- NOTE | 2020-09-11 03:45 | NURSING ---
033 RN and ARC AIR OPERATOR went to wash pt up and to change bed sheets, when pt was turned to have sheets changed he became very agitated, fighting the vent and staff. Once pt calmed down his rhythm changed- wide complex tachy. he did eventually come out of it after approx 8mins and then was in Afib. he did some out of afib on his own too. Hospitalist paged and at bedside 344, pt resting calmly now with NSR.
[2020-09-11 04:11] LABS: Allen Test Positive; Base Excess -5 mmol/L (-2 to +2); Bicarbonate 21.3 mmol/L (22-26); Blood Gas Specimen Type ART; FI02 50; Mode AC; O2 Delivery Device Adult Vent; PEEP 5; PO2 69 mmHG (75-100); RR 14; SITE R Radial; SO2 91 % (95-99); Total Carbon Dioxide 23 mmol/L; Vt 450; pCO2 44.2 mmHg (35-45); pH 7.29 (7.35-7.45)
[2020-09-11] MEDS: DOPamine IV 800 MG/250 ML IV.SOLN. 8.5 MG CONT INF (04:50)
[2020-09-11 04:52] LABS: Absolute Lymphocyte Count 0.36 X10^3/uL (0.83-4.51); Absolute Neutrophil Count 13.5 X10^3/uL (2.0-7.7); Basophil# 0.03 X10^3/uL; Basophil% 0.2 % (0-1); Eosinophil# 0.02 X10^3/uL; Eosinophils% 0.1 % (0-5); Hematocrit 37.1 % (40-54); Hemoglobin 12.1 g/dL (13.0-16.5); Lymphocyte # 0.36 X10^3/ul (0.83-4.51); Lymphocyte % 2.3 % (19-41); Mean Corp Hgb Conc 32.6 g/dL (32-36); Mean Corpuscular Hgb 28.5 pg (27.0-32.0); Mean Corpuscular Volume 87.3 fL (80-94); Mean Platelet Vol. 10.7 fl (6.2-12.0); Monocyte# 1.45 X10^3/uL; Monocyte% 9.4 % (0-10); NRBC Flagged by Analyzer 0 % (0-5); Neutrophil # 13.46 X10^3/uL (2.7-7.7); Neutrophil % 87.4 % (47-70); POSITIVE DIFFERENTIAL YES; Platelet Count 137 K/mm3 (150-450); RBC Distribution Width CV 14.8 % (11.6-14.6); RBC Distribution Width SD 47.5 fl (35.1-43.9); Red Blood Count 4.25 M/mm3 (4.6-6.2); White Blood Count 15.4 K/mm3 (4.4-11.0)
[2020-09-11 04:54] LABS: Differential Indicated SCAN CRITERIA MET
[2020-09-11 05:07] LABS: ALB/GLOB Ratio 0.6 RATIO (0.9-2.4); AST(SGOT) 27 U/L (15-37); Alanine Aminotransfer ALT/SGPT 16 U/L (16-61); Albumin, Serum 2.4 g/dL (3.2-5.0); Alkaline Phosphatase 64 U/L (45-117); Anion Gap 8 (5-15); BUN 53 mg/dL (7-18); BUN/Creat Ratio 24.7 RATIO (10-20); Chloride 110 mmol/L (98-107); Creatinine, Serum 2.15 mg/dL (0.70-1.30); EST Glomerular Filtration Rate 34 mL/min (>60); Est Glom Filt Rate - Afr Amer 42 mL/min (>60); Estimated Creatinine Clearance 41.03 ml/min; Globulin 3.9 g/dL (2.2-4.2); Glucose 179 mg/dL (74-106); Potassium 3.8 mmol/L (3.5-5.1); Protein, Total 6.3 g/dL (6.4-8.2); Sodium Level 145 mmol/L (136-145)
--- NOTE | 2020-09-11 06:27 | PCM.PN.INT ---
Subjective Subjective: The patient was seen and examined at the bedside this morning. Events from the last 24 hours have been reviewed. The patient is currently afebrile, hemodynamically stable and maintaining appropriate oxygen saturations on assist control mode of mechanical ventilation with an FiO2 requirement of 35%. Overnight, per nursing report, the patient had some rhythm changes including atrial fibrillation. He is currently being maintained on dopamine at 5 mcg/min. The patient remains sedated on Precedex and fentanyl. He did also reportedly have an episode of emesis overnight. The patient's white blood cell count remains elevated at 15,000. Creatinine is elevated 2.15. The patient remains on Zosyn. Objective Data Objective Data The patient's most recent lab work, culture data and imaging studies have all been personally reviewed. Surface echocardiogram dated September 07 revealed an ejection fraction of 45 to 50%. Coronavirus rapid antigen testing was negative on September 07. Sputum culture dated September 07 was positive for Enterobacter and Streptococcus pneumonia. Blood cultures are pending. EEG from September 10 revealed generalized background slowing with generalized voltage suppression. Vital Signs: Vital Signs Temp Pulse Resp BP Pulse Ox 100 F H 63 16 106/64 94 09/11/20 05:00 09/11/20 05:00 09/11/20 05:00 09/11/20 05:00 09/11/20 05:00 Oxygen Flow Rate (L/min) 40 Oxygen Delivery Method Mechanical Ventilator Weight: 198 lb 10.184 oz Body Mass Index (BMI) 13.0 Intake & Output: Intake and Output for Last 24 Hours 09/09/20 09/10/20 09/11/20 23:59 23:59 23:59 Intake Total 4450.38 / 4453.56 2227.06 / 2266.16 778.15 / 778.15 Output Total 1390 / 1390 3840 / 3840 Balance 3060.38 / 3063.56 -1612.94 / -1573.84 778.15 / 778.15 Lab / Micro Data Result Diagrams: 09/11/20 04:48 09/11/20 04:48 Labs: Laboratory Results - last 24 hr 09/10/20 09/10/20 09/11/20 12:00 12:10 04:48 WBC 15.4 H RBC 4.25 L Hgb 12.1 L Hct 37.1 L MCV 87.3 MCH 28.5 MCHC 32.6 RDW Std Deviation 47.5 H RDW Coeff of Trevor 14.8 H Plt Count 137 L MPV 10.7 Immature Gran % (Auto) 0.600 Neut % (Auto) 87.4 H Lymph % (Auto) 2.3 L [place] % (Auto) 9.4 Eos % (Auto) 0.1 Baso % (Auto) 0.2 Absolute Neuts (auto) 13.5 H Absolute Lymphs (auto) 0.36 L Nucleated RBC % 0 Sodium Potassium Chloride Carbon Dioxide Anion Gap BUN Creatinine Estim Creat Clear Calc Est GFR (MDRD) Af Amer Est GFR (MDRD) Non-Af BUN/Creatinine Ratio Glucose Calcium Magnesium 2.3 Total Bilirubin AST ALT Alkaline Phosphatase Troponin I 3.170 H* Total Protein Albumin Globulin Albumin/Globulin Ratio 09/11/20 04:48 WBC RBC Hgb Hct MCV MCH MCHC RDW Std Deviation RDW Coeff of Trevor Plt Count MPV Immature Gran % (Auto) Neut % (Auto) Lymph % (Auto) [place] % (Auto) Eos % (Auto) Baso % (Auto) Absolute Neuts (auto) Absolute Lymphs (auto) Nucleated RBC % Sodium 145 Potassium 3.8 Chloride 110 H Carbon Dioxide 27.0 Anion Gap 8 BUN 53 H Creatinine 2.15 H Estim Creat Clear Calc 41.03 Est GFR (MDRD) Af Amer 42 L Est GFR (MDRD) Non-Af 34 L BUN/Creatinine Ratio 24.7 H Glucose 179 H Calcium 8.0 L Magnesium Total Bilirubin 1.30 H AST 27 ALT 16 Alkaline Phosphatase 64 Troponin I Total Protein 6.3 L Albumin 2.4 L Globulin 3.9 Albumin/Globulin Ratio 0.6 L Micro: Microbiology 09/07/20 14:04 Sputum, Induced/Lukens Gram Stain - Final 09/07/20 14:04 Sputum, Induced/Lukens Respiratory Culture - Final Enterobacter cloacae complex Streptococcus pneumoniae 09/09/20 14:55 Interface Orders SARS-CoV-2 Antigen (Rapid) - Final 09/07/20 11:10 Mucosa - Nose SARS-CoV-2 Antigen (Rapid) - Final ABG Data ABG results: ABG 09/11/20 04:04 Specimen Type ART Sample Site R Radial pH 7.29 L Bicarbonate Actual 21.3 L Total CO2 23 Base Excess -5 L O2 Saturation 91 L O2 % 50 ABG pCO2 44.2 ABG pO2 69 L David Test Positive Respiration Rate 14 O2 Delivery Device Adult Vent Vent Mode AC Tidal Volume 450 POC PEEP 5 Physical Exam Const Constitutional Narrative: Intubated, sedated and mechanically ventilated. No ventilator to synchrony noted. HEENT normocephalic Mouth: endotracheal tube in place and OG tube in place Teeth and Gingiva: poor dentition Eyes PERRL Neck supple General: trachea midline and CVC in place Resp Resp Narrative: Coarse mechanical breath sounds bilaterally Cardio regular rate and regular rhythm GI soft to palpation and non-tender Auscultation: normoactive bowel sounds Extremity no clubbing, cyanosis or edema Skin General Skin Exam: venous stasis Neuro moves all extremities and no focal motor deficits Neuro Narrative: Not currently following any commands. Sedated on the ventilator. Psych Mood & Affect: flat affect Assessment & Plan Assessment/Plan (1) Cardiac arrest: Status: Acute Code(s): I46.9 - Cardiac arrest, cause unspecified Plan: RECOMMENDATIONS: 1. Continue patient on assist control mode of mechanical ventilation and wean FiO2 to maintain saturations at or above 90%. 2. Minimize sedation as tolerated. Goal to maintain a RASS of -1 to 1. 3. Await additional input from cardiology. 4. Continue empiric Keppra. If no improvement in neurological status, obtain follow-up neurology consultation. 5. Continue bronchodilators and inhaled corticosteroid. 6. Continue antimicrobials. 7. Continue vasopressor support in an attempt to maintain a mean arterial pressure at or above 65 mmHg. Consider transitioning from dopamine to Levophed. 8. Hold tube feeds for now. 9. Continue appropriate GI prophylaxis. IMPRESSIONS: 1. Cardiac arrest of unknown etiology History of both advanced cardiac and pulmonary pathologies. No reported history of recent exacerbation type symptoms from a COPD standpoint. 2. Distributive versus cardiogenic shock The patient has remained hypotensive requiring vasopressor support. At this time, we will plan to transition the patient from dopamine to Levophed with a goal to maintain a mean arterial pressure at or above 65 mmHg. He did have both Enterobacter and Streptococcus identified on sputum culture. Therefore antimicrobials will be continued as appropriate. 3. Acute on chronic combined respiratory failure with pneumococcal and Enterobacter pneumonia Plan to continue current supportive measures with invasive mechanical ventilatory support. Continue patient on assist control mode of mechanical ventilation and wean FiO2 as tolerated to maintain saturations at or above 90%. Continue antimicrobials as ordered. Continue scheduled bronchodilators and inhaled corticosteroid. Continue to hold tube feeds for now given issues with emesis noted overnight. 4. Chronic diastolic CHF/paroxysmal A. fib/pulmonary hypertension Continue medical management per cardiology recommendations. 5. Possible seizures The patient has had questionable seizure activity during his hospitalization, for which she was started empirically on Keppra. EEG did not demonstrate any focal seizure activity. If no improvement in mentation, recommend MRI brain and neurology follow-up. 6. Hemochromatosis/obesity/smoking addiction/depression/poor history/hyperlipidemia Complicates care, management, recovery and prognosis. Okay to continue with baseline medications from my perspective. TIME: 38 minutes of critical care time, independent of procedures, was spent addressing the patient's cardiac arrest, acute on chronic combined respiratory failure, pneumococcal and Enterobacter pneumonia, history of coronary artery disease, questionable seizures, review of all data and collaboration with care team. ([id number]) Procedures Pulmonary 9xxxx: [id number] Critical care first hour
[2020-09-11] MEDS: Budesonide Respules 0.5 MG/2 ML AMPUL.NEB. INHALATION ×2 (07:08→18:42)
[2020-09-11 07:40] LABS: Allen Test Positive; Base Excess 1 mmol/L (-2 to +2); Bicarbonate 26.3 mmol/L (22-26); Blood Gas Specimen Type ART; FI02 40; Mode AC; O2 Delivery Device Adult Vent; PEEP 5; PO2 80 mmHG (75-100); RR 14; SITE L Radial; SO2 95 % (95-99); Total Carbon Dioxide 28 mmol/L; Vt 450; pCO2 45.8 mmHg (35-45); pH 7.37 (7.35-7.45)
--- NOTE | 2020-09-11 09:19 | PN.CARD_ITS ---
Subjective Subjective: The patient is mechanically intubated and ventilated and sedated. According to the [facility] ICU staff he has not had any purposeful response to verbal stimuli/commands. Objective Data Vital Signs: Vital Signs Temp Pulse Resp BP Pulse Ox 100 F H 54 L 14 133/77 H 96 09/11/20 05:00 09/11/20 07:34 09/11/20 07:08 09/11/20 07:00 09/11/20 07:08 Oxygen Flow Rate (L/min) 40 Oxygen Delivery Method Mechanical Ventilator Weight: 198 lb 10.184 oz Body Mass Index (BMI) 13.0 Intake & Output: Intake and Output for Last 24 Hours 09/09/20 09/10/20 09/11/20 23:59 23:59 23:59 Intake Total 4450.38 / 4453.56 2227.06 / 2266.16 922.52 / 922.52 Output Total 1390 / 1390 3840 / 3840 600 / 600 Balance 3060.38 / 3063.56 -1612.94 / -1573.84 322.52 / 322.52 Lab / Micro Data Result Diagrams: 09/11/20 04:48 09/11/20 04:48 Labs: Laboratory Results - last 24 hr 09/10/20 09/10/20 09/11/20 12:00 12:10 04:48 WBC 15.4 H RBC 4.25 L Hgb 12.1 L Hct 37.1 L MCV 87.3 MCH 28.5 MCHC 32.6 RDW Std Deviation 47.5 H RDW Coeff of Trevor 14.8 H Plt Count 137 L MPV 10.7 Immature Gran % (Auto) 0.600 Neut % (Auto) 87.4 H Lymph % (Auto) 2.[address] [place] % (Auto) 9.4 Eos % (Auto) 0.1 Baso % (Auto) 0.2 Absolute Neuts (auto) 13.5 H Absolute Lymphs (auto) 0.36 L Nucleated RBC % 0 Sodium Potassium Chloride Carbon Dioxide Anion Gap BUN Creatinine Estim Creat Clear Calc Est GFR (MDRD) Af Amer Est GFR (MDRD) Non-Af BUN/Creatinine Ratio Glucose Calcium Magnesium 2.3 Total Bilirubin AST ALT Alkaline Phosphatase Troponin I 3.170 H* Total Protein Albumin Globulin Albumin/Globulin Ratio 09/11/20 04:48 WBC RBC Hgb Hct MCV MCH MCHC RDW Std Deviation RDW Coeff of Trevor Plt Count MPV Immature Gran % (Auto) Neut % (Auto) Lymph % (Auto) [place] % (Auto) Eos % (Auto) Baso % (Auto) Absolute Neuts (auto) Absolute Lymphs (auto) Nucleated RBC % Sodium 145 Potassium 3.8 Chloride 110 H Carbon Dioxide 27.0 Anion Gap 8 BUN 53 H Creatinine 2.15 H Estim Creat Clear Calc 41.03 Est GFR (MDRD) Af Amer 42 L Est GFR (MDRD) Non-Af 34 L BUN/Creatinine Ratio 24.7 H Glucose 179 H Calcium 8.0 L Magnesium Total Bilirubin 1.30 H AST 27 ALT 16 Alkaline Phosphatase 64 Troponin I Total Protein 6.3 L Albumin 2.4 L Globulin 3.9 Albumin/Globulin Ratio 0.6 L Micro: Microbiology 09/07/20 14:04 Sputum, Induced/Lukens Gram Stain - Final 09/07/20 14:04 Sputum, Induced/Lukens Respiratory Culture - Final Enterobacter cloacae complex Streptococcus pneumoniae 09/09/20 14:55 Interface Orders SARS-CoV-2 Antigen (Rapid) - Final 09/07/20 11:10 Mucosa - Nose SARS-CoV-2 Antigen (Rapid) - Final ABG Data ABG results: ABG 09/11/20 09/11/20 04:04 07:34 Specimen Type ART ART Sample Site R Radial L Radial pH 7.29 L 7.37 Bicarbonate Actual 21.3 L 26.3 H Total CO2 23 28 Base Excess -5 L 1 O2 Saturation 91 L 95 O2 % 50 40 ABG pCO2 44.2 45.8 H ABG pO2 69 L 80 David Test Positive Positive Respiration Rate 14 14 O2 Delivery Device Adult Vent Adult Vent Vent Mode AC AC Tidal Volume 450 450 POC PEEP 5 5 Cardiology Labs/Tests 09/10/20 12:00: Magnesium 2.3 09/10/20 12:10: Troponin I 3.170 H* 09/11/20 04:04: pH 7.29 L, Bicarbonate Actual 21.3 L, Base Excess -5 L, O2 Saturation 91 L, ABG pCO2 44.2, ABG pO2 69 L, David Test Positive 09/11/20 04:48: WBC 15.4 H, RBC 4.25 L, Hgb 12.1 L, Hct 37.1 L, MCV 87.3, MCH 28.5, MCHC 32.6, Plt Count 137 L, MPV 10.7, Immature Gran % (Auto) 0.600, Neut % (Auto) 87.4 H, Lymph % (Auto) 2.[address] L, [place] % (Auto) 9.4, Eos % (Auto) 0.1, Baso % (Auto) 0.2, Absolute Neuts (auto) 13.5 H, Nucleated RBC % 0 09/11/20 04:48: Sodium 145, Potassium 3.8, Chloride 110 H, Carbon Dioxide 27.0, Anion Gap 8, BUN 53 H, Creatinine 2.15 H, Est GFR (MDRD) Af Amer 42 L, Est GFR (MDRD) Non-Af 34 L, BUN/Creatinine Ratio 24.7 H, Glucose 179 H, Calcium 8.0 L, Total Bilirubin 1.30 H 09/11/20 07:34: pH 7.37, Bicarbonate Actual 26.3 H, Base Excess 1, O2 Saturation 95, ABG pCO2 45.8 H, ABG pO2 80, David Test Positive Rhythm: Sinus rhythm; paroxysmal atrial fibrillation; nonsustained wide-complex tqgzmwwfazu-mauykwxbu-rosgeowsarlc diagnosis including aberrancy versus nonsustained VT Physical Exam HEENT normocephalic Chest inspection of chest normal Resp Resp Narrative: Scattered upper airway sounds Auscultation: rhonchi Cardio regular rate, regular rhythm, S1 normal heart sound and S2 normal heart sound GI normal to inspection, nondistended, normoactive bowel sounds Extremity no pedal edema Assessment & Plan Assessment/Plan (1) Cardiac arrest: Status: Acute Code(s): I46.9 - Cardiac arrest, cause unspecified Plan: The patient was reported as experiencing a cardiac arrest. The etiology is unclear at this time. The patient has a history of a non-CAD related cardiomyopathy with improvement of his overall LV wall motion systolic function over time. At the present time the patient remains in the ICU mechanically intubated and ventilated. He had been weaned from his IV vasopressor support, however, he is now back on IV vasopressor with IV dopamine. He remains in sinus rhythm, however, he did appear to have an episode of paroxysmal atrial fibrillation as well as a paroxysmal nonsustained wide-complex tachycardia compatible with aberrancy versus nonsustained VT. It appears that the [facility] hospitalist initially was going to place him on IV amiodarone, however, as he regained sinus rhythm this was placed on hold. At the present time he will continue supportive care as deemed appropriate. Depending upon his neurologic status consideration will be given as to whether he requires additional cardiovascular diagnostic studies, etc. (2) Dilated cardiomyopathy: Status: Chronic Code(s): I42.0 - Dilated cardiomyopathy Plan: Again the patient was diagnosed in 2016 is having a non-CAD related cardiomyopathy. Over time his LV systolic function had improved. He was continuing medical management. (3) Paroxysmal atrial fibrillation: Status: Chronic Code(s): I48.0 - Paroxysmal atrial fibrillation Plan: The patient has a history of underlying PAF. He had been on medical therapy for such. At the present time his medications are on hold based upon changes with his hemodynamics and his electrocardiographic changes (previous QT prolongation). At the moment he remains in sinus rhythm. (4) Pulmonary hypertension: Status: Chronic Code(s): I27.20 - Pulmonary hypertension, unspecified Plan: The patient has a history of pulmonary hypertension as previously noted on his 2016 diagnostic cardiac catheterization. There was concern this led to cor pulmonale and right heart failure. The patient has been treated for such by both cardiology and pulmonology. (5) Obstructive sleep apnea: Status: Chronic Code(s): G47.33 - Obstructive sleep apnea (adult) (pediatric) Plan: The patient has a history of NIRMAL. There was concern that this was a contributing factor to his pulmonary hypertension. (6) Pure hypercholesterolemia: Status: Chronic Code(s): E78.00 - Pure hypercholesterolemia, unspecified Plan: The patient will continue risk factor evaluation care as deemed appropriate. (7) Essential hypertension: Status: Chronic Code(s): I10 - Essential (primary) hypertension Plan: The patient was hypotensive. He did require IV vasopressor support. It had been discontinued. However he is now back on IV vasopressor support. Addt'l Comments At the present time he remains in the ICU with mechanical intubation/ventilation and sedation. He has been reported as having no purposeful response to verbal stimuli or command. He has continued to require intermittent IV vasopressor support. He did have an episode of PAF as well as a paroxysmal nonsustained wide-complex tachycardia with a differential diagnosis being compatible with aberrancy versus nonsustained VT. As noted before he will continue supportive measures. Depending upon his future neurologic status consideration will be given as to whether he can proceed with additional cardiovascular diagnostic studies as deemed appropriate at the time versus continued conservative management. This note was generated using a voice recognition system and there may be incorrect words, spelling or punctuation that were not noted when reviewing the office note prior to saving.
--- NOTE | 2020-09-11 09:28 | CASEMGMT ---
This RN CM participated in ICU multidisciplinary rounds. Pt is still on vent at 40%, day 5. TF's have been on hold since friday d/t emesis. Pt is currently on dopamine and precedex gtt's. Per Dr. Abdalla, pt to be switched to levo and propofol and he would like awakening trial tomorrow am. Pt did have abn EEG over the weekend. CM to follow. SStaten RN CM
[2020-09-11] MEDS: Chlorhexidine 15 ML PO ×2 (09:55→22:00)
[2020-09-11] MEDS: Enoxaparin 100 MG/ML Syringe 90 MG SC ×2 (09:55→22:01)
[2020-09-11] MEDS: Aspirin 325 MG Tablet GT (09:56)
[2020-09-11] MEDS: Propofol 10MG/Ml 1,000 MG/100 ML Bottle 5.4 MG CONT INF (09:56)
--- NOTE | 2020-09-11 09:59 | PN.HOSP_ITS ---
Subjective Subjective: Patient seen and examined. He remains intubated and sedated. Per his nurse, patient gets very agitated during the night. Per pulmonology critical care, he has been weaned off dopamine and switched to Levophed and Precedex is also being discontinued and patient is to be started on low-dose propofol. Plan is for patient to have sedation holiday tomorrow. His pulse rate was 58 this morning but vitals were otherwise stable. Cardiology also on board. Objective Data Objective Data Vital Signs: Vital Signs Temp Pulse Resp BP Pulse Ox 97.5 F L 58 L 14 131/76 H 94 09/11/20 08:00 09/11/20 09:00 09/11/20 09:00 09/11/20 09:00 09/11/20 09:00 Oxygen Flow Rate (L/min) 40 Oxygen Delivery Method Mechanical Ventilator Weight: 198 lb 10.184 oz Body Mass Index (BMI) 13.0 Intake & Output: Intake and Output for Last 24 Hours 09/09/20 09/10/20 09/11/20 23:59 23:59 23:59 Intake Total 4450.38 / 4453.56 2227.06 / 2266.16 972.52 / 972.52 Output Total 1390 / 1390 3840 / 3840 600 / 600 Balance 3060.38 / 3063.56 -1612.94 / -1573.84 372.52 / 372.52 Lab / Micro Data Result Diagrams: 09/11/20 04:48 09/11/20 04:48 Labs: Laboratory Results - last 24 hr 09/10/20 09/10/20 09/11/20 12:00 12:10 04:48 WBC 15.4 H RBC 4.25 L Hgb 12.1 L Hct 37.1 L MCV 87.3 MCH 28.5 MCHC 32.6 RDW Std Deviation 47.5 H RDW Coeff of Trevor 14.8 H Plt Count 137 L MPV 10.7 Immature Gran % (Auto) 0.600 Neut % (Auto) 87.4 H Lymph % (Auto) 2.3 L [place] % (Auto) 9.4 Eos % (Auto) 0.1 Baso % (Auto) 0.2 Absolute Neuts (auto) 13.5 H Absolute Lymphs (auto) 0.36 L Nucleated RBC % 0 Sodium Potassium Chloride Carbon Dioxide Anion Gap BUN Creatinine Estim Creat Clear Calc Est GFR (MDRD) Af Amer Est GFR (MDRD) Non-Af BUN/Creatinine Ratio Glucose Calcium Magnesium 2.3 Total Bilirubin AST ALT Alkaline Phosphatase Troponin I 3.170 H* Total Protein Albumin Globulin Albumin/Globulin Ratio 09/11/20 04:48 WBC RBC Hgb Hct MCV MCH MCHC RDW Std Deviation RDW Coeff of Trevor Plt Count MPV Immature Gran % (Auto) Neut % (Auto) Lymph % (Auto) [place] % (Auto) Eos % (Auto) Baso % (Auto) Absolute Neuts (auto) Absolute Lymphs (auto) Nucleated RBC % Sodium 145 Potassium 3.8 Chloride 110 H Carbon Dioxide 27.0 Anion Gap 8 BUN 53 H Creatinine 2.15 H Estim Creat Clear Calc 41.03 Est GFR (MDRD) Af Amer 42 L Est GFR (MDRD) Non-Af 34 L BUN/Creatinine Ratio 24.7 H Glucose 179 H Calcium 8.0 L Magnesium Total Bilirubin 1.30 H AST 27 ALT 16 Alkaline Phosphatase 64 Troponin I Total Protein 6.3 L Albumin 2.4 L Globulin 3.9 Albumin/Globulin Ratio 0.6 L Micro: Microbiology 09/07/20 14:04 Sputum, Induced/Lukens Gram Stain - Final 09/07/20 14:04 Sputum, Induced/Lukens Respiratory Culture - Final Enterobacter cloacae complex Streptococcus pneumoniae 09/09/20 14:55 Interface Orders SARS-CoV-2 Antigen (Rapid) - Final 09/07/20 11:10 Mucosa - Nose SARS-CoV-2 Antigen (Rapid) - Final ABG Data ABG results: ABG 09/11/20 09/11/20 04:04 07:34 Specimen Type ART ART Sample Site R Radial L Radial pH 7.29 L 7.37 Bicarbonate Actual 21.3 L 26.3 H Total CO2 23 28 Base Excess -5 L 1 O2 Saturation 91 L 95 O2 % 50 40 ABG pCO2 44.2 45.8 H ABG pO2 69 L 80 David Test Positive Positive Respiration Rate 14 14 O2 Delivery Device Adult Vent Adult Vent Vent Mode AC AC Tidal Volume 450 450 POC PEEP 5 5 Physical Exam Const Constitutional Narrative: Intubated, sedated, RASS score is -1. HEENT head/scalp atraumatic Head and Scalp: normocephalic Mouth: dry mucous membranes Eyes PERRL Resp Resp Narrative: Intubated and sedated. Cardio Cardio Narrative: Bradycardic. Normal S1 and S2 with no murmurs. GI normal to inspection, nondistended, normoactive bowel sounds, soft to palpation and non-tender Extremity normal to inspection and no clubbing, cyanosis or edema Skin Skin Narrative: Mild hyperpigmentation on lower extremities. No swelling or e raffi. Neuro Neuro Narrative: Intubated, sedated, RASS score is -1. Assessment & Plan Assessment/Plan (1) Severe sepsis: Status: Acute Code(s): A41.9 - Sepsis, unspecified organism; R65.20 - Severe sepsis without septic shock (2) Acute and chronic respiratory failure ([id number]): Status: Chronic Code(s): J96.20 - Acute and chronic respiratory failure, unspecified whether with hypoxia or hypercapnia Qualifiers: Respiratory failure complication: hypoxia and hypercapnia Qualified Code(s): J96.21 - Acute and chronic respiratory failure with hypoxia; J96.22 - Acute and chronic respiratory failure with hypercapnia (3) STEMI (ST elevation myocardial infarction): Status: Ruled-out Code(s): I21.3 - ST elevation (STEMI) myocardial infarction of unspecified site Qualifiers: Involved coronary artery: unspecified coronary artery Qualified Code(s): I21.3 - ST elevation (STEMI) myocardial infarction of unspecified site (4) Aspiration pneumonia: Status: Ruled-out Code(s): J69.0 - Pneumonitis due to inhalation of food and vomit Qualifiers: Aspiration pneumonia type: due to regurgitated food (5) Symptomatic bradycardia: Status: Acute Code(s): R00.1 - Bradycardia, unspecified Plan: #Acute hypoxic respiratory failure due to probable aspiration pneumonia -Patient was initially admitted after he experienced chest pain and had apparently taken Viagra for sexual activity. He was given nitroglycerin by his partner when he began the chest pain and became unresponsive and was found to be in PEA. -Was noted to have vomited and likely aspirated while she had the OG tube in. Now on tube feeds. -Sputum culture Enterobacter and strep pneumonia -On IV Zosyn -Critical-care on board. #Septic shock due to aspiration pneumonia -Currently on dopamine. -per Director Stars, will switch to Levophed today. -On IV zosyn. Blood cultures negative. Sputum cultures as above. -To be switched to propofol and Precedex stopped. #S/p cardiac arrest -was in PEA. Remains intubated and sedated -cardiology on board #History of paroxysmal afib -He had an episode of paroxysmal A. fib and nonsustained V. tach. Plan was to start amiodarone because of the 2 sinus rhythm so amiodarone has been on hold. -Cardiology on board. #non STEMI -cardiology on board -on rectal aspirin, therapeutic lovenox and high intensity statin -on amiodarone per cardiology -further workup to be determined by his neurological state and recovery #Acute metabolic encephalopathy -likely due to PEA and general medical condition -on IV keppra -EEG showed general background slowing with generalised voltage suppression #Nutrition: on TPN since he aspirated via NG tube LILLIANA: -being gently hydrated with IVF NS @ 75cc/hr. -Cr today has trended up to 2.15. Nephrology on board. DVT prophylaxis: therapeutic lovenox GI prophylaxis: on PPI Visit Charges Inpatient E&M: [id number] [facility] L3
[2020-09-11] MEDS: Norepinephrine 8 mg/250 mL 0.9% NS 9.4 MG CONT INF (10:19)
[2020-09-11] MEDS: levETIRAcetam IV 1,000 MG/100 ML BAG 400 MG IV ×2 (10:44→22:18)
[2020-09-11 13:42] LABS: Pathologist Review Reviewed
[2020-09-11 13:45] LABS: Pathologist Review Reviewed
[2020-09-11 13:45] LABS: Pathologist Review Reviewed
--- NOTE | 2020-09-11 15:52 | CHAPLAIN ---
Type of Pastoral Visit ___ Initial Visit ___ Follow-up Visit ___ On-call Visit ___ General Patient Visit ___ Spiritual Assessment ___ Family Conference ___ Bereavement ___ Rapid Response ___ Code Blue ___ Other (describe below) Pastoral Care Referral From ___ Patient ___ Family ___ Nurse ___ Physician ___ Radio Time Salesperson ___ Javascript Front End Developer ___ Other (describe below) Sacrament/Intervention ___ Active listening ___ Anointing ___ Taoist ___ Bereavement ___ Communion ___ Selam exploration ___ ___ Life review ___ Prayer ___ Reconciliation ___ Sacrament of Sick ___ Supportive presence ___ Wedding ___ Other (describe below) Pastoral Comments patient is sedated and no interventions are performed
[2020-09-11] MEDS: Propofol 10MG/Ml 1,000 MG/100 ML Bottle 8.2 MG CONT INF (17:43)
--- NOTE | 2020-09-11 19:43 | NURSING ---
1900- propofol running at 20mcg, nurse stated it was running at 20mcg but was never charted.
[2020-09-11] MEDS: 0.9% Saline Lock 10 ML Syringe IV (21:54)
[2020-09-11] MEDS: Atorvastatin Calcium 80 MG Tablet GT (22:01)
[2020-09-11] MEDS: Propofol 10MG/Ml 1,000 MG/100 ML Bottle 10.9 MG CONT INF (22:50)
[2020-09-12] VITALS (35 sets, daily range): BP systolic 95–146; BP diastolic 55–80; PULSE 57–80; RESP 14–22; TEMP 18.8–37.7; O2SAT 90–100; BMI 28.5
[2020-09-12] MEDS: Ipratropium/Albuterol Sulfate 3 ML AMPUL.NEB INHALATION ×4 (01:09→19:30)
[2020-09-12] MEDS: 0.9% Saline Lock 10 ML Syringe IV (04:26)
[2020-09-12 04:33] LABS: Absolute Lymphocyte Count 0.78 X10^3/uL (0.83-4.51); Basophil# 0.03 X10^3/uL; Basophil% 0.2 % (0-1); Eosinophil# 0.04 X10^3/uL; Eosinophils% 0.3 % (0-5); Hematocrit 33.6 % (40-54); Hemoglobin 10.6 g/dL (13.0-16.5); Lymphocyte # 0.78 X10^3/ul (0.83-4.51); Lymphocyte % 5.6 % (19-41); Mean Corp Hgb Conc 31.5 g/dL (32-36); Mean Corpuscular Hgb 27.5 pg (27.0-32.0); Mean Platelet Vol. 10.2 fl (6.2-12.0); Monocyte# 2.08 X10^3/uL; Monocyte% 14.9 % (0-10); NRBC Flagged by Analyzer 0 % (0-5); Neutrophil # 10.95 X10^3/uL (2.7-7.7); Neutrophil % 78.4 % (47-70); POSITIVE DIFFERENTIAL YES; Platelet Count 142 K/mm3 (150-450); RBC Distribution Width CV 15.4 % (11.6-14.6); Red Blood Count 3.86 M/mm3 (4.6-6.2)
[2020-09-12] MEDS: Propofol 10MG/Ml 1,000 MG/100 ML Bottle 16.3 MG CONT INF ×4 (04:49→20:08)
[2020-09-12 04:52] LABS: ALB/GLOB Ratio 0.6 RATIO (0.9-2.4); AST(SGOT) 19 U/L (15-37); Alanine Aminotransfer ALT/SGPT 11 U/L (16-61); Albumin, Serum 2.3 g/dL (3.2-5.0); Alkaline Phosphatase 64 U/L (45-117); Anion Gap 5 (5-15); BUN 55 mg/dL (7-18); BUN/Creat Ratio 24.7 RATIO (10-20); Calcium,Total 7.9 mg/dL (8.5-10.1); Chloride 112 mmol/L (98-107); Creatinine, Serum 2.23 mg/dL (0.70-1.30); EST Glomerular Filtration Rate 33 mL/min (>60); Est Glom Filt Rate - Afr Amer 40 mL/min (>60); Estimated Creatinine Clearance 39.56 ml/min; Globulin 3.7 g/dL (2.2-4.2); Glucose 111 mg/dL (74-106); Potassium 3.4 mmol/L (3.5-5.1); Sodium Level 146 mmol/L (136-145)
[2020-09-12 04:57] LABS: Differential Indicated SCAN CRITERIA MET
--- NOTE | 2020-09-12 06:26 | PN.CC_ITS ---
Subjective Subjective: The patient was seen and examined at the bedside this morning. Events from the last 24 hours have been reviewed. The patient is currently afebrile, hemodynamically stable and maintaining appropriate oxygen saturations on assist control mode of mechanical ventilation with an FiO2 requirement of 30%. The patient failed his spontaneous awakening and breathing trial this morning due to the development of agitation and oxygen desaturations. He continues to have a significant amount of endotracheal secretions. White count remains elevated at 14,000. Potassium is low this morning at 3.4. Creatinine has increased to 2.23. The patient is currently documented to be overall net +1.4 L for the hospital admission. Objective Data Objective Data The patient's most recent lab work, culture data and imaging studies have all been personally reviewed. Surface echocardiogram dated September 07 revealed an ejection fraction of 45 to 50%. Coronavirus rapid antigen testing was negative on September 07. Sputum culture dated September 07 was positive for Enterobacter and Streptococcus pneumonia. Blood cultures are pending. EEG from September 10 revealed ge neralized background slowing with generalized voltage suppression. Vital Signs: Vital Signs Temp Pulse Resp BP Pulse Ox 98.0 F 66 14 99/58 L 91 09/12/20 03:00 09/12/20 06:00 09/12/20 06:00 09/12/20 06:00 09/12/20 06:00 Oxygen Flow Rate (L/min) 40 Oxygen Delivery Method Mechanical Ventilator Weight: 199 lb 1.239 oz Body Mass Index (BMI) 13.0 Intake & Output: Intake and Output for Last 24 Hours 09/10/20 09/11/20 09/12/20 23:59 23:59 23:59 Intake Total 2227.06 / 2266.16 1850.93 / 1971.83 330.92 / 330.92 Output Total 3840 / 3840 1750 / 1925 350 / 350 Balance -1612.94 / -1573.84 100.93 / 46.83 -19.08 / -19.08 Lab / Micro Data Result Diagrams: 09/12/20 04:20 09/12/20 04:20 Labs: Laboratory Results - last 24 hr 09/09/20 09/09/20 09/10/20 04:05 21:00 03:15 WBC RBC Hgb Hct MCV MCH MCHC RDW Std Deviation RDW Coeff of Trevor Plt Count MPV Immature Gran % (Auto) Neut % (Auto) Lymph % (Auto) [place] % (Auto) Eos % (Auto) Baso % (Auto) Absolute Neuts (auto) Absolute Lymphs (auto) Nucleated RBC % Diff Path Review Reviewed Reviewed Reviewed Sodium Potassium Chloride Carbon Dioxide Anion Gap BUN Creatinine Estim Creat Clear Calc Est GFR (MDRD) Af Amer Est GFR (MDRD) Non-Af BUN/Creatinine Ratio Glucose Calcium Total Bilirubin AST ALT Alkaline Phosphatase Total Protein Albumin Globulin Albumin/Globulin Ratio 09/12/20 09/12/20 04:20 04:20 WBC 14.0 H RBC 3.86 L Hgb 10.6 L Hct 33.6 L MCV 87.0 MCH 27.5 MCHC 31.5 L RDW Std Deviation 49.0 H RDW Coeff of Trevor 15.4 H Plt Count 142 L MPV 10.2 Immature Gran % (Auto) 0.600 Neut % (Auto) 78.4 H Lymph % (Auto) 5.6 L [place] % (Auto) 14.9 H Eos % (Auto) 0.3 Baso % (Auto) 0.2 Absolute Neuts (auto) 11.0 H Absolute Lymphs (auto) 0.78 L Nucleated RBC % 0 [address] Review May foll Sodium 146 H Potassium 3.4 L Chloride 112 H Carbon Dioxide 29.0 Anion Gap 5 BUN 55 H Creatinine 2.23 H Estim Creat Clear Calc 39.56 Est GFR (MDRD) Af Amer 40 L Est GFR (MDRD) Non-Af 33 L BUN/Creatinine Ratio 24.7 H Glucose 111 H Calcium 7.9 L Total Bilirubin 1.30 H AST 19 ALT 11 L Alkaline Phosphatase 64 Total Protein 6.0 L Albumin 2.3 L Globulin 3.7 Albumin/Globulin Ratio 0.6 L Micro: Microbiology 09/09/20 15:10 Blood Culture (Wb) - Right Hand Blood Culture - Preliminary No growth in 48 hours. 09/09/20 14:55 Blood Culture (Wb) - Central Line Blood Culture - Preliminary No growth in 48 hours. 09/11/20 07:27 Sputum, Tracheal Aspirate Gram Stain - Final 09/07/20 14:04 Sputum, Induced/Lukens Gram Stain - Final 09/07/20 14:04 Sputum, Induced/Lukens Respiratory Culture - Final Enterobacter cloacae complex Streptococcus pneumoniae 09/09/20 14:55 Interface Orders SARS-CoV-2 Antigen (Rapid) - Final 09/07/20 11:10 Mucosa - Nose SARS-CoV-2 Antigen (Rapid) - Final ABG Data ABG results: ABG 09/11/20 07:34 Specimen Type ART Sample Site L Radial pH 7.37 Bicarbonate Actual 26.3 H Total CO2 28 Base Excess 1 O2 Saturation 95 O2 % 40 ABG pCO2 45.8 H ABG pO2 80 David Test Positive Respiration Rate 14 O2 Delivery Device Adult Vent Vent Mode AC Tidal Volume 450 POC PEEP 5 Physical Exam Const no apparent distress Constitutional Narrative: Intubated, sedated and mechanically ventilated. No ventilator to synchrony noted. General Appearance: patient mechanically ventilated HEENT normocephalic, head/scalp atraumatic and moist oral mucous membranes Eyes PERRL, conjunctivae normal and no scleral icterus Neck no lymphadenopathy and supple General: trachea midline and CVC in place Resp no use of accessory muscles Resp Narrative: Coarse mechanical breath sounds bilaterally Auscultation: wheezes scattered wheezes and diminished lung sounds; Negative for rales or rhonchi Cardio regular rate, regular rhythm, S1 normal heart sound and S2 normal heart sound; Negative for no rub or no gallops Heart Sounds: murmur systolic II/ soft mid Peripheral Pulses: pulses 2+ throughout GI normal to inspection, nondistended, normoactive bowel sounds, soft to palpation and non-tender Auscultation: normoactive bowel sounds Extremity no clubbing, cyanosis or edema Skin Skin Narrative: Venous stasis changes of the lower extremities. No significant edema General Skin Exam: venous stasis Neuro moves all extremities and no focal motor deficits Neuro Narrative: Not currently following any commands. Sedated on the ventilator. Sensorium / Orientation: sedated on vent Psych Mood & Affect: flat affect Assessment & Plan Assessment/Plan (1) Cardiac arrest: Status: Acute Code(s): I46.9 - Cardiac arrest, cause unspecified Plan: RECOMMENDATIONS: 1. Continue patient on assist control mode of mechanical ventilation and wean FiO2 to maintain saturations at or above 90%. 2. Minimize sedation as tolerated. Goal to maintain a RASS of -1 to 1. 3. Await additional input from cardiology. 4. Continue empiric Keppra. If no improvement in neurological status, obtain follow-up neurology consultation. 5. Continue bronchodilators and inhaled corticosteroid. 6. Continue antimicrobials. 7. Continue vasopressor support in an attempt to maintain a mean arterial pressure at or above 65 mmHg. Consider transitioning from dopamine to Levophed. 8. Hold tube feeds for now. 9. Continue appropriate GI prophylaxis. IMPRESSIONS: 1. Cardiac arrest of unknown etiology History of both advanced cardiac and pulmonary pathologies. No reported history of recent exacerbation type symptoms from a COPD standpoint. 2. Distributive versus cardiogenic shock The patient has remained hypotensive requiring vasopressor support. At this time, we will plan to transition the patient from dopamine to Levophed with a goal to maintain a mean arterial pressure at or above 65 mmHg. He did have both Enterobacter and Streptococcus identified on sputum culture. Therefore antimicrobials will be continued as appropriate. 3. Acute on chronic combined respiratory failure with pneumococcal and Enterobacter pneumonia Plan to continue current supportive measures with invasive mechanical ventilatory support. Continue patient on assist control mode of mechanical ventilation and wean FiO2 as tolerated to maintain saturations at or above 90%. Continue antimicrobials as ordered. Continue scheduled bronchodilators and i nhaled corticosteroid. Continue to hold tube feeds for now given issues with emesis noted overnight. 4. Chronic diastolic CHF/paroxysmal A. fib/pulmonary hypertension Continue medical management per cardiology recommendations. 5. Possible seizures The patient has had questionable seizure activity during his hospitalization, for which she was started empirically on Keppra. EEG did not demonstrate any focal seizure activity. If no improvement in mentation, recommend MRI brain and neurology follow-up. 6. Hemochromatosis/obesity/smoking addiction/depression/poor history/hyperlipidemia Complicates care, management, recovery and prognosis. Okay to continue with baseline medications from my perspective. TIME: minutes of critical care time, independent of procedures, was spent addressing the patient's cardiac arrest, acute on chronic combined respiratory failure, pneumococcal and Enterobacter pneumonia, history of coronary artery disease, questionable seizures, review of all data and collaboration with care team.
[2020-09-12] MEDS: Budesonide Respules 0.5 MG/2 ML AMPUL.NEB. INHALATION ×2 (06:47→19:30)
[2020-09-12] MEDS: Chlorhexidine 15 ML PO ×2 (09:26→22:17)
[2020-09-12] MEDS: Enoxaparin 100 MG/ML Syringe 90 MG SC ×2 (09:27→22:15)
[2020-09-12] MEDS: levETIRAcetam IV 1,000 MG/100 ML BAG 400 MG IV ×2 (09:27→21:26)
--- NOTE | 2020-09-12 09:41 | NT.THERAPY_ITS ---
Nutrition Therapy Report - History Nutrition Services has been consulted to:: Manage enteral nutrition Current diet / nutrition support order:: NPO; Vital AF 1.2 at 60mL/hour currently on hold - Anthropometric Measurements Height:: 5 ft 10 in Weight:: 90.3 kg Body Mass Index (BMI):: 28.5 - Relevant Labs Relevant Labs:: WBC 14.0 K/mm3 (4.4-11.0) H 09/12/20 04:20 RBC 3.86 M/mm3 (4.6-6.2) L 09/12/20 04:20 Hgb 10.6 g/dL (13.0-16.5) L 09/12/20 04:20 Hct 33.6 % (40-54) L 09/12/20 04:20 MCHC 31.5 g/dL (32-36) L 09/12/20 04:20 RDW Std Deviation 49.0 fl (35.1-43.9) H 09/12/20 04:20 RDW Coeff of Trevor 15.4 % (11.6-14.6) H 09/12/20 04:20 Plt Count 142 K/mm3 (150-450) L 09/12/20 04:20 Immature Gran % (Auto) 1.300 % (0.0-0.9) H 09/10/20 03:15 Neut % (Auto) 78.4 % (47-70) H 09/12/20 04:20 Lymph % (Auto) 5.6 % (19-41) L 09/12/20 04:20 [place] % (Auto) 14.9 % (0-10) H 09/12/20 04:20 Absolute Neuts (auto) 11.0 X10^3/uL (2.0-7.7) H 09/12/20 04:20 Absolute Lymphs (auto) 0.78 X10^3/uL (0.83-4.51) L 09/12/20 04:20 Myelocytes % 1 % (0-0) H 09/07/20 10:50 PT 15.3 SECONDS (11.7-14.9) H 09/07/20 10:50 APTT 56.4 Seconds (24.1-36.2) H 09/09/20 07:30 Sodium 146 mmol/L (136-145) H 09/12/20 04:20 Potassium 3.4 mmol/L (3.5-5.1) L 09/12/20 04:20 Chloride 112 mmol/L (98-107) H 09/12/20 04:20 Carbon Dioxide 19.0 mmol/L (21.0-32.0) L 09/09/20 21:00 Anion Gap 19 (5-15) H 09/09/20 21:00 BUN 55 mg/dL (7-18) H 09/12/20 04:20 Creatinine 2.23 mg/dL (0.70-1.30) H 09/12/20 04:20 Est GFR (MDRD) Af Amer 40 mL/min (>60) L 09/12/20 04:20 Est GFR (MDRD) Non-Af 33 mL/min (>60) L 09/12/20 04:20 BUN/Creatinine Ratio 24.7 RATIO (10-20) H 09/12/20 04:20 Glucose 111 mg/dL (74-106) H 09/12/20 04:20 Lactic Acid 7.3 mmol/L (0.4-1.9) H* 09/07/20 10:50 Calcium 7.9 mg/dL (8.5-10.1) L 09/12/20 04:20 Total Bilirubin 1.30 mg/dL (0.20-1.00) H 09/12/20 04:20 AST 48 U/L (15-37) H 09/10/20 03:15 ALT 11 U/L (16-61) L 09/12/20 04:20 Troponin I 3.170 ng/mL (<0.045) H* 09/10/20 12:10 Total Protein 6.0 g/dL (6.4-8.2) L 09/12/20 04:20 Albumin 2.3 g/dL (3.2-5.0) L 09/12/20 04:20 Globulin 4.3 g/dL (2.2-4.2) H 09/10/20 03:15 Albumin/Globulin Ratio 0.6 RATIO (0.9-2.4) L 09/12/20 04:20 - Assessment Food / Nutrition-Related History:: Discussed in ICU rounds. Remains intubated- EN on hold this AM. Per rounds, okay to resume tube feeds. Wt stable since last review, 0.2kg increase noted since last review. - Nutrition Diagnosis Problem / Etiology / Signs & Symptoms (PES):: inadequate oral intake r/t resp. failure, GI dysfunction as evidenced by inability to consume nutrition PO, emesis while intubated preventing enteral nutrition Evidence of Malnutrition Exists:: No - Nutrition Intervention Nutrition Prescription:: 3563-4311 calories/day (1.3xRMR). 108-118 g protein/day (1.2g/kg). 2400mL fluid/day (1mL/calorie) - Food / Nutrient Delivery Interventions Summary of nutrition intervention:: Will resume EN at trophic rate and advance once tolerance is established. Nutrition support ordered as / adjusted to:: resume enteral nutrition at trophic rate- Vital AF 1.2 via OGT at 20mL/hour w/ 30mL H2O flush every 4 hours to provide 576 calories, 36 g protein, and 569mL fluid per 24 hours. - MNT Monitoring MNT Follow-up in:: 1-2 days
[2020-09-12] MEDS: Aspirin 325 MG Tablet GT (09:53)
--- NOTE | 2020-09-12 10:09 | CASEMGMT ---
This RN CM participated in ICU multidisciplinary rounds. Pt is still on vent this am with failed breathing/awakening trial. Tube feeds to be re-started today per varnish thinner recommendations. CM to follow. SStelaine RN CM
--- NOTE | 2020-09-12 10:12 | PCM.PN.HOSP ---
Subjective Subjective: Patient seen and examined. He remains intubated. He failed his spontaneous breathing trial this morning. He remains on propofol and fentanyl. He is to be started on tube feeding again today, per rehabilitation services coordinator. Review of systems otherwise negative. He has otherwise remained hemodynamically stable. Objective Data Objective Data Vital Signs: Vital Signs Temp Pulse Resp BP Pulse Ox 98.0 F 68 16 99/58 L 95 09/12/20 03:00 09/12/20 09:05 09/12/20 09:05 09/12/20 06:00 09/12/20 09:05 Oxygen Flow Rate (L/min) 40 Oxygen Delivery Method Mechanical Ventilator Weight: 199 lb 1.239 oz Body Mass Index (BMI) 28.5 Intake & Output: Intake and Output for Last 24 Hours 09/10/20 09/11/20 09/12/20 23:59 23:59 23:59 Intake Total 2227.06 / 2266.16 1850.93 / 1971.83 544.22 / 544.22 Output Total 3840 / 3840 1750 / 1925 350 / 350 Balance -1612.94 / -1573.84 100.93 / 46.83 194.22 / 194.22 Lab / Micro Data Result Diagrams: 09/12/20 04:20 09/12/20 04:20 Labs: Laboratory Results - last 24 hr 09/09/20 09/09/20 09/10/20 04:05 21:00 03:15 WBC RBC Hgb Hct MCV MCH MCHC RDW Std Deviation RDW Coeff of Trevor Plt Count MPV Immature Gran % (Auto) Neut % (Auto) Lymph % (Auto) [place] % (Auto) Eos % (Auto) Baso % (Auto) Absolute Neuts (auto) Absolute Lymphs (auto) Nucleated RBC % Diff Path Review Reviewed Reviewed Reviewed Sodium Potassium Chloride Carbon Dioxide Anion Gap BUN Creatinine Estim Creat Clear Calc Est GFR (MDRD) Af Amer Est GFR (MDRD) Non-Af BUN/Creatinine Ratio Glucose Calcium Total Bilirubin AST ALT Alkaline Phosphatase Total Protein Albumin Globulin Albumin/Globulin Ratio 09/12/20 09/12/20 04:20 04:20 WBC 14.0 H RBC 3.86 L Hgb 10.6 L Hct 33.6 L MCV 87.0 MCH 27.5 MCHC 31.5 L RDW Std Deviation 49.0 H RDW Coeff of Trevor 15.4 H Plt Count 142 L MPV 10.2 Immature Gran % (Auto) 0.600 Neut % (Auto) 78.4 H Lymph % (Auto) 5.6 L [place] % (Auto) 14.9 H Eos % (Auto) 0.3 Baso % (Auto) 0.2 Absolute Neuts (auto) 11.0 H Absolute Lymphs (auto) 0.78 L Nucleated RBC % 0 Diff Path Review September Sodium 146 H Potassium 3.4 L Chloride 112 H Carbon Dioxide 29.0 Anion Gap 5 BUN 55 H Creatinine 2.23 H Estim Creat Clear Calc 39.56 Est GFR (MDRD) Af Amer 40 L Est GFR (MDRD) Non-Af 33 L BUN/Creatinine Ratio 24.7 H Glucose 111 H Calcium 7.9 L Total Bilirubin 1.30 H AST 19 ALT 11 L Alkaline Phosphatase 64 Total Protein 6.0 L Albumin 2.3 L Globulin 3.7 Albumin/Globulin Ratio 0.6 L Micro: Microbiology 09/11/20 07:27 Sputum, Tracheal Aspirate Gram Stain - Final 09/11/20 07:27 Sputum, Tracheal Aspirate Respiratory Culture - Preliminary GNR lactose car framer 09/09/20 15:10 Blood Culture (Wb) - Right Hand Blood Culture - Preliminary No growth in 48 hours. 09/09/20 14:55 Blood Culture (Wb) - Central Line Blood Culture - Preliminary No growth in 48 hours. 09/07/20 14:04 Sputum, Induced/Lukens Gram Stain - Final 09/07/20 14:04 Sputum, Induced/Lukens Respiratory Culture - Final Enterobacter cloacae complex Streptococcus pneumoniae 09/09/20 14:55 Interface Orders SARS-CoV-2 Antigen (Rapid) - Final 09/07/20 11:10 Mucosa - Nose SARS-CoV-2 Antigen (Rapid) - Final Physical Exam Const Constitutional Narrative: Intubated, sedated, RASS score is -1. HEENT normocephalic and head/scalp atraumatic Eyes PERRL Neck no lymphadenopathy and no JVD Lymph Lymphatic: no lymphadenopathy noted and no lymphedema noted Chest inspection of chest normal Chest Narrative: Diminished breath Resp Resp Narrative: Intubated and sedated. Auscultation: diminished lung sounds Cardio regular rate, S1 normal heart sound, S2 normal heart sound and no murmurs Rate: bradycardia GI normal to inspection, nondistended, normoactive bowel sounds, soft to palpation and non-tender Extremity normal to inspection, no clubbing, cyanosis or edema and no pedal edema Skin Skin Narrative: Mild hyperpigmentation on lower extremities. No swelling or edema. Neuro Neuro Narrative: Intubated, sedated, RASS score is -1. Assessment & Plan Assessment/Plan (1) Severe sepsis: Status: Acute Code(s): A41.9 - Sepsis, unspecified organism; R65.20 - Severe sepsis without septic shock (2) Acute and chronic respiratory failure ([id number]): Status: Chronic Code(s): J96.20 - Acute and chronic respiratory failure, unspecified whether with hypoxia or hypercapnia Qualifiers: Respiratory failure complication: hypoxia and hypercapnia Qualified Code(s): J96.21 - Acute and chronic respiratory failure with hypoxia; J96.22 - Acute and chronic respiratory failure with hypercapnia (3) STEMI (ST elevation myocardial infarction): Status: Ruled-out Code(s): I21.3 - ST elevation (STEMI) myocardial infarction of unspecified site Qualifiers: Involved coronary artery: unspecified coronary artery Qualified Code(s): I21.3 - ST elevation (STEMI) myocardial infarction of unspecified site (4) Aspiration pneumonia: Status: Ruled-out Code(s): J69.0 - Pneumonitis due to inhalation of food and vomit Qualifiers: Aspiration pneumonia type: due to regurgitated food (5) Symptomatic bradycardia: Status: Acute Code(s): R00.1 - Bradycardia, unspecified Plan: #Acute hypoxic respiratory failure due to probable aspiration pneumonia -he failed his spontaneous breathing trial this morning, so remains intubated and sedated. -sedatives switched from precedex to propofol and fentanyl -on IV zosyn -critical care on board #Septic shock due to aspiration pneumonia -Currently on dopamine. -off levophed drip -On IV zosyn. Blood cultures negative. Sputum cultures as above. -wbc is down to 14. #S/p cardiac arrest -was in PEA. Remains intubated and sedated -cardiology on board #History of paroxysmal afib -He had an episode of paroxysmal A. fib and nonsustained V. tach. Plan was to start amiodarone but he converted to normal sinus rhythm so amiodarone has been on hold. -Cardiology on board. #non STEMI -cardiology on board -on rectal aspirin, therapeutic lovenox and high intensity statin -on amiodarone per cardiology -further workup to be determined by his neurological state and recovery #Acute metabolic encephalopathy -likely due to PEA and general medical condition -on IV keppra -EEG showed general background slowing with generalised voltage suppression #Nutrition: on TPN since he aspirated via NG tube LILLIANA: -being gently hydrated with IVF NS @ 75cc/hr. -Cr today is 2.23. consider nephrology consult as Cr is trending upwards. #Hypokalemia: potassium is 3.4. Will replace and monitor #Hypernatremia: sodium is up to 146 today. This is likely due to the IVF patient received. Will trend sodium DVT prophylaxis: therapeutic lovenox GI prophylaxis: on PPI
--- NOTE | 2020-09-12 11:47 | CASEMGMT ---
Per pt's family, pt is not on continuous home oxygen. [facility] palliative screening tool completed and pt does not qualify currently. Laquita MATA CM
[2020-09-12] MEDS: Vital AF 1.2 Cal Liquid 1,000 ML 20 ML GT (11:48)
[2020-09-12] MEDS: Senna/Docusate Sodium 1 Tablet PO (12:13)
[2020-09-12 13:11] LABS: Pathologist Review Reviewed
--- NOTE | 2020-09-12 20:47 | PCM.PN.CARD ---
Subjective Subjective: The patient was evaluated earlier this day. He remains in the ICU on mechanical ventilation / intubation as he failed his weaning trial. Objective Data Vital Signs: Vital Signs Temp Pulse Resp BP Pulse Ox 99.6 F H 61 14 105/57 L 98 09/12/20 20:00 09/12/20 20:00 09/12/20 20:00 09/12/20 20:00 09/12/20 20:00 Oxygen Flow Rate (L/min) 40 Oxygen Delivery Method Mechanical Ventilator Weight: 199 lb 1.239 oz Body Mass Index (BMI) 28.5 Intake & Output: Intake and Output for Last 24 Hours 09/10/20 09/11/20 09/12/20 23:59 23:59 23:59 Intake Total 2227.06 / 2266.16 1850.93 / 1971.83 1065.79 / 1065.79 Output Total 3840 / 3840 1750 / 1925 2615 / 2615 Balance -1612.94 / -1573.84 100.93 / 46.83 -1549.21 / -1549.21 Lab / Micro Data Result Diagrams: 09/12/20 04:20 09/12/20 04:20 Labs: Laboratory Results - last 24 hr 09/12/20 09/12/20 04:20 04:20 WBC 14.0 H RBC 3.86 L Hgb 10.6 L Hct 33.6 L MCV 87.0 MCH 27.5 MCHC 31.5 L RDW Std Deviation 49.0 H RDW Coeff of Trevor 15.4 H Plt Count 142 L MPV 10.2 Immature Gran % (Auto) 0.600 Neut % (Auto) 78.4 H Lymph % (Auto) 5.6 L Bleckley % (Auto) 14.9 H Eos % (Auto) 0.3 Baso % (Auto) 0.2 Absolute Neuts (auto) 11.0 H Absolute Lymphs (auto) 0.78 L Nucleated RBC % 0 Diff Path Review Reviewed Sodium 146 H Potassium 3.4 L Chloride 112 H Carbon Dioxide 29.0 Anion Gap 5 BUN 55 H Creatinine 2.23 H Estim Creat Clear Calc 39.56 Est GFR (MDRD) Af Amer 40 L Est GFR (MDRD) Non-Af 33 L BUN/Creatinine Ratio 24.7 H Glucose 111 H Calcium 7.9 L Total Bilirubin 1.30 H AST 19 ALT 11 L Alkaline Phosphatase 64 Total Protein 6.0 L Albumin 2.3 L Globulin 3.7 Albumin/Globulin Ratio 0.6 L Micro: Microbiology 09/11/20 07:27 Sputum, Tracheal Aspirate Gram Stain - Final 09/11/20 07:27 Sputum, Tracheal Aspirate Respiratory Culture - Preliminary GNR lactose medical device sales consultant 09/09/20 15:10 Blood Culture (Wb) - Right Hand Blood Culture - Preliminary No growth in 48 hours. 09/09/20 14:55 Blood Culture (Wb) - Central Line Blood Culture - Preliminary No growth in 48 hours. 09/07/20 14:04 Sputum, Induced/Lukens Gram Stain - Final 09/07/20 14:04 Sputum, Induced/Lukens Respiratory Culture - Final Enterobacter cloacae complex Streptococcus pneumoniae 09/09/20 14:55 Interface Orders SARS-CoV-2 Antigen (Rapid) - Final 09/07/20 11:10 Mucosa - Nose SARS-CoV-2 Antigen (Rapid) - Final Cardiology Labs/Tests 09/12/20 04:20: WBC 14.0 H, RBC 3.86 L, Hgb 10.6 L, Hct 33.6 L, MCV 87.0, MCH 27.5, MCHC 31.5 L, Plt Count 142 L, MPV 10.2, Immature Gran % (Auto) 0.600, Neut % (Auto) 78.4 H, Lymph % (Auto) 5.6 L, Bleckley % (Auto) 14.9 H, Eos % (Auto) 0.3, Baso % (Auto) 0.2, Absolute Neuts (auto) 11.0 H, Nucleated RBC % 0 09/12/20 04:20: Sodium 146 H, Potassium 3.4 L, Chloride 112 H, Carbon Dioxide 29.0, Anion Gap 5, BUN 55 H, Creatinine 2.23 H, Est GFR (MDRD) Af Amer 40 L, Est GFR (MDRD) Non-Af 33 L, BUN/Creatinine Ratio 24.7 H, Glucose 111 H, Calcium 7.9 L, Total Bilirubin 1.30 H Physical Exam HEENT normocephalic Chest inspection of chest normal Resp Auscultation: rhonchi Cardio regular rate, regular rhythm, S1 normal heart sound and S2 normal heart sound GI normal to inspection, nondistended, normoactive bowel sounds Extremity no pedal edema Assessment & Plan Assessment/Plan (1) Cardiac arrest: Status: Acute Code(s): I46.9 - Cardiac arrest, cause unspecified Plan: The patient was reported as experiencing a cardiac arrest. The etiology is unclear at this time. The patient has a history of a non-CAD related cardiomyopathy with improvement of his overall LV wall motion systolic function over time. At the present time the patient remains in the ICU mechanically intubated and ventilated. Depending upon his neurologic status consideration will be given as to whether he requires additional cardiovascular diagnostic studies, etc.\ (2) Dilated cardiomyopathy: Status: Chronic Code(s): I42.0 - Dilated cardiomyopathy Plan: Again the patient was diagnosed in 2016 is having a non-CAD related cardiomyopathy. Over time his LV systolic function had improved. He was continuing medical management. (3) Paroxysmal atrial fibrillation: Status: Chronic Code(s): I48.0 - Paroxysmal atrial fibrillation Plan: The patient has a history of underlying PAF. He had been on medical therapy for such. At the present time his medications are on hold based upon changes with his hemodynamics and his electrocardiographic changes (previous QT prolongation). His cardiac rhythm is being monitored. (4) Pulmonary hypertension: Status: Chronic Code(s): I27.20 - Pulmonary hypertension, unspecified Plan: The patient has a history of pulmonary hypertension as previously noted on his 2016 diagnostic cardiac catheterization. There was concern this led to cor pulmonale and right heart failure. The patient has been treated for such by both cardiology and pulmonology. (5) Obstructive sleep apnea: Status: Chronic Code(s): G47.33 - Obstructive sleep apnea (adult) (pediatric) Plan: The patient has a history of NIRMAL. There was concern that this was a contributing factor to his pulmonary hypertension. (6) Pure hypercholesterolemia: Status: Chronic Code(s): E78.00 - Pure hypercholesterolemia, unspecified Plan: The patient will continue risk factor evaluation care as deemed appropriate. (7) Essential hypertension: Status: Chronic Code(s): I10 - Essential (primary) hypertension Plan: The patient was hypotensive. He did require IV vasopressor support. It had been discontinued. However he is now back on IV vasopressor support. Addt'l Comments The patients case has been discussed with Dr. Abdalla. This note was generated using a voice recognition system and there may be incorrect words, spelling or punctuation that were not noted when reviewing the office note prior to saving.
[2020-09-12] MEDS: Atorvastatin Calcium 80 MG Tablet GT (22:16)
[2020-09-13] VITALS (40 sets, daily range): BP systolic 90–197; BP diastolic 52–86; PULSE 50–86; RESP 14–30; TEMP 37–38.4; O2SAT 92–99
[2020-09-13] MEDS: Propofol 10MG/Ml 1,000 MG/100 ML Bottle 16.3 MG CONT INF (01:02)
[2020-09-13] MEDS: Ipratropium/Albuterol Sulfate 3 ML AMPUL.NEB INHALATION ×4 (01:50→18:33)
--- NOTE | 2020-09-13 07:06 | MRI_ITS ---
STUDY: MRI BRAIN WITH AND WITHOUT CONTRAST REASON FOR EXAM: Male, 55 years old. Encephalopathy s/p cardiac arrest TECHNIQUE: Standardized multiplanar fat and water weighted pulse sequences were obtained. IV 18 cc Dotarem was administered for the contrast portion of the examination. COMPARISON: CT head without contrast 09/09/2020. FINDINGS: Normal size of the ventricles and extra-axial spaces for the patient''s age. Normal white matter tracts of the supratentorial brain. Normal bilateral basal ganglia. Normal thalami. There is no extra-axial fluid accumulation. Normal flow voids within the major intracranial circulation suggesting patency by spin echo criteria. Normal venous enhancement. There is no enhancing intra-axial or extra-axial abnormality. Normal sella turcica, pituitary gland, infundibular stalk, optic chiasm and hypothalamus. Normal tectal plate and pineal gland. Normal midbrain, vivienne and medulla. Normal cerebellum. Normal basal cisterns. Mild mucosal edema of the temporal mastoid bones. Normal bilateral internal auditory canals. No demonstrated orbital abnormality, within the constraints of a routine brain study. Normal visualized paranasal sinuses. Normal calvarium and skull base. Normal visualized soft tissue structures. Normal visualized upper cervical spine. MRI/Brain W/WO Contrast IMPRESSION: 1. Normal unenhanced and enhanced MRI of the brain. 2. Minimal mucosal edema of the temporal mastoid bones. Electronically Signed: Mio Hubbard MD at 13:11 EDT , Service support ,
--- NOTE | 2020-09-13 07:08 | PCM.PN.INT ---
Subjective Subjective: The patient was seen and examined at the bedside this morning. Events from the last 24 hours have been reviewed. The patient is currently afebrile, hemodynamically stable and maintaining appropriate oxygen saturations on assist control mode of mechanical ventilation with an FiO2 requirement of 30% and PEEP of 5. The patient once again failed his spontaneous awakening and breathing trials. Per nursing report, upon sedation discontinuation this morning, the patient would open his eyes and track, but would not follow any commands. The patient is currently documented to be overall net +500 mL for the hospital admission. Sodium is elevated this morning at 149 with a potassium of 3.4 and creatinine of 2.24. TSH is within normal limits. Objective Data Objective Data The patient's most recent lab work, culture data and imaging studies have all been personally reviewed. Surface echocardiogram dated September 07 revealed an ejection fraction of 45 to 50%. Coronavirus rapid antigen testing was negative on September 07. Sputum culture dated September 07 was positive for Enterobacter and Streptococcus pneumonia. Blood cultures are pending. EEG from September 10 revealed generalized background slowing with generalized voltage suppression. Vital Signs: Vital Signs Temp Pulse Resp BP Pulse Ox 99.1 F 74 21 H 154/78 H 92 09/13/20 05:00 09/13/20 05:00 09/13/20 05:00 09/13/20 05:00 09/13/20 05:00 Oxygen Flow Rate (L/min) 40 Oxygen Delivery Method Mechanical Ventilator Weight: 199 lb 1.239 oz Body Mass Index (BMI) 28.5 Intake & Output: Intake and Output for Last 24 Hours 09/11/20 09/12/20 09/13/20 23:59 23:59 23:59 Intake Total 1850.93 / 1971.83 1372.52 / 1788.82 634.40 / 634.40 Output Total 1750 / 1925 2790 / 2890 225 / 225 Balance 100.93 / 46.83 -1417.48 / -1101.18 409.40 / 409.40 Lab / Micro Data Attestation: I reviewed the patient's lab results. Result Diagrams: 09/13/20 03:25 09/13/20 03:25 Labs: Laboratory Results - last 24 hr 09/12/20 04:20 Diff Path Review Reviewed Micro: Microbiology 09/11/20 07:27 Sputum, Tracheal Aspirate Gram Stain - Final 09/11/20 07:27 Sputum, Tracheal Aspirate Respiratory Culture - Preliminary GNR lactose it business systems analyst 09/09/20 15:10 Blood Culture (Wb) - Right Hand Blood Culture - Preliminary No growth in 48 hours. 09/09/20 14:55 Blood Culture (Wb) - Central Line Blood Culture - Preliminary No growth in 48 hours. 09/07/20 14:04 Sputum, Induced/Lukens Gram Stain - Final 09/07/20 14:04 Sputum, Induced/Lukens Respiratory Culture - Final Enterobacter cloacae complex Streptococcus pneumoniae 09/09/20 14:55 Interface Orders SARS-CoV-2 Antigen (Rapid) - Final 09/07/20 11:10 Mucosa - Nose SARS-CoV-2 Antigen (Rapid) - Final Physical Exam Const no apparent distress Constitutional Narrative: Intubated, sedated and mechanically ventilated. No ventilator to synchrony noted. General Appearance: patient mechanically ventilated HEENT normocephalic, head/scalp atraumatic and moist oral mucous membranes Eyes PERRL, conjunctivae normal and no scleral icterus Neck no lymphadenopathy and supple General: trachea midline and CVC in place Resp no use of accessory muscles Auscultation: rhonchi and diminished lung sounds; Negative for rales or wheezes Cardio regular rate, regular rhythm, S1 normal heart sound and S2 normal heart sound; Negative for no rub or no gallops Heart Sounds: murmur systolic II/ soft mid Peripheral Pulses: pulses 2+ throughout GI normal to inspection, nondistended, normoactive bowel sounds, soft to palpation and non-tender Auscultation: normoactive bowel sounds Extremity no clubbing, cyanosis or edema Skin Skin Narrative: Venous stasis changes of the lower extremities. No significant edema General Skin Exam: venous stasis Neuro moves all extremities and no focal motor deficits Neuro Narrative: Not currently following any commands. Sedated on the ventilator. Sensorium / Orientation: sedated on vent Psych Mood & Affect: flat affect Assessment & Plan Assessment/Plan (1) Cardiac arrest: Status: Acute Code(s): I46.9 - Cardiac arrest, cause unspecified Plan: RECOMMENDATIONS: 1. Continue patient on assist control mode of mechanical ventilation and wean FiO2 to maintain saturations at or above 90%. 2. Minimize sedation as tolerated. Goal to maintain a RASS of -1 to 1. Okay to start Seroquel today. 3. Start gentle IV fluid hydration. 4. Continue empiric Keppra. 5. Continue bronchodilators and inhaled corticosteroid. 6. Continue antimicrobials. 7. Continue tube feeds as tolerated. 8. Check TSH and ammonia and obtain MRI brain. 9. Continue appropriate GI prophylaxis. IMPRESSIONS: 1. Cardiac arrest of unknown etiology History of both advanced cardiac and pulmonary pathologies. No reported history of recent exacerbation type symptoms from a COPD standpoint. 2. Distributive versus cardiogenic shock Resolved. The patient has been successfully weaned from vasopressor support. He does have both Enterobacter and Streptococcus identified on sputum culture. Therefore antimicrobials will be continued as appropriate. 3. Acute on chronic combined respiratory failure with pneumococcal and Enterobacter pneumonia Plan to continue current supportive measures with invasive mechanical ventilatory support. Continue patient on assist control mode of mechanical ventilation and wean FiO2 as tolerated to maintain saturations at or above 90%. Continue antimicrobials as ordered. Continue scheduled bronchodilators and inhaled corticosteroid. Okay to continue tube feeds as tolerated. 4. Chronic diastolic CHF/paroxysmal A. fib/pulmonary hypertension Continue medical management per cardiology recommendations. 5. Encephalopathy/possible seizures The patient has had questionable seizure activity during his hospitalization, for which she was started empirically on Keppra. EEG did not demonstrate any focal seizure activity. The patient has not demonstrated any significant improvement in his overall mentation. Therefore, we will plan to check TSH and ammonia levels. MRI brain will also be obtained. 6. Hemochromatosis/obesity/smoking addiction/depression/poor history/hyperlipidemia Complicates care, management, recovery and prognosis. Okay to continue with baseline medications from my perspective. TIME: 37 minutes of critical care time, independent of procedures, was spent addressing the patient's cardiac arrest, acute on chronic combined respiratory failure, pneumococcal and Enterobacter pneumonia, history of coronary artery disease, questionable seizures, review of all data and collaboration with care team. ([id number]) Procedures Pulmonary 9xxxx: [id number] Critical care first hour
[2020-09-13 07:16] LABS: Absolute Lymphocyte Count 0.96 X10^3/uL (0.83-4.51); Basophil# 0.05 X10^3/uL; Basophil% 0.5 % (0-1); Eosinophil# 0.11 X10^3/uL; Hematocrit 31.6 % (40-54); Lymphocyte # 0.96 X10^3/ul (0.83-4.51); Lymphocyte % 8.9 % (19-41); Mean Corp Hgb Conc 31.6 g/dL (32-36); Mean Corpuscular Hgb 28.1 pg (27.0-32.0); Mean Corpuscular Volume 88.8 fL (80-94); Mean Platelet Vol. 11.2 fl (6.2-12.0); Monocyte# 1.63 X10^3/uL; Monocyte% 15.1 % (0-10); NRBC Flagged by Analyzer 0 % (0-5); POSITIVE DIFFERENTIAL YES; Platelet Count 153 K/mm3 (150-450); RBC Distribution Width CV 15.7 % (11.6-14.6); RBC Distribution Width SD 51.5 fl (35.1-43.9); Red Blood Count 3.56 M/mm3 (4.6-6.2); White Blood Count 10.8 K/mm3 (4.4-11.0)
[2020-09-13 07:18] LABS: Differential Indicated SCAN CRITERIA MET
[2020-09-13] MEDS: Budesonide Respules 0.5 MG/2 ML AMPUL.NEB. INHALATION ×2 (07:24→18:33)
[2020-09-13 07:38] LABS: Anion Gap 2 (5-15); BUN 54 mg/dL (7-18); BUN/Creat Ratio 24.1 RATIO (10-20); Calcium,Total 8.3 mg/dL (8.5-10.1); Chloride 117 mmol/L (98-107); Creatinine, Serum 2.24 mg/dL (0.70-1.30); EST Glomerular Filtration Rate 33 mL/min (>60); Est Glom Filt Rate - Afr Amer 40 mL/min (>60); Estimated Creatinine Clearance 39.38 ml/min; Glucose 103 mg/dL (74-106); Potassium 3.4 mmol/L (3.5-5.1); Sodium Level 149 mmol/L (136-145); Thyroid Stim Hormone (TSH) 0.51 uIU/mL (0.358-3.74)
[2020-09-13] MEDS: Propofol 10MG/Ml 1,000 MG/100 ML Bottle 15.9 MG CONT INF ×2 (08:05→21:45)
[2020-09-13] MEDS: TITRATION PARAMETER CHANGE 1 EACH IV (08:18)
[2020-09-13] MEDS: Aspirin 325 MG Tablet GT (08:19)
[2020-09-13] MEDS: Chlorhexidine 15 ML PO ×2 (08:19→21:45)
[2020-09-13] MEDS: Senna/Docusate Sodium 1 Tablet PO (08:20)
[2020-09-13] MEDS: Enoxaparin 100 MG/ML Syringe 90 MG SC ×2 (08:20→21:44)
--- NOTE | 2020-09-13 09:22 | PCM.PN.CARD ---
Subjective Subjective: The patient was evaluated. He remains in the ICU with mechanical intubation/ventilation. Objective Data Vital Signs: Vital Signs Temp Pulse Resp BP Pulse Ox 99.1 F 61 14 137/64 H 95 09/13/20 05:00 09/13/20 07:28 09/13/20 07:28 09/13/20 06:00 09/13/20 07:28 Oxygen Flow Rate (L/min) 40 Oxygen Delivery Method Mechanical Ventilator Weight: 194 lb 10.691 oz Body Mass Index (BMI) 28.5 Intake & Output: Intake and Output for Last 24 Hours 09/11/20 09/12/20 09/13/20 23:59 23:59 23:59 Intake Total 1850.93 / 1971.83 1372.52 / 1788.82 665.64 / 665.64 Output Total 1750 / 1925 2790 / 2890 225 / 225 Balance 100.93 / 46.83 -1417.48 / -1101.18 440.64 / 440.64 Lab / Micro Data Result Diagrams: 09/13/20 03:25 09/13/20 03:25 Labs: Laboratory Results - last 24 hr 09/12/20 09/13/20 09/13/20 04:20 03:25 03:25 WBC 10.8 RBC 3.56 L Hgb 10.0 L Hct 31.6 L MCV 88.8 MCH 28.1 MCHC 31.6 L RDW Std Deviation 51.5 H RDW Coeff of Trevor 15.7 H Plt Count 153 MPV 11.2 Immature Gran % (Auto) 0.500 Neut % (Auto) 74.0 H Lymph % (Auto) 8.9 L [place] % (Auto) 15.1 H Eos % (Auto) 1.0 Baso % (Auto) 0.5 Absolute Neuts (auto) 8.0 H Absolute Lymphs (auto) 0.96 Nucleated RBC % 0 Diff Path Review Reviewed Sodium 149 H Potassium 3.4 L Chloride 117 H Carbon Dioxide 30.0 Anion Gap 2 L BUN 54 H Creatinine 2.24 H Estim Creat Clear Calc 39.38 Est GFR (MDRD) Af Amer 40 L Est GFR (MDRD) Non-Af 33 L BUN/Creatinine Ratio 24.1 H Glucose 103 Calcium 8.3 L TSH 0.51 Micro: Microbiology 09/11/20 07:27 Sputum, Tracheal Aspirate Gram Stain - Final 09/11/20 07:27 Sputum, Tracheal Aspirate Respiratory Culture - Preliminary GNR lactose category planner GNR lactose category planner#2 Staphylococcus aureus 09/09/20 15:10 Blood Culture (Wb) - Right Hand Blood Culture - Preliminary No growth in 48 hours. 09/09/20 14:55 Blood Culture (Wb) - Central Line Blood Culture - Preliminary No growth in 48 hours. 09/07/20 14:04 Sputum, Induced/Lukens Gram Stain - Final 09/07/20 14:04 Sputum, Induced/Lukens Respiratory Culture - Final Enterobacter cloacae complex Streptococcus pneumoniae 09/09/20 14:55 Interface Orders SARS-CoV-2 Antigen (Rapid) - Final 09/07/20 11:10 Mucosa - Nose SARS-CoV-2 Antigen (Rapid) - Final Cardiology Labs/Tests 09/13/20 03:25: WBC 10.8, RBC 3.56 L, Hgb 10.0 L, Hct 31.6 L, MCV 88.8, MCH 28.1, MCHC 31.6 L, Plt Count 153, MPV 11.2, Immature Gran % (Auto) 0.500, Neut % (Auto) 74.0 H, Lymph % (Auto) 8.9 L, [place] % (Auto) 15.1 H, Eos % (Auto) 1.0, Baso % (Auto) 0.5, Absolute Neuts (auto) 8.0 H, Nucleated RBC % 0 09/13/20 03:25: Sodium 149 H, Potassium 3.4 L, Chloride 117 H, Carbon Dioxide 30.0, Anion Gap 2 L, BUN 54 H, Creatinine 2.24 H, Est GFR (MDRD) Af Amer 40 L, Est GFR (MDRD) Non-Af 33 L, BUN/Creatinine Ratio 24.1 H, Glucose 103, Calcium 8.3 L Rhythm: Sinus rhythm Physical Exam HEENT normocephalic Chest inspection of chest normal Resp clear to auscultation bilaterally Auscultation: rhonchi Cardio regular rate, regular rhythm, S1 normal heart sound and S2 normal heart sound GI normal to inspection, nondistended, normoactive bowel sounds Extremity no pedal edema Assessment & Plan Assessment/Plan (1) Cardiac arrest: Status: Acute Code(s): I46.9 - Cardiac arrest, cause unspecified Plan: The patient was reported as experiencing a cardiac arrest. The etiology is unclear at this time. The patient has a history of a non-CAD related cardiomyopathy with improvement of his overall LV wall motion systolic function over time. At the present time the patient remains in the ICU mechanically intubated and ventilated. Depending upon his neurologic status consideration will be given as to whether he requires additional cardiovascular diagnostic studies, etc. (2) Dilated cardiomyopathy: Status: Chronic Code(s): I42.0 - Dilated cardiomyopathy Plan: Again the patient was diagnosed in 2016 is having a non-CAD related cardiomyopathy. Over time his LV systolic function had improved. He was continuing medical management. (3) Paroxysmal atrial fibrillation: Status: Chronic Code(s): I48.0 - Paroxysmal atrial fibrillation Plan: The patient has a history of underlying PAF. He had been on medical therapy for such. At the present time his medications are on hold based upon changes with his hemodynamics and his electrocardiographic changes (previous QT prolongation). His cardiac rhythm is being monitored. (4) Pulmonary hypertension: Status: Chronic Code(s): I27.20 - Pulmonary hypertension, unspecified Plan: The patient has a history of pulmonary hypertension as previously noted on his 2016 diagnostic cardiac catheterization. There was concern this led to cor pulmonale and right heart failure. The patient has been treated for such by both cardiology and pulmonology. (5) Obstructive sleep apnea: Status: Chronic Code(s): G47.33 - Obstructive sleep apnea (adult) (pediatric) Plan: The patient has a history of NIRMAL. There was concern that this was a contributing factor to his pulmonary hypertension. (6) Pure hypercholesterolemia: Status: Chronic Code(s): E78.00 - Pure hypercholesterolemia, unspecified Plan: The patient will continue risk factor evaluation care as deemed appropriate. (7) Essential hypertension: Status: Chronic Code(s): I10 - Essential (primary) hypertension Plan: The patient was hypotensive. He did require IV vasopressor support. It had been discontinued. However he is now back on IV vasopressor support. Addt'l Comments The patient's case was discussed and reviewed with Dr. Abdalla. The patient failed his weaning trial this morning. He was also reported as having nonpurposeful neurologic movements. He is pending further neurologic evaluation with a brain MRI. This note was generated using a voice recognition system and there may be incorrect words, spelling or punctuation that were not noted when reviewing the office note prior to saving.
[2020-09-13] MEDS: Propofol 200 MG/20 ML Vial 40 MG IV BOLUS (10:35)
[2020-09-13] MEDS: Succinylcholine Chloride 200 MG/10 ML Vial 100 MG IV (10:36)
[2020-09-13] MEDS: fentaNYL 100 MCG/2 ML Ampul 200 MCG IV (10:36)
--- NOTE | 2020-09-13 10:43 | CASEMGMT ---
Social Work SW received VM from ESPERANZA Martínez CM at [facility]. She states pt needs help with medications at home as he does not always remember to take them. Tanya assists with this. Tanya requesting discharge instructions be faxed at time of discharge. ELBA Rosenthal
[2020-09-13] MEDS: Propofol 200 MG/20 ML Vial 100 MG IV BOLUS ×2 (11:00→11:30)
--- NOTE | 2020-09-13 11:02 | PN.HOSP_ITS ---
Subjective Subjective: Patient seen and examined. He remains intubated and sedated. He again failed a spontaneous breathing trial this morning. Unable to do review of systems as he is intubated and sedated. Creatinine is 2.24 and sodium is up at 149 today. Sputum culture is positive for Enterobacter and strep pneumonia. Objective Data Objective Data Vital Signs: Vital Signs Temp Pulse Resp BP Pulse Ox 99.1 F 73 17 141/71 H 96 09/13/20 05:00 09/13/20 10:59 09/13/20 10:59 09/13/20 10:59 09/13/20 10:59 Oxygen Flow Rate (L/min) 40 Oxygen Delivery Method Mechanical Ventilator Weight: 194 lb 10.691 oz Body Mass Index (BMI) 28.5 Intake & Output: Intake and Output for Last 24 Hours 09/11/20 09/12/20 09/13/20 23:59 23:59 23:59 Intake Total 1850.93 / 1971.83 1372.52 / 1788.82 710.22 / 710.22 Output Total 1750 / 1925 2790 / 2890 600 / 600 Balance 100.93 / 46.83 -1417.48 / -1101.18 110.22 / 110.22 Lab / Micro Data Result Diagrams: 09/13/20 03:25 09/13/20 03:25 Labs: Laboratory Results - last 24 hr 09/12/20 09/13/20 09/13/20 04:20 03:25 03:25 WBC 10.8 RBC 3.56 L Hgb 10.0 L Hct 31.6 L MCV 88.8 MCH 28.1 MCHC 31.6 L RDW Std Deviation 51.5 H RDW Coeff of Trevor 15.7 H Plt Count 153 MPV 11.2 Immature Gran % (Auto) 0.500 Neut % (Auto) 74.0 H Lymph % (Auto) 8.9 L [place] % (Auto) 15.1 H Eos % (Auto) 1.0 Baso % (Auto) 0.5 Absolute Neuts (auto) 8.0 H Absolute Lymphs (auto) 0.96 Nucleated RBC % 0 Diff Path Review Reviewed Sodium 149 H Potassium 3.4 L Chloride 117 H Carbon Dioxide 30.0 Anion Gap 2 L BUN 54 H Creatinine 2.24 H Estim Creat Clear Calc 39.38 Est GFR (MDRD) Af Amer 40 L Est GFR (MDRD) Non-Af 33 L BUN/Creatinine Ratio 24.1 H Glucose 103 Calcium 8.3 L TSH 0.51 Micro: Microbiology 09/11/20 06:20 Blood Culture (Wb) - Central Line Blood Culture - Preliminary No growth in 48 hours. 09/11/20 07:27 Sputum, Tracheal Aspirate Gram Stain - Final 09/11/20 07:27 Sputum, Tracheal Aspirate Respiratory Culture - Preliminary GNR lactose outboard motor tester GNR lactose outboard motor tester#2 Staphylococcus aureus 09/09/20 15:10 Blood Culture (Wb) - Right Hand Blood Culture - Preliminary No growth in 48 hours. 09/09/20 14:55 Blood Culture (Wb) - Central Line Blood Culture - Preliminary No growth in 48 hours. 09/07/20 14:04 Sputum, Induced/Lukens Gram Stain - Final 09/07/20 14:04 Sputum, Induced/Lukens Respiratory Culture - Final Enterobacter cloacae complex Streptococcus pneumoniae 09/09/20 14:55 Interface Orders SARS-CoV-2 Antigen (Rapid) - Final 09/07/20 11:10 Mucosa - Nose SARS-CoV-2 Antigen (Rapid) - Final Physical Exam Narrative General: Intubated, on mechanical ventilator, Cooperative, No apparent distress, Well developed HEENT: Atraumatic Oral: Moist Mucosa Neck: Supple Lungs: Clear to auscultation Cardiovascular: HS I+II, regular, no murmurs Abdomen: Bowel Sounds Present, Soft, Non Tender Extremities: chronic hyperpigmentation of legs Skin: No rashes, No breakdown Neurological: Grossly intact Psych/Mental Status: Appropriate Const Constitutional Narrative: remains intubated, sedated, RASS score is -1. HEENT normocephalic and head/scalp atraumatic Eyes PERRL Eyes Narrative: On mechanical ventilation and not following commands Neck no lymphadenopathy and no JVD Neck Narrative: Trachea midline Lymph Lymphatic: no lymphadenopathy noted and no lymphedema noted Chest inspection of chest normal Chest Narrative: Diminished breath Resp Resp Narrative: Intubated and sedated. diminished breath sounds bibasally, no wheezes or crackles. Auscultation: diminished lung sounds Cardio regular rate, S1 normal heart sound, S2 normal heart sound and no murmurs Cardio Narrative: Bradycardic. Normal S1 and S2 with no murmurs. Rate: bradycardia GI normal to inspection, nondistended, normoactive bowel sounds, soft to palpation and non-tender Extremity normal to inspection, no clubbing, cyanosis or edema and no pedal edema Skin Skin Narrative: Mild hyperpigmentation on lower extremities. No swelling or edema. Neuro Neuro Narrative: Intubated, sedated, RASS score is -2. Assessment & Plan Assessment/Plan (1) Aspiration pneumonia: Status: Ruled-out Code(s): J69.0 - Pneumonitis due to inhalation of food and vomit Qualifiers: Aspiration pneumonia type: due to regurgitated food (2) Acute and chronic respiratory failure ([id number]): Status: Chronic Code(s): J96.20 - Acute and chronic respiratory failure, unspecified whether with hypoxia or hypercapnia Qualifiers: Respiratory failure complication: hypoxia and hypercapnia Qualified Code(s): J96.21 - Acute and chronic respiratory failure with hypoxia; J96.22 - Acute and chronic respiratory failure with hypercapnia Plan: #Acute hypoxic respiratory failure due to probable aspiration pneumonia -he again failed his spontaneous breathing trial this morning, so remains intubated and sedated. -remains on propofol and fentanyl -on IV zosyn -sputum cultured enterobacter and streptococcus; blood cultures are negative so far -critical care on board #Septic shock due to aspiration pneumonia -off any vasopressors -On IV zosyn. Blood cultures negative. Sputum cultures as above. -wbc is down to 10 today #S/p cardiac arrest -cause is still unclear -was in PEA. Remains intubated and sedated -cardiology on board #History of paroxysmal afib -He had an episode of paroxysmal A. fib and nonsustained V. tach. -cardiology on board -2D echo: EF of 45-50%, with mild global LV hypokinesia -Cardiology on board. #non STEMI -cardiology on board -on rectal aspirin, therapeutic lovenox and high intensity statin -on amiodarone per cardiology -further workup to be determined by his neurological state and recovery -2D echo(09/07/2020): #Acute metabolic encephalopathy -likely due to PEA and general medical condition -on IV keppra -EEG showed general background slowing with generalised voltage suppression -MRI of the brain ordered today. TSH and ammonia levels pending -to be started on Seroquel today. To wean off sedation s tolerated. #Nutrition: now on tube feeding. LILLIANA: -Cr today is 2.24. -will monitor #Hypokalemia: potassium is still 3.4. Will replace and monitor #Hypernatremia: sodium is up to 149 today. #History of dilated cardiomyopathy -2D echo finding as above. Cardiology on board. DVT prophylaxis: therapeutic lovenox GI prophylaxis: on PPI Visit Charges Inpatient E&M: 54062 Subs Hosp L3
--- NOTE | 2020-09-13 11:25 | NURSING ---
mri completed. pt tolerated fairly well, occasional movement.
[2020-09-13] MEDS: QUEtiapine 25 MG Tablet 50 MG GT ×2 (13:04→21:44)
[2020-09-13] MEDS: levETIRAcetam IV 1,000 MG/100 ML BAG 400 MG IV ×2 (13:15→21:45)
--- NOTE | 2020-09-13 14:18 | CHAPLAIN ---
Type of Pastoral Visit ___ Initial Visit ___ Follow-up Visit ___ On-call Visit ___ General Patient Visit ___ Spiritual Assessment ___ Family Conference ___ Bereavement ___ Rapid Response ___ Code Blue ___ Other (describe below) Pastoral Care Referral From ___ Patient ___ Family ___ Nurse ___ Physician ___ Sales And Service Associate ___ Floor Service Worker [place] ___ Other (describe below) Sacrament/Intervention ___ Active listening ___ Anointing ___ Jew ___ Bereavement ___ Communion ___ Selam exploration ___ ___ Life review ___ Prayer ___ Reconciliation ___ Sacrament of Sick ___ Supportive presence ___ Wedding ___ Other (describe below) Pastoral Comments silent prayer given at bedside
[2020-09-13 20:37] LABS: Absolute Lymphocyte Count 0.72 X10^3/uL (0.83-4.51); Absolute Neutrophil Count 7.6 X10^3/uL (2.0-7.7); Basophil# 0.03 X10^3/uL; Basophil% 0.3 % (0-1); Eosinophil# 0.15 X10^3/uL; Eosinophils% 1.5 % (0-5); Hemoglobin 10.1 g/dL (13.0-16.5); Lymphocyte # 0.72 X10^3/ul (0.83-4.51); Lymphocyte % 7.3 % (19-41); Mean Corp Hgb Conc 31.6 g/dL (32-36); Mean Corpuscular Hgb 28.3 pg (27.0-32.0); Mean Corpuscular Volume 89.6 fL (80-94); Mean Platelet Vol. 10.4 fl (6.2-12.0); Monocyte# 1.25 X10^3/uL; Monocyte% 12.8 % (0-10); NRBC Flagged by Analyzer 0 % (0-5); Neutrophil # 7.59 X10^3/uL (2.7-7.7); Neutrophil % 77.5 % (47-70); Platelet Count 161 K/mm3 (150-450); RBC Distribution Width CV 15.8 % (11.6-14.6); RBC Distribution Width SD 51.8 fl (35.1-43.9); Red Blood Count 3.57 M/mm3 (4.6-6.2); White Blood Count 9.8 K/mm3 (4.4-11.0)
[2020-09-13] MEDS: 0.9% Saline Lock 10 ML Syringe IV (21:44)
[2020-09-13] MEDS: Vital AF 1.2 Cal Liquid 1,000 ML 35 ML GT (21:45)
[2020-09-13] MEDS: Atorvastatin Calcium 80 MG Tablet GT (21:45)
[2020-09-13] MEDS: Acetaminophen 650 MG/20 ML UDC GT (21:46)
[2020-09-14] VITALS (39 sets, daily range): BP systolic 104–193; BP diastolic 55–96; PULSE 51–102; RESP 14–69; TEMP 37.2–38.6; O2SAT 90–100
--- NOTE | 2020-09-14 00:58 | NURSING ---
Upon arrival to this shift patient had propofol running at 30mcg/kg and Normal saline at 15ml/hr. Propofol was running continuously regardless of MAR.
[2020-09-14] MEDS: Ipratropium/Albuterol Sulfate 3 ML AMPUL.NEB INHALATION ×4 (01:03→19:02)
[2020-09-14] MEDS: Propofol 10MG/Ml 1,000 MG/100 ML Bottle 13.2 MG CONT INF ×2 (03:14→23:15)
[2020-09-14 04:55] LABS: Hemoglobin 10.2 g/dL (13.0-16.5); Mean Corp Hgb Conc 31.9 g/dL (32-36); Mean Corpuscular Hgb 28.6 pg (27.0-32.0); Mean Corpuscular Volume 89.6 fL (80-94); Mean Platelet Vol. 9.8 fl (6.2-12.0); Platelet Count 166 K/mm3 (150-450); RBC Distribution Width CV 15.9 % (11.6-14.6); RBC Distribution Width SD 51.8 fl (35.1-43.9); Red Blood Count 3.57 M/mm3 (4.6-6.2); White Blood Count 9.9 K/mm3 (4.4-11.0)
[2020-09-14 05:12] LABS: Anion Gap 4 (5-15); BUN 48 mg/dL (7-18); BUN/Creat Ratio 22.2 RATIO (10-20); Calcium,Total 8.2 mg/dL (8.5-10.1); Chloride 119 mmol/L (98-107); Creatinine, Serum 2.16 mg/dL (0.70-1.30); EST Glomerular Filtration Rate 34 mL/min (>60); Est Glom Filt Rate - Afr Amer 41 mL/min (>60); Estimated Creatinine Clearance 40.84 ml/min; Glucose 104 mg/dL (74-106); Potassium 3.4 mmol/L (3.5-5.1); Sodium Level 152 mmol/L (136-145)
--- NOTE | 2020-09-14 06:25 | PCM.PN.INT ---
Subjective Subjective: The patient was seen and examined at the bedside this morning. Events from the last 24 hours have been reviewed. The patient is currently afebrile, hemodynamically stable and maintaining appropriate oxygen saturations on assist control mode of mechanical ventilation with an FiO2 requirement of 30% and PEEP of 5. Per nursing report, the patient failed his spontaneous awakening trial as he became notably bradycardic during the trial. Therefore, he was never placed on his spontaneous breathing trial. The patient did spike a fever overnight to 101.2 ?F. The patient's sodium is elevated to 152. Potassium is low at 3.4. Creatinine has improved to 2.16. The patient is currently documented to be overall net +370 mL for the hospital admission. The patient is yet to have a bowel movement. However, he is tolerating tube feeds. Objective Data Objective Data Vital Signs: Vital Signs Temp Pulse Resp BP Pulse Ox 99.1 F 51 L 15 137/73 H 97 09/14/20 06:00 09/14/20 06:00 09/14/20 06:00 09/14/20 06:00 09/14/20 06:00 Oxygen Flow Rate (L/min) 40 Oxygen Delivery Method Mechanical Ventilator Weight: 199 lb 11.821 oz Body Mass Index (BMI) 28.5 Intake & Output: Intake and Output for Last 24 Hours 09/12/20 09/13/20 09/14/20 23:59 23:59 23:59 Intake Total 1372.52 / 1788.82 1830.86 / 1886.76 200.61 / 200.61 Output Total 2790 / 2890 1375 / 1375 370 / 370 Balance -1417.48 / -1101.18 455.86 / 511.76 -169.39 / -169.39 Lab / Micro Data Result Diagrams: 09/14/20 04:40 09/14/20 04:40 Labs: Laboratory Results - last 24 hr 09/13/20 09/13/20 09/13/20 03:25 03:25 12:05 WBC 10.8 RBC 3.56 L Hgb 10.0 L Hct 31.6 L MCV 88.8 MCH 28.1 MCHC 31.6 L RDW Std Deviation 51.5 H RDW Coeff of Trevor 15.7 H Plt Count 153 MPV 11.2 Immature Gran % (Auto) 0.500 Neut % (Auto) 74.0 H Lymph % (Auto) 8.9 L Wolfe % (Auto) 15.1 H Eos % (Auto) 1.0 Baso % (Auto) 0.5 Absolute Neuts (auto) 8.0 H Absolute Lymphs (auto) 0.96 Nucleated RBC % 0 Sodium 149 H Potassium 3.4 L Chloride 117 H Carbon Dioxide 30.0 Anion Gap 2 L BUN 54 H Creatinine 2.24 H Estim Creat Clear Calc 39.38 Est GFR (MDRD) Af Amer 40 L Est GFR (MDRD) Non-Af 33 L BUN/Creatinine Ratio 24.1 H Glucose 103 Calcium 8.3 L Ammonia 38.0 H TSH 0.51 09/13/20 09/14/20 09/14/20 20:20 04:40 04:40 WBC 9.8 9.9 RBC 3.57 L 3.57 L Hgb 10.1 L 10.2 L Hct 32.0 L 32.0 L MCV 89.6 89.6 MCH 28.3 28.6 MCHC 31.6 L 31.9 L RDW Std Deviation 51.8 H 51.8 H RDW Coeff of Trevor 15.8 H 15.9 H Plt Count 161 166 MPV 10.4 9.8 Immature Gran % (Auto) 0.600 Neut % (Auto) 77.5 H Lymph % (Auto) 7.3 L Wolfe % (Auto) 12.8 H Eos % (Auto) 1.5 Baso % (Auto) 0.3 Absolute Neuts (auto) 7.6 Absolute Lymphs (auto) 0.72 L Nucleated RBC % 0 Sodium 152 H Potassium 3.4 L Chloride 119 H Carbon Dioxide 29.0 Anion Gap 4 L BUN 48 H Creatinine 2.16 H Estim Creat Clear Calc 40.84 Est GFR (MDRD) Af Amer 41 L Est GFR (MDRD) Non-Af 34 L BUN/Creatinine Ratio 22.2 H Glucose 104 Calcium 8.2 L Ammonia TSH Micro: Microbiology 09/11/20 06:20 Blood Culture (Wb) - Central Line Blood Culture - Preliminary No growth in 48 hours. 09/11/20 07:27 Sputum, Tracheal Aspirate Gram Stain - Final 09/11/20 07:27 Sputum, Tracheal Aspirate Respiratory Culture - Preliminary GNR lactose sales commissions analyst GNR lactose sales commissions analyst#2 Staphylococcus aureus 09/09/20 15:10 Blood Culture (Wb) - Right Hand Blood Culture - Preliminary No growth in 48 hours. 09/09/20 14:55 Blood Culture (Wb) - Central Line Blood Culture - Preliminary No growth in 48 hours. 09/07/20 14:04 Sputum, Induced/Lukens Gram Stain - Final 09/07/20 14:04 Sputum, Induced/Lukens Respiratory Culture - Final Enterobacter cloacae complex Streptococcus pneumoniae 09/09/20 14:55 Interface Orders SARS-CoV-2 Antigen (Rapid) - Final 09/07/20 11:10 Mucosa - Nose SARS-CoV-2 Antigen (Rapid) - Final Radiography Diagnostic Testing: Radiology Impression Brain MRI 09/13/20 07:06 IMPRESSION: 1. Normal unenhanced and enhanced MRI of the brain. 2. Minimal mucosal edema of the temporal mastoid bones. Electronically Signed: Mio Hubbard MD at 13:11 EDT , Service support , Physical Exam Const no apparent distress Constitutional Narrative: Intubated, sedated and mechanically ventilated. No ventilator to synchrony noted. General Appearance: patient mechanically ventilated HEENT normocephalic, head/scalp atraumatic and moist oral mucous membranes Eyes PERRL, conjunctivae normal and no scleral icterus Neck no lymphadenopathy and supple General: trachea midline and CVC in place Resp no use of accessory muscles Auscultation: rhonchi, wheezes and diminished lung sounds; Negative for rales Cardio S1 normal heart sound and S2 normal heart sound; Negative for no rub or no gallops Rate: bradycardia Rhythm: abnormal rhythm Heart Sounds: murmur systolic II/ soft mid Peripheral Pulses: pulses 2+ throughout GI normal to inspection, nondistended, normoactive bowel sounds, soft to palpation and non-tender Auscultation: normoactive bowel sounds Extremity no clubbing, cyanosis or edema Skin Skin Narrative: Venous stasis changes of the lower extremities. No significant edema General Skin Exam: venous stasis Neuro moves all extremities and no focal motor deficits Neuro Narrative: Not currently following any commands. Sedated on the ventilator. Sensorium / Orientation: sedated on vent Psych Mood & Affect: flat affect Assessment & Plan Assessment/Plan (1) Cardiac arrest: PLAN: RECOMMENDATIONS: 1. Continue patient on assist control mode of mechanical ventilation and wean FiO2 to maintain saturations at or above 90%. 2. Minimize sedation as tolerated. Goal to maintain a RASS of -1 to 1. Okay to start Seroquel today. 3. Start gentle IV fluid hydration. 4. Continue empiric Keppra. 5. Continue bronchodilators and inhaled corticosteroid. 6. Continue antimicrobials. 7. Continue tube feeds as tolerated. 8. Obtain repeat arterial blood gas. 9. Await additional recommendations from cardiology regarding bradycardic episodes. 10. Continue appropriate GI prophylaxis. IMPRESSIONS: 1. Cardiac arrest of unknown etiology History of both advanced cardiac and pulmonary pathologies. No reported history of recent exacerbation type symptoms from a COPD standpoint. 2. Distributive versus cardiogenic shock Resolved. The patient has been successfully weaned from vasopressor support. He does have both Enterobacter and Streptococcus identified on sputum culture. Therefore antimicrobials will be continued as appropriate. 3. Acute on chronic combined respiratory failure with pneumococcal and Enterobacter pneumonia Plan to continue current supportive measures with invasive mechanical ventilatory support. Continue patient on assist control mode of mechanical ventilation and wean FiO2 as tolerated to maintain saturations at or above 90%. Continue antimicrobials as ordered. Continue scheduled bronchodilators and inhaled corticosteroid. Okay to continue tube feeds as tolerated. 4. Chronic diastolic CHF/paroxysmal A. fib/pulmonary hypertension Continue medical management per cardiology recommendations. 5. Encephalopathy/possible seizures The patient has had questionable seizure activity during his hospitalization, for which she was started empirically on Keppra. EEG did not demonstrate any focal seizure activity. The patient has not demonstrated any significant improvement in his overall mentation. MRI brain was unremarkable. 6. Hemochromatosis/obesity/smoking addiction/depression/poor history/hyperlipidemia Complicates care, management, recovery and prognosis. Okay to continue with baseline medications from my perspective. TIME: 35 minutes of critical care time, independent of procedures, was spent addressing the patient's cardiac arrest, acute on chronic combined respiratory failure, pneumococcal and Enterobacter pneumonia, history of coronary artery disease, questionable seizures, review of all data and collaboration with care team. ([id number]) Procedures Pulmonary 9xxxx: [id number] Critical care first hour
[2020-09-14] MEDS: 0.9% Saline Lock 10 ML Syringe IV (06:47)
[2020-09-14] MEDS: Budesonide Respules 0.5 MG/2 ML AMPUL.NEB. INHALATION ×2 (06:58→19:02)
[2020-09-14 07:15] LABS: Base Excess 2 mmol/L (-2 to +2); Bicarbonate 27.2 mmol/L (22-26); Blood Gas Specimen Type ART; FI02 30; Mode AC; O2 Delivery Device ET Tube; PEEP 5; PO2 61 mmHG (75-100); RR 14; SITE R Radial; SO2 90 % (95-99); Total Carbon Dioxide 29 mmol/L; Vt 450; pCO2 47.1 mmHg (35-45); pH 7.37 (7.35-7.45)
--- NOTE | 2020-09-14 07:55 | EKG12_ITS ---
Test Reason : REPEAT EKG Blood Pressure : / mmHG Vent. Rate : 056 BPM Atrial Rate : 131 BPM P-R Int : 158 ms QRS Dur : 106 ms QT Int : 500 ms P-R-T Axes : 067 053 125 degrees QTc Int : 482 ms Sinus tachycardia with 2nd degree A-V block (Mobitz I) ST & T wave abnormality, consider anterolateral ischemia Prolonged QT Abnormal ECG Confirmed by MIKE CARTWRIGHT, OZ ([id number]), video news editor MICKY ESCAMILLA ([id number]) on 09/20/2020 9:20:15 AM Referred By: MIKE Confirmed By:OZ MCKEON MD
--- NOTE | 2020-09-14 08:53 | PCM.PN.CARD ---
Subjective Subjective: The patient remains chemically intubated and ventilated. According to Dr. Abdalla when he underwent his weaning trial as well as oral cleaning he was noted to develop sinus bradycardia. He reportedly remained hemodynamically stable. Objective Data Vital Signs: Vital Signs Temp Pulse Resp BP Pulse Ox 99.1 F 51 L 15 137/73 H 97 09/14/20 06:00 09/14/20 06:00 09/14/20 06:00 09/14/20 06:00 09/14/20 06:00 Oxygen Flow Rate (L/min) 40 Oxygen Delivery Method Mechanical Ventilator Weight: 199 lb 11.821 oz Body Mass Index (BMI) 28.5 Intake & Output: Intake and Output for Last 24 Hours 09/12/20 09/13/20 09/14/20 23:59 23:59 23:59 Intake Total 1372.52 / 1788.82 1830.86 / 1886.76 1028.53 / 1028.53 Output Total 2790 / 2890 1375 / 1375 370 / 370 Balance -1417.48 / -1101.18 455.86 / 511.76 658.53 / 658.53 Lab / Micro Data Result Diagrams: 09/14/20 04:40 09/14/20 04:40 Labs: Laboratory Results - last 24 hr 09/13/20 09/13/20 09/14/20 12:05 20:20 04:40 WBC 9.8 9.9 RBC 3.57 L 3.57 L Hgb 10.1 L 10.2 L Hct 32.0 L 32.0 L MCV 89.6 89.6 MCH 28.3 28.6 MCHC 31.6 L 31.9 L RDW Std Deviation 51.8 H 51.8 H RDW Coeff of Trevor 15.8 H 15.9 H Plt Count 161 166 MPV 10.4 9.8 Immature Gran % (Auto) 0.600 Neut % (Auto) 77.5 H Lymph % (Auto) 7.3 L [place] % (Auto) 12.8 H Eos % (Auto) 1.5 Baso % (Auto) 0.3 Absolute Neuts (auto) 7.6 Absolute Lymphs (auto) 0.72 L Nucleated RBC % 0 Sodium Potassium Chloride Carbon Dioxide Anion Gap BUN Creatinine Estim Creat Clear Calc Est GFR (MDRD) Af Amer Est GFR (MDRD) Non-Af BUN/Creatinine Ratio Glucose Calcium Ammonia 38.0 H 09/14/20 04:40 WBC RBC Hgb Hct MCV MCH MCHC RDW Std Deviation RDW Coeff of Trevor Plt Count MPV Immature Gran % (Auto) Neut % (Auto) Lymph % (Auto) [place] % (Auto) Eos % (Auto) Baso % (Auto) Absolute Neuts (auto) Absolute Lymphs (auto) Nucleated RBC % Sodium 152 H Potassium 3.4 L Chloride 119 H Carbon Dioxide 29.0 Anion Gap 4 L BUN 48 H Creatinine 2.16 H Estim Creat Clear Calc 40.84 Est GFR (MDRD) Af Amer 41 L Est GFR (MDRD) Non-Af 34 L BUN/Creatinine Ratio 22.2 H Glucose 104 Calcium 8.2 L Ammonia Micro: Microbiology 09/11/20 07:27 Sputum, Tracheal Aspirate Gram Stain - Final 09/11/20 07:27 Sputum, Tracheal Aspirate Respiratory Culture - Final Enterobacter cloacae complex Escherichia coli Meth. resistant Staph. aureus 09/11/20 06:20 Blood Culture (Wb) - Central Line Blood Culture - Preliminary No growth in 48 hours. 09/09/20 15:10 Blood Culture (Wb) - Right Hand Blood Culture - Preliminary No growth in 48 hours. 09/09/20 14:55 Blood Culture (Wb) - Central Line Blood Culture - Preliminary No growth in 48 hours. 09/07/20 14:04 Sputum, Induced/Lukens Gram Stain - Final 09/07/20 14:04 Sputum, Induced/Lukens Respiratory Culture - Final Enterobacter cloacae complex Streptococcus pneumoniae 09/09/20 14:55 Interface Orders SARS-CoV-2 Antigen (Rapid) - Final 09/07/20 11:10 Mucosa - Nose SARS-CoV-2 Antigen (Rapid) - Final ABG Data ABG results: ABG 09/14/20 07:10 Specimen Type ART Sample Site R Radial pH 7.37 Bicarbonate Actual 27.2 H Total CO2 29 Base Excess 2 O2 Saturation 90 L O2 % 30 ABG pCO2 47.1 H ABG pO2 61 L Respiration Rate 14 O2 Delivery Device ET Tube Vent Mode AC Tidal Volume 450 POC PEEP 5 Cardiology Labs/Tests 09/13/20 20:20: WBC 9.8, RBC 3.57 L, Hgb 10.1 L, Hct 32.0 L, MCV 89.6, MCH 28.3, MCHC 31.6 L, Plt Count 161, MPV 10.4, Immature Gran % (Auto) 0.600, Neut % (Auto) 77.5 H, Lymph % (Auto) 7.3 L, [place] % (Auto) 12.8 H, Eos % (Auto) 1.5, Baso % (Auto) 0.3, Absolute Neuts (auto) 7.6, Nucleated RBC % 0 09/14/20 04:40: WBC 9.9, RBC 3.57 L, Hgb 10.2 L, Hct 32.0 L, MCV 89.6, MCH 28.6, MCHC 31.9 L, Plt Count 166, MPV 9.8 09/14/20 04:40: Sodium 152 H, Potassium 3.4 L, Chloride 119 H, Carbon Dioxide 29.0, Anion Gap 4 L, BUN 48 H, Creatinine 2.16 H, Est GFR (MDRD) Af Amer 41 L, Est GFR (MDRD) Non-Af 34 L, BUN/Creatinine Ratio 22.2 H, Glucose 104, Calcium 8.2 L 09/14/20 07:10: pH 7.37, Bicarbonate Actual 27.2 H, Base Excess 2, O2 Saturation 90 L, ABG pCO2 47.1 H, ABG pO2 61 L Rhythm: Sinus rhythm/sinus bradycardia EKG: Sinus rhythm; second-degree AV block Mobitz 1; T wave [id number] metabolic effect, medication effect, myocardial ischemia Radiography Diagnostic Testing: Radiology Impression Brain MRI 09/13/20 07:06 IMPRESSION: 1. Normal unenhanced and enhanced MRI of the brain. 2. Minimal mucosal edema of the temporal mastoid bones. Electronically Signed: Mio Hubbard MD at 13:11 EDT , Service support , Physical Exam Narrative The patient remains mechanically intubated and ventilated. HEENT normocephalic Chest inspection of chest normal Resp Auscultation: rhonchi Cardio regular rate, regular rhythm, S1 normal heart sound and S2 normal heart sound GI normal to inspection, nondistended, normoactive bowel sounds Extremity no pedal edema Assessment & Plan Assessment/Plan (1) Cardiac arrest: PLAN: The patient was reported as experiencing a cardiac arrest. The etiology is unclear at this time. The patient has a history of a non-CAD related cardiomyopathy with improvement of his overall LV wall motion systolic function over time. At the present time the patient remains in the ICU mechanically intubated and ventilated. Depending upon his neurologic status consideration will be given as to whether he requires additional cardiovascular diagnostic studies, etc. (2) Dilated cardiomyopathy: PLAN: Again the patient was diagnosed in 2016 is having a non-CAD related cardiomyopathy. Over time his LV systolic function had improved. He was continuing medical management. (3) Paroxysmal atrial fibrillation: PLAN: The patient has a history of underlying PAF. He had been on medical therapy for such. At the present time his medications are on hold based upon changes with his hemodynamics and his electrocardiographic changes (previous QT prolongation). His cardiac rhythm has been monitored. He has demonstrated sinus rhythm. He has now demonstrated sinus bradycardia with his attempt at weaning and oral cleaning/stimulation. The etiology of this is uncertain as to whether this is vagally mediated, secondary to medication including his recent dose of Seroquel, or part of his underlying conduction system/cardiac dysrhythmia history. The patient has also been found to have during his hospitalization episodes of both right bundle branch block and left bundle branch block. Thus raising additional concern of underlying conduction system related issues. At the present time the patient continues to be monitored. An attempt is being made to avoid medications that would alter his underlying cardiac rhythm or conduction system. However depending upon his clinical course he may need to be considered for further electrophysiologic evaluation and/or device placement such as a PPM or ICD depending upon his overall LV wall motion/systolic function. (4) Pulmonary hypertension: PLAN: The patient has a history of pulmonary hypertension as previously noted on his 2016 diagnostic cardiac catheterization. There was concern this led to cor pulmonale and right heart failure. The patient has been treated for such by both cardiology and pulmonology. (5) Obstructive sleep apnea: PLAN: The patient has a history of NIRMAL. There was concern that this was a contributing factor to his pulmonary hypertension. (6) Pure hypercholesterolemia: PLAN: The patient will continue risk factor evaluation care as deemed appropriate. (7) Essential hypertension: PLAN: The patient was hypotensive. He did require IV vasopressor support. It had been discontinued. However he is now back on IV vasopressor support. Addt'l Comments Overall, at the present time, the patient will continue to be monitored. An attempt is being made to avoid vagally stimulating events. An attempt is being made to minimize any medication effect on his cardiac rhythm or conduction system. His neurologic status is still unclear. He is continuing to be monitored. Depending upon his overall clinical course and findings, as noted above, he may need additional cardiovascular evaluation care which may include the need for further cardiac rhythm/conduction system support such as a permanent pacemaker or ICD. The patient's case has been discussed and reviewed with Dr. Abdalla. This note was generated with [employer] dictation software. It may contain incorrect words, spelling, and punctuation that were not noted in checking the note before signing.
[2020-09-14] MEDS: Aspirin 325 MG Tablet GT (09:13)
[2020-09-14] MEDS: Senna/Docusate Sodium 1 Tablet PO ×2 (09:13→21:57)
[2020-09-14] MEDS: Enoxaparin 100 MG/ML Syringe 90 MG SC ×2 (09:13→21:57)
[2020-09-14] MEDS: levETIRAcetam IV 1,000 MG/100 ML BAG 400 MG IV ×2 (09:16→21:47)
[2020-09-14] MEDS: Chlorhexidine 15 ML PO ×2 (09:30→21:49)
--- NOTE | 2020-09-14 09:50 | CASEMGMT ---
Social Work Phone call to pt significant other Gena to offer support. VM left with SW number to return call if desired. ELBA Rosenthal
--- NOTE | 2020-09-14 09:55 | CASEMGMT ---
This RN CM participated in ICU multidisciplinary rounds. Pt failed weaning of sedation today d/t bradycardia. Pt is still on vent 40%. EEG was abnormal and MRI was normal. CM to follow. SStaten ESPERANZA CM
--- NOTE | 2020-09-14 10:15 | PN.HOSP_ITS ---
Subjective Subjective: Patient seen and examined. He remains intubated and sedated. He was noted to be bradycardic when his sedation was turned down and he was undergoing spontaneous breathing trial. Spontaneous breathing trial was therefore stopped, and he has remained hemodynamically stable. No other active events per his nurse. Objective Data Objective Data Vital Signs: Vital Signs Temp Pulse Resp BP Pulse Ox 99.1 F 54 L 17 137/73 H 97 09/14/20 06:00 09/14/20 09:17 09/14/20 09:17 09/14/20 06:00 09/14/20 09:17 Oxygen Flow Rate (L/min) 40 Oxygen Delivery Method Mechanical Ventilator Weight: 199 lb 11.821 oz Body Mass Index (BMI) 28.5 Intake & Output: Intake and Output for Last 24 Hours 09/12/20 09/13/20 09/14/20 23:59 23:59 23:59 Intake Total 1372.52 / 1788.82 1830.86 / 1886.76 1283.43 / 1283.43 Output Total 2790 / 2890 1375 / 1375 370 / 370 Balance -1417.48 / -1101.18 455.86 / 511.76 913.43 / 913.43 Lab / Micro Data Result Diagrams: 09/14/20 04:40 09/14/20 04:40 Labs: Laboratory Results - last 24 hr 09/13/20 09/13/20 09/14/20 12:05 20:20 04:40 WBC 9.8 9.9 RBC 3.57 L 3.57 L Hgb 10.1 L 10.2 L Hct 32.0 L 32.0 L MCV 89.6 89.6 MCH 28.3 28.6 MCHC 31.6 L 31.9 L RDW Std Deviation 51.8 H 51.8 H RDW Coeff of Trevor 15.8 H 15.9 H Plt Count 161 166 MPV 10.4 9.8 Immature Gran % (Auto) 0.600 Neut % (Auto) 77.5 H Lymph % (Auto) 7.3 L [place] % (Auto) 12.8 H Eos % (Auto) 1.5 Baso % (Auto) 0.3 Absolute Neuts (auto) 7.6 Absolute Lymphs (auto) 0.72 L Nucleated RBC % 0 Sodium Potassium Chloride Carbon Dioxide Anion Gap BUN Creatinine Estim Creat Clear Calc Est GFR (MDRD) Af Amer Est GFR (MDRD) Non-Af BUN/Creatinine Ratio Glucose Calcium Ammonia 38.0 H 09/14/20 04:40 WBC RBC Hgb Hct MCV MCH MCHC RDW Std Deviation RDW Coeff of Trevor Plt Count MPV Immature Gran % (Auto) Neut % (Auto) Lymph % (Auto) [place] % (Auto) Eos % (Auto) Baso % (Auto) Absolute Neuts (auto) Absolute Lymphs (auto) Nucleated RBC % Sodium 152 H Potassium 3.4 L Chloride 119 H Carbon Dioxide 29.0 Anion Gap 4 L BUN 48 H Creatinine 2.16 H Estim Creat Clear Calc 40.84 Est GFR (MDRD) Af Amer 41 L Est GFR (MDRD) Non-Af 34 L BUN/Creatinine Ratio 22.2 H Glucose 104 Calcium 8.2 L Ammonia Micro: Microbiology 09/11/20 07:27 Sputum, Tracheal Aspirate Gram Stain - Final 09/11/20 07:27 Sputum, Tracheal Aspirate Respiratory Culture - Final Enterobacter cloacae complex Escherichia coli Meth. resistant Staph. aureus 09/11/20 06:20 Blood Culture (Wb) - Central Line Blood Culture - Preliminary No growth in 48 hours. 09/09/20 15:10 Blood Culture (Wb) - Right Hand Blood Culture - Preliminary No growth in 48 hours. 09/09/20 14:55 Blood Culture (Wb) - Central Line Blood Culture - Preliminary No growth in 48 hours. 09/07/20 14:04 Sputum, Induced/Lukens Gram Stain - Final 09/07/20 14:04 Sputum, Induced/Lukens Respiratory Culture - Final Enterobacter cloacae complex Streptococcus pneumoniae 09/09/20 14:55 Interface Orders SARS-CoV-2 Antigen (Rapid) - Final 09/07/20 11:10 Mucosa - Nose SARS-CoV-2 Antigen (Rapid) - Final ABG Data ABG results: ABG 09/14/20 07:10 Specimen Type ART Sample Site R Radial pH 7.37 Bicarbonate Actual 27.2 H Total CO2 29 Base Excess 2 O2 Saturation 90 L O2 % 30 ABG pCO2 47.1 H ABG pO2 61 L Respiration Rate 14 O2 Delivery Device ET Tube Vent Mode AC Tidal Volume 450 POC PEEP 5 Radiography Diagnostic Testing: Radiology Impression Brain MRI 09/13/20 07:06 IMPRESSION: 1. Normal unenhanced and enhanced MRI of the brain. 2. Minimal mucosal edema of the temporal mastoid bones. Electronically Signed: Mio Hubbard MD at 13:11 EDT , Service support , Physical Exam Narrative General: Intubated, on mechanical ventilator, Cooperative, No apparent distress, Well developed HEENT: Atraumatic Oral: Moist Mucosa Neck: Supple Lungs: Clear to auscultation Cardiovascular: HS I+II, regular, no murmurs Abdomen: Bowel Sounds Present, Soft, Non Tender Extremities: chronic hyperpigmentation of legs Skin: No rashes, No breakdown Neurological: Grossly intact Psych/Mental Status: Appropriate Const Constitutional Narrative: remains intubated, sedated, RASS score is -1. HEENT normocephalic and head/scalp atraumatic Eyes PERRL Eyes Narrative: On mechanical ventilation and not following commands Neck no lymphadenopathy and no JVD Neck Narrative: Trachea midline Lymph Lymphatic: no lymphadenopathy noted and no lymphedema noted Chest inspection of chest normal Chest Narrative: Diminished breath Resp Resp Narrative: Intubated and sedated. diminished breath sounds bibasally, no wheezes or crackles. Auscultation: diminished lung sounds Cardio regular rate, S1 normal heart sound, S2 normal heart sound and no murmurs Cardio Narrative: Bradycardic. Normal S1 and S2 with no murmurs. Rate: bradycardia GI normal to inspection, nondistended, normoactive bowel sounds, soft to palpation and non-tender Extremity normal to inspection, no clubbing, cyanosis or edema and no pedal edema Skin Skin Narrative: Mild hyperpigmentation on lower extremities. No swelling or edema. Neuro Neuro Narrative: Intubated, sedated, RASS score is -2. Assessment & Plan Assessment/Plan (1) Acute and chronic respiratory failure ([id number]): QUALIFIERS: Respiratory failure complication: hypoxia and hypercapnia Qualified Code(s): J96.21 - Acute and chronic respiratory failure with hypoxia; J96.22 - Acute and chronic respiratory failure with hypercapnia (2) STEMI (ST elevation myocardial infarction): QUALIFIERS: Involved coronary artery: unspecified coronary artery Qualified Code(s): I21.3 - ST elevation (STEMI) myocardial infarction of unspecified site (3) Symptomatic bradycardia: (4) Severe sepsis: PLAN: #Acute hypoxic respiratory failure due to probable aspiration pneumonia -he again failed his spontaneous breathing trial this morning, so remains intubated and sedated. -remains on propofol and fentanyl -IV zosyn switched to IV cefepime; vancomycin added on -sputum cultured enterobacter and streptococcus as well as MRSA; blood cultures are negative so far -IV vancomycin added on -critical care on board #Septic shock due to aspiration pneumonia -off any vasopressors -now on IV cefepime and vancomycin. Blood cultures negative. Sputum cultures as above. -wbc is down to 10 today #S/p cardiac arrest -cause is still unclear -was in PEA. Remains intubated and sedated -cardiology on board #History of paroxysmal afib -He had an episode of paroxysmal A. fib and nonsustained V. tach. -cardiology on board -2D echo: EF of 45-50%, with mild global LV hypokinesia -Cardiology on board. #Symptomatic bradycardia -patient became very bradycardic today when having his spontaneous breathing trial -cardiology on board -per cardio, he may need to be considered for a pacemaker or ICD depending on how he does. -noted to have both RBBB and LBBB during this hospital stay #non STEMI -cardiology on board -on rectal aspirin, therapeutic lovenox and high intensity statin -weaned off amiodarone -further workup to be determined by his neurological state and recovery -2D echo(09/07/2020): as above #Acute metabolic encephalopathy -likely due to PEA and general medical condition -on IV keppra -EEG showed general background slowing with generalised voltage suppression -MRI of the brain was normal. TSH and ammonia levels pending -to be started on Seroquel today. To wean off sedation s tolerated. #Nutrition: now on tube feeding. LILLIANA: -Cr today is down to 2.16 -will monitor #Hypokalemia: potassium is still 3.4. Will replace and monitor #Hypernatremia:sodium is 152 today. Start on D5W to bring down sodium level #History of dilated cardiomyopathy -2D echo finding as above. Cardiology on board. DVT prophylaxis: therapeutic lovenox GI prophylaxis: on PPI Visit Charges Inpatient E&M: [id number] [facility] L3
--- NOTE | 2020-09-14 10:59 | CPS ---
Patient had CO2 monitoring during MRI.
[2020-09-14] MEDS: Propofol 10MG/Ml 1,000 MG/100 ML Bottle 10.6 MG CONT INF (12:00)
[2020-09-14] MEDS: hydrALAZINE 20 MG/ML Vial 10 MG IV (14:44)
[2020-09-14] MEDS: Acetaminophen 650 MG/20 ML UDC GT (21:56)
[2020-09-14] MEDS: Atorvastatin Calcium 80 MG Tablet GT (21:57)
[2020-09-15] VITALS (33 sets, daily range): BP systolic 104–188; BP diastolic 63–99; PULSE 54–86; RESP 11–34; TEMP 37.5–38.5; O2SAT 88–100
[2020-09-15] MEDS: Ipratropium/Albuterol Sulfate 3 ML AMPUL.NEB INHALATION ×4 (01:54→19:05)
[2020-09-15 04:04] LABS: Hematocrit 36.9 % (40-54); Hemoglobin 11.8 g/dL (13.0-16.5); Mean Corpuscular Hgb 28.2 pg (27.0-32.0); Mean Corpuscular Volume 88.1 fL (80-94); Mean Platelet Vol. 10.2 fl (6.2-12.0); Platelet Count 183 K/mm3 (150-450); RBC Distribution Width CV 15.8 % (11.6-14.6); RBC Distribution Width SD 50.8 fl (35.1-43.9); Red Blood Count 4.19 M/mm3 (4.6-6.2)
[2020-09-15 04:15] LABS: Anion Gap 6 (5-15); BUN 28 mg/dL (7-18); BUN/Creat Ratio 17.5 RATIO (10-20); Calcium,Total 8.4 mg/dL (8.5-10.1); Chloride 112 mmol/L (98-107); EST Glomerular Filtration Rate 48 mL/min (>60); Est Glom Filt Rate - Afr Amer 58 mL/min (>60); Estimated Creatinine Clearance 55.13 ml/min; Glucose 147 mg/dL (74-106); Potassium 3.1 mmol/L (3.5-5.1); Sodium Level 147 mmol/L (136-145)
[2020-09-15] MEDS: Propofol 10MG/Ml 1,000 MG/100 ML Bottle 13.2 MG CONT INF (06:17)
[2020-09-15] MEDS: TITRATION PARAMETER CHANGE 1 EACH IV (06:32)
--- NOTE | 2020-09-15 06:35 | PCM.PN.INT ---
Subjective Subjective: The patient was seen and examined at the bedside this morning. Events from the last 24 hours have been reviewed. The patient is currently febrile with a T-max overnight 101.5 ?F. He is otherwise hemodynamically stable and maintaining appropriate oxygen saturations on assist control mode mechanical ventilation with an FiO2 requirement of 30% and PEEP of 5. The patient lasted approximately 15 minutes on his spontaneous awakening trial this morning. He subsequently became extremely agitated. Per nursing report, although the patient was alert he was not following any commands. He has been tolerant thus far of his tube feeds. Nursing staff did report copious oral secretions this morning. The patient is currently documented to be overall net +2 L for the hospital admission. His white blood cell count has increased to 16,000. Sodium has improved to 147. Potassium is low at 3.1. Creatinine has improved to 1.6. Objective Data Objective Data The patient's most recent lab work, culture data and imaging studies have all been personally reviewed. Surface echocardiogram dated September 07 revealed an ejection fraction of 45 to 50%. Coronavirus rapid antigen testing was negative on September 07. Sputum culture dated September 07 was positive for Enterobacter and Streptococcus pneumonia. Blood cultures are pending. EEG from September 10 revealed generalized background slowing with generalized voltage suppression. Vital Signs: Vital Signs Temp Pulse Resp BP Pulse Ox 100.1 F H 60 17 129/73 H 100 09/15/20 05:00 09/15/20 05:00 09/15/20 05:00 09/15/20 05:00 09/15/20 05:00 Oxygen Flow Rate (L/min) 40 Oxygen Delivery Method Mechanical Ventilator Weight: 197 lb 8.547 oz Body Mass Index (BMI) 28.5 Intake & Output: Intake and Output for Last 24 Hours 09/13/20 09/14/20 09/15/20 23:59 23:59 23:59 Intake Total 1830.86 / 1886.76 5141.04 / 6163.34 1724.53 / 1724.53 Output Total 1375 / 1375 3695 / 4495 1700 / 1700 Balance 455.86 / 511.76 1446.04 / 1668.34 24.53 / 24.53 Lab / Micro Data Attestation: I reviewed the patient's lab results. Result Diagrams: 09/15/20 03:55 09/15/20 03:55 Labs: Laboratory Results - last 24 hr 09/15/20 09/15/20 03:55 03:55 WBC 16.0 H RBC 4.19 L Hgb 11.8 L Hct 36.9 L MCV 88.1 MCH 28.2 MCHC 32.0 RDW Std Deviation 50.8 H RDW Coeff of Trevor 15.8 H Plt Count 183 MPV 10.2 Sodium 147 H Potassium 3.1 L Chloride 112 H Carbon Dioxide 29.0 Anion Gap 6 BUN 28 H Creatinine 1.60 H Estim Creat Clear Calc 55.13 Est GFR (MDRD) Af Amer 58 L Est GFR (MDRD) Non-Af 48 L BUN/Creatinine Ratio 17.5 Glucose 147 H Calcium 8.4 L Micro: Microbiology 09/11/20 07:27 Sputum, Tracheal Aspirate Gram Stain - Final 09/11/20 07:27 Sputum, Tracheal Aspirate Respiratory Culture - Final Enterobacter cloacae complex Escherichia coli Meth. resistant Staph. aureus 09/11/20 06:20 Blood Culture (Wb) - Central Line Blood Culture - Preliminary No growth in 48 hours. 09/09/20 15:10 Blood Culture (Wb) - Right Hand Blood Culture - Preliminary No growth in 48 hours. 09/09/20 14:55 Blood Culture (Wb) - Central Line Blood Culture - Preliminary No growth in 48 hours. 09/07/20 14:04 Sputum, Induced/Lukens Gram Stain - Final 09/07/20 14:04 Sputum, Induced/Lukens Respiratory Culture - Final Enterobacter cloacae complex Streptococcus pneumoniae 09/09/20 14:55 Interface Orders SARS-CoV-2 Antigen (Rapid) - Final 09/07/20 11:10 Mucosa - Nose SARS-CoV-2 Antigen (Rapid) - Final ABG Data ABG results: ABG 09/14/20 07:10 Specimen Type ART Sample Site R Radial pH 7.37 Bicarbonate Actual 27.2 H Total CO2 29 Base Excess 2 O2 Saturation 90 L O2 % 30 ABG pCO2 47.1 H ABG pO2 61 L Respiration Rate 14 O2 Delivery Device ET Tube Vent Mode AC Tidal Volume 450 POC PEEP 5 Physical Exam Const Constitutional Narrative: Intubated, sedated and mechanically ventilated. Currently agitated and restless in bed. General Appearance: patient mechanically ventilated HEENT normocephalic, head/scalp atraumatic and moist oral mucous membranes Mouth: endotracheal tube in place and OG tube in place Teeth and Gingiva: poor dentition Eyes PERRL, conjunctivae normal and no scleral icterus Neck no lymphadenopathy and supple General: trachea midline and CVC in place Resp Effort and Inspection: tachypneic Auscultation: rhonchi and diminished lung sounds; Negative for rales or wheezes Cardio regular rate, regular rhythm, S1 normal heart sound and S2 normal heart sound; Negative for no rub or no gallops Heart Sounds: murmur systolic II/ soft mid Peripheral Pulses: pulses 2+ throughout GI normal to inspection, nondistended, normoactive bowel sounds, soft to palpation and non-tender Auscultation: normoactive bowel sounds Extremity no clubbing, cyanosis or edema Skin Skin Narrative: Venous stasis changes of the lower extremities. No significant edema General Skin Exam: venous stasis Neuro moves all extremities and no focal motor deficits Neuro Narrative: Not currently following any commands. Sedated on the ventilator. Sensorium / Orientation: sedated on vent Psych Activity / Motor Behavior: restless Mood & Affect: flat affect Assessment & Plan Assessment/Plan (1) Cardiac arrest: PLAN: RECOMMENDATIONS: 1. Continue patient on assist control mode of mechanical ventilation and wean FiO2 to maintain saturations at or above 90%. 2. Minimize sedation as tolerated. Goal to maintain a RASS of -1 to 1. Okay to start Seroquel today. 3. Okay to discontinue supplemental IV fluids. 4. Electrolyte repletion as ordered. 5. Continue empiric Keppra. 6. Continue bronchodilators and inhaled corticosteroid. 7. Continue antimicrobials. 8. Continue tube feeds as tolerated. 9. Continue appropriate GI prophylaxis. IMPRESSIONS: 1. Cardiac arrest of unknown etiology History of both advanced cardiac and pulmonary pathologies. No reported history of recent exacerbation type symptoms from a COPD standpoint. 2. Distributive versus cardiogenic shock Resolved. The patient has been successfully weaned from vasopressor support. He does have multiple pathogens growing from his sputum culture, but is on appropriate antimicrobial coverage. 3. Acute on chronic combined respiratory failure with pneumococcal and Enterobacter pneumonia Plan to continue current supportive measures with invasive mechanical ventilatory support. Continue patient on assist control mode of mechanical ventilation and wean FiO2 as tolerated to maintain saturations at or above 90%. Continue antimicrobials as ordered. Continue scheduled bronchodilators and inhaled corticosteroid. Okay to continue tube feeds as tolerated. We will need to discuss goals of care with the patient's healthcare POA prior to considering potential extubation. 4. Chronic diastolic CHF/paroxysmal A. fib/pulmonary hypertension Continue medical management per cardiology recommendations. 5. Encephalopathy/possible seizures The patient has had questionable seizure activity during his hospitalization, for which she was started empirically on Keppra. EEG did not demonstrate any focal seizure activity. The patient has not demonstrated any significant improvement in his overall mentation. MRI brain was unremarkable. 6. Hemochromatosis/obesity/smoking addiction/depression/poor history/hyperlipidemia Complicates care, management, recovery and prognosis. Okay to continue with baseline medications from my perspective. TIME: 35 minutes of critical care time, independent of procedures, was spent addressing the patient's cardiac arrest, acute on chronic combined respiratory failure, pneumococcal and Enterobacter pneumonia, history of coronary artery disease, questionable seizures, review of all data and collaboration with care team. ([id number]) Procedures Pulmonary 9xxxx: [id number] Critical care first hour
[2020-09-15] MEDS: Budesonide Respules 0.5 MG/2 ML AMPUL.NEB. INHALATION ×2 (07:15→19:05)
[2020-09-15] MEDS: Potassium Chloride Oral Soln 20 MEQ/15 ML UDC 40 MEQ GT (07:45)
[2020-09-15] MEDS: Chlorhexidine 15 ML PO ×2 (08:00→21:18)
--- NOTE | 2020-09-15 09:56 | CASEMGMT ---
Addendum entered by Rosa Doll 09/15/20 13:04: SW placed call to pt HCPOA Susana. Susana states that she has spoke with the physician today and is understanding of pt condition. Susana states she needs to talk to pt family to make decisions. CASPER offered support to Susana as she discussed losses of her mother, grandmother and now pt. CASPER did inform Susana that pt completed a living will in 2018 and explained what this stated. Susana was unaware of this and thankful for information. Susana states she will not delay on making a decision, but does need to speak with pt family. Physician updated. ELBA Rosenthal Original Note: Social Work Phone call to pt HCPOA Susana Chance ([phone]). left requesting that she return call to CASPER. CASPER will await return call. ELBA Rosenthal
[2020-09-15] MEDS: Magnesium Citrate 300 ML 150 ML GT (10:30)
[2020-09-15] MEDS: levETIRAcetam IV 1,000 MG/100 ML BAG 400 MG IV ×2 (10:30→21:07)
[2020-09-15] MEDS: Propofol 10MG/Ml 1,000 MG/100 ML Bottle 18.8 MG CONT INF ×3 (12:30→22:25)
[2020-09-15] MEDS: OLANZapine 5 MG/TAB TAB.RAPDIS BUCCAL (12:30)
--- NOTE | 2020-09-15 15:07 | PCM.PN.HOSP ---
Subjective Subjective: Patient seen and examined. He remains intubated and sedated. He did have a fever peaking at 101.5 Fahrenheit overnight. He became very agitated during a spontaneous breathing trial today. He had copious oral secretions this morning but has been tolerant of his tube feeds. WBC has increased to 16,000 and sodium is now 147. Potassium is low at 3.1 and creatinine is trended down to 1.6. Objective Data Objective Data Vital Signs: Vital Signs Temp Pulse Resp BP Pulse Ox 100.3 F H 72 22 H 142/81 H 96 09/15/20 11:00 09/15/20 13:42 09/15/20 13:42 09/15/20 11:00 09/15/20 13:42 Oxygen Flow Rate (L/min) 40 Oxygen Delivery Method Mechanical Ventilator Weight: 197 lb 8.547 oz Body Mass Index (BMI) 28.5 Intake & Output: Intake and Output for Last 24 Hours 09/13/20 09/14/20 09/15/20 23:59 23:59 23:59 Intake Total 1830.86 / 1886.76 5141.04 / 6163.34 3294.90 / 3294.90 Output Total 1375 / 1375 3695 / 4495 3175 / 3175 Balance 455.86 / 511.76 1446.04 / 1668.34 119.90 / 119.90 Lab / Micro Data Result Diagrams: 09/15/20 03:55 09/15/20 03:55 Labs: Laboratory Results - last 24 hr 09/15/20 09/15/20 03:55 03:55 WBC 16.0 H RBC 4.19 L Hgb 11.8 L Hct 36.9 L MCV 88.1 MCH 28.2 MCHC 32.0 RDW Std Deviation 50.8 H RDW Coeff of Trevor 15.8 H Plt Count 183 MPV 10.2 Sodium 147 H Potassium 3.1 L Chloride 112 H Carbon Dioxide 29.0 Anion Gap 6 BUN 28 H Creatinine 1.60 H Estim Creat Clear Calc 55.13 Est GFR (MDRD) Af Amer 58 L Est GFR (MDRD) Non-Af 48 L BUN/Creatinine Ratio 17.5 Glucose 147 H Calcium 8.4 L Micro: Microbiology 09/09/20 15:10 Blood Culture (Wb) - Right Hand Blood Culture - Final No growth in 5 days. 09/09/20 14:55 Blood Culture (Wb) - Central Line Blood Culture - Final No growth in 5 days. 09/11/20 07:27 Sputum, Tracheal Aspirate Gram Stain - Final 09/11/20 07:27 Sputum, Tracheal Aspirate Respiratory Culture - Final Enterobacter cloacae complex Escherichia coli Meth. resistant Staph. aureus 09/11/20 06:20 Blood Culture (Wb) - Central Line Blood Culture - Preliminary No growth in 48 hours. 09/07/20 14:04 Sputum, Induced/Lukens Gram Stain - Final 09/07/20 14:04 Sputum, Induced/Lukens Respiratory Culture - Final Enterobacter cloacae complex Streptococcus pneumoniae 09/09/20 14:55 Interface Orders SARS-CoV-2 Antigen (Rapid) - Final 09/07/20 11:10 Mucosa - Nose SARS-CoV-2 Antigen (Rapid) - Final Physical Exam Const Constitutional Narrative: remains intubated, sedated, RASS score is -1=4. HEENT normocephalic and head/scalp atraumatic Head and Scalp: normocephalic Eyes PERRL Eyes Narrative: On mechanical ventilation and not following commands Neck no lymphadenopathy and no JVD Lymph Lymphatic: no lymphadenopathy noted and no lymphedema noted Chest inspection of chest normal Chest Narrative: Diminished breath Resp Resp Narrative: Intubated and sedated. diminished breath sounds bibasally, no wheezes or crackles. Auscultation: diminished lung sounds Cardio regular rate, S1 normal heart sound, S2 normal heart sound and no murmurs Cardio Narrative: Bradycardic. Normal S1 and S2 with no murmurs. Rate: bradycardia GI normal to inspection, nondistended, normoactive bowel sounds, soft to palpation and non-tender Extremity normal to inspection, no clubbing, cyanosis or edema and no pedal edema Skin Skin Narrative: Mild hyperpigmentation on lower extremities. No swelling or edema. Neuro Neuro Narrative: Intubated, sedated, RASS score is -2. Assessment & Plan Assessment/Plan (1) Acute and chronic respiratory failure ([id number]): QUALIFIERS: Respiratory failure complication: hypoxia and hypercapnia Qualified Code(s): J96.21 - Acute and chronic respiratory failure with hypoxia; J96.22 - Acute and chronic respiratory failure with hypercapnia (2) STEMI (ST elevation myocardial infarction): QUALIFIERS: Involved coronary artery: unspecified coronary artery Qualified Code(s): I21.3 - ST elevation (STEMI) myocardial infarction of unspecified site (3) Symptomatic bradycardia: (4) Severe sepsis: PLAN: #Acute hypoxic respiratory failure due to probable aspiration pneumonia -he has failed his spontaneous breathing trial for the last 3 days, as he becomes very agitated, so remains intubated and sedated. -remains on propofol and fentanyl -on IV vancomycin and cefepime. -sputum cultured enterobacter and streptococcus as well as MRSA; blood cultures are negative so far -critical care on board #Septic shock due to aspiration pneumonia -off any vasopressors -now on IV cefepime and vancomycin. Blood cultures negative. Sputum cultures as above. -wbc is down to 10 today #S/p cardiac arrest -cause is still unclear -was in PEA. Remains intubated and sedated -cardiology on board #History of paroxysmal afib -He had an episode of paroxysmal A. fib and nonsustained V. tach. -cardiology on board -2D echo: EF of 45-50%, with mild global LV hypokinesia -Cardiology on board. #Symptomatic bradycardia -patient became very bradycardic when having his spontaneous breathing trial -cardiology on board -per cardio, he may need to be considered for a pacemaker or ICD depending on how he does. -noted to have both RBBB and LBBB during this hospital stay #non STEMI -cardiology on board -on rectal aspirin, therapeutic lovenox and high intensity statin -weaned off amiodarone -further workup to be determined by his neurological state and recovery -2D echo(09/07/2020): as above #Acute metabolic encephalopathy -likely due to PEA and general medical condition -on IV keppra -EEG showed general background slowing with generalised voltage suppression -MRI of the brain was normal. ammonia level was only 38, and TSH was 0.51 -. To wean off sedation s tolerated. #Nutrition: now on tube feeding. LILLIANA: -Cr today is down to 1.55 today -will monitor #Hypokalemia: potassium is 3.1 today. Will replace and monitor #Hypernatremia:sodium down to 147 today. continue gentle hydration with IV D5W #History of dilated cardiomyopathy -2D echo finding as above. Cardiology on board. DVT prophylaxis: therapeutic lovenox GI prophylaxis: on PPI Visit Charges Inpatient E&M: 42964 Subs Hosp L3
[2020-09-15] MEDS: Aspirin 325 MG Tablet GT (15:53)
[2020-09-15] MEDS: Polyethylene Glycol 3350 17 GM PACKET PO (15:53)
[2020-09-15] MEDS: Enoxaparin 100 MG/ML Syringe 90 MG SC ×2 (15:53→21:06)
[2020-09-15] MEDS: Senna/Docusate Sodium 1 Tablet PO ×2 (15:53→21:07)
[2020-09-15] MEDS: 0.9% Saline Lock 10 ML Syringe IV ×3 (15:54→21:04)
--- NOTE | 2020-09-15 17:35 | PCM.PN.CARD ---
Subjective Subjective: The patient was evaluated earlier this a.m. and his case was discussed with Dr. Abdalla. The patient remained on mechanical intubation/ventilation as he failed his weaning trial. Objective Data Vital Signs: Vital Signs Temp Pulse Resp BP Pulse Ox 100.5 F H 69 20 H 122/79 H 97 09/15/20 15:00 09/15/20 16:56 09/15/20 16:56 09/15/20 15:00 09/15/20 16:56 Oxygen Flow Rate (L/min) 40 Oxygen Delivery Method Mechanical Ventilator Weight: 197 lb 8.547 oz Body Mass Index (BMI) 28.5 Intake & Output: Intake and Output for Last 24 Hours 09/13/20 09/14/20 09/15/20 23:59 23:59 23:59 Intake Total 1830.86 / 1886.76 5141.04 / 6163.34 3624.90 / 3624.90 Output Total 1375 / 1375 3695 / 4495 3175 / 3175 Balance 455.86 / 511.76 1446.04 / 1668.34 449.90 / 449.90 Lab / Micro Data Result Diagrams: 09/15/20 03:55 09/15/20 03:55 Labs: Laboratory Results - last 24 hr 09/15/20 09/15/20 03:55 03:55 WBC 16.0 H RBC 4.19 L Hgb 11.8 L Hct 36.9 L MCV 88.1 MCH 28.2 MCHC 32.0 RDW Std Deviation 50.8 H RDW Coeff of Trevor 15.8 H Plt Count 183 MPV 10.2 Sodium 147 H Potassium 3.1 L Chloride 112 H Carbon Dioxide 29.0 Anion Gap 6 BUN 28 H Creatinine 1.60 H Estim Creat Clear Calc 55.13 Est GFR (MDRD) Af Amer 58 L Est GFR (MDRD) Non-Af 48 L BUN/Creatinine Ratio 17.5 Glucose 147 H Calcium 8.4 L Micro: Microbiology 09/09/20 15:10 Blood Culture (Wb) - Right Hand Blood Culture - Final No growth in 5 days. 09/09/20 14:55 Blood Culture (Wb) - Central Line Blood Culture - Final No growth in 5 days. 09/11/20 07:27 Sputum, Tracheal Aspirate Gram Stain - Final 09/11/20 07:27 Sputum, Tracheal Aspirate Respiratory Culture - Final Enterobacter cloacae complex Escherichia coli Meth. resistant Staph. aureus 09/11/20 06:20 Blood Culture (Wb) - Central Line Blood Culture - Preliminary No growth in 48 hours. 09/07/20 14:04 Sputum, Induced/Lukens Gram Stain - Final 09/07/20 14:04 Sputum, Induced/Lukens Respiratory Culture - Final Enterobacter cloacae complex Streptococcus pneumoniae 09/09/20 14:55 Interface Orders SARS-CoV-2 Antigen (Rapid) - Final 09/07/20 11:10 Mucosa - Nose SARS-CoV-2 Antigen (Rapid) - Final Cardiology Labs/Tests 09/15/20 03:55: WBC 16.0 H, RBC 4.19 L, Hgb 11.8 L, Hct 36.9 L, MCV 88.1, MCH 28.2, MCHC 32.0, Plt Count 183, MPV 10.2 09/15/20 03:55: Sodium 147 H, Potassium 3.1 L, Chloride 112 H, Carbon Dioxide 29.0, Anion Gap 6, BUN 28 H, Creatinine 1.60 H, Est GFR (MDRD) Af Amer 58 L, Est GFR (MDRD) Non-Af 48 L, BUN/Creatinine Ratio 17.5, Glucose 147 H, Calcium 8.4 L Rhythm: Sinus rhythm Physical Exam Narrative The patient remains mechanically intubated and ventilated. HEENT normocephalic Chest inspection of chest normal Resp Auscultation: rhonchi Cardio regular rate, regular rhythm, S1 normal heart sound and S2 normal heart sound GI normal to inspection, nondistended, normoactive bowel sounds Extremity no pedal edema Assessment & Plan Assessment/Plan (1) Cardiac arrest: PLAN: The patient was reported as experiencing a cardiac arrest. The etiology is unclear at this time. The patient has a history of a non-CAD related cardiomyopathy with improvement of his overall LV wall motion systolic function over time. At the present time the patient remains in the ICU mechanically intubated and ventilated. Depending upon his neurologic status consideration will be given as to whether he requires additional cardiovascular diagnostic studies, etc. (2) Dilated cardiomyopathy: PLAN: Again the patient was diagnosed in 2016 is having a non-CAD related cardiomyopathy. Over time his LV systolic function had improved. He was continuing medical management. (3) Paroxysmal atrial fibrillation: PLAN: The patient has a history of underlying PAF. He had been on medical therapy for such. At the present time his medications are on hold based upon changes with his hemodynamics and his electrocardiographic changes (previous QT prolongation). His cardiac rhythm has been monitored. He has demonstrated sinus rhythm. He has now demonstrated sinus bradycardia with his attempt at weaning and oral cleaning/stimulation. The etiology of this is uncertain as to whether this is vagally mediated, secondary to medication including his recent dose of Seroquel, or part of his underlying conduction system/cardiac dysrhythmia history. The patient has also been found to have during his hospitalization episodes of both right bundle branch block and left bundle branch block. Thus raising additional concern of underlying conduction system related issues. At the present time the patient continues to be monitored. An attempt is being made to avoid medications that would alter his underlying cardiac rhythm or conduction system. The patient's case was previously discussed with Dr. Kinney of [facility]. At the present time the recommendation was for continued supportive therapy and no immediate plans for further EP evaluation and/or device support. He did note that if the patient was to require device support, based upon his previous findings, he may need formal EPS to assist with the decision-making process. He also noted the patient would need to be considered to have a longevity of greater than 6 to 12 months before a device could be placed. (4) Pulmonary hypertension: PLAN: The patient has a history of pulmonary hypertension as previously noted on his 2016 diagnostic cardiac catheterization. There was concern this led to cor pulmonale and right heart failure. The patient has been treated for such by both cardiology and pulmonology. (5) Obstructive sleep apnea: PLAN: The patient has a history of NIRMAL. There was concern that this was a contributing factor to his pulmonary hypertension. (6) Pure hypercholesterolemia: PLAN: The patient will continue risk factor evaluation care as deemed appropriate. (7) Essential hypertension: PLAN: The patient was hypotensive. He did require IV vasopressor support. It had been discontinued. However he is now back on IV vasopressor support. Addt'l Comments Overall, at the present time, the patient will continue under the evaluation care of pulmonology and critical care medicine. There are no immediate plans for additional cardiovascular diagnostic studies/intervention at this time. Future cardiovascular involvement may depend upon the patient's overall clinical course with respect to his noncardiac issues/comorbidities. This note was generated using a voice recognition system and there may be incorrect words, spelling or punctuation that were not noted when reviewing the office note prior to saving.
--- NOTE | 2020-09-15 17:37 | NURSING ---
education re chronic illness deferred till acute illness resolving
[2020-09-15] MEDS: Vital AF 1.2 Cal Liquid 1,000 ML 70 ML GT (19:48)
[2020-09-15] MEDS: Atorvastatin Calcium 80 MG Tablet GT (21:06)
[2020-09-15 22:54] LABS: Vancomycin, Trough Level 14.5 ug/mL (5.0-15.0)
--- NOTE | 2020-09-15 23:02 | PCM.RX.CS ---
Consult Pharmacy has been consulted to manage selected antiobiotic: Vancomycin Type of Consult: Follow-up Labs: Sodium 147 mmol/L (136-145) H 09/15/20 03:55 Potassium 3.1 mmol/L (3.5-5.1) L 09/15/20 03:55 Chloride 112 mmol/L (98-107) H 09/15/20 03:55 Carbon Dioxide 29.0 mmol/L (21.0-32.0) 09/15/20 03:55 Anion Gap 6 (5-15) 09/15/20 03:55 BUN 28 mg/dL (7-18) H 09/15/20 03:55 Creatinine 1.60 mg/dL (0.70-1.30) H 09/15/20 03:55 Est GFR (MDRD) Af Amer 58 mL/min (>60) L 09/15/20 03:55 Est GFR (MDRD) Non-Af 48 mL/min (>60) L 09/15/20 03:55 BUN/Creatinine Ratio 17.5 RATIO (10-20) 09/15/20 03:55 Glucose 147 mg/dL (74-106) H 09/15/20 03:55 Vancomycin Trough 14.5 ug/mL (5.0-15.0) 09/15/20 22:00 Microbiology: Microbiology 09/09/20 15:10 Blood Culture (Wb) - Right Hand Blood Culture - Final No growth in 5 days. 09/09/20 14:55 Blood Culture (Wb) - Central Line Blood Culture - Final No growth in 5 days. 09/11/20 07:27 Sputum, Tracheal Aspirate Gram Stain - Final 09/11/20 07:27 Sputum, Tracheal Aspirate Respiratory Culture - Final Enterobacter cloacae complex Escherichia coli Meth. resistant Staph. aureus 09/11/20 06:20 Blood Culture (Wb) - Central Line Blood Culture - Preliminary No growth in 48 hours. 09/07/20 14:04 Sputum, Induced/Lukens Gram Stain - Final 09/07/20 14:04 Sputum, Induced/Lukens Respiratory Culture - Final Enterobacter cloacae complex Streptococcus pneumoniae 09/09/20 14:55 Interface Orders SARS-CoV-2 Antigen (Rapid) - Final 09/07/20 11:10 Mucosa - Nose SARS-CoV-2 Antigen (Rapid) - Final Goal Trough: 15-20 mcg/mL Pharmacy Plan for Drug Dosing: Pharmacy Service will continue to monitor and adjust dosing as required. TROUGH 14.5 O CHANGES FOLLOW UP IN 4 DAYS Follow-Up Labs: Trough Vancomycin Labs to be done on [date and time ordered]: 09/19 @ 2521
[2020-09-16] VITALS (36 sets, daily range): BP systolic 97–176; BP diastolic 62–97; PULSE 57–90; RESP 14–23; TEMP 37.7–38.4; O2SAT 91–100
[2020-09-16] MEDS: Ipratropium/Albuterol Sulfate 3 ML AMPUL.NEB INHALATION ×4 (00:45→18:57)
[2020-09-16] MEDS: Propofol 10MG/Ml 1,000 MG/100 ML Bottle 18.8 MG CONT INF (03:00)
[2020-09-16 04:22] LABS: Hematocrit 34.2 % (40-54); Hemoglobin 11.2 g/dL (13.0-16.5); Mean Corp Hgb Conc 32.7 g/dL (32-36); Mean Corpuscular Hgb 28.7 pg (27.0-32.0); Mean Corpuscular Volume 87.7 fL (80-94); Mean Platelet Vol. 10.3 fl (6.2-12.0); Platelet Count 206 K/mm3 (150-450); RBC Distribution Width CV 15.6 % (11.6-14.6); RBC Distribution Width SD 50.1 fl (35.1-43.9); White Blood Count 13.1 K/mm3 (4.4-11.0)
[2020-09-16 04:54] LABS: Anion Gap 3 (5-15); BUN 33 mg/dL (7-18); BUN/Creat Ratio 20.8 RATIO (10-20); Calcium,Total 8.5 mg/dL (8.5-10.1); Chloride 113 mmol/L (98-107); Creatinine, Serum 1.59 mg/dL (0.70-1.30); EST Glomerular Filtration Rate 49 mL/min (>60); Est Glom Filt Rate - Afr Amer 59 mL/min (>60); Estimated Creatinine Clearance 55.48 ml/min; Glucose 112 mg/dL (74-106); Potassium 3.5 mmol/L (3.5-5.1); Sodium Level 147 mmol/L (136-145)
[2020-09-16] MEDS: TITRATION PARAMETER CHANGE 1 EACH IV (05:22)
--- NOTE | 2020-09-16 06:18 | PN.CC_ITS ---
Subjective Subjective: The patient was seen and examined at the bedside this morning. Events from the last 24 hours have been reviewed. The patient was febrile overnight with a T-max of 100.5 ?F. He remains otherwise hemodynamically sta ble. The patient remains on assist control mode of mechanical ventilation with an FiO2 requirement of 30% and PEEP of 5. The patient once again failed his spontaneous awakening trial this morning due to the development of agitation and tachypnea. He was unable to follow any simple commands. The patient is currently documented to be overall net +5 L for the hospital admission. Objective Data Objective Data The patient's most recent lab work, culture data and imaging studies have all been personally reviewed. Surface echocardiogram dated September 07 revealed an ejection fraction of 45 to 50%. Coronavirus rapid antigen testing was negative on September 07. Sputum culture dated September 07 was positive for Enterobacter and Streptococcus pneumonia. Repeat sputum culture from September 11 revealed Enterobacter, E. coli and MRSA. EEG from September 10 revealed generalized background slowing with generalized voltage suppression. MRI brain completed on September 13 was unremarkable. Vital Signs: Vital Signs Temp Pulse Resp BP Pulse Ox 99.8 F H 68 18 130/77 H 97 09/16/20 03:00 09/16/20 05:00 09/16/20 05:00 09/16/20 05:00 09/16/20 05:00 Oxygen Flow Rate (L/min) 40 Oxygen Delivery Method Mechanical Ventilator Weight: 201 lb 4.513 oz Body Mass Index (BMI) 28.5 Intake & Output: Intake and Output for Last 24 Hours 09/14/20 09/15/20 09/16/20 23:59 23:59 23:59 Intake Total 5141.04 / 6163.34 5388.60 / 5972.40 1708.2 / 1708.2 Output Total 3695 / 4495 3675 / 3725 350 / 350 Balance 1446.04 / 1668.34 1713.60 / 2247.40 1358.2 / 1358.2 Lab / Micro Data Attestation: I reviewed the patient's lab results. Result Diagrams: 09/16/20 04:15 09/16/20 04:15 Labs: Laboratory Results - last 24 hr 09/15/20 09/16/20 09/16/20 22:00 04:15 04:15 WBC 13.1 H RBC 3.90 L Hgb 11.2 L Hct 34.2 L MCV 87.7 MCH 28.7 MCHC 32.7 RDW Std Deviation 50.1 H RDW Coeff of Trevor 15.6 H Plt Count 206 MPV 10.3 Sodium 147 H Potassium 3.5 Chloride 113 H Carbon Dioxide 31.0 Anion Gap 3 L BUN 33 H Creatinine 1.59 H Estim Creat Clear Calc 55.48 Est GFR (MDRD) Af Amer 59 L Est GFR (MDRD) Non-Af 49 L BUN/Creatinine Ratio 20.8 H Glucose 112 H Calcium 8.5 Vancomycin Trough 14.5 Micro: Microbiology 09/09/20 15:10 Blood Culture (Wb) - Right Hand Blood Culture - Final No growth in 5 days. 09/09/20 14:55 Blood Culture (Wb) - Central Line Blood Culture - Final No growth in 5 days. 09/11/20 07:27 Sputum, Tracheal Aspirate Gram Stain - Final 09/11/20 07:27 Sputum, Tracheal Aspirate Respiratory Culture - Final Enterobacter cloacae complex Escherichia coli Meth. resistant Staph. aureus 09/11/20 06:20 Blood Culture (Wb) - Central Line Blood Culture - Preliminary No growth in 48 hours. 09/07/20 14:04 Sputum, Induced/Lukens Gram Stain - Final 09/07/20 14:04 Sputum, Induced/Lukens Respiratory Culture - Final Enterobacter cloacae complex Streptococcus pneumoniae 09/09/20 14:55 Interface Orders SARS-CoV-2 Antigen (Rapid) - Final 09/07/20 11:10 Mucosa - Nose SARS-CoV-2 Antigen (Rapid) - Final Physical Exam Const no apparent distress Constitutional Narrative: Intubated, sedated and mechanically ventilated. General Appearance: patient mechanically ventilated HEENT normocephalic, head/scalp atraumatic and moist oral mucous membranes Teeth and Gingiva: poor dentition Eyes PERRL, conjunctivae normal and no scleral icterus Neck no lymphadenopathy and supple General: trachea midline and CVC in place Resp no use of accessory muscles Resp Narrative: Coarse mechanical breath sounds bilaterally Auscultation: rhonchi and diminished lung sounds; Negative for rales or wheezes Cardio regular rate, regular rhythm, S1 normal heart sound and S2 normal heart sound; Negative for no rub or no gallops Peripheral Pulses: pulses 2+ throughout GI normal to inspection, nondistended, normoactive bowel sounds, soft to palpation and non-tender Auscultation: normoactive bowel sounds Extremity no clubbing, cyanosis or edema Skin Skin Narrative: Venous stasis changes of the lower extremities. No significant edema General Skin Exam: venous stasis Neuro moves all extremities and no focal motor deficits Neuro Narrative: Not currently following any commands. Sedated on the v entilator. Sensorium / Orientation: sedated on vent Psych Mood & Affect: flat affect Assessment & Plan Assessment/Plan (1) Cardiac arrest: PLAN: RECOMMENDATIONS: 1. Continue patient on assist control mode of mechanical ventilation and wean FiO2 to maintain saturations at or above 90%. 2. Minimize sedation as tolerated. Goal to maintain a RASS of -1 to 1. 3. Continue empiric Keppra. 4. Continue bronchodilators and inhaled corticosteroid. 5. Continue antimicrobials. 6. Continue tube feeds and free water flushes as tolerated. 7. Continue appropriate GI prophylaxis. 8. Ongoing goals of care discussion with the patient's healthcare POA. IMPRESSIONS: 1. Cardiac arrest of unknown etiology History of both advanced cardiac and pulmonary pathologies. No reported history of recent exacerbation type symptoms from a COPD standpoint. 2. Distributive versus cardiogenic shock Resolved. The patient has been successfully weaned from vasopressor support. He does have multiple pathogens growing from his sputum culture, but is on appropriate antimicrobial coverage. 3. Acute on chronic combined respiratory failure with pneumococcal and Enterobacter pneumonia Plan to continue current supportive measures with invasive mechanical ventilatory support. Continue patient on assist control mode of mechanical ventilation and wean FiO2 as tolerated to maintain saturations at or above 90%. Continue antimicrobials as ordered. Continue scheduled bronchodilators and inhaled corticosteroid. Okay to continue tube feeds as tolerated. We will need to discuss goals of care with the patient's healthcare POA prior to considering potential extubation. 4. Chronic diastolic CHF/paroxysmal A. fib/pulmonary hypertension Continue medical management per cardiology recommendations. 5. Encephalopathy/possible seizures The patient has had questionable seizure activity during his hospitalization, for which she was started empirically on Keppra. EEG did not demonstrate any focal seizure activity. The patient has not demonstrated any significant imp rovement in his overall mentation. MRI brain was unremarkable. 6. Hemochromatosis/obesity/smoking addiction/depression/poor history/hyperlipidemia Complicates care, management, recovery and prognosis. Okay to continue with baseline medications from my perspective. TIME: 34 minutes of critical care time, independent of procedures, was spent addressing the patient's cardiac arrest, acute on chronic combined respiratory failure, pneumococcal and Enterobacter pneumonia, history of coronary artery disease, questionable seizures, review of all data and collaboration with care team. ([id number]) Procedures Pulmonary 9xxxx: [id number] Critical care first hour
[2020-09-16] MEDS: Budesonide Respules 0.5 MG/2 ML AMPUL.NEB. INHALATION ×2 (06:35→18:57)
[2020-09-16] MEDS: Propofol 10MG/Ml 1,000 MG/100 ML Bottle 19.2 MG CONT INF ×4 (07:50→22:27)
[2020-09-16] MEDS: Chlorhexidine 15 ML PO ×2 (08:00→21:48)
[2020-09-16] MEDS: Alteplase 2 MG/2 ML Vial IV ×3 (08:52→12:56)
[2020-09-16] MEDS: Senna/Docusate Sodium 1 Tablet PO ×2 (08:52→21:47)
[2020-09-16] MEDS: Enoxaparin 100 MG/ML Syringe 90 MG SC ×2 (08:52→21:55)
[2020-09-16] MEDS: Aspirin 325 MG Tablet GT (08:52)
[2020-09-16] MEDS: Polyethylene Glycol 3350 17 GM PACKET PO (08:53)
--- NOTE | 2020-09-16 09:32 | PCM.PN.CARD ---
Subjective Subjective: The patient was seen and evaluated. Is currently intubated. And sedated. Objective Data Vital Signs: Vital Signs Temp Pulse Resp BP Pulse Ox 100.4 F H 63 14 133/72 H 99 09/16/20 07:00 09/16/20 07:00 09/16/20 07:00 09/16/20 07:00 09/16/20 07:00 Oxygen Flow Rate (L/min) 40 Oxygen Delivery Method Mechanical Ventilator Weight: 201 lb 4.513 oz Body Mass Index (BMI) 28.5 Intake & Output: Intake and Output for Last 24 Hours 09/14/20 09/15/20 09/16/20 23:59 23:59 23:59 Intake Total 5141.04 / 6163.34 5388.60 / 5972.40 1768.0 / 1768.0 Output Total 3695 / 4495 3675 / 3725 750 / 750 Balance 1446.04 / 1668.34 1713.60 / 2247.40 1018.0 / 1018.0 Lab / Micro Data Result Diagrams: 09/16/20 04:15 09/16/20 04:15 Labs: Laboratory Results - last 24 hr 09/15/20 09/16/20 09/16/20 22:00 04:15 04:15 WBC 13.1 H RBC 3.90 L Hgb 11.2 L Hct 34.2 L MCV 87.7 MCH 28.7 MCHC 32.7 RDW Std Deviation 50.1 H RDW Coeff of Trevor 15.6 H Plt Count 206 MPV 10.3 Sodium 147 H Potassium 3.5 Chloride 113 H Carbon Dioxide 31.0 Anion Gap 3 L BUN 33 H Creatinine 1.59 H Estim Creat Clear Calc 55.48 Est GFR (MDRD) Af Amer 59 L Est GFR (MDRD) Non-Af 49 L BUN/Creatinine Ratio 20.8 H Glucose 112 H Calcium 8.5 Vancomycin Trough 14.5 Micro: Microbiology 09/11/20 06:20 Blood Culture (Wb) - Central Line Blood Culture - Final No growth in 5 days. 09/09/20 15:10 Blood Culture (Wb) - Right Hand Blood Culture - Final No growth in 5 days. 09/09/20 14:55 Blood Culture (Wb) - Central Line Blood Culture - Final No growth in 5 days. 09/11/20 07:27 Sputum, Tracheal Aspirate Gram Stain - Final 09/11/20 07:27 Sputum, Tracheal Aspirate Respiratory Culture - Final Enterobacter cloacae complex Escherichia coli Meth. resistant Staph. aureus 09/07/20 14:04 Sputum, Induced/Lukens Gram Stain - Final 09/07/20 14:04 Sputum, Induced/Lukens Respiratory Culture - Final Enterobacter cloacae complex Streptococcus pneumoniae 09/09/20 14:55 Interface Orders SARS-CoV-2 Antigen (Rapid) - Final 09/07/20 11:10 Mucosa - Nose SARS-CoV-2 Antigen (Rapid) - Final Cardiology Labs/Tests 09/16/20 04:15: WBC 13.1 H, RBC 3.90 L, Hgb 11.2 L, Hct 34.2 L, MCV 87.7, MCH 28.7, MCHC 32.7, Plt Count 206, MPV 10.3 09/16/20 04:15: Sodium 147 H, Potassium 3.5, Chloride 113 H, Carbon Dioxide 31.0, Anion Gap 3 L, BUN 33 H, Creatinine 1.59 H, Est GFR (MDRD) Af Amer 59 L, Est GFR (MDRD) Non-Af 49 L, BUN/Creatinine Ratio 20.8 H, Glucose 112 H, Calcium 8.5 Rhythm: EKG: ECHO: Stress Test: Cardiac Cath: PCI: CT Surgery: Holter monitor: EPS: PPM: CXR: Chest CT Scan: Physical Exam Const oriented x3 and healthy appearing Orientation / Consciousness: awake HEENT normocephalic Eyes PERRL and conjunctivae normal Neck supple, no JVD and no carotid bruits Chest inspection of chest normal Resp normal respiratory effort and clear to auscultation bilaterally Cardio Palpation: normal PMI Rate: regular rate Rhythm: regular rhythm Heart Sounds: S1 normal and S2 normal Peripheral Pulses: pulses 2+ throughout GI normal to inspection, nondistended, normoactive bowel sounds Extremity normal to inspection and no clubbing, cyanosis or edema Psych mental status grossly normal Assessment & Plan Assessment/Plan (1) Cardiac arrest: PLAN: Patient is status post cardiac arrest. It appears that this was an interaction between nitroglycerin and a PDE 5 inhibitor. At this particular time the patient is not on any antiarrhythmics but is on some pressor agents. We will continue titrating it to maintain appropriate blood pressure. No new cardiac recommendations at this time. He had had some bradycardia arrhythmias but does not appear to be significant and I do not think that this warrants any intervention at this time. (2) Dilated cardiomyopathy: PLAN: He had a previous history of a cardiomyopathy which appears to have resolved. His ejection fraction is noted to be normal. I would not recommend that we make any major changes at this particular time. (3) Paroxysmal atrial fibrillation: PLAN: He does have a history of paroxysmal atrial fibrillation. He is maintaining sinus rhythm at this time he has not had any significant bradycardia arrhythmias or pauses. We will continue to follow him closely. Thank you for allowing me to participate in the care of your patient. Please don't hesitate to call if any issues arise.
--- NOTE | 2020-09-16 10:09 | PN.HOSP_ITS ---
Subjective Subjective: Patient seen and examined. He remains intubated and sedated. He has a fever of 100.4F this morning. He is in cumulative positive balance by 4.7L. He again failed his spontaneous breathing trial today after he became agitated and tachypneic. Repeat sputum cultures grew Enterbacter, E coli and MRSA. Objective Data Objective Data Vital Signs: Vital Signs Temp Pulse Resp BP Pulse Ox 100.4 F H 63 14 133/72 H 99 09/16/20 07:00 09/16/20 07:00 09/16/20 07:00 09/16/20 07:00 09/16/20 07:00 Oxygen Flow Rate (L/min) 40 Oxygen Delivery Method Mechanical Ventilator Weight: 201 lb 4.513 oz Body Mass Index (BMI) 28.5 Intake & Output: Intake and Output for Last 24 Hours 09/14/20 09/15/20 09/16/20 23:59 23:59 23:59 Intake Total 5141.04 / 6163.34 5388.60 / 5972.40 1768.0 / 1768.0 Output Total 3695 / 4495 3675 / 3725 750 / 750 Balance 1446.04 / 1668.34 1713.60 / 2247.40 1018.0 / 1018.0 Lab / Micro Data Result Diagrams: 09/16/20 04:15 09/16/20 04:15 Labs: Laboratory Results - last 24 hr 09/15/20 09/16/20 09/16/20 22:00 04:15 04:15 WBC 13.1 H RBC 3.90 L Hgb 11.2 L Hct 34.2 L MCV 87.7 MCH 28.7 MCHC 32.7 RDW Std Deviation 50.1 H RDW Coeff of Trevor 15.6 H Plt Count 206 MPV 10.3 Sodium 147 H Potassium 3.5 Chloride 113 H Carbon Dioxide 31.0 Anion Gap 3 L BUN 33 H Creatinine 1.59 H Estim Creat Clear Calc 55.48 Est GFR (MDRD) Af Amer 59 L Est GFR (MDRD) Non-Af 49 L BUN/Creatinine Ratio 20.8 H Glucose 112 H Calcium 8.5 Vancomycin Trough 14.5 Micro: Microbiology 09/11/20 06:20 Blood Culture (Wb) - Central Line Blood Culture - Final No growth in 5 days. 09/09/20 15:10 Blood Culture (Wb) - Right Hand Blood Culture - Final No growth in 5 days. 09/09/20 14:55 Blood Culture (Wb) - Central Line Blood Culture - Final No growth in 5 days. 09/11/20 07:27 Sputum, Tracheal Aspirate Gram Stain - Final 09/11/20 07:27 Sputum, Tracheal Aspirate Respiratory Culture - Final Enterobacter cloacae complex Escherichia coli Meth. resistant Staph. aureus 09/07/20 14:04 Sputum, Induced/Lukens Gram Stain - Final 09/07/20 14:04 Sputum, Induced/Lukens Respiratory Culture - Final Enterobacter cloacae complex Streptococcus pneumoniae 09/09/20 14:55 Interface Orders SARS-CoV-2 Antigen (Rapid) - Final 09/07/20 11:10 Mucosa - Nose SARS-CoV-2 Antigen (Rapid) - Final Physical Exam Narrative General: Intubated, on mechanical ventilator, Cooperative, No apparent distress, Well developed HEENT: Atraumatic Oral: Moist Mucosa Neck: Supple Lungs: Clear to auscultation Cardiovascular: HS I+II, regular, no murmurs Abdomen: Bowel Sounds Present, Soft, Non Tender Extremities: chronic hyperpigmentation of legs Skin: No rashes, No breakdown Neurological: Grossly intact Psych/Mental Status: Appropriate Const Constitutional Narrative: remains intubated, sedated, RASS score is -3. HEENT normocephalic and head/scalp atraumatic Eyes PERRL Neck no lymphadenopathy and no JVD Lymph Lymphatic: no lymphadenopathy noted and no lymphedema noted Chest inspection of chest normal Chest Narrative: Diminished breath Resp Resp Narrative: Intubated and sedated. diminished breath sounds bibasally, no wheezes or crackles. Auscultation: diminished lung sounds Cardio regular rate, S1 normal heart sound, S2 normal heart sound and no murmurs Cardio Narrative: Bradycardic. Normal S1 and S2 with no murmurs. Rate: bradycardia GI normal to inspection, nondistended, normoactive bowel sounds, soft to palpation and non-tender Extremity normal to inspection, no clubbing, cyanosis or edema and no pedal edema Skin Skin Narrative: Mild hyperpigmentation on lower extremities. No swelling or edema. Has a small blister on the RLE cabrera Neuro Neuro Narrative: Intubated, sedated, RASS score is -3. Assessment & Plan Assessment/Plan (1) Acute and chronic respiratory failure ([id number]): QUALIFIERS: Respiratory failure complication: hypoxia and hypercapnia Qualified Code(s): J96.21 - Acute and chronic respiratory failure with hypoxia; J96.22 - Acute and chronic respiratory failure with hypercapnia (2) STEMI (ST elevation myocardial infarction): QUALIFIERS: Involved coronary artery: unspecified coronary artery Qualified Code(s): I21.3 - ST elevation (STEMI) myocardial infarction of unspecified site (3) Symptomatic bradycardia: (4) Severe sepsis: PLAN: #Acute hypoxic respiratory failure due to probable aspiration pneumonia -he has failed his spontaneous breathing trial for the last 3 days, and failed again today as he becomes very agitated, so remains intubated and sedated. -remains on propofol and fentanyl -on IV vancomycin and cefepime. -sputum cultured enterobacter and streptococcus as well as MRSA; blood cultures are negative so far -critical care on board #Septic shock due to aspiration pneumonia -off any vasopressors -still on IV cefepime and vancomycin. Blood cultures negative. Sputum cultures as above. -fever of 100.4 today,a d wbc is also up to 13.1. He is however on steroids. - #S/p cardiac arrest -cause is still unclear -was in PEA. Remains intubated and sedated -cardiology on board #History of paroxysmal afib -He had an episode of paroxysmal A. fib and nonsustained V. tach. -cardiology on board -2D echo: EF of 45-50%, with mild global LV hypokinesia -Cardiology on board. #Symptomatic bradycardia -patient became very bradycardic when having his spontaneous breathing trial -cardiology on board -per cardio, he may need to be considered for a pacemaker or ICD depending on how he does. -noted to have both RBBB and LBBB during this hospital stay #non STEMI -cardiology on board -on rectal aspirin, therapeutic lovenox and high intensity statin -weaned off amiodarone -further workup to be determined by his neurological state and recovery -2D echo(09/07/2020): as above #Acute metabolic encephalopathy -likely due to PEA and general medical condition -on IV keppra -EEG showed general background slowing with generalised voltage suppression -MRI of the brain was normal. ammonia level was only 38, and TSH was 0.51 -. To wean off sedation s tolerated. #Nutrition: now on tube feeding. LILLIANA: -Cr today is down to 1.59 today -will monitor #Hypokalemia: potassium is 3.5 today. #Hypernatremia:sodium still 147 today. will monitor #History of dilated cardiomyopathy -2D echo finding as above. Cardiology on board. DVT prophylaxis: therapeutic lovenox GI prophylaxis: on PPI Visit Charges Inpatient E&M: [id number] [facility] Hosp L3
[2020-09-16] MEDS: levETIRAcetam IV 1,000 MG/100 ML BAG 400 MG IV ×2 (12:35→21:38)
[2020-09-16] MEDS: 0.9% Saline Lock 10 ML Syringe IV ×2 (13:15→21:37)
[2020-09-16] MEDS: Vital AF 1.2 Cal Liquid 1,000 ML 70 ML GT (16:02)
[2020-09-16] MEDS: Atorvastatin Calcium 80 MG Tablet GT (21:47)
[2020-09-16] MEDS: Acetaminophen 650 MG/20 ML UDC GT (23:08)
[2020-09-17] VITALS (35 sets, daily range): BP systolic 110–164; BP diastolic 56–84; PULSE 21–93; RESP 14–22; TEMP 37.8–38.5; O2SAT 94–100
[2020-09-17] MEDS: Ipratropium/Albuterol Sulfate 3 ML AMPUL.NEB INHALATION ×3 (01:31→19:02)
[2020-09-17] MEDS: Propofol 10MG/Ml 1,000 MG/100 ML Bottle 19.2 MG CONT INF ×4 (03:09→18:56)
[2020-09-17 04:58] LABS: Hematocrit 37.4 % (40-54); Hemoglobin 11.7 g/dL (13.0-16.5); Mean Corp Hgb Conc 31.3 g/dL (32-36); Mean Corpuscular Hgb 27.9 pg (27.0-32.0); Mean Platelet Vol. 10.4 fl (6.2-12.0); Platelet Count 228 K/mm3 (150-450); RBC Distribution Width CV 15.6 % (11.6-14.6); RBC Distribution Width SD 50.7 fl (35.1-43.9); White Blood Count 14.8 K/mm3 (4.4-11.0)
--- NOTE | 2020-09-17 05:08 | NURSING ---
0430- Patient sedation turned off at 0400 and patient remains restless but is following commands and is able to be redirected. Vent turned to CPAP mode which he seemed to tolerate better. Will continue to monitor.
[2020-09-17 05:14] LABS: Anion Gap 4 (5-15); BUN 33 mg/dL (7-18); BUN/Creat Ratio 22.3 RATIO (10-20); Calcium,Total 8.5 mg/dL (8.5-10.1); Chloride 113 mmol/L (98-107); Creatinine, Serum 1.48 mg/dL (0.70-1.30); EST Glomerular Filtration Rate 53 mL/min (>60); Est Glom Filt Rate - Afr Amer 64 mL/min (>60); Glucose 136 mg/dL (74-106); Potassium 3.7 mmol/L (3.5-5.1); Sodium Level 147 mmol/L (136-145)
--- NOTE | 2020-09-17 05:53 | PN.CC_ITS ---
Subjective Subjective: The patient was seen and examined at the bedside this morning. Events from the last 24 hours have been reviewed. The patient was febrile overnight with a T-max of 101.2 ?F. He remains otherwise hemodynamically sta ble. The patient remains on assist control mode of mechanical ventilation with an FiO2 requirement of 30% and PEEP of 5. The patient did better this morning on his spontaneous awakening and breathing trial, lasting approximately 45 minutes before becoming significantly agitated. His mentation appears to be slowly improving as the patient was able to follow a couple of simple commands. The patient is currently documented to be overall net +6.8 L for the hospital admission. Creatinine continues to improve. Objective Data Objective Data The patient's most recent lab work, culture data and imaging studies have all been personally reviewed. Surface echocardiogram dated September 07 revealed an ejection fraction of 45 to 50%. Coronavirus rapid antigen testing was negative on September 07. Sputum culture dated September 07 was positive for Enterobacter and Streptococcus pneumonia. Repeat sputum culture from September 11 revealed Enterobacter, E. coli and MRSA. EEG from September 10 revealed generalized background slowing with generalized voltage suppression. MRI brain completed on September 13 was unremarkable. Vital Signs: Vital Signs Temp Pulse Resp BP Pulse Ox 100.8 F H 84 17 110/56 L 98 09/17/20 05:00 09/17/20 05:00 09/17/20 05:00 09/17/20 05:00 09/17/20 05:00 Oxygen Flow Rate (L/min) 30 Oxygen Delivery Method Mechanical Ventilator Weight: 201 lb 15.095 oz Body Mass Index (BMI) 28.5 Intake & Output: Intake and Output for Last 24 Hours 09/15/20 09/16/20 09/17/20 23:59 23:59 23:59 Intake Total 5388.60 / 5972.40 4935.72 / 5201.59 1195.62 / 1195.62 Output Total 3675 / 3725 2075 / 2425 905 / 905 Balance 1713.60 / 2247.40 2860.72 / 2776.59 290.62 / 290.62 Lab / Micro Data Attestation: I reviewed the patient's lab results. Result Diagrams: 09/17/20 04:45 09/17/20 04:45 Labs: Laboratory Results - last 24 hr 09/17/20 09/17/20 04:45 04:45 WBC 14.8 H RBC 4.20 L Hgb 11.7 L Hct 37.4 L MCV 89.0 MCH 27.9 MCHC 31.3 L RDW Std Deviation 50.7 H RDW Coeff of Trevor 15.6 H Plt Count 228 MPV 10.4 Sodium 147 H Potassium 3.7 Chloride 113 H Carbon Dioxide 30.0 Anion Gap 4 L BUN 33 H Creatinine 1.48 H Estim Creat Clear Calc 59.60 Est GFR (MDRD) Af Amer 64 Est GFR (MDRD) Non-Af 53 L BUN/Creatinine Ratio 22.3 H Glucose 136 H Calcium 8.5 Micro: Microbiology 09/11/20 06:20 Blood Culture (Wb) - Central Line Blood Culture - Final No growth in 5 days. 09/09/20 15:10 Blood Culture (Wb) - Right Hand Blood Culture - Final No growth in 5 days. 09/09/20 14:55 Blood Culture (Wb) - Central Line Blood Culture - Final No growth in 5 days. 09/11/20 07:27 Sputum, Tracheal Aspirate Gram Stain - Final 09/11/20 07:27 Sputum, Tracheal Aspirate Respiratory Culture - Final Enterobacter cloacae complex Escherichia coli Meth. resistant Staph. aureus 09/07/20 14:04 Sputum, Induced/Lukens Gram Stain - Final 09/07/20 14:04 Sputum, Induced/Lukens Respiratory Culture - Final Enterobacter cloacae complex Streptococcus pneumoniae 09/09/20 14:55 Interface Orders SARS-CoV-2 Antigen (Rapid) - Final 09/07/20 11:10 Mucosa - Nose SARS-CoV-2 Antigen (Rapid) - Final Physical Exam Const no apparent distress Constitutional Narrative: Intubated, sedated and mechanically ventilated. General Appearance: patient mechanically ventilated HEENT normocephalic, head/scalp atraumatic and moist oral mucous membranes Eyes PERRL, conjunctivae normal and no scleral icterus Neck no lymphadenopathy and supple General: trachea midline and CVC in place Resp no use of accessory muscles Resp Narrative: Coarse mechanical breath sounds bilaterally Effort and Inspection: tachypneic Auscultation: rhonchi and diminished lung sounds; Negative for rales or wheezes Cardio regular rate, regular rhythm, S1 normal heart sound and S2 normal heart sound; Negative for no rub or no gallops Rate: bradycardia Rhythm: abnormal rhythm Heart Sounds: murmur systolic II/ soft mid Peripheral Pulses: pulses 2+ throughout GI normal to inspection, nondistended, normoactive bowel sounds, soft to palpation and non-tender Auscultation: normoactive bowel sounds Extremity no clubbing, cyanosis or edema Skin Skin Narrative: Venous stasis changes of the lower extremities. No significant edema General Skin Exam: venous stasis Neuro moves all extremities and no focal motor deficits Neuro Narrative: Not currently following any commands. Sedated on the ventilator. Sensorium / Orientation: sedated on vent Psych Activity / Motor Behavior: restless Mood & Affect: flat affect Assessment & Plan Assessment/Plan (1) Cardiac arrest: PLAN: RECOMMENDATIONS: 1. Continue patient on assist control mode of mechanical ventilation and wean FiO2 to maintain saturations at or above 90%. 2. Minimize sedation as tolerated. Goal to maintain a RASS of -1 to 1. 3. Continue empiric Keppra. 4. Continue bronchodilators and inhaled corticosteroid. 5. Continue antimicrobials. 6. Continue tube feeds and free water flushes as tolerated. 7. Continue appropriate GI prophylaxis. 8. Ongoing goals of care discussion with the patient's healthcare POA. IMPRESSIONS: 1. Cardiac arrest of unknown etiology History of both advanced cardiac and pulmonary pathologies. No reported history of recent exacerbation type symptoms from a COPD standpoint. 2. Distributive versus cardiogenic shock Resolved. The patient has been successfully weaned from vasopressor support. He does have multiple pathogens growing from his sputum culture, but is on appropriate antimicrobial coverage. 3. Acute on chronic combined respiratory failure with pneumococcal and Enterobacter pneumonia Plan to continue current supportive measures with invasive mechanical ventilatory support. Continue patient on assist control mode of mechanical ventilation and wean FiO2 as tolerated to maintain saturations at or above 90%. Continue antimicrobials as ordered. Continue scheduled bronchodilators and inhaled corticosteroid. Okay to continue tube feeds as tolerated. We will need to discuss goals of care with the patient's healthcare POA prior to considering potential extubation. 4. Chronic diastolic CHF/paroxysmal A. fib/pulmonary hypertension Continue medical management per cardiology recommendations. 5. Encephalopathy/possible seizures The patient has had questionable seizure activity during his hospitalization, for which she was started empirically on Keppra. EEG did not demonstrate any focal seizure activity. The patient has not demonstrated any significant improvement in his overall mentation. MRI brain was unremarkable. 6. Hemochromatosis/obesity/smoking addiction/depression/poor history/hyperlipidemia Complicates care, management, recovery and prognosis. Okay to continue with baseline medications from my perspective. TIME: 34 minutes of critical care time, independent of procedures, was spent addressing the patient's cardiac arrest, acute on chronic combined respiratory failure, pneumococcal and Enterobacter pneumonia, history of coronary artery disease, questionable seizures, review of all data and collaboration with care team. ([id number]) Procedures Pulmonary 9xxxx: [id number] Critical care first hour
[2020-09-17] MEDS: TITRATION PARAMETER CHANGE 1 EACH IV (06:39)
[2020-09-17] MEDS: Furosemide 40 MG/4 ML Vial IV (06:43)
[2020-09-17] MEDS: Budesonide Respules 0.5 MG/2 ML AMPUL.NEB. INHALATION ×2 (06:50→19:04)
[2020-09-17] MEDS: Chlorhexidine 15 ML PO ×2 (08:00→21:44)
--- NOTE | 2020-09-17 09:19 | PCM.PN.CARD ---
Subjective Subjective: Patient seen and evaluated. Appears to be doing somewhat better than yesterday. Objective Data Vital Signs: Vital Signs Temp Pulse Resp BP Pulse Ox 100.6 F H 74 18 164/77 H 99 09/17/20 06:00 09/17/20 06:50 09/17/20 06:50 09/17/20 06:00 09/17/20 06:50 Oxygen Flow Rate (L/min) 30 Oxygen Delivery Method Mechanical Ventilator Weight: 201 lb 15.095 oz Body Mass Index (BMI) 28.5 Intake & Output: Intake and Output for Last 24 Hours 09/15/20 09/16/20 09/17/20 23:59 23:59 23:59 Intake Total 5388.60 / 5972.40 4935.72 / 5201.59 1220.02 / 1220.02 Output Total 3675 / 3725 2075 / 2425 2400 / 2400 Balance 1713.60 / 2247.40 2860.72 / 2776.59 -1179.98 / -1179.98 Lab / Micro Data Result Diagrams: 09/17/20 04:45 09/17/20 04:45 Labs: Laboratory Results - last 24 hr 09/17/20 09/17/20 04:45 04:45 WBC 14.8 H RBC 4.20 L Hgb 11.7 L Hct 37.4 L MCV 89.0 MCH 27.9 MCHC 31.3 L RDW Std Deviation 50.7 H RDW Coeff of Trevor 15.6 H Plt Count 228 MPV 10.4 Sodium 147 H Potassium 3.7 Chloride 113 H Carbon Dioxide 30.0 Anion Gap 4 L BUN 33 H Creatinine 1.48 H Estim Creat Clear Calc 59.60 Est GFR (MDRD) Af Amer 64 Est GFR (MDRD) Non-Af 53 L BUN/Creatinine Ratio 22.3 H Glucose 136 H Calcium 8.5 Micro: Microbiology 09/11/20 06:20 Blood Culture (Wb) - Central Line Blood Culture - Final No growth in 5 days. 09/09/20 15:10 Blood Culture (Wb) - Right Hand Blood Culture - Final No growth in 5 days. 09/09/20 14:55 Blood Culture (Wb) - Central Line Blood Culture - Final No growth in 5 days. 09/11/20 07:27 Sputum, Tracheal Aspirate Gram Stain - Final 09/11/20 07:27 Sputum, Tracheal Aspirate Respiratory Culture - Final Enterobacter cloacae complex Escherichia coli Meth. resistant Staph. aureus 09/07/20 14:04 Sputum, Induced/Lukens Gram Stain - Final 09/07/20 14:04 Sputum, Induced/Lukens Respiratory Culture - Final Enterobacter cloacae complex Streptococcus pneumoniae 09/09/20 14:55 Interface Orders SARS-CoV-2 Antigen (Rapid) - Final 09/07/20 11:10 Mucosa - Nose SARS-CoV-2 Antigen (Rapid) - Final Cardiology Labs/Tests 09/17/20 04:45: WBC 14.8 H, RBC 4.20 L, Hgb 11.7 L, Hct 37.4 L, MCV 89.0, MCH 27.9, MCHC 31.3 L, Plt Count 228, MPV 10.4 09/17/20 04:45: Sodium 147 H, Potassium 3.7, Chloride 113 H, Carbon Dioxide 30.0, Anion Gap 4 L, BUN 33 H, Creatinine 1.48 H, Est GFR (MDRD) Af Amer 64, Est GFR (MDRD) Non-Af 53 L, BUN/Creatinine Ratio 22.3 H, Glucose 136 H, Calcium 8.5 Rhythm: EKG: ECHO: Stress Test: Cardiac Cath: PCI: CT Surgery: Holter monitor: EPS: PPM: CXR: Chest CT Scan: Assessment & Plan Assessment/Plan (1) Cardiac arrest: PLAN: Patient is status post cardiac arrest. It appears that this was an interaction between nitroglycerin and a PDE 5 inhibitor. He has not had any bradycardia arrhythmic episodes. At this particular time the patient is not on any antiarrhythmics. No new cardiac recommendations at this time. He had had some bradycardia arrhythmias earlier but does not appear to be significant and I do not think that this warrants any intervention at this time. (2) Dilated cardiomyopathy: PLAN: He had a previous history of a cardiomyopathy which appears to have resolved. His ejection fraction is noted to be normal. I would not recommend that we make any major changes at this particular time. (3) Paroxysmal atrial fibrillation: PLAN: He does have a history of paroxysmal atrial fibrillation. He is maintaining sinus rhythm at this time he has not had any significant bradycardia arrhythmias or pauses. We will continue to follow him closely. Thank you for allowing me to participate in the care of your patient. Please don't hesitate to call if any issues arise.
[2020-09-17] MEDS: Acetaminophen 650 MG/20 ML UDC GT ×2 (10:16→23:21)
[2020-09-17] MEDS: Aspirin 325 MG Tablet GT (10:17)
[2020-09-17] MEDS: Enoxaparin 100 MG/ML Syringe 90 MG SC ×2 (10:17→21:52)
[2020-09-17] MEDS: 0.9 % NaCl (Sterile) Posiflush 10 mL IV (10:23)
--- NOTE | 2020-09-17 11:24 | PN.HOSP_ITS ---
Subjective Subjective: Patient seen and examined. Remains intubated and sedated. Per his nurse, he was able to last about 50 minutes for the spontaneous breathing trial before he became agitated which is an improvement from previously. Continue to have a fever now he is on antibiotics. Review of symptoms otherwise negative. Temperature peaked at 101.3 Fahrenheit this morning. He has otherwise remained hemodynamically stable. WBC is 14.8 today. Sodium remains 147. Objective Data Objective Data Vital Signs: Vital Signs Temp Pulse Resp BP Pulse Ox 101.3 F H 72 17 126/82 H 99 09/17/20 10:00 09/17/20 10:00 09/17/20 10:00 09/17/20 10:00 09/17/20 06:50 Oxygen Flow Rate (L/min) 30 Oxygen Delivery Method Mechanical Ventilator Weight: 201 lb 15.095 oz Body Mass Index (BMI) 28.5 Intake & Output: Intake and Output for Last 24 Hours 09/15/20 09/16/20 09/17/20 23:59 23:59 23:59 Intake Total 5388.60 / 5972.40 4935.72 / 5201.59 1324.44 / 1324.44 Output Total 3675 / 3725 2075 / 2425 3500 / 3500 Balance 1713.60 / 2247.40 2860.72 / 2776.59 -2175.56 / -2175.56 Lab / Micro Data Result Diagrams: 09/17/20 04:45 09/17/20 04:45 Labs: Laboratory Results - last 24 hr 09/17/20 09/17/20 04:45 04:45 WBC 14.8 H RBC 4.20 L Hgb 11.7 L Hct 37.4 L MCV 89.0 MCH 27.9 MCHC 31.3 L RDW Std Deviation 50.7 H RDW Coeff of Trevor 15.6 H Plt Count 228 MPV 10.4 Sodium 147 H Potassium 3.7 Chloride 113 H Carbon Dioxide 30.0 Anion Gap 4 L BUN 33 H Creatinine 1.48 H Estim Creat Clear Calc 59.60 Est GFR (MDRD) Af Amer 64 Est GFR (MDRD) Non-Af 53 L BUN/Creatinine Ratio 22.3 H Glucose 136 H Calcium 8.5 Micro: Microbiology 09/11/20 06:20 Blood Culture (Wb) - Central Line Blood Culture - Final No growth in 5 days. 09/09/20 15:10 Blood Culture (Wb) - Right Hand Blood Culture - Final No growth in 5 days. 09/09/20 14:55 Blood Culture (Wb) - Central Line Blood Culture - Final No growth in 5 days. 09/11/20 07:27 Sputum, Tracheal Aspirate Gram Stain - Final 09/11/20 07:27 Sputum, Tracheal Aspirate Respiratory Culture - Final Enterobacter cloacae complex Escherichia coli Meth. resistant Staph. aureus 09/07/20 14:04 Sputum, Induced/Lukens Gram Stain - Final 09/07/20 14:04 Sputum, Induced/Lukens Respiratory Culture - Final Enterobacter cloacae complex Streptococcus pneumoniae 09/09/20 14:55 Interface Orders SARS-CoV-2 Antigen (Rapid) - Final 09/07/20 11:10 Mucosa - Nose SARS-CoV-2 Antigen (Rapid) - Final Physical Exam Narrative General: Intubated, on mechanical ventilator, Cooperative, No apparent distress, Well developed HEENT: Atraumatic Oral: Moist Mucosa Neck: Supple Lungs: Clear to auscultation Cardiovascular: HS I+II, regular, no murmurs Abdomen: Bowel Sounds Present, Soft, Non Tender Extremities: chronic hyperpigmentation of legs Skin: No rashes, No breakdown Neurological: Grossly intact Psych/Mental Status: Appropriate Const Constitutional Narrative: remains intubated, sedated, RASS score is -3. HEENT normocephalic and head/scalp atraumatic Eyes PERRL Eyes Narrative: On mechanical ventilation and not following commands Neck no lymphadenopathy and no JVD Neck Narrative: Lymph Lymphatic: no lymphadenopathy noted and no lymphedema noted Chest inspection of chest normal Chest Narrative: Diminished breath Resp Resp Narrative: Intubated and sedated. diminished breath sounds bibasally, no wheezes or crackles. Auscultation: diminished lung sounds Cardio regular rate, S1 normal heart sound, S2 normal heart sound and no murmurs Cardio Narrative: Bradycardic. Normal S1 and S2 with no murmurs. Rate: bradycardia GI normal to inspection, nondistended, normoactive bowel sounds, soft to palpation and non-tender Extremity normal to inspection, no clubbing, cyanosis or edema and no pedal edema Skin Skin Narrative: Mild hyperpigmentation on lower extremities. No swelling or edema. Has a small blister on the RLE cabrera Neuro Neuro Narrative: Intubated, sedated, RASS score is -3. Assessment & Plan Assessment/Plan (1) Acute and chronic respiratory failure ([id number]): QUALIFIERS: Respiratory failure complication: hypoxia and hypercapnia Qualified Code(s): J96.21 - Acute and chronic respiratory failure with hypoxia; J96.22 - Acute and chronic respiratory failure with hypercapnia (2) STEMI (ST elevation myocardial infarction): QUALIFIERS: Involved coronary artery: unspecified coronary artery Qualified Code(s): I21.3 - ST elevation (STEMI) myocardial infarction of unspecified site (3) Symptomatic bradycardia: (4) Severe sepsis: PLAN: #Acute hypoxic respiratory failure due to probable aspiration pneumonia -lasted 50 minutes during the spontaneous breathing trial before becoming agitated; he is therefor improving -remains on propofol and fentanyl -on IV vancomycin and cefepime. -sputum cultured enterobacter and streptococcus as well as MRSA; blood cultures were negative after 5 days -critical care on board #Septic shock due to aspiration pneumonia -off any vasopressors -still on IV cefepime and vancomycin. Blood cultures negative. Sputum cultures as above. -had fever peaking at 101.3F today; will get repeat blood cultures in light of persistent fever and wbc trending upwards #S/p cardiac arrest -cause is still unclear -was in PEA. Remains intubated and sedated -cardiology on board #History of paroxysmal afib -He had an episode of paroxysmal A. fib and nonsustained V. tach. -cardiology on board -2D echo: EF of 45-50%, with mild global LV hypokinesia -Cardiology on board. #Symptomatic bradycardia -improving. still does get braycardic with spontaneous breathing trial -cardiology on board -per cardio, he may need to be considered for a pacemaker or ICD depending on how he does. -noted to have both RBBB and LBBB during this hospital stay #non STEMI -cardiology on board -on rectal aspirin, therapeutic lovenox and high intensity statin -weaned off amiodarone -further workup to be determined by his neurological state and recovery -2D echo(09/07/2020): as above #Acute metabolic encephalopathy -likely due to PEA and general medical condition -on IV keppra -EEG showed general background slowing with generalised voltage suppression -MRI of the brain was normal. ammonia level was only 38, and TSH was 0.51 -. To wean off sedation s tolerated; patient was a bit more responsive today when sedatives were weaned off during spontaneous breathing trial. #Nutrition: now on tube feeding. LILLIANA: -Cr today is down to 1.48 today -will monitor #Hypokalemia: resolved #Hypernatremia:sodium still 147 today. will monitor #History of dilated cardiomyopathy -2D echo finding as above. Cardiology on board. DVT prophylaxis: therapeutic lovenox GI prophylaxis: on PPI Visit Charges Inpatient E&M: [id number] [facility] L3
[2020-09-17] MEDS: Vital AF 1.2 Cal Liquid 1,000 ML 70 ML GT (11:46)
[2020-09-17] MEDS: levETIRAcetam IV 1,000 MG/100 ML BAG 400 MG IV ×2 (14:03→22:19)
--- NOTE | 2020-09-17 17:31 | NURSING ---
education re chronic illness deferred till acute illness resolving
[2020-09-17] MEDS: Atorvastatin Calcium 80 MG Tablet GT (21:44)
[2020-09-17] MEDS: 0.9% Saline Lock 10 ML Syringe IV (21:54)
[2020-09-18] VITALS (20 sets, daily range): BP systolic 100–190; BP diastolic 61–98; PULSE 60–100; RESP 14–30; TEMP 37.5–38.1; O2SAT 89–100
[2020-09-18] MEDS: Propofol 10MG/Ml 1,000 MG/100 ML Bottle 19.2 MG CONT INF (00:45)
[2020-09-18] MEDS: Ipratropium/Albuterol Sulfate 3 ML AMPUL.NEB INHALATION ×2 (01:53→06:28)
[2020-09-18 04:14] LABS: Hematocrit 30.9 % (40-54); Hemoglobin 9.8 g/dL (13.0-16.5); Mean Corp Hgb Conc 31.7 g/dL (32-36); Mean Corpuscular Hgb 28.2 pg (27.0-32.0); Mean Corpuscular Volume 88.8 fL (80-94); Mean Platelet Vol. 10.4 fl (6.2-12.0); Platelet Count 215 K/mm3 (150-450); RBC Distribution Width CV 15.6 % (11.6-14.6); RBC Distribution Width SD 50.8 fl (35.1-43.9); Red Blood Count 3.48 M/mm3 (4.6-6.2); White Blood Count 11.8 K/mm3 (4.4-11.0)
[2020-09-18 04:29] LABS: Anion Gap 5 (5-15); BUN 34 mg/dL (7-18); BUN/Creat Ratio 24.1 RATIO (10-20); Chloride 111 mmol/L (98-107); Creatinine, Serum 1.41 mg/dL (0.70-1.30); EST Glomerular Filtration Rate 56 mL/min (>60); Est Glom Filt Rate - Afr Amer 68 mL/min (>60); Estimated Creatinine Clearance 62.56 ml/min; Glucose 122 mg/dL (74-106); Potassium 3.3 mmol/L (3.5-5.1); Sodium Level 147 mmol/L (136-145)
[2020-09-18] MEDS: Budesonide Respules 0.5 MG/2 ML AMPUL.NEB. INHALATION (06:28)
[2020-09-18] MEDS: TITRATION PARAMETER CHANGE 1 EACH IV (06:36)
--- NOTE | 2020-09-18 07:09 | PN.CC_ITS ---
Subjective Subjective: Patient did well overnight. Patient is answering questions and following commands this morning. Reportedly, there is some discrepancy between patient's POA and his girlfriend on treatment plans following extubation. Patient was able to tolerate a spontaneous breathing trial this morning, but was placed back on mechanical ventilation pending discussion with POA personally. Objective Data Objective Data Vital Signs: Vital Signs Temp Pulse Resp BP Pulse Ox 37.7 C H 80 19 H 190/96 H 96 09/18/20 07:00 09/18/20 07:00 09/18/20 07:00 09/18/20 07:00 09/18/20 07:00 Oxygen Flow Rate (L/min) 30 Oxygen Delivery Method Mechanical Ventilator Weight: 89.5 kg Body Mass Index (BMI) 28.5 Intake & Output: Intake and Output for Last 24 Hours 09/16/20 09/17/20 09/18/20 23:59 23:59 23:59 Intake Total 4935.72 / 5201.59 4771.68 / 5384.88 1264.32 / 1264.32 Output Total 2075 / 2425 4420 / 4570 650 / 650 Balance 2860.72 / 2776.59 351.68 / 814.88 614.32 / 614.32 Lab / Micro Data Result Diagrams: 09/18/20 04:00 09/18/20 04:00 Labs: Laboratory Results - last 24 hr 09/18/20 09/18/20 04:00 04:00 WBC 11.8 H RBC 3.48 L Hgb 9.8 L Hct 30.9 L MCV 88.8 MCH 28.2 MCHC 31.7 L RDW Std Deviation 50.8 H RDW Coeff of Trevor 15.6 H Plt Count 215 MPV 10.4 Sodium 147 H Potassium 3.3 L Chloride 111 H Carbon Dioxide 31.0 Anion Gap 5 BUN 34 H Creatinine 1.41 H Estim Creat Clear Calc 62.56 Est GFR (MDRD) Af Amer 68 Est GFR (MDRD) Non-Af 56 L BUN/Creatinine Ratio 24.1 H Glucose 122 H Calcium 8.0 L Micro: Microbiology 09/11/20 06:20 Blood Culture (Wb) - Central Line Blood Culture - Final No growth in 5 days. 09/09/20 15:10 Blood Culture (Wb) - Right Hand Blood Culture - Final No growth in 5 days. 09/09/20 14:55 Blood Culture (Wb) - Central Line Blood Culture - Final No growth in 5 days. 09/11/20 07:27 Sputum, Tracheal Aspirate Gram Stain - Final 09/11/20 07:27 Sputum, Tracheal Aspirate Respiratory Culture - Final Enterobacter cloacae complex Escherichia coli Meth. resistant Staph. aureus 09/07/20 14:04 Sputum, Induced/Lukens Gram Stain - Final 09/07/20 14:04 Sputum, Induced/Lukens Respiratory Culture - Final Enterobacter cloacae complex Streptococcus pneumoniae 09/09/20 14:55 Interface Orders SARS-CoV-2 Antigen (Rapid) - Final 09/07/20 11:10 Mucosa - Nose SARS-CoV-2 Antigen (Rapid) - Final Physical Exam Const no apparent distress Constitutional Narrative: Intubated, sedated and mechanically ventilated. No ventilator dyssynchrony noted. General Appearance: patient mechanically ventilated HEENT normocephalic, head/scalp atraumatic and moist oral mucous membranes Eyes PERRL, conjunctivae normal and no scleral icterus Neck no lymphadenopathy and supple General: trachea midline and CVC in place Resp no use of accessory muscles Resp Narrative: Coarse mechanical breath sounds bilaterally Effort and Inspection: tachypneic Auscultation: wheezes and diminished lung sounds; Negative for rales or rhonchi Cardio regular rate, regular rhythm, S1 normal heart sound and S2 normal heart sound; Negative for no rub or no gallops Rate: bradycardia Rhythm: abnormal rhythm Heart Sounds: Negative for murmur Peripheral Pulses: pulses 2+ throughout GI normal to inspection, nondistended, normoactive bowel sounds, soft to palpation and non-tender Auscultation: normoactive bowel sounds Extremity no clubbing, cyanosis or edema Skin Skin Narrative: Venous stasis changes of the lower extremities. No significant edema. Small blister on the anterior aspect of the left leg. Still intact with mild surrounding erythema General Skin Exam: venous stasis and dermatitis Neuro moves all extremities and no focal motor deficits Neuro Narrative: Currently following commands. Sedated on the ventilator. Sensorium / Orientation: sedated on vent Psych Activity / Motor Behavior: restless Mood & Affect: flat affect Assessment & Plan Assessment/Plan (1) Cardiac arrest: PLAN: RECOMMENDATIONS: 1. Continue patient on assist control mode of mechanical ventilation and wean FiO2 to maintain saturations at or above 90%. 2. Minimize sedation as tolerated. Goal to maintain a RASS of -1 to 1. 3. Continue empiric Keppra. 4. Continue bronchodilators and inhaled corticosteroid. 5. Continue antimicrobials to complete treatment course. 6. Continue tube feeds and free water flushes as tolerated. 7. Continue appropriate GI prophylaxis. 8. Ongoing goals of care discussion with the patient's healthcare POA. Po tential trial of extubation later today IMPRESSIONS: 1. Cardiac arrest of unknown etiology History of both advanced cardiac and pulmonary pathologies. No reported history of recent exacerbation type symptoms from a COPD standpoint. Clinical suspicion for cardiac arrest secondary to Viagra with sublingual nitroglycerin 2. Distributive versus cardiogenic shock Resolved. The patient has been successfully weaned from vasopressor support. He does have multiple pathogens growing from his sputum culture, but is on appropriate antimicrobial coverage. 3. Acute on chronic combined respiratory failure with pneumococcal and Enterobacter pneumonia Plan to continue current supportive measures with invasive mechanical ventilatory support. Continue patient on assist control mode of mechanical ventilation and wean FiO2 as tolerated to maintain saturations at or above 90%. Continue antimicrobials as ordered. Continue scheduled bronchodilators and inhaled corticosteroid. Okay to continue tube feeds as tolerated. We will need to discuss goals of care with the patient's healthcare POA prior to considering potential extubation. Given improvement in mentation, possibly extubate later today once goals of therapy are appreciated. 4. Chronic diastolic CHF/paroxysmal A. fib/pulmonary hypertension Continue medical management per cardiology recommendations. 5. Encephalopathy/possible seizures The patient has had questionable seizure activity during his hospitalization, for which she was started empirically on Keppra. EEG did not demonstrate any focal seizure activity. The patient has not demonstrated any significant improvement in his overall mentation. MRI brain was unremarkable. The patient's overall mentation does appear to be slowly improving with time. 6. Hemochromatosis/obesity/smoking addiction/depression/poor history/hyperlipidemia Complicates care, management, recovery and prognosis. Okay to continue with baseline medications from my perspective. TIME: 76 minutes of critical care time, independent of procedures, was spent addressing the patient's cardiac arrest, acute on chronic combined respiratory failure, pneumococcal and Enterobacter pneumonia, history of coronary artery disease, questionable seizures, review of all data and collaboration with care team. (5:30 AM to 6:30 AM, 12 PM to 12:50 PM) Addendum Addendum: Patient extubated at approximately 12:20 PM. Patient initially did not have a great leak, so family was sent to the lobby. After extubation, patient with significant respiratory distress and desaturation. Patient was given Ativan and morphine. NT suctioning was not successful in relieving distress. Discussed with the family and palliative measures will be initiated. Procedures Hospitalists Procedures: 10886 Critial Care Addl 30 Min Procedures Pulmonary 9xxxx: 31827 Critical care first hour
--- NOTE | 2020-09-18 08:40 | PCM.PN.CARD ---
Subjective Subjective: The patient remains mechanically intubated and ventilated. His sedation has been placed on hold. Objective Data Vital Signs: Vital Signs Temp Pulse Resp BP Pulse Ox 99.9 F H 78 19 H 190/96 H 96 09/18/20 07:00 09/18/20 07:03 09/18/20 07:00 09/18/20 07:00 09/18/20 07:00 Oxygen Flow Rate (L/min) 30 Oxygen Delivery Method Mechanical Ventilator Weight: 197 lb 5.019 oz Body Mass Index (BMI) 28.5 Intake & Output: Intake and Output for Last 24 Hours 09/16/20 09/17/20 09/18/20 23:59 23:59 23:59 Intake Total 4935.72 / 5201.59 4771.68 / 5384.88 1264.32 / 1264.32 Output Total 2075 / 2425 4420 / 4570 650 / 650 Balance 2860.72 / 2776.59 351.68 / 814.88 614.32 / 614.32 Lab / Micro Data Result Diagrams: 09/18/20 04:00 09/18/20 04:00 Labs: Laboratory Results - last 24 hr 09/18/20 09/18/20 04:00 04:00 WBC 11.8 H RBC 3.48 L Hgb 9.8 L Hct 30.9 L MCV 88.8 MCH 28.2 MCHC 31.7 L RDW Std Deviation 50.8 H RDW Coeff of Trevor 15.6 H Plt Count 215 MPV 10.4 Sodium 147 H Potassium 3.3 L Chloride 111 H Carbon Dioxide 31.0 Anion Gap 5 BUN 34 H Creatinine 1.41 H Estim Creat Clear Calc 62.56 Est GFR (MDRD) Af Amer 68 Est GFR (MDRD) Non-Af 56 L BUN/Creatinine Ratio 24.1 H Glucose 122 H Calcium 8.0 L Micro: Microbiology 09/11/20 06:20 Blood Culture (Wb) - Central Line Blood Culture - Final No growth in 5 days. 09/09/20 15:10 Blood Culture (Wb) - Right Hand Blood Culture - Final No growth in 5 days. 09/09/20 14:55 Blood Culture (Wb) - Central Line Blood Culture - Final No growth in 5 days. 09/11/20 07:27 Sputum, Tracheal Aspirate Gram Stain - Final 09/11/20 07:27 Sputum, Tracheal Aspirate Respiratory Culture - Final Enterobacter cloacae complex Escherichia coli Meth. resistant Staph. aureus 09/07/20 14:04 Sputum, Induced/Lukens Gram Stain - Final 09/07/20 14:04 Sputum, Induced/Lukens Respiratory Culture - Final Enterobacter cloacae complex Streptococcus pneumoniae 09/09/20 14:55 Interface Orders SARS-CoV-2 Antigen (Rapid) - Final 09/07/20 11:10 Mucosa - Nose SARS-CoV-2 Antigen (Rapid) - Final Cardiology Labs/Tests 09/18/20 04:00: WBC 11.8 H, RBC 3.48 L, Hgb 9.8 L, Hct 30.9 L, MCV 88.8, MCH 28.2, MCHC 31.7 L, Plt Count 215, MPV 10.4 09/18/20 04:00: Sodium 147 H, Potassium 3.3 L, Chloride 111 H, Carbon Dioxide 31.0, Anion Gap 5, BUN 34 H, Creatinine 1.41 H, Est GFR (MDRD) Af Amer 68, Est GFR (MDRD) Non-Af 56 L, BUN/Creatinine Ratio 24.1 H, Glucose 122 H, Calcium 8.0 L Rhythm: Sinus rhythm Physical Exam Narrative The patient remains mechanically intubated and ventilated. Const Orientation / Consciousness: awake HEENT normocephalic Eyes PERRL and conjunctivae normal Neck supple, no JVD and no carotid bruits Chest inspection of chest normal Resp normal respiratory effort Auscultation: rhonchi Cardio regular rate, regular rhythm, S1 normal heart sound and S2 normal heart sound Palpation: normal PMI Rate: regular rate Rhythm: regular rhythm Heart Sounds: S1 normal and S2 normal Peripheral Pulses: pulses 2+ throughout GI normal to inspection, nondistended, normoactive bowel sounds Extremity normal to inspection, no clubbing, cyanosis or edema and no pedal edema Psych mental status grossly normal Assessment & Plan Assessment/Plan (1) Cardiac arrest: PLAN: The patient remains mechanically intubated and ventilated. His sedation has been discontinued. Based upon communication with the ICU staff it appears there is going to be a conversation this day with his POA with respect to an attempt at extubation and subsequent plans for reintubation if necessary versus no reintubation. (2) Dilated cardiomyopathy: PLAN: He does have a history of a previous non-CAD related cardiomyopathy. His overall LV systolic function has improved over time. He will need continued medical management as deemed appropriate depending upon his ongoing clinical status/neurologic status, etc. (3) Paroxysmal atrial fibrillation: PLAN: At the present time his rhythm remains sinus rhythm. It can be followed. Depending upon his future clinical status/neurologic response consideration can be given as to additional medical therapy as deemed appropriate. (4) Pulmonary hypertension: PLAN: He does have a history of pulmonary hypertension. There is been concerns over time that this could lead to cor pulmonale and right heart failure. He was being treated for such as an outpatient which had included diuretic therapy. At the moment he has continued pulmonary support while in the ICU. He has not required additional cardiovascular diagnostic studies/intervention thus far. (5) Obstructive sleep apnea: PLAN: He does have a history of NIRMAL which was thought to be a contributing factor to his pulmonary hypertension. He will need continued pulmonary evaluation care as deemed appropriate. (6) Pure hypercholesterolemia: PLAN: He will continue risk factor evaluation care as deemed appropriate. (7) Essential hypertension: PLAN: His blood pressure can be followed. He will continue medical therapy with adjustment as his clinical course progresses/hopefully stabilizes, etc. Addt'l Comments Overall, from a cardiovascular standpoint, he has continued supportive therapy while in the ICU on mechanical ventilation/intubation. His medications have been on hold based upon a variety of different reasons. Depending upon his clinical course which may include extubation and subsequent determination of his neurologic status consideration will be given as to how to continue medical therapy and whether or not he needs any other cardiovascular diagnostic studies, etc., at this time. This note was generated using a voice recognition system and there may be incorrect words, spelling or punctuation that were not noted when reviewing the office note prior to saving.
--- NOTE | 2020-09-18 09:02 | PN.HOSP_ITS ---
Subjective Subjective: Patient was seen in examined today in the ICU, I discussed his care with pulmonary medicine, he is more awake today than yesterday, pulmonary medicine is waiting to talk with his POA and his fianc?e concerning possible extubation. Labs were reviewed, potassium was slightly low today. Objective Data Objective Data Vital Signs: Vital Signs Temp Pulse Resp BP Pulse Ox 100.0 F H 77 15 173/88 H 97 09/18/20 08:00 09/18/20 08:00 09/18/20 08:00 09/18/20 08:00 09/18/20 08:00 Oxygen Flow Rate (L/min) 30 Oxygen Delivery Method Mechanical Ventilator Weight: 89.5 kg Body Mass Index (BMI) 28.5 Intake & Output: Intake and Output for Last 24 Hours 09/16/20 09/17/20 09/18/20 23:59 23:59 23:59 Intake Total 4935.72 / 5201.59 4771.68 / 5384.88 1269.32 / 1269.32 Output Total 2075 / 2425 4420 / 4570 650 / 650 Balance 2860.72 / 2776.59 351.68 / 814.88 619.32 / 619.32 Lab / Micro Data Result Diagrams: 09/18/20 04:00 09/18/20 04:00 Labs: Laboratory Results - last 24 hr 09/18/20 09/18/20 04:00 04:00 WBC 11.8 H RBC 3.48 L Hgb 9.8 L Hct 30.9 L MCV 88.8 MCH 28.2 MCHC 31.7 L RDW Std Deviation 50.8 H RDW Coeff of Trevor 15.6 H Plt Count 215 MPV 10.4 Sodium 147 H Potassium 3.3 L Chloride 111 H Carbon Dioxide 31.0 Anion Gap 5 BUN 34 H Creatinine 1.41 H Estim Creat Clear Calc 62.56 Est GFR (MDRD) Af Amer 68 Est GFR (MDRD) Non-Af 56 L BUN/Creatinine Ratio 24.1 H Glucose 122 H Calcium 8.0 L Micro: Microbiology 09/11/20 06:20 Blood Culture (Wb) - Central Line Blood Culture - Final No growth in 5 days. 09/09/20 15:10 Blood Culture (Wb) - Right Hand Blood Culture - Final No growth in 5 days. 09/09/20 14:55 Blood Culture (Wb) - Central Line Blood Culture - Final No growth in 5 days. 09/11/20 07:27 Sputum, Tracheal Aspirate Gram Stain - Final 09/11/20 07:27 Sputum, Tracheal Aspirate Respiratory Culture - Final Enterobacter cloacae complex Escherichia coli Meth. resistant Staph. aureus 09/07/20 14:04 Sputum, Induced/Lukens Gram Stain - Final 09/07/20 14:04 Sputum, Induced/Lukens Respiratory Culture - Final Enterobacter cloacae complex Streptococcus pneumoniae 09/09/20 14:55 Interface Orders SARS-CoV-2 Antigen (Rapid) - Final 09/07/20 11:10 Mucosa - Nose SARS-CoV-2 Antigen (Rapid) - Final Physical Exam Const alert, no apparent distress and well nourished Constitutional Narrative: Patient is alert, he is able to nod his head to simple questions HEENT moist oral mucous membranes Head and Scalp: normocephalic Eyes PERRL, EOMs intact bilaterally and conjunctivae normal Neck supple and no JVD Resp normal respiratory effort, no retractions and clear to auscultation bilaterally Cardio regular rate, regular rhythm, no murmurs, no rub and no gallops GI normal to inspection, nondistended, normoactive bowel sounds, soft to palpation and non-tender Extremity no clubbing, cyanosis or edema Extremity Narrative: Patient has evidence of stasis dermatitis changes of both lower legs Skin Skin Narrative: Stasis dermatitis changes are noted over both lower legs Neuro Neuro Narrative: Patient is awake and alert, he remains on the ventilator at this time, he is able to shake his head yes when asked simple questions Sensorium / Orientation: awake and alert Psych Psych Narrative: Patient is currently on the ventilator Assessment & Plan Assessment/Plan (1) Acute and chronic respiratory failure ([id number]): QUALIFIERS: Respiratory failure complication: hypoxia and hy percapnia Qualified Code(s): J96.21 - Acute and chronic respiratory failure with hypoxia; J96.22 - Acute and chronic respiratory failure with hypercapnia (2) Cardiac arrest: (3) Dilated cardiomyopathy: (4) Paroxysmal atrial fibrillation: (5) Cardiogenic shock: (6) Pulmonary hypertension: PLAN: #1. Cardiac arrest-etiology unknown, patient appears stable at this time, cardiology seeing patient #2 cardiogenic shock-resolved at this time #3 acute on chronic combined respiratory failure-patient remains on the vent at this time, the plan is to try to extubate the patient today if possible #4 pneumococcal and Enterobacter pneumonia-patient remains on antibiotics at this time #5 paroxysmal A. fib #6 pulmonary hypertension #7 dilated cardiomyopathy Visit Charges Inpatient E&M: 21147 Subs Hosp L2
[2020-09-18] MEDS: Enoxaparin 100 MG/ML Syringe 90 MG SC (09:30)
[2020-09-18] MEDS: Chlorhexidine 15 ML PO (09:30)
[2020-09-18] MEDS: Aspirin 325 MG Tablet GT (09:30)
[2020-09-18] MEDS: levETIRAcetam IV 1,000 MG/100 ML BAG 400 MG IV (09:33)
[2020-09-18] MEDS: 0.9% Saline Lock 10 ML Syringe IV (09:47)
[2020-09-18] MEDS: Propofol 10MG/Ml 1,000 MG/100 ML Bottle 2.7 MG CONT INF (10:01)
--- NOTE | 2020-09-18 11:37 | NURSING ---
Susana (POA) & Gena (significant other) both at the bedside visiting w/pt.
--- NOTE | 2020-09-18 12:00 | CASEMGMT ---
SW met w/pt's LUNA Meza and significant other Gena in the room, support offered. SW remains available for any support to family. LEYLA Carlos
[2020-09-18] MEDS: fentaNYL 100 MCG/2 ML Ampul 50 MCG IV ×2 (12:30→12:40)
[2020-09-18] MEDS: LORazepam 2 MG/ML Syringe 1 MG IV (12:30)
[2020-09-18] MEDS: Racepinephrine HCl 0.5 ML VIAL.NEB. INHALATION (12:36)
[2020-09-18] MEDS: LORazepam 2 MG/ML Syringe IV (12:40)
--- NOTE | 2020-09-18 13:54 | NURSING ---
After lengthy discussions w/Dr Alonzo, this RN & pt's healthcare Power of Agriculture Sales Account Manager, Susana Chance, decision was made to extubate patient with no plans to re-intubate per pt's wishes. HCPAGUSTO Meza & pt's significant other Gena came to see patient at 1130. All sedation was turned off at 1125. Pt awake, restless, shakes head yes/no, follows simple commands. Extubated at 1215. Pt w/loud, rhoncherous, tachypneic breath sounds. Appeared in resp distress. Dr Alonzo notified and orders were obtained. See EMAR for medication administration. Pt time of was 1325. No respirations, No heart beat, verified w/H.Cande, RN and MD's notified.
--- NOTE | 2020-09-22 08:19 | PCM.DEATH ---
Preliminary Cause of Acute hypoxic respiratory failure secondary to aspiration pneumonia and Date of Admission: 09/07/20 Principle Diagnosis Problem List: Active and Suspected Problems (Updated 09/10/20 @ 12:[address] Elizabeth Mae MD) Severe sepsis (Acute) Symptomatic bradycardia (Acute) Fever (Acute) Seizures (Acute) Hypokalemia (Acute) Cardiac arrest (Acute) Leucocytosis (Acute) LILLIANA (acute kidney injury) (Acute) Lactic acidosis (Acute) Non-ST elevated myocardial infarction (Acute) Hemochromatosis (Acute)
--- NOTE | 2020-09-22 19:28 | PCM.DEATH ---
Preliminary Cause of Preliminary Cause of Preliminary Cause of : Acidosis secondary to hypoxic respiratory failure as a result of aspiration pneumonia and anoxic encephalopathy Additional diagnosis: Cardiac arrest-etiology unknown Cardiogenic shock Acute on chronic combined respiratory failure Pneumococcal and Enterobacter pneumonia felt to be secondary to aspiration Paroxysmal A. fib Pulmonary hypertension Dilated cardiomyopathy Date of Admission: 09/07/20 Principle Diagnosis Problem List: Active and Suspected Problems (Updated 09/10/20 @ 12:[address] Elizabeth Mae MD) Severe sepsis (Acute) Symptomatic bradycardia (Acute) Fever (Acute) Seizures (Acute) Hypokalemia (Acute) Cardiac arrest (Acute) Leucocytosis (Acute) LILLIANA (acute kidney injury) (Acute) Lactic acidosis (Acute) Non-ST elevated myocardial infarction (Acute) Hemochromatosis (Acute) Assessment & Plan Assessment/Plan (1) Cardiac arrest: PLAN: Length of time for discharge summary: 34 minutes Hospital Course Patient was seen in the emergency room at [facility] after sustaining a cardiac arrest at home, patient was with his significant other and having sex and complaining of being short of breath and chest discomfort. Patient's partner tried to give him a nitroglycerin tablet the patient then collapsed, EMS was called and on arrival the patient was pulseless and apneic. Patient was in PEA and received 1 dose of epinephrine, patient was intubated and CPR was continued. EKG obtained in the emergency room showed no acute injury pattern, increased markings at the right lung base was noted on the chest x-ray suggestive of aspiration. Patient was admitted to ICU where he was seen by critical care, he was placed on IV antibiotics for aspiration pneumonia, a central line was placed by critical care. Patient remained on the vent with minimal responsiveness, he gradually became more alert and on 09/18/2020, he appeared to be stable for extubation. His POA and significant other were contacted, they agreed that the patient would not be reintubated if he was extubated and failed. Patient was extubated on 09/18/2020 and decompensated rapidly after extubation, POA did not want CPR on the patient and he on 09/18/2020 at 1326. Cause of was believed to be acidosis secondary to hypoxic respiratory failure from aspiration pneumonia and anoxic encephalopathy. Visit Charges Inpatient E&M: 12547 Disch Hosp
== END 2020-09-18 16:00 ==
LOC: ED 12:03 → ICU 12:21
PROVIDERS: Hospitalist; Internal Medicine Critical Care Medicine; Internal Medicine Interventional Cardiology; Student in an Organized Health Care Education/Training Program; Admitting Provider Internal Medicine; Emergency Provider Emergency Medicine; PCP Family Medicine Geriatric Medicine; Visit Provider Internal Medicine
DX: I46.9 Cardiac arrest, cause unspecified (principal); J96.21 Acute and chronic respiratory failure with hypoxia; I21.4 Non-ST elevation (NSTEMI) myocardial infarction; J69.0 Pneumonitis due to inhalation of food and vomit; A41.9 Sepsis, unspecified organism; R65.20 Severe sepsis without septic shock; J15.4 Pneumonia due to other streptococci; J15.6 Pneumonia due to other Gram-negative bacteria; J96.22 Acute and chronic respiratory failure with hypercapnia; E87.2 Acidosis; G93.1 Anoxic brain damage, not elsewhere classified; I42.0 Dilated cardiomyopathy; N17.9 Acute kidney failure, unspecified; J44.0 Chronic obstructive pulmonary disease with (acute) lower respiratory infection; E87.0 Hyperosmolality and hypernatremia; I50.32 Chronic diastolic (congestive) heart failure; I25.810 Atherosclerosis of coronary artery bypass graft(s) without angina pectoris; I48.92 Unspecified atrial flutter; I11.0 Hypertensive heart disease with heart failure; I25.10 Atherosclerotic heart disease of native coronary artery without angina pectoris; I48.0 Paroxysmal atrial fibrillation; I27.20 Pulmonary hypertension, unspecified; E83.119 Hemochromatosis, unspecified; F17.200 Nicotine dependence, unspecified, uncomplicated; D72.829 Elevated white blood cell count, unspecified; E66.9 Obesity, unspecified; R56.9 Unspecified convulsions; F32.9 Major depressive disorder, single episode, unspecified; I25.2 Old myocardial infarction; R45.1 Restlessness and agitation; R00.1 Bradycardia, unspecified; E87.6 Hypokalemia; E78.00 Pure hypercholesterolemia, unspecified; G47.33 Obstructive sleep apnea (adult) (pediatric); Z68.28 Body mass index [BMI] 28.0-28.9, adult; Z79.01 Long term (current) use of anticoagulants; Z79.899 Other long term (current) drug therapy; Z82.49 Family history of ischemic heart disease and other diseases of the circulatory system
CPT/HCPCS: 31500; 31720; 36600; 70450; 70553; 71045; 80048; 80053; 80202; 81002; 82140; 82803; 83605; 83735; 84443; 84484; 85025; 85027; 85610; 85730; 87040; 87070; 87077; 87186; 87205; 87426; 93005; 93306; 94002; 94003; 94640; 94660; 95819; 97162; 97167; 97802; 97803; 99251; 99285; A9575; J2997; J7030; J7040; J7050; A4216; G0463; J0295; J0330; J1940; J2405; J3010; J3490